=== PATIENT | female | born 1940 | race Caucasian/White ===

== ENCOUNTER 2020-07-22 10:56 | Outpatient (REF) | payer MEDICARE, OTHER, SELFPAY ==
--- NOTE | 2020-07-22 | XR_ITS ---
EXAMINATION: XR SHOULDER, RIGHT CLINICAL INFORMATION: Right shoulder pain COMPARISON: Radiographs right shoulder 12/09/2019 TECHNIQUE: The right shoulder is imaged in 4 views. FINDINGS: There is calcific tendinosis involving the mid to distal superior rotator cuff in region of supraspinatus. There may also be mineralization in the teres minor. There is no fracture or dislocation or destructive process. Degenerative changes are again noted involving the acromioclavicular joint. There is some spurring at the superior glenoid as well as the superior lateral acromium. The acromioclavicular alignment is normal. IMPRESSION: 1. Calcific tendinosis rotator cuff. 2. Degenerative changes acromioclavicular joint.
== END 2020-07-22 10:57 | disposition home or self-care (01) ==
LOC: HO.XRAY 10:56
PROVIDERS: PCP Internal Medicine; Visit Provider Emergency Medicine
DX: M25.511 Pain in right shoulder (principal)
CPT/HCPCS: 73030

== ENCOUNTER → 2020-07-28 13:19 | Outpatient (BNVA) | payer MEDICARE, OTHER, SELFPAY | PROVIDERS: PCP Internal Medicine; Referring Provider Internal Medicine; Visit Provider Orthopaedic Surgery | DX: M75.101 Unspecified rotator cuff tear or rupture of right shoulder, not specified as traumatic (principal); M12.811 Other specific arthropathies, not elsewhere classified, right shoulder | CPT/HCPCS: 20610; 99214; J1040 ==

== ENCOUNTER 2020-08-27 12:06 | Outpatient (REF) | payer MEDICARE, OTHER, SELFPAY ==
--- NOTE | 2020-08-27 12:10 | XR_ITS ---
EXAMINATION: XR HIP, RIGHT CLINICAL INFORMATION: Right hip pain. COMPARISON: Left hip radiographs dated 12/25/2018. TECHNIQUE: Two views of the right hip. FINDINGS: Minimal right hip degenerative joint changes are seen. There is no acute fracture or dislocation. The right hemipelvis is intact. XR/XR hip RT min 2V IMPRESSION: Minimal right hip degenerative joint changes. No acute abnormality. These findings are less pronounced compared to the left hip.
== END 2020-08-27 12:07 | disposition home or self-care (01) ==
LOC: HO.XRAY 12:06
PROVIDERS: Visit Provider Internal Medicine
DX: M25.551 Pain in right hip (principal)
CPT/HCPCS: 73502

== ENCOUNTER 2021-03-25 08:51 | Outpatient (REF) | payer MEDICARE, MEDICAID, SELFPAY ==
[2021-03-25 11:09] LABS: B Type Natriuretic Peptide 23 pg/mL (<100)
== END 2021-03-25 08:52 | disposition home or self-care (01) ==
LOC: HO.LAB 08:51
PROVIDERS: PCP Internal Medicine; Referring Provider Internal Medicine; Visit Provider Internal Medicine Cardiovascular Disease
DX: R06.01 Orthopnea (principal); I42.9 Cardiomyopathy, unspecified; R06.02 Shortness of breath; I10 Essential (primary) hypertension; G47.33 Obstructive sleep apnea (adult) (pediatric); Z79.899 Other long term (current) drug therapy; Z87.891 Personal history of nicotine dependence
CPT/HCPCS: 36415; 83880; 93005; 99212

== ENCOUNTER 2021-04-01 11:00 | Outpatient (REF) | payer MEDICARE, MEDICAID, SELFPAY ==
[2021-04-01 12:20] LABS: Hematocrit 39.6 % (37-47); Hemoglobin 12.7 g/dl (12.0-16.0); Mean Corpuscular HGB Conc 32.1 g/dl (31.0-35.0); Mean Corpuscular Hemoglobin 28.7 pg (27.0-33.0); Mean Corpuscular Volume 89.4 fL (80-98); Mean Platelet Volume 9.8 fL (9.4-12.3); Platelet Count 357 X10*3/uL (160-400); Red Blood Count 4.43 X10*6/uL (4.20-5.50); Red Cell Distribution Width 14.1 % (11.0-16.0); White Blood Count 7.1 X10*3/uL (4.8-10.8)
[2021-04-01 12:46] LABS: Alanine Aminotransferase 17 U/L (0-31); Alkaline Phosphatase 94 U/L (39-117); Anion Gap 12 (12-20); Aspartate Amino Transferase 18 U/L (5-31); Bilirubin Total 0.5 mg/dL (0.0-1.0); Blood Urea Nitrogen 22 mg/dL (9-16); Carbon Dioxide 27 mmol/L (22-29); Chloride 106 mmol/L (96-108); Cholesterol 137 mg/dL; Estimated Glomerular Filt Rate > 60; Glucose Random 133 mg/dL (60-115); HDL Cholesterol 50 mg/dL; LDL Cholesterol Calculated 58 mg/dl; Potassium 4.2 mmol/L (3.3-5.1); Sodium 141 mmol/L (135-145); Total Protein 6.8 g/dL (6.5-8.0); Triglycerides 148 mg/dL
[2021-04-01 13:08] LABS: Thyroid Stimulating Hormone 0.78 uIU/mL (0.32-4.0)
[2021-04-01 15:02] LABS: Microalbum/Creatinine Ratio Ur 10.6 ug/mg cr
== END 2021-04-01 11:01 | disposition home or self-care (01) ==
LOC: HO.LAB 11:00
PROVIDERS: PCP Internal Medicine; Visit Provider Internal Medicine
DX: E11.9 Type 2 diabetes mellitus without complications (principal); I10 Essential (primary) hypertension
CPT/HCPCS: 36415; 80053; 80061; 82043; 84443; 85027

== ENCOUNTER → 2021-04-14 13:56 | Outpatient (REF) | payer MEDICARE, MEDICAID, SELFPAY ==
--- NOTE | 2021-04-14 13:59 | CA_ITS ---
Transthoracic Echocardiogram Patient (Last, First, Middle): Charleen Urena, Gender: Female Date of : 1940 Age: 81 Procedure Date: 04/14/2021 Procedure Type: Transthoracic Echocardiogram Location: OP Height: 152.4 cm Weight: 78.02 kg BSA: 1.75 m2 Heart Rate: bpm BP: 136 / 60 mmHg Shift Foreman: Referring MD: Junaid Hitchcock MD Symptoms: I42.9 - Cardiomyopathy, unspecified Study Quality: Good ECG Rhythm: Sinus Conclusions: - The left ventricular systolic function is normal. The visually estimated ejection fraction is between 60-65%. - There is mild calcification of the aortic valve. - There is mild mitral annular calcification. - Interatrial septum not well visualized. Possibly aneurysmal in some views. - May consider bubble study if clinically indicated. Findings Left Ventricle Normal left ventricular cavity size. There is normal left ventricular wall thickness. The left ventricular systolic function is normal. The visually estimated ejection fraction is between 60-65%. There is no evidence of regional wall motion abnormalities. E/E prime ratio is between 8 and 15 consistent with indeterminate filling pressures. Evidence suggests grade I (mild) diastolic dysfunction. Right Ventricle Normal right ventricular cavity size and systolic function. Atria Both atria are normal in size. Interatrial septum not well visualized. Possibly aneurysmal in some views. Aortic Valve There is a normal trileaflet aortic valve. There is mild calcification of the aortic valve. There is no aortic valve stenosis. There is no aortic valve regurgitation. Mitral Valve The mitral valve appears normal. There is mild mitral annular calcification. There is trace mitral valve regurgitation. There is no mitral valve stenosis. Pulmonic Valve The pulmonic valve was not well visualized. Tricuspid Valve Normal tricuspid valve structure. There is trace tricuspid valve regurgitation. The pulmonary artery systolic pressure is normal. Great Vessels The aortic annulus, sinuses of valsalva, asc aorta, and aortic arch are normal in size. Venous The inferior vena cava is normal in size and collapses greater than 50% with inspiration. Pericardium/Pleural There is no evidence of pericardial effusion. Prior Study Comparison No significant change compared to prior study dated: 05/18/2018. Measurements 2D Linear Measurements RVIDd: 3.44 RVIDd Index: 1.97 IVSd: 1.01 0.6-0.9/0.6-1.0 cm LVIDd: 4.86 3.9-5.3/4.2-5.9 cm LVIDd Index: 2.78 2.4-3.2/2.2-3.1 cm/m2 LVIDs: 3.41 2.0-3.6 cm LVPWd: 1.13 0.7-1.1 cm Ao Root: 3.00 2.1-3.5 cm LV Mass: 237.34 67-162/88-224 g LV Mass Index: 135.62 43-95/49-115 g/m2 LVOT Diam: 2.00 3.0+(-)1.3 cm 2D Systolic Function EF 4C: 53.40 >55% EF 2C: 63.40 >55% Mitral Valve MV Pk E: 0.69 MV PK A: 0.83 MV Decel Time: 281.00 E/A: 0.80 E'Lateral: 6.09 E'Medial: 4.24 E/E' Med: 16.30 E/E' Lat: 11.30 MR Alias Cj: 0.40 MR RAD: 0.40 Aortic Valve AoV Pk Cj: 1.49 AoV Mn Cj: 1.01 AoV VTI: 0.33 AoV Pk Grad: 9.00 Aov Mn Grad: 5.00 JOELLEN Cont.VTI: 2.04 LVOT LVOT Pk Cj: 1.01 LVOT Mn Cj: 0.64 LVOT VTI: 0.22 LVOT Pk Grad: 4.00 LVOT Mn Grad: 2.00 LVOT Diam: 2.00 LVOT Area: 3.14 Diastolic Function MV Pk E: 0.69 MV Pk A: 0.83 E/A: 0.80 E'Medial: 4.24 E/E' Med: 16.30 E' Laterial: 6.09 E/E' Lat: 11.30 Tricuspid Valve TR Pk Cj: 2.17 TR Pk Grad: 19.00 RA Press: 3.00 RVSP: 22.00 Great Vessels Aorta Ao Root-2D: 3.00 2.0-3.7 cm Ao Asc: 2.60 2.1-3.4 cm Ao Arch: 2.30 Updated in Other Vendor System with Status of Final Amol Causey MD electronically signed on 04/15/2021 12:38:07 PM with status of Final
== END ==
LOC: HO.CARD 13:56
PROVIDERS: PCP Internal Medicine; Visit Provider Internal Medicine Cardiovascular Disease
DX: I42.9 Cardiomyopathy, unspecified (principal); R06.01 Orthopnea
CPT/HCPCS: 93306

== ENCOUNTER → 2021-06-28 09:22 | Outpatient (BNVA) | payer MEDICARE, MEDICAID, SELFPAY | PROVIDERS: PCP Internal Medicine; Referring Provider Internal Medicine; Visit Provider Psychiatry & Neurology Neurology | DX: G47.33 Obstructive sleep apnea (adult) (pediatric) (principal); G47.10 Hypersomnia, unspecified; R06.83 Snoring | CPT/HCPCS: 99202 ==

== ENCOUNTER 2021-07-21 11:58 | Outpatient (REF) | payer MEDICARE, MEDICAID, SELFPAY ==
--- NOTE | ~2021-07-21 | XR_ITS ---
EXAMINATION: XR CHEST CLINICAL INFORMATION: COPD with acute exacerbation. COMPARISON: 12/05/2013 TECHNIQUE: 2 views of the chest were obtained. FINDINGS: Again seen are scarring/bullous changes in both upper lobes, right greater than left. Findings are similar when compared to the 12/05/2013 study. Increased opacity at the left lung base with obscuration of the left hemidiaphragm, probably secondary to atelectasis and appears unchanged when compared to 2013. XR/XR chest 2V IMPRESSION: No acute intrathoracic disease.
== END 2021-07-21 11:59 | disposition home or self-care (01) ==
LOC: HO.XRAY 11:58
PROVIDERS: PCP Internal Medicine; Visit Provider Internal Medicine
DX: J44.1 Chronic obstructive pulmonary disease with (acute) exacerbation (principal)
CPT/HCPCS: 71046

== ENCOUNTER 2021-07-23 09:43 | Emergency (ER) | payer MEDICARE, MEDICAID, SELFPAY ==
--- NOTE | ~2021-07-23 | XR_ITS ---
EXAMINATION: XR CHEST CLINICAL INFORMATION: Wheezing. COMPARISON: Chest radiograph done on 07/21/2021. TECHNIQUE: 2 views of the chest were obtained. FINDINGS: Stable pleural-based linear opacities noted at right mid lung field laterally, likely represent nonspecific pleural thickening. Pleural parenchymal airspace disease at both lung apices appear unchanged. Mild blunting of the left lateral CP angle is noted, most consistent with trace effusion or thickening or combination thereof. The remainder of the lung vieira bilaterally clear. The cardiomediastinal silhouette is within normal limit. Overall, no significant change. XR/XR chest 2V IMPRESSION: No radiographic evidence of acute cardiopulmonary disease, essentially remains stable since 07/21/2021.
[2021-07-23 10:13] VITALS: BP 128/61; PULSE 88; RESP 18; TEMP 36.4; O2SAT 93; BMI 30.2
[2021-07-23] MEDS: Albuterol Sulfate (0.083%) 2.5 MG/3 ML VIAL.NEB 5 MG INHALE ×2 (10:59→13:17)
[2021-07-23] MEDS: Albuterol/Iprat 2.5/0.5MG 3 ML AMPUL.NEB INHALE ×2 (10:59→13:17)
[2021-07-23 11:01] LABS: MANUAL DIFF FLAG NO
--- NOTE | 2021-07-23 11:03 | ED_ITS ---
HPI - Asthma General Chief Complaint: Asthma Stated Complaint: ASTHMA Time Seen by Provider: 07/23/21 09:50 Source: patient Mode of arrival: ambulatory History of Present Illness HPI Narrative: 81-year-old female with a past medical history of asthma, cardiac catheterization, HTN, presenting to the ED complaining of asthma exacerbation with persistent cough, SOB/wheezing x1 week. Admits was seen by PCP and in our ED last week, treated with albuterol pump and p.o. prednisone without relief. States recently traveled to [place] and got sick there, then tested negative for COVID-19 on 07/14. Denies fever, chills, LE edema, calf pain, chest pain, sick contacts MD complaint: asthma attack , shortness of breath and wheezing Related Data Home Medications Medication Instructions Recorded Confirmed amlodipine 5 mg tablet 5 mg PO DAILY 07/28/20 03/25/21 atorvastatin 20 mg tablet 20 mg PO DAILY 07/28/20 03/25/21 naproxen 500 mg tablet,delayed 500 mg PO BID 07/28/20 03/25/21 release (EC-Naproxen) vitamin E (dl, acetate) PO 07/28/20 03/25/21 fluticasone fur. 100 mcg-umeclid 1 ea INHALATION DAILY 03/25/21 03/25/21 62.5 mcg-vilant 25 mcg inhalat.powder Previous Rx's Medication Instructions Recorded furosemide 20 mg tablet 20 mg PO DAILY #30 tab 03/25/21 albuterol sulfate 2.5 mg/0.5 mL 5 mg INHALATION Q4H PRN #30 ea 07/23/21 solution for nebulization albuterol sulfate 90 mcg/actuation 2 puff INHALATION Q4-6H PRN #6.7 g 07/23/21 aerosol inhaler benzonatate 100 mg capsule 100 mg PO TID PRN #14 cap 07/23/21 (Tessalon Perles) fluticasone propionate 50 2 spray INTRANASAL DAILY #16 g 07/23/21 mcg/actuation nasal spray,suspension (Flonase Allergy Relief) prednisone 20 mg tablet 40 mg PO DAILY 5 Days #10 tab 07/23/21 Allergies Allergy/AdvReac Type Severity Reaction Status Date / Time Penicillins [PENICILLINS] Allergy Mild RASH Verified 07/23/21 10:16 Sulfa (Sulfonamide Allergy Mild RASH Verified 07/23/21 10:16 Antibiotics) [SULFA(SULFONAMIDE ANTIBIOTICS)] latex Allergy rash Verified 07/23/21 10:16 Review of Systems Review of Systems: Constitutional: No Fever, No Chills, No Fatigue, No Malaise ENT/Mouth: No Ear Pain, No Nasal Congestion, No sore throat, No Rhinorrhea Eyes: No Eye Pain, No Swelling, No Redness, No Discharge Cardiovascular: No Chest Pain, + SOB, No Dyspnea on Exertion, No Orthopnea, No Edema, No Palpitations Respiratory: + Cough, No Sputum, +Wheezing, No Smoke Exposure, + Dyspnea Gastrointestinal: No Nausea, No Vomiting, No Diarrhea, No Constipation, No Abdominal pain Genitourinary: No Dysuria, No Flank Pain Musculoskeletal: No joint pain, No Myalgias, No Joint Swelling Skin: No Skin Lesions, No rash Neuro: No Weakness, No Numbness, No Dizziness, No Headache Yes all other systems are reviewed and are negative [facility] Past Medical History Medical History Asthma Hypertension Other specific arthropathies, not elsewhere classified, right shoulder Unspecified rotator cuff tear or rupture of right shoulder, not specified as traumatic 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 Father No problems noted. Social History Social History Alcohol intake: never Patient Tobacco Use Status: Former Tobacco user Quit Date: Years Smoked: 20+ Advance Directives: No Advance Directives Information Provided: Yes Current occupational status: retired Current occupation: Right Handed Physical Exam Vital Signs: Vital Signs: Last Vital Signs Temp 97.6 F 07/23/21 10:13 Pulse 79 07/23/21 13:17 Resp 18 07/23/21 12:03 BP 128/61 07/23/21 10:13 Pulse Ox 93 07/23/21 10:13 Body Mass Index 30.2 Const: General: cooperative, healthy appearing and no acute distress Orientation/consciousness: patient oriented x3 Limitations: no limitations HENMT: Head: Yes normal to inspection Ears: hearing grossly normal bilaterally General nose exam: Normal external nose present Face and sinus: Yes normal facial exam Eyes: General: appearance normal, both eyes and all related structures EOM: EOMs intact bilaterally Neck: Neck: Yes normal visual inspection and Yes no meningeal signs Resp: Effort & Inspection: normal respiratory effort Auscultation: rhonchi lower bilaterally and wheezes expiratory wheezes Cardio: Rate: regular rate Heart sounds: S1 normal heart sound present and S2 normal heart sound present GI: Inspection: Yes normal to inspection Skin: Rashes: no rashes Wounds: no wounds Neuro: General: patient oriented x3 and no meningeal signs Gait exam (Neuro): Normal gait present Extrem: General: Yes normal to inspection, Yes no pedal edema and Yes no calf tenderness Course Course Course Narrative: XR chest 2V IMPRESSION: No radiographic evidence of acute cardiopulmonary disease, essentially remains stable since 07/21/2021. 1200--No leukocytosis. Labs otherwise unremarkable. COVID-19 negative -1443--On re-evaluation after 2nd DuoNeb patient reports symptomatic improvement, sating 96% on RA. Improved breath sounds/air movement, slight residual right basilar end-expiratory wheeze. Offered an additional neb treatment in the ED however patient would like to go home at this time. Discussed with patient nebulized treatments at home, prednisone, and she is to follow up with PCP on Sunday. Discussed strict return precautions including continued or worsening of symptoms, CP, etc to return to the ED immediately. Patient verbalized understanding would like to be discharged home at this time MDM - Asthma MDM Narrative Medical decision making narrative: 81-year-old female with a past medical hi story of asthma, cardiac catheterization, HTN, presenting to the ED complaining of asthma exacerbation with persistent cough, SOB/wheezing x1 week. On exam VSS, satting 93% on RA, in no respiratory distress, rhonchorous/expiratory wheeze noted on exam, no LE edema/calf tenderness. Concern for asthma exacerbation/viral syndrome/COVID-19. Rule out pneumonia. Lower concern for PE/ACS. Unable to see prior ED visit if patient was evaluated in emergency department/PCPs office. Plan: Labs, CXR, COVID-19 testing, albuterol/DuoNeb, Solu-Medrol, magnesium, re-evaluate, anticipated DC home Medical Records Attestation: I reviewed the patient's medical records. Lab Data Attestation: I reviewed the patient's lab results. Result diagrams: 07/23/21 10:53 07/23/21 10:53 Labs: Lab Results 07/23/21 07/23/21 07/23/21 Range/Units 10:53 10:53 10:54 WBC 9.8 (4.8-10.8) X10*3/uL RBC 4.23 (4.20-5.50) X10*6/uL Hgb 12.4 (12.0-16.0) g/dl Hct 37.0 (37-47) % MCV 87.5 (80-98) fL MCH 29.3 (27.0-33.0) pg MCHC 33.5 (31.0-35.0) g/dl RDW 14.4 (11.0-16.0) % Plt Count 298 (160-400) X10*3/uL MPV 9.7 (9.4-12.3) fL Immature Gran % (Auto) 0.6 H (0.0-0.4) % Neut % (Auto) 78.3 H (45-73) % Lymph % (Auto) 13.9 L (20-40) % [place] % (Auto) 5.8 (2-11) % Eos % (Auto) 1.3 (0-4) % Baso % (Auto) 0.1 (0-2) % Lymph # (Auto) 1.4 (1.2-4.9) X10*3/uL [place] # (Auto) 0.6 (0.1-1.2) X10*3/uL Eos # (Auto) 0.1 (0.0-0.4) X10*3/uL Baso # (Auto) 0.0 (0.0-0.2) X10*3/uL Abs Immat Gran (auto) 0.06 H (0.00-0.03) X10*3/uL Absolute Neuts (auto) 7.7 (2.0-8.3) X10*3/uL Absolute Nucleated RBC 0.000 (0.0-0.012) X10*3/uL Nucleated RBC % (auto) 0.0 (0.0-0.2) /100WBC Sodium 142 (135-145) mmol/L Potassium 3.8 (3.3-5.1) mmol/L Chloride 107 (96-108) mmol/L Carbon Dioxide 27 (22-29) mmol/L Anion Gap 12 (12-20) BUN 16 (9-16) mg/dL Creatinine 0.83 (0.5-1.4) mg/dL Estim Creat Clear Calc 49.2 Estimated GFR > 60 Random Glucose 183 H (60-115) mg/dL Calcium 8.8 (8.4-10.2) mg/dL COVID-19 ([place]) Negative (Negative) COVID-19 Clin Com See Note Discharge Plan Discharge Clinical Impression: Asthma with acute exacerbation Qualifiers: Asthma severity: unspecified severity Asthma persistence: unspecified Qualified Code(s): J45.901 - Unspecified asthma with (acute) exacerbation Patient Disposition: Home, Self-Care Instructions: Asthma (ED) Additional Instructions: Your chest x-ray is unremarkable Your blood work was reassuring It is important for you to use your asthma medications consistently at home. Use her nebulizer machine Prednisone as a steroid, take as prescribed In addition take Tessalon Perles for cough In Flonase is a nasal decongestion Please follow-up with her doctor on Sunday If her symptoms persist or worsen, constant worsening shortness breath, cough, or develop chest pain please return to the ED Prescriptions: New albuterol sulfate 90 mcg/actuation HFA aerosol inhaler 2 puff inhalation Q4-6H PRN (Reason: shortness of breath or wheezing) Qty: 6.7 RF: 0 albuterol sulfate 2.5 mg/0.5 mL solution for nebulization 5 mg inhalation Q4H PRN (Reason: shortness of breath or wheezing) Qty: 30 RF: 0 prednisone 20 mg tablet 40 mg PO DAILY 5 Days Qty: 10 RF: 0 benzonatate [Tessalon Perles] 100 mg capsule 100 mg PO TID PRN (Reason: cough) Qty: 14 RF: 0 fluticasone propionate [Flonase Allergy Relief] 50 mcg/actuation spray,suspens ion 2 spray intranasal DAILY Qty: 16 RF: 0 No Action furosemide 20 mg tablet 20 mg PO DAILY Qty: 30 RF: 3 naproxen [EC-Naproxen] 500 mg tablet,delayed release (DR/EC) 500 mg PO BID RF: 0 amlodipine 5 mg tablet 5 mg PO DAILY RF: 0 atorvastatin 20 mg tablet 20 mg PO DAILY RF: 0 vitamin E (dl, acetate) PO RF: 0 Trelegy Ellipta 100-62.5-25 mcg blister with device 1 ea inhalation DAILY RF: 0 Referrals: Thaddeus Salazar MD [Primary Care Provider] - 2 days
[2021-07-23 11:04] VITALS: PULSE 67; O2SAT 98
[2021-07-23 11:04] LABS: Basophils Percent Auto 0.1 % (0-2); Eosinophils Absolute Auto 0.1 X10*3/uL (0.0-0.4); Eosinophils Percent Auto 1.3 % (0-4); Hemoglobin 12.4 g/dl (12.0-16.0); Imm Gran Abs Auto 0.06 X10*3/uL (0.00-0.03); Imm Gran Pct Auto 0.6 % (0.0-0.4); Lymphocytes Absolute Auto 1.4 X10*3/uL (1.2-4.9); Lymphocytes Percent Auto 13.9 % (20-40); Mean Corpuscular HGB Conc 33.5 g/dl (31.0-35.0); Mean Corpuscular Hemoglobin 29.3 pg (27.0-33.0); Mean Corpuscular Volume 87.5 fL (80-98); Mean Platelet Volume 9.7 fL (9.4-12.3); Monocytes Absolute Auto 0.6 X10*3/uL (0.1-1.2); Monocytes Percent Auto 5.8 % (2-11); Neutrophils Absolute Auto 7.7 X10*3/uL (2.0-8.3); Neutrophils Percent Auto 78.3 % (45-73); Platelet Count 298 X10*3/uL (160-400); Red Blood Count 4.23 X10*6/uL (4.20-5.50); Red Cell Distribution Width 14.4 % (11.0-16.0); White Blood Count 9.8 X10*3/uL (4.8-10.8)
[2021-07-23] MEDS: methylPREDNISolone Sod Succ 125 MG/2 ML VIAL IVPUSH (11:10)
[2021-07-23] MEDS: Magnesium Sulfate/H2O 2 GM/50 ML PIGGYBACK IV (11:11)
[2021-07-23 11:17] LABS: COVID-19 Test Negative (Negative); IDNOW Serial# 9DD0AD1C
[2021-07-23 11:18] LABS: Anion Gap 12 (12-20); Blood Urea Nitrogen 16 mg/dL (9-16); Calcium 8.8 mg/dL (8.4-10.2); Carbon Dioxide 27 mmol/L (22-29); Chloride 107 mmol/L (96-108); Creatinine Clr Calc Pharmacy 49.2; Estimated Glomerular Filt Rate > 60; Glucose Random 183 mg/dL (60-115); Potassium 3.8 mmol/L (3.3-5.1); Sodium 142 mmol/L (135-145)
[2021-07-23 12:03] VITALS: PULSE 72; RESP 18
--- NOTE | 2021-07-23 12:47 | PC.NURSE ---
PT C/O FEELING NAUSEAS.
[2021-07-23] MEDS: ondansetron HCL 4 MG/2 ML VIAL IVPUSH (12:55)
[2021-07-23 13:17] VITALS: PULSE 79; O2SAT 94
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
== END 2021-07-23 15:05 | disposition home or self-care (01) ==
PROVIDERS: Physician Assistant; Emergency Provider Emergency Medicine; PCP Internal Medicine
DX: J45.901 Unspecified asthma with (acute) exacerbation (principal); I10 Essential (primary) hypertension; Z20.822 Contact with and (suspected) exposure to COVID-19
CPT/HCPCS: 36415; 71046; 80048; 85025; 87635; 94640; 94644; 96365; 96366; 96375; 99284; 99285; J2405; J2930; J3475

== ENCOUNTER → 2021-08-04 12:51 | Outpatient (BNVA) | payer MEDICARE, MEDICAID, SELFPAY | PROVIDERS: PCP Internal Medicine; Referring Provider Internal Medicine; Visit Provider Internal Medicine Cardiovascular Disease | DX: I10 Essential (primary) hypertension (principal) | CPT/HCPCS: 99212 ==

== ENCOUNTER → 2021-08-23 10:36 | Outpatient (BNVA) | payer MEDICARE, MEDICAID, SELFPAY | PROVIDERS: PCP Internal Medicine; Referring Provider Internal Medicine; Visit Provider Psychiatry & Neurology Neurology ==

== ENCOUNTER → 2021-11-08 15:02 | Outpatient (BNVA) | payer MEDICARE, MEDICAID, SELFPAY | PROVIDERS: PCP Internal Medicine; Referring Provider Internal Medicine; Visit Provider Nurse Practitioner Family | DX: Z13.89 Encounter for screening for other disorder (principal) ==

== ENCOUNTER → 2022-03-08 13:10 | Outpatient (BNVA) | payer MEDICARE, MEDICAID, SELFPAY | PROVIDERS: PCP Internal Medicine; Referring Provider Internal Medicine; Visit Provider Internal Medicine Cardiovascular Disease | DX: I10 Essential (primary) hypertension (principal); Z79.899 Other long term (current) drug therapy | CPT/HCPCS: 93005; 99212 ==

== ENCOUNTER → 2022-04-07 12:56 | Outpatient (REF) | payer MEDICARE, OTHER, SELFPAY ==
--- NOTE | 2022-04-07 13:00 | CA_ITS ---
Transthoracic Echocardiogram Patient (Last, First, Middle): Charleen Urena, Gender: Female Date of : 1940 Age: 82 Procedure Date: 04/07/2022 Procedure Type: Transthoracic Echocardiogram Location: OP Height: 152.4 cm Weight: 72.58 kg BSA: 1.70 m2 Heart Rate: bpm BP: 124 / 60 mmHg Wet End Helper: Referring MD: Junaid Hitchcock MD Symptoms: R60.0 LOCALIZE EDEMA Study Quality: Fair ECG Rhythm: Sinus Conclusions: - The left ventricular systolic function is normal. The calculated ejection fraction is 59% by biplane method. - There is mild mitral annular calcification. - No obvious valvular pathology seen on this study. Findings Left Ventricle Normal left ventricular cavity size. There is mildly increased left ventricular wall thickness. The left ventricular systolic function is normal. The calculated ejection fraction is 59% by biplane method. There is no evidence of regional wall motion abnormalities. E/E prime ratio is >15, consistent with elevated filling pressures. Evidence suggests grade I (mild) diastolic dysfunction. Right Ventricle Normal right ventricular cavity size and systolic function. Atria Both atria are normal in size. Aortic Valve There is a normal trileaflet aortic valve. There is no aortic valve stenosis. There is no aortic valve regurgitation. Mitral Valve There is mild mitral annular calcification. There is trace mitral valve regurgitation. There is no mitral valve stenosis. Pulmonic Valve The pulmonic valve is likely normal. Tricuspid Valve There is trace tricuspid valve regurgitation. The pulmonary artery systolic pressure is normal. Great Vessels The asc aorta is normal in size. Venous The inferior vena cava is normal in size and collapses greater than 50% with inspiration. Pericardium/Pleural There is no evidence of pericardial effusion. Prior Study Comparison No significant change compared to prior study dated: 04/14/2021. Recommendations, Care & Conclusions No obvious valvular pathology seen on this study. Measurements 2D Linear Measurements IVSd: 1.25 0.6-0.9/0.6-1.0 cm LVIDd: 4.44 3.9-5.3/4.2-5.9 cm LVIDd Index: 2.61 2.4-3.2/2.2-3.1 cm/m2 LVIDs: 2.80 2.0-3.6 cm LVPWd: 1.27 0.7-1.1 cm Ao Root: 3.00 2.1-3.5 cm LA Diam: 4.00 2.7-3.8/3.0-4.0 cm LAIDs Index: 2.35 1.5-2.3 cm/m2 LV Mass: 259.61 67-162/88-224 g LV Mass Index: 152.71 43-95/49-115 g/m2 LVOT Diam: 2.00 3.0+(-)1.3 cm 2D Systolic Function EF 4C: 60.70 >55% EF 2C: 59.10 >55% EF BiP: 59.30 >55% Mitral Valve MV Pk E: 0.64 MV PK A: 0.89 MV Decel Time: 199.00 E/A: 0.70 E'Lateral: 4.35 E'Medial: 3.70 E/E' Med: 17.40 E/E' Lat: 14.80 PHT: 58.00 MVA PHT: 3.79 Decel [place]: 3.23 Aortic Valve AoV Pk Cj: 1.72 AoV Mn Cj: 1.15 AoV VTI: 0.40 AoV Pk Grad: 12.00 Aov Mn Grad: 6.00 JOELLEN Cont.VTI: 1.95 LVOT LVOT Pk Cj: 1.07 LVOT Mn Cj: 0.64 LVOT VTI: 0.25 LVOT Pk Grad: 5.00 LVOT Mn Grad: 2.00 LVOT Diam: 2.00 LVOT Area: 3.14 Diastolic Function MV Pk E: 0.64 MV Pk A: 0.89 E/A: 0.70 E'Medial: 3.70 E/E' Med: 17.40 E' Laterial: 4.35 E/E' Lat: 14.80 Right Ventricle TAPSE (mm): 23.00 Tricuspid Valve TR Pk Cj: 2.22 TR Pk Grad: 20.00 RA Press: 3.00 RVSP: 23.00 Great Vessels Aorta Ao Root-2D: 3.00 2.0-3.7 cm Ao Asc: 2.80 2.1-3.4 cm Pulmonary Valve PV Pk Cj: 1.03 Peak PV Grad: 4.00 Updated in Other Vendor System with Status of Final Amol Causey MD electronically signed on 04/08/2022 2:19:33 PM with status of Final
== END ==
LOC: HO.CARD 12:56
PROVIDERS: Visit Provider Internal Medicine Cardiovascular Disease
DX: R60.0 Localized edema (principal)
CPT/HCPCS: 93306

== ENCOUNTER 2022-04-20 09:27 | Outpatient (REF) | payer MEDICARE, MEDICAID, SELFPAY ==
[2022-04-20 09:50] LABS: MANUAL DIFF FLAG NO
[2022-04-20 10:29] LABS: Basophils Percent Auto 0.5 % (0-2); Eosinophils Absolute Auto 0.1 X10*3/uL (0.0-0.4); Eosinophils Percent Auto 1.9 % (0-4); Hematocrit 40.2 % (37.0-47.0); Imm Gran Abs Auto 0.04 X10*3/uL (0.00-0.03); Imm Gran Pct Auto 0.5 % (0.0-0.4); Lymphocytes Absolute Auto 2.1 X10*3/uL (1.2-4.9); Lymphocytes Percent Auto 27.4 % (20-40); Mean Corpuscular HGB Conc 32.3 g/dl (31.0-35.0); Mean Corpuscular Hemoglobin 29.5 pg (27.0-33.0); Mean Corpuscular Volume 91.4 fL (80.0-98.0); Mean Platelet Volume 9.2 fL (9.4-12.3); Monocytes Absolute Auto 0.6 X10*3/uL (0.1-1.2); Monocytes Percent Auto 8.4 % (2-11); Neutrophils Absolute Auto 4.6 x10*3/uL (2.0-8.3); Neutrophils Percent Auto 61.3 % (45-73); Platelet Count 307 X10*3/uL (160-400); Red Cell Distribution Width 13.2 % (11.0-16.0); White Blood Count 7.5 X10*3/uL (4.8-10.8)
[2022-04-20 10:54] LABS: Anion Gap 11 (12-20); Blood Urea Nitrogen 26 mg/dL (9-16); Calcium 8.8 mg/dL (8.4-10.2); Carbon Dioxide 29 mmol/L (22-29); Chloride 105 mmol/L (96-108); Estimated Glomerular Filt Rate > 60; Glucose Random 123 mg/dL (60-115); Potassium 4.1 mmol/L (3.3-5.1); Sodium 141 mmol/L (135-145)
== END 2022-04-20 09:28 | disposition home or self-care (01) ==
LOC: HO.LAB 09:27
PROVIDERS: Absent Provider Internal Medicine; PCP Internal Medicine; Visit Provider Family Medicine
DX: I10 Essential (primary) hypertension (principal)
CPT/HCPCS: 36415; 80048; 85025

== ENCOUNTER 2022-06-24 15:52 | Emergency (ER) | payer MEDICARE, OTHER, SELFPAY ==
--- NOTE | ~2022-06-24 | XR_ITS ---
EXAMINATION: XR KNEE, RIGHT CLINICAL INFORMATION: Pain. COMPARISON: Radiograph of the right knee dated from 08/13/2017. TECHNIQUE: Four views of the right knee. FINDINGS: Total right knee arthroplasty. No evidence of hardware failure or periprosthetic fracture. Decreased bone mineralization. Small joint effusion. Nonspecific soft tissue swelling, more noticeable along the anterior compartment. XR/XR knee RT 4V IMPRESSION: Total right knee arthroplasty. No evidence of hardware failure. No acute fractures. Small joint effusion. Nonspecific soft tissue swelling.
--- NOTE | ~2022-06-24 | CT_ITS ---
EXAMINATION: CT HEAD WITHOUT CONTRAST CLINICAL INFORMATION: Trauma. COMPARISON: CT head dated from 04/26/2020. TECHNIQUE: Contiguous axial imaging was performed from the skull base to vertex without intravenous administration of contrast. This CT examination was performed using dose optimization techniques as appropriate, variously including the following: *Automated exposure control *Adjustment of mA and/or kV according to patient size (this includes techniques or standardized protocols for targeted exams where dose is matched to indication/reason for exam; i.e. extremities or head) *Use of iterative reconstruction technique DLP: 631 mGy-cm FINDINGS: Examination is limited due to motion. A high attenuating lesion along the right interhemispheric falx measuring 1.6 x 1.1 x 1.8 cm (4:54) is not significantly changed when compared to 04/26/2020, this lesion appears to be extra-axial and likely represents a meningioma. There is no evidence of acute intracranial hemorrhage or edematous territorial infarction. Scattered hypoattenuation in the periventricular and deep white matter are consistent with moderate microangiopathy. Grewal-white matter differentiation is preserved. Proportional prominence of the ventricles and sulcal spaces. No evidence for obstructive hydrocephalus. No abnormal mass effect or midline shift. No extra-axial fluid collections. No acute soft tissue or osseous abnormalities. Mucosal retention cyst in the right maxillary sinus. Mild mucosal thickening of the ethmoid air cells. The mastoids and middle ear cavities are clear. CT/CT head/brain wo IV con IMPRESSION: Evaluation is limited due to motion, however accounting for this limitation, no definite acute intracranial hemorrhage or edematous territorial infarct are noted. If clinically deemed appropriate, consider repeat examination to decrease motion and ensure the absence of subtle abnormalities. The majority of the motion is centered in the upper supratentorial brain. A high attenuating up to 1.8 cm right interhemispheric falx lesion is not significantly changed since 2019 and likely represents a meningioma.
--- NOTE | ~2022-06-24 | XR_ITS ---
EXAMINATION: XR SHOULDER, LEFT CLINICAL INFORMATION: Status post fall. COMPARISON: No similar priors. TECHNIQUE: Three views of the left shoulder. FINDINGS: No acute fracture or malalignment. There is decreased bone mineralization with moderate degenerative osteoarthritis of the glenohumeral and acromioclavicular joints. There is nonspecific diffuse heterogeneity of the bone marrow. There is mild calcific tendinosis of the rotator cuff. Nonspecific airspace opacities in the retrocardiac region/left lower lobe. Atherosclerotic disease of the thoracic aorta. XR/XR shoulder LT min 2V IMPRESSION: 1. No acute fracture or subluxation. 2. 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 3. Nonspecific heterogeneity of the bone marrow. 4. Airspace opacities in the left lower lobe. Recommend correlation with a chest radiograph.
--- NOTE | ~2022-06-24 | CT_ITS ---
EXAMINATION: CT CERVICAL SPINE AND CT CHEST WITHOUT CONTRAST. CLINICAL INFORMATION: Fall, head and neck, chest and left shoulder injury. Pain. COMPARISON: None TECHNIQUE: 3 mm thin axial and reformatted 2 mm thin sagittal coronal images of cervical spine were obtained. Subsequently axial 5 mm thin and reformatted 3 mm thin sagittal and coronal images of chest were obtained. DLP 409 FINDINGS: CERVICAL SPINE: On sagittal reconstructed images there is maintained cervical lordosis. The vertebral heights and alignment is normal. There is loss of C5-C6, C6-C7 and C7-T1 disc heights with ventral and posterior spondylosis. The craniovertebral junction and the C1-C2 alignment is normal. There is bilateral C3-C4, C4-C5 facet joint arthropathy and hypertrophy. Mild narrowing of right C3-C4, C5-C6 and C6-C7 neural foramina from uncovertebral hypertrophic changes are noted. No visible acute fracture, dislocation or subluxation seen. The prevertebral and the paravertebral soft tissues are normal. There is bilateral apical posterior pleural thickening. CHEST: The lungs are well-expanded with diffuse thickening of left major fissure. There is reticular interstitial prominence posterior segment right upper lobe superior segment right lower lobe and minimal in both lung bases. No consolidation, contusion or pleural effusion seen. The thyroid lobes are symmetrical and slightly enlarged for patient's age.. The central trachea and bronchi are widely patent. Heart size and the great vessels are normal caliber. There is trace coronary artery calcifications present. No pericardial effusion seen. Cardiomediastinal lymph nodes or hematoma. There is no pleural effusion or thickening. The axilla and chest wall is unremarkable. Imaging through the upper abdomen reveals punctate gas the left hepatic lobe. Otherwise visualized liver, spleen, pancreas and bilateral adrenal glands unremarkable. The gallbladder has been surgically removed. There is a simple cyst upper pole right kidney. 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 No aggressive lytic or sclerotic process seen. CT/CT cervical spine wo IV con IMPRESSION: Degenerative changes cervical spine. No visible acute fracture, dislocation or subluxation seen. Chronic subpleural parenchymal changes. No acute consolidation or contusion. No abnormal mediastinal hematoma or mass. Prominent thyroid lobes for patient's age. Cholecystectomy. Likely postsurgical gas in the left hepatic lobe. Correlate with clinical history. Simple cyst upper pole left kidney
[2022-06-24 16:11] VITALS: BP 143/63; BP 154/72; PULSE 74; PULSE 80; RESP 18; TEMP 36.6; O2SAT 95; O2SAT 97; BMI 32.5
[2022-06-24] MEDS: Acetaminophen 325 MG TABLET 975 MG PO (16:47)
[2022-06-24] MEDS: Cyclobenzaprine HCl 10 MG TABLET PO (16:47)
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
--- NOTE | 2022-06-24 17:44 | ED_ITS ---
HPI - Fall General Chief Complaint: Fall Stated Complaint: fall Time Seen by Provider: 06/24/22 16:32 Source: patient and family (Daughter at bedside) Mode of arrival: ambulatory Limitations: no limitations History of Present Illness HPI Narrative: 82-year-old female with a past medical history of asthma, hypertension, rotator cuff tear/rupture of the right shoulder and varicose veins presenting to the ED with her daughter at bedside with complaints of mechanical fall that occurred prior to arrival. She reports that she was in her house and her left something on the floor and she did not see it she tripped over what was on the floor into a drawer that was open from the dresser. She reports she landed into the door injuring her anterior chest wall and left shoulder along with her right knee. She denies head injury loss of consciousness or prolonged down time. She denies any symptoms prior to the fall. She reports only anterior chest wall pain, left shoulder pain and right knee pain after the fall. She denies being on any blood thinners. She denies any other symptoms complaints or concerns or injuries at this time. MD complaint: fall Onset (ago): hour(s) (Prior to arrival) Fall from: standing Fall witnessed: yes, by family () Place fall occurred: home Loss of consciousness: none Prolonged down time: no Symptoms prior to fall: none Context: tripped/slipped Location of injury: chest Location of injury - extremities: left: shoulder Severity: moderate Quality: aching, spasming and throbbing Related Data Home Medications Medication Instructions Recorded Confirmed amlodipine 5 mg tablet 5 mg PO DAILY 07/28/20 03/08/22 atorvastatin 20 mg tablet 20 mg PO DAILY 07/28/20 03/08/22 vitamin E (dl, acetate) PO 07/28/20 03/08/22 fluticasone fur. 100 mcg-umeclid 1 ea inhalation DAILY 03/25/21 03/08/22 62.5 mcg-vilant 25 mcg inhalat.powder Previous Rx's Medication Instructions Recorded furosemide 20 mg tablet 20 mg PO DAILY #30 tabs 03/25/21 albuterol sulfate 2.5 mg/0.5 mL 5 mg inhalation Q4H PRN shortness 07/23/21 solution for nebulization of breath or wheezing #30 ea albuterol sulfate 90 mcg/actuation 2 puff inhalation Q4-6H PRN 07/23/21 aerosol inhaler shortness of breath or wheezing #6.7 grams benzonatate 100 mg capsule 100 mg PO TID PRN cough #14 caps 07/23/21 (Nery Lim) fluticasone propionate 50 2 spray intranasal DAILY #16 grams 07/23/21 mcg/actuation nasal spray,suspension (Flonase Allergy Relief) acetaminophen 300 mg-codeine 30 mg 1 tab PO Q8H PRN pain #14 tabs 06/24/22 tablet cyclobenzaprine 10 mg tablet 10 mg PO Q8H PRN Muscle spasm #14 06/24/22 tabs Allergies Allergy/AdvReac Type Severity Reaction Status Date / Time Penicillins [PENICILLINS] Allergy Mild RASH Verified 03/08/22 13:22 Sulfa (Sulfonamide Allergy Mild RASH Verified 03/08/22 13:22 Antibiotics) [SULFA(SULFONAMIDE ANTIBIOTICS)] latex Allergy rash Verified 03/08/22 13:22 Review of Systems Review of Systems: Constitutional : No Weight loss, No Fever, No Chills, No Night Sweats, No Fatigue, No Malaise ENT/Mouth : No Hearing loss, No Ear Pain, No Nasal Congestion, No Sinus Pain, No Hoarseness, No sore throat, No Rhinorrhea, No Swallowing Difficulty Eyes: No Eye Pain, No Swelling, No Redness, No Foreign Body, No Discharge, No Vision Changes Cardiovascular : No Chest Pain, No SOB, No Dyspnea on Exertion, No Orthopnea, No Edema, No Palpitations Respiratory : No Cough, No Sputum, No Wheezing, No Smoke Exposure, No Dyspnea Gastrointestinal : No Nausea, No Vomiting, No Diarrhea, No Constipation, No abdominal Pain, No Hematochezia, No Melena Genitourinary : no irregular bleeding, No Dysuria, No Urinary Frequency, No Hematuria, No Urinary Incontinence, No Urgency, No Flank Pain, No Urinary Flow Changes, No Hesitancy Musculoskeletal : + anterior chest wall/rib cage pain, + left shoulder pain, + right knee pain, No Myalgias, No Joint Swelling Skin : No Skin Lesions, No rash Neuro : No Weakness, No Numbness, No Paresthesias, No Loss of Consciousness, No Dizziness, No Headache Psych : No Anxiety/Panic, No Depression, No SI/HI/AH/VH, No Social Issues, Heme/Lymph: No Bruising, No Bleeding,No Lymphadenopathy Endocrine : No Polyuria, No Polydipsia, No Temperature Intolerance Yes all other systems are reviewed and are negative [facility] Past Medical History Attestation statement: The following information was validated with the patient. Source: old records reviewed and nursing notes reviewed Medical History Asthma Hypertension Other specific arthropathies, not elsewhere classified, right shoulder Unspecified rotator cuff tear or rupture of right shoulder, not specified as traumatic 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 Father No problems noted. Brother Esophageal cancer Social History Social History Alcohol intake: never Patient Tobacco Use Status: Former Tobacco user Quit Date: Years Smoked: 20+ Advance Directives: Yes Advance Directives Information Provided: No Advance Directives on File: No Current occupational status: retired Current occupation: Right Handed Physical Exam Vital Signs: Vital Signs: Last Vital Signs Temp 97.9 F 06/24/22 16:11 Pulse 74 06/24/22 16:11 Resp 18 06/24/22 16:11 BP 143/63 H 06/24/22 16:11 Pulse Ox 97 06/24/22 16:11 O2 Del Method 06/24/22 16:11 BMI result Body Mass Index 32.5 vital signs have been reviewed as normal and appeared to be correct. Blood pressure 143/63. Heart rate normal. Respiration rate normal. Temperature normal. Oxygen saturation normal. Appearance: Alert. Oriented X3. No acute distress. Head: Normal external exam. Normocephalic. Atraumatic. No Hill signs noted. No raccoon eyes noted Eyes: PERRLA. EOMI. Conjunctiva and sclera normal. Eyelids normal. ENT: EAC normal. TM's Normal. No septal hematoma noted. No hemotympanum noted. Pharynx normal. Uvula midline. Moist mucous membranes. No lesions/ulcerations or masses noted on the tongue. Normal voice. No trismus noted. No drooling noted. No muffled voice noted. Neck: Normal inspection. Neck supple. FROM. No adenopathy. Thyroid Normal. No tracheal deviation noted. No crepitus is noted. No meningeal signs. No neck mass noted. No signs of trauma noted. CVS: Normal heart rate and rhythm. Heart sound normal. Pulses normal throughout. No murmurs/rales/gallops. Respiratory: No respiratory distress. Painless inspiration. Breath sounds normal. No wheezes/rales/rhonchi noted. Chest with tenderness palpation to the anterior chest wall diffusely. Not consistent with flail chest. No crepitus is noted. No accessory muscle usage noted or decreased air movement noted. No signs of trauma. Abdomen: Soft and nontender. Nondistended. No guarding. No rigidity. Bowel sounds normal in all 4 quadrants. No distention noted. No organomegaly noted. No visible injury noted. No rebound tenderness. Negative Rovsing sign. Negative obturator's sign. Negative psoas sign. Negative Lovell sign. Back: No CVA tenderness. Full range of motion noted. Nontender. No signs of trauma. Patient neuro intact bilaterally and distally on all 4 extremities. Patient's reflexes intact bilaterally and distally on all 4 extremities. No rashes/lesion/induration/fluctuance or signs of infection noted. Skin: Skin warm and dry. Normal skin color. Normal skin turgor. No ra shes/lesions/lacerations noted. Extremities: Patient mild tenderness palpation to the left AC joint with limited range of motion due to pain although no obvious ligamentous or tendon injury noted. She has full range of motion of the left elbow/hand and wrist joint no obvious deformities or ligamentous injury or signs of trauma or pain. Patient mild tenderness palpation to the right knee joint at the patellar aspect/medial aspect although no joint effusion or obvious ligamentous or tendon injury or signs of trauma. Otherwise all other extremities exhibit normal range of motion nontender. No lower extremity edema. No calf tenderness is noted. Neuro: Oriented X 3. No motor deficit. No sensory deficit. Reflexes normal. Normal steady gait. No focal neuro deficits noted. CN's II-XII intact bilaterally? Vascular: + radial pulses/+ 2 distal pedal pulses/+2 dorsalis pedis b/l. Normal cap refill. No cyanosis noted to upper extremity nails and lower extremity toes nails. Course Course Course Narrative: 16:35pm - 82-year-old female c PMHx of asthma, HTN, rotator cuff tear/rupture of the right shoulder and varicose veins presenting to the ED with her daughter at bedside with complaints of mechanical fall that occurred prior to arrival. She reports that she was in her house and her left something on the floor and she did not see it she tripped over what was on the floor into a drawer that was open from the dresser. She reports she landed into the door injuring her anterior chest wall and left shoulder along with her right knee. She denies head injury loss of consciousness or prolonged down time. She denies any symptoms prior to the fall. She reports only anterior chest wall pain, left shoulder pain and right knee pain after the fall. She denies being on any blood thinners. She denies any other symptoms complaints or concerns or injuries at this time. Plan: Will obtain CT scan of brain/cervical spine/chest/x-ray of the left shoulder and x-ray of the right knee and re-evaluate. Reevaluation(s) Reevaluation #1: - labs returned and BUN 26 which is similar compared to prior. Random glucose 179. Otherwise all other labs are within normal limits. Patient negative for COVID - right knee x-ray and left shoulder x-ray revealed chronic changes no acute processes noted. - CT scan of brain revealed chronic meningioma otherwise no other acute processes. Patient reports she already is aware about the meningioma - cervical spine CT negative for any acute processes. - CT scan of chest negative for any acute processes. - will DC home with symptomatic treatment instructions return if any new or worsening symptoms follow up with primary care provider. Patient understands ag shabbir with this plan. Family at bedside. Time: 19:03 [facility] - Fall Medical Records Attestation: I reviewed the patient's medical records. Lab Data Attestation: I reviewed the patient's lab results. Result diagrams: 06/24/22 18:05 06/24/22 18:05 Labs: Lab Results 06/24/22 06/24/22 06/24/22 Range/Units 18:05 18:05 18:05 WBC 10.4 (4.8-10.8) X10*3/uL RBC 4.58 (4.20-5.50) X10*6/uL Hgb 13.2 (12.0-16.0) g/dl Hct 40.6 (37.0-47.0) % MCV 88.6 (80.0-98.0) fL MCH 28.8 (27.0-33.0) pg MCHC 32.5 (31.0-35.0) g/dl RDW 13.9 (11.0-16.0) % Plt Count 318 (160-400) X10*3/uL MPV 9.2 L (9.4-12.3) fL Immature Gran % (Auto) 0.7 H (0.0-0.4) % Neut % (Auto) 75.0 H (45-73) % Lymph % (Auto) 14.7 L (20-40) % Independence % (Auto) 7.1 (2-11) % Eos % (Auto) 1.9 (0-4) % Baso % (Auto) 0.6 (0-2) % Lymph # (Auto) 1.5 (1.2-4.9) X10*3/uL Independence # (Auto) 0.7 (0.1-1.2) X10*3/uL Eos # (Auto) 0.2 (0.0-0.4) X10*3/uL Baso # (Auto) 0.1 (0.0-0.2) X10*3/uL Abs Immat Gran (auto) 0.07 H (0.00-0.03) X10*3/uL Absolute Neuts (auto) 7.8 (2.0-8.3) x10*3/uL Absolute Nucleated RBC 0.000 (0.0-0.012) X10*3/uL Nucleated RBC % (auto) 0.0 (0.0-0.2) /100WBC PT 10.6 (10.0-13.1) SEC INR 0.9 (0.9-1.1) APTT 26.8 (26.0-36.4) SEC Sodium 141 (135-145) mmol/L Potassium 4.0 (3.3-5.1) mmol/L Chloride 103 (96-108) mmol/L Carbon Dioxide 27 (22-29) mmol/L Anion Gap 15 (12-20) BUN 26 H (9-16) mg/dL Creatinine 0.79 (0.5-1.4) mg/dL Estim Creat Clear Calc 52.8 Estimated GFR > 60 Random Glucose 179 H (60-115) mg/dL Calcium 9.4 D (8.4-10.2) mg/dL Magnesium 2.1 (1.6-2.6) mg/dL Total Bilirubin 0.3 (0.0-1.0) mg/dL AST 23 (5-31) U/L ALT 18 (0-31) U/L Alkaline Phosphatase 82 (39-117) U/L Total Creatine Kinase 86 (26-140) U/L Total Protein 6.9 (6.5-8.0) g/dL Albumin 4.0 (3.5-5.0) g/dL COVID-19 ([place]) (Negative) COVID-19 Clin Com 06/24/22 Range/Units 18:05 WBC (4.8-10.8) X10*3/uL RBC (4.20-5.50) X10*6/uL Hgb (12.0-16.0) g/dl Hct (37.0-47.0) % MCV (80.0-98.0) fL MCH (27.0-33.0) pg MCHC (31.0-35.0) g/dl RDW (11.0-16.0) % Plt Count (160-400) X10*3/uL MPV (9.4-12.3) fL Immature Gran % (Auto) (0.0-0.4) % Neut % (Auto) (45-73) % Lymph % (Auto) (20-40) % Independence % (Auto) (2-11) % Eos % (Auto) (0-4) % Baso % (Auto) (0-2) % Lymph # (Auto) (1.2-4.9) X10*3/uL Independence # (Auto) (0.1-1.2) X10*3/uL Eos # (Auto) (0.0-0.4) X10*3/uL Baso # (Auto) (0.0-0.2) X10*3/uL Abs Immat Gran (auto) (0.00-0.03) X10*3/uL Absolute Neuts (auto) (2.0-8.3) x10*3/uL Absolute Nucleated RBC (0.0-0.012) X10*3/uL Nucleated RBC % (auto) (0.0-0.2) /100WBC PT (10.0-13.1) SEC INR (0.9-1.1) APTT (26.0-36.4) SEC Sodium (135-145) mmol/L Potassium (3.3-5.1) mmol/L Chloride (96-108) mmol/L Carbon Dioxide (22-29) mmol/L Anion Gap (12-20) BUN (9-16) mg/dL Creatinine (0.5-1.4) mg/dL Estim Creat Clear Calc Estimated GFR Random Glucose (60-115) mg/dL Calcium (8.4-10.2) mg/dL Magnesium (1.6-2.6) mg/dL Total Bilirubin (0.0-1.0) mg/dL AST (5-31) U/L ALT (0-31) U/L Alkaline Phosphatase (39-117) U/L Total Creatine Kinase (26-140) U/L Total Protein (6.5-8.0) g/dL Albumin (3.5-5.0) g/dL COVID-19 ([place]) Negative (Negative) COVID-19 Clin Com See Note Imaging Data CT scan of brain/cervical spine/chest without contrast: Attestation: I personally reviewed and interpreted this imaging study as follows: Radiologist's impression: FINDINGS: CERVICAL SPINE: On sagittal reconstructed images there is maintained cervical lordosis. The vertebral heights and alignment is normal. There is loss of C5-C6, C6-C7 and C7-T1 disc heights with ventral and posterior spondylosis. The craniovertebral junction and the C1-C2 alignment is normal. There is bilateral C3-C4, C4-C5 facet joint arthropathy and hypertrophy. Mild narrowing of right C3-C4, C5-C6 and C6-C7 neural foramina from uncovertebral hypertrophic changes are noted. No visible acute fracture, dislocation or subluxation seen. The prevertebral and the paravertebral soft tissues are normal. There is bilateral apical posterior pleural thickening. CHEST: The lungs are well-expanded with diffuse thickening of left major fissure. There is reticular interstitial prominence posterior segment right upper lobe superior segment right lower lobe and minimal in both lung bases. No consolidation, contusion or pleural effusion seen. The thyroid lobes are symmetrical and slightly enlarged for patient's age.. The central trachea and bronchi are widely patent. Heart size and the great vessels are normal caliber. There is trace coronary artery calcifications present. No pericardial effusion seen. Cardiomediastinal lymph nodes or hematoma. There is no pleural effusion or thickening. The axilla and chest wall is unremarkable. Imaging through the upper abdomen reveals punctate gas the left hepatic lobe. Otherwise visualized liver, spleen, pancreas and bilateral adrenal glands unremarkable. The gallbladder has been surgically removed. There is a simple cyst upper pole right kidney. 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 No aggressive lytic or sclerotic process seen. CT/CT chest wo IV con IMPRESSION: Degenerative changes cervical spine. No visible acute fracture, dislocation or subluxation seen. ? Chronic subpleural parenchymal changes. No acute consolidation or contusion. No abnormal mediastinal hematoma or mass. ? Prominent thyroid lobes for patient's age. ? Cholecystectomy. Likely postsurgical gas in the left hepatic lobe. Correlate with clinical history. Simple cyst upper pole left kidney FINDINGS: Examination is limited due to motion. A high attenuating lesion along the right interhemispheric falx measuring 1.6 x 1.1 x 1.8 cm (4:54) is not significantly changed when compared to 04/26/2020, this lesion appears to be extra-axial and likely represents a meningioma. There is no evidence of acute intracranial hemorrhage or edematous territorial infarction. Scattered hypoattenuation in the periventricular and deep white matter are consistent with moderate microangiopathy. Grewal-white matter differentiation is preserved. Proportional prominence of the ventricles and sulcal spaces. No evidence for obstructive hydrocephalus. No abnormal mass effect or midline shift. No extra-axial fluid collections. No acute soft tissue or osseous abnormalities. Mucosal retention cyst in the right maxillary sinus. Mild mucosal thickening of the ethmoid air cells. The mastoids and middle ear cavities are clear. ? CT/CT head/brain wo IV con IMPRESSION: Evaluation is limited due to motion, however accounting for this limitation, no definite acute intracranial hemorrhage or edematous territorial infarct are noted. If clinically deemed appropriate, consider repeat examination to decrease motion and ensure the absence of subtle abnormalities. The majority of the motion is centered in the upper supratentorial brain. ? A high attenuating up to 1.8 cm right interhemispheric falx lesion is not significantly changed since 2019 and likely represents a meningioma. Left shoulder and right knee x-ray: Attestation: I personally reviewed and interpreted this imaging study as follows: Radiologist's impression: FINDINGS: No acute fracture or malalignment. There is decreased bone mineralization with moderate degenerative osteoarthritis of the glenohumeral and acromioclavicular joints. There is nonspecific diffuse heterogeneity of the bone marrow. There is mild calcific tendinosis of the rotator cuff. Nonspecific airspace opacities in the retrocardiac region/left lower lobe. Atherosclerotic disease of the thoracic aorta.? XR/XR shoulder LT min 2V IMPRESSION: 1.? No acute fracture or subluxation. 2.? 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 3.? Nonspecific heterogeneity of the bone marrow. 4.? Airspace opacities in the left lower lobe. Recommend correlation with a chest radiograph. Discharge Plan Discharge Clinical Impression: Fall, Chest wall muscle strain, Left shoulder strain, Right knee sprain, Meningioma Patient Disposition: Home, Self-Care Instructions: Muscle Strain (ED), Meningioma (ED) Prescriptions: New cyclobenzaprine 10 mg tablet 10 mg PO Q8H PRN (Reason: Muscle spasm) Qty: 14 0RF acetaminophen-codeine 300-30 mg tablet 1 tab PO Q8H PRN (Reason: pain) Qty: 14 0RF No Action furosemide 20 mg tablet 20 mg PO DAILY Qty: 30 3RF albuterol sulfate 90 mcg/actuation HFA aerosol inhaler 2 puff inhalation Q4-6H PRN (Reason: shortness of breath or wheezing) Qty: 6.7 0RF albuterol sulfate 2.5 mg/0.5 mL solution for nebulization 5 mg inhalation Q4H PRN (Reason: shortness of breath or wheezing) Qty: 30 0RF benzonatate [Tessalon Perles] 100 mg capsule 100 mg PO TID PRN (Reason: cough) Qty: 14 0RF fluticasone propionate [Flonase Allergy Relief] 50 mcg/actuation spray,suspension 2 spray intranasal DAILY Qty: 16 0RF Rx Instructions: administer into each nostril amlodipine 5 mg tablet 5 mg PO DAILY atorvastatin 20 mg tablet 20 mg PO DAILY vitamin E (dl, acetate) PO Trelegy Ellipta 100-62.5-25 mcg blister with device 1 ea inhalation DAILY Referrals: Thaddeus Salazar MD [Primary Care Provider] - 2 days Print Language: Indonesian
--- NOTE | 2022-06-24 18:00 | ECG_ITS ---
Test Reason : FALL Blood Pressure : / mmHG Vent. Rate : 075 BPM Atrial Rate : 075 BPM P-R Int : 192 ms QRS Dur : 092 ms QT Int : 366 ms P-R-T Axes : 060 -42 016 degrees QTc Int : 408 ms Normal sinus rhythm Left axis deviation Moderate voltage criteria for LVH, may be normal variant ( R in aVL , [place] product ) Nonspecific T wave abnormality Abnormal ECG When compared with ECG of 25-OCT-2017 02:27, Nonspecific T wave abnormality now evident in Anterolateral leads Referred By: Ivana Duncan Electronically Signed By:MARIE ACNTU
[2022-06-24 18:11] LABS: MANUAL DIFF FLAG NO
[2022-06-24 18:14] LABS: Basophils Absolute Auto 0.1 X10*3/uL (0.0-0.2); Basophils Percent Auto 0.6 % (0-2); Eosinophils Absolute Auto 0.2 X10*3/uL (0.0-0.4); Eosinophils Percent Auto 1.9 % (0-4); Hematocrit 40.6 % (37.0-47.0); Hemoglobin 13.2 g/dl (12.0-16.0); Imm Gran Abs Auto 0.07 X10*3/uL (0.00-0.03); Imm Gran Pct Auto 0.7 % (0.0-0.4); Lymphocytes Absolute Auto 1.5 X10*3/uL (1.2-4.9); Lymphocytes Percent Auto 14.7 % (20-40); Mean Corpuscular HGB Conc 32.5 g/dl (31.0-35.0); Mean Corpuscular Hemoglobin 28.8 pg (27.0-33.0); Mean Corpuscular Volume 88.6 fL (80.0-98.0); Mean Platelet Volume 9.2 fL (9.4-12.3); Monocytes Absolute Auto 0.7 X10*3/uL (0.1-1.2); Monocytes Percent Auto 7.1 % (2-11); Neutrophils Absolute Auto 7.8 x10*3/uL (2.0-8.3); Platelet Count 318 X10*3/uL (160-400); Red Blood Count 4.58 X10*6/uL (4.20-5.50); Red Cell Distribution Width 13.9 % (11.0-16.0); White Blood Count 10.4 X10*3/uL (4.8-10.8)
--- NOTE | 2022-06-24 18:15 | PC.NURSE ---
New orders for labs and Iv placed in right AC . family at bed side . patient aware of plan of care .
[2022-06-24 18:20] LABS: INTERNATIONAL NORM RATIO 0.9 (0.9-1.1); Prothrombin Time 10.6 SEC (10.0-13.1)
[2022-06-24 18:23] LABS: Partial Thromboplastin Time 26.8 SEC (26.0-36.4)
[2022-06-24 18:33] LABS: COVID-19 Test Negative (Negative); IDNOW Serial# 08D9AD1C
[2022-06-24 18:35] LABS: Alanine Aminotransferase 18 U/L (0-31); Alkaline Phosphatase 82 U/L (39-117); Anion Gap 15 (12-20); Aspartate Amino Transferase 23 U/L (5-31); Bilirubin Total 0.3 mg/dL (0.0-1.0); Blood Urea Nitrogen 26 mg/dL (9-16); Calcium 9.4 mg/dL (8.4-10.2); Carbon Dioxide 27 mmol/L (22-29); Chloride 103 mmol/L (96-108); Creatinine Clr Calc Pharmacy 52.8; Estimated Glomerular Filt Rate > 60; Glucose Random 179 mg/dL (60-115); Magnesium 2.1 mg/dL (1.6-2.6); Sodium 141 mmol/L (135-145); Total Protein 6.9 g/dL (6.5-8.0)
== END 2022-06-24 19:15 | disposition home or self-care (01) ==
PROVIDERS: Physician Assistant Medical; Emergency Provider Emergency Medicine Emergency Medical Services; PCP Internal Medicine
DX: S83.91XA Sprain of unspecified site of right knee, initial encounter (principal); S29.011A Strain of muscle and tendon of front wall of thorax, initial encounter; S46.912A Strain of unspecified muscle, fascia and tendon at shoulder and upper arm level, left arm, initial encounter; W01.0XXA Fall on same level from slipping, tripping and stumbling without subsequent striking against object, initial encounter; D32.9 Benign neoplasm of meninges, unspecified; I10 Essential (primary) hypertension; Z87.891 Personal history of nicotine dependence; Y93.89 Activity, other specified; Y92.032 Bedroom in apartment as the place of occurrence of the external cause; Y99.9 Unspecified external cause status; Z20.822 Contact with and (suspected) exposure to COVID-19
CPT/HCPCS: 36415; 70450; 71250; 72125; 73030; 73564; 80053; 82550; 83735; 85025; 85610; 85730; 87635; 93005; 99284

== ENCOUNTER → 2022-09-14 13:06 | Outpatient (BNVA) | payer MEDICARE, OTHER, SELFPAY | PROVIDERS: PCP Internal Medicine; Referring Provider Internal Medicine; Visit Provider Internal Medicine Cardiovascular Disease | DX: I10 Essential (primary) hypertension (principal); Z78.9 Other specified health status | CPT/HCPCS: 99212 ==

== ENCOUNTER → 2023-01-18 13:31 | Outpatient (BNVA) | payer MEDICARE, SELFPAY | PROVIDERS: PCP Internal Medicine; Referring Provider Internal Medicine; Visit Provider Nurse Practitioner Family | DX: I10 Essential (primary) hypertension (principal); E78.5 Hyperlipidemia, unspecified; Z98.890 Other specified postprocedural states | CPT/HCPCS: 99212 ==

== ENCOUNTER 2023-01-22 08:50 | Outpatient (REF) | payer MEDICARE, SELFPAY ==
[2023-01-22 09:47] LABS: Alanine Aminotransferase 21 U/L (0-31); Alkaline Phosphatase 71 U/L (39-117); Anion Gap 12 (12-20); Aspartate Amino Transferase 12 U/L (5-31); Bilirubin Total 0.7 mg/dL (0.0-1.0); Blood Urea Nitrogen 30 mg/dL (9-16); Calcium 9.4 mg/dL (8.4-10.2); Carbon Dioxide 28 mmol/L (22-29); Chloride 105 mmol/L (96-108); Cholesterol 254 mg/dL; Estimated Glomerular Filt Rate > 60; Glucose Random 149 mg/dL (60-115); HDL Cholesterol 63 mg/dL; LDL Cholesterol Calculated 161 mg/dl; Potassium 4.6 mmol/L (3.3-5.1); Sodium 140 mmol/L (135-145); Total Protein 6.8 g/dL (6.5-8.0); Triglycerides 151 mg/dL
== END 2023-01-22 08:51 | disposition home or self-care (01) ==
LOC: HO.LAB 08:50
PROVIDERS: PCP Internal Medicine; Visit Provider Nurse Practitioner Family
DX: E78.5 Hyperlipidemia, unspecified (principal); I10 Essential (primary) hypertension
CPT/HCPCS: 36415; 80053; 80061

== ENCOUNTER 2023-06-16 13:50 | Emergency (ER) | payer MEDICARE, MEDICAID, SELFPAY ==
--- NOTE | 2023-06-16 | ECG_ITS ---
Test Reason : WEAKNESS/FALL Blood Pressure : / mmHG Vent. Rate : 076 BPM Atrial Rate : 076 BPM P-R Int : 172 ms QRS Dur : 088 ms QT Int : 372 ms P-R-T Axes : 066 -44 014 degrees QTc Int : 418 ms Normal sinus rhythm Left axis deviation Moderate voltage criteria for LVH, may be normal variant ( R in aVL , Lorenzo product ) Abnormal ECG When compared with ECG of 24-JUN-2022 18:22, Nonspecific T wave abnormality no longer evident in Lateral leads Referred By: Generic ED Physician Electronically Signed By:MARIE CANTU
--- NOTE | ~2023-06-16 | XR_ITS ---
EXAMINATION: XR LUMBOSACRAL SPINE CLINICAL INFORMATION: Lower back pain status-post fall. COMPARISON: None TECHNIQUE: AP and lateral views of the lumbar spine and lateral view of the lumbosacral junction. FINDINGS: There is bony demineralization. Vertebral body heights are normal. At L1-L2, there is vacuum disc phenomenon and a 3 mm retrolisthesis. At L2-L3, there is a 2 mm retrolisthesis. At L3-L4, there is mild to moderate posterior disc space narrowing. The remaining disc spaces are relatively well-maintained. No acute fracture or spondylolisthesis is seen. There is multi-level lumbar spondylosis. There is facet arthropathy at L5-S1. Aortic atherosclerotic calcifications are seen. There are right upper quadrant surgical clips. There is degenerative change of the left hip. XR/XR lumbar spine 2-3V IMPRESSION: There is multi-level lumbar degenerative disc disease, spondylosis and facet arthropathy. Degenerative disc disease is most pronounced at L1-L2 through L3-L4, where it is mild to moderate. EXAMINATION: XR SACRUM AND COCCYX CLINICAL INFORMATION: Back pain status-post fall. COMPARISON: None available. TECHNIQUE: 3 frontal and lateral views of the sacrum and coccyx were obtained. FINDINGS: There are no fractures. No bone, joint or soft tissue abnormality is demonstrated. The sacroiliac joints and pubic symphysis are well-maintained. IMPRESSION: Unremarkable examination.
--- NOTE | ~2023-06-16 | XR_ITS ---
EXAMINATION: XR LUMBOSACRAL SPINE CLINICAL INFORMATION: Lower back pain status-post fall. COMPARISON: None TECHNIQUE: AP and lateral views of the lumbar spine and lateral view of the lumbosacral junction. FINDINGS: There is bony demineralization. Vertebral body heights are normal. At L1-L2, there is vacuum disc phenomenon and a 3 mm retrolisthesis. At L2-L3, there is a 2 mm retrolisthesis. At L3-L4, there is mild to moderate posterior disc space narrowing. The remaining disc spaces are relatively well-maintained. No acute fracture or spondylolisthesis is seen. There is multi-level lumbar spondylosis. There is facet arthropathy at L5-S1. Aortic atherosclerotic calcifications are seen. There are right upper quadrant surgical clips. There is degenerative change of the left hip. XR/XR sacrum coccyx min 2V IMPRESSION: There is multi-level lumbar degenerative disc disease, spondylosis and facet arthropathy. Degenerative disc disease is most pronounced at L1-L2 through L3-L4, where it is mild to moderate. EXAMINATION: XR SACRUM AND COCCYX CLINICAL INFORMATION: Back pain status-post fall. COMPARISON: None available. TECHNIQUE: 3 frontal and lateral views of the sacrum and coccyx were obtained. FINDINGS: There are no fractures. No bone, joint or soft tissue abnormality is demonstrated. The sacroiliac joints and pubic symphysis are well-maintained. IMPRESSION: Unremarkable examination.
--- NOTE | ~2023-06-16 | CT_ITS ---
Examination: CT brain and CT cervical spine without contrast. CLINICAL INDICATION: Fall with neck pain and head injury. COMPARISON: CT brain 04/26/2020. Technique 5 mm thin axial and reformatted 2 mm thin sagittal coronal images of brain were obtained. Subsequently axial 3 mm thin and reformatted 2 mm thin sagittal and coronal images of cervical spine were obtained. DLP 920. This CT examination was performed using dose optimization technique as appropriate, variously including the following: Automated exposure control Adjustment of MA and/or KV according to patient size(this includes techniques or standardized protocols for targeted exams where dose is matched to indication/reason for exam; extremities or head. Use of iterative reconstruction techniques. FINDINGS: BRAIN: There is right frontal parafalcine extra-axial lesion measuring 1.9 x 1.2 cm partially calcified suggestive of meningioma. By my measurements it is stable. No other extra-axial, extra-axial bleed, masses or midline shift. There is no acute infarction evolution. The lateral ventricles are symmetrical in size and configuration without enlargement. The modi to white matter difference is maintained normal. Bone windows reveal no calvarial abnormality. There is no scalp soft tissue abnormality. Bilateral paranasal sinuses and mastoid air cells are well-aerated. There is a small mucosal polyp or retention cyst right maxillary sinus. CERVICAL SPINE: On sagittal reconstructed images is maintained cervical lordosis grade 1 anterolisthesis C4 over C5 is noted. There is loss of C5-C6, C6-C7 and C7-T1 disc heights. The craniovertebral junction and the C1-C2 alignment is normal. No visible acute fracture, dislocation or subluxation seen. There is moderate left C2-C3, right C3-C4, bilateral C4-C5 and C5-C6 facet joint arthropathy and hypertrophy. No visible acute fracture, dislocation or subluxation seen. No aggressive lytic or sclerotic process seen. Visualized bilateral TM joints are symmetrical., Maxilla partially visualized mandible, maxilla and laryngeal cartilages are normal. The airways widely patent mild scarring is seen in both lung apices with bilateral apical pleural thickening. The thyroid lobes are symmetrical and normal. CT/CT cervical spine wo IV con IMPRESSION: No change in right frontal parasagittal calcified meningioma. No acute intracranial bleed or infarct seen. Mild degenerative disc changes C5-C6, C6-C7 and C7-T1 disc levels with ventral and posterior spondylosis. There is no underlying acute fracture or dislocation seen..
[2023-06-16 13:56] VITALS: BP 140/70; BP 142/62; PULSE 60; PULSE 77; RESP 15; TEMP 36.6; O2SAT 97; O2SAT 98; BMI 32.7
--- NOTE | 2023-06-16 14:05 | PC.NURSE ---
pt was walking out of the grocery store when she felt her knees get weak, she states she had a knee replacement a while ago but her knees have been feeling weak since then. She fell on her butt and then backwards and hit her head. Reports 10/10 head pain that is also present in her lower back. Denies N/V, dizziness, double vision or other symptoms. Pt is alert and oriented x4, remembers while event
--- NOTE | 2023-06-16 15:05 | ED.FALL ---
HPI - Fall General Chief Complaint: Fall Stated Complaint: fall from standing,per ems Time Seen by Provider: 06/16/23 14:15 Source: patient, family (Spouse) and EMS Mode of arrival: EMS Limitations: no limitations History of Present Illness HPI Narrative: 83-year-old female came in by ambulance for evaluation of mechanical fall and head injury. Patient was shopping and walking toward her car when her left knee gave out made her fall backward hitting her head and the lower back, no LOC, complains of headache and neck pain, no weakness, no numbness, no abdominal pain, no urinary incontinence, no lower extremities pain, no pelvic or hips pain. Related Data Home Medications Medication Instructions Recorded Confirmed amlodipine 5 mg tablet 5 mg PO DAILY 07/28/20 01/18/23 vitamin E (dl, acetate) PO 07/28/20 01/18/23 fluticasone fur. 100 mcg-umeclid 1 ea inhalation DAILY 03/25/21 01/18/23 62.5 mcg-vilant 25 mcg inhalat.powder Previous Rx's Medication Instructions Recorded albuterol sulfate 2.5 mg/0.5 mL 5 mg inhalation Q4H PRN shortness 07/23/21 solution for nebulization of breath or wheezing #30 ea albuterol sulfate 90 mcg/actuation 2 puff inhalation Q4-6H PRN 07/23/21 aerosol inhaler shortness of breath or wheezing #6.7 grams benzonatate 100 mg capsule 100 mg PO TID PRN cough #14 caps 07/23/21 (Nery Lim) fluticasone propionate 50 2 spray intranasal DAILY #16 grams 07/23/21 mcg/actuation nasal spray,suspension (Flonase Allergy Relief) acetaminophen 300 mg-codeine 30 mg 1 tab PO Q8H PRN pain #14 tabs 06/24/22 tablet cyclobenzaprine 10 mg tablet 10 mg PO Q8H PRN Muscle spasm #14 06/24/22 tabs ezetimibe 10 mg tablet 10 mg PO DAILY #90 tabs 05/03/23 oxycodone 5 mg tablet 5 mg PO BID PRN pain #10 tabs 06/16/23 Allergies Allergy/AdvReac Type Severity Reaction Status Date / Time Penicillins [PENICILLINS] Allergy Mild RASH Verified 09/14/22 13:13 Sulfa (Sulfonamide Allergy Mild RASH Verified 09/14/22 13:13 Antibiotics) [SULFA(SULFONAMIDE ANTIBIOTICS)] latex Allergy rash Verified 09/14/22 13:13 Review of Systems Review of Systems: All other systems are reviewed and are negative Constitutional: Reports as per HPI and Reports no additional constitutional complaints Eyes: Reports as per HPI and Reports no additional eye complaints Reports system reviewed and no additional complaints, except as documented Cardiovascular: Reports as per HPI and Reports no additional cardiovascular complaints Respiratory: Reports as per HPI and Reports no additional respiratory complaints Gastrointestinal: Reports as per HPI and Reports no additional gastrointestinal complaints Genitourinary: Reports no additional female genitourinary complaints Musculoskeletal: Reports no additional musculoskeletal complaints Skin/Breast: Reports system reviewed and no additional complaints, except as docu Psychiatric: Reports no additional psychiatric complaints Endocrine: Reports no additional endocrine complaints Hematologic/Lymphatic: Reports no additional hematologic/lymphatic complaints Allergic/Immunologic: Reports no additional allergic/immunologic complaints Reports system reviewed and no additional complaints, except as documented and Reports Abnormal speech present [facility] Past Medical History Medical History Varicose veins of unspecified lower extremity with inflammation Other specific arthropathies, not elsewhere classified, right shoulder Unspecified rotator cuff tear or rupture of right shoulder, not specified as traumatic Hypertension Asthma Surgical History History of cardiac catheterization Family History Family History Mother No problems noted. Father No problems noted. Brother Esophageal cancer Social History Social History Alcohol intake: never Patient Tobacco Use Status: Former Tobacco user Quit Date: 1980s Years Smoked: 20+ Smoked in Last 30 Days: No Use of substances other than those prescribed or required for medical reasons: No Advance Directives: No Current occupational status: retired Current occupation: Right Handed Physical Exam Vital Signs: Vital Signs: Last Vital Signs Temp 97.8 F 06/16/23 13:56 Pulse 77 06/16/23 13:56 Resp 15 06/16/23 13:56 BP 142/62 H 06/16/23 13:56 Pulse Ox 97 06/16/23 13:56 O2 Del Method Room Air 06/16/23 13:56 BMI result Body Mass Index 32.7 Vital signs have been reviewed and appear to be correct. Blood pressure elevated. Heart rate normal. Respiratory rate normal. Temperature normal. Oxygen saturation normal. Appearance: Alert. Oriented X3. No acute distress. Head: Normal external exam. Normocephalic. Mild occipital tenderness.. No Hill signs noted. No raccoon eyes noted Eyes: PERRLA. EOMI. Conjunctiva and sclera normal. Eyelids normal. ENT: TM's Normal. Pharynx normal. Uvula midline. Moist mucous membranes. No trismus noted. No drooling noted. No muffled voice noted. Neck: Normal inspection. Neck supple. FROM. No adenopathy. Thyroid Normal. No meningeal signs. No neck mass noted. CVS: Normal heart rate and rhythm. Heart sound normal. No murmurs noted. Pulses normal throughout. Respiratory: No respiratory distress. Painless inspiration. Breath sounds normal. No wheezes/rales/rhonchi noted. Chest nontender. No accessory muscle usage noted or decreased air movement noted. Abdomen: Soft and nontender. Bowel sounds normal in all 4 quadrants. No distention noted. No organomegaly noted. No visible injury noted. Back: Lower back tenderness, no step-off, no deformity. Skin: Skin warm and dry. Normal skin color. Normal skin turgor. No rashes/lesions/lacerations noted. Extremities: No lower extremity edema. Extremities exhibit normal range of motion. Extremities nontender. Neuro: Oriented X 3. Cranial nerve exam: II-XII are grossly intact No motor deficit. No sensory deficit. Reflexes normal. Course Course Course Narrative: S/p a mechanical fall with head and C-spine injury, unremarkable radiographic head and C-spine CT for acute injuries. Lumbar x-ray is unremarkable. Will discharge the patient on pain medication as needed. Medications Administered Discontinued Medications Generic Name Dose Route Start Last Admin Trade Name Freq PRN Reason Stop Dose Admin Oxycodone HCl 5 mg 06/16/23 14:35 06/16/23 15:06 Oxycodone Hcl Immed Release 5 Mg Tablet PO 06/16/23 14:36 5 mg ONCE ONE Administration Medical Decision Making Differential Diagnosis Differential Diagnoses: The differential diagnosis associated with the presentation includes (Intracranial bleed, cervical spine injury, neurological deficit, lower back fracture, lower back contusion.) Admission/Observation Consideration of admission/observation: Escalation of care including admission/observation considered Independent Interpretation I performed an independent interpretation of an: Plain X-Ray (Lumbar spine/sacrum x-ray: Unremarkable exam with no acute finding.) and CT Scan (Head/C-spine:IMPRESSION: No change in right frontal parasagittal calcified meningioma. No acute intracranial bleed or infarct seen. Mild degenerative disc changes C5-C6, C6-C7 and C7-T1 disc levels with ventral and posterior spondylosis. There is no underlying acute fracture or dislocation seen..) Radiology Impression Discussion of test interpretation with radiology: I have reviewed the radiologist's reading. Discharge Plan Discharge Clinical Impression: Closed head injury, Contusion of lower back Patient Disposition: Home, Self-Care Instructions: Contusion in Adults (ED) Prescriptions: New oxycodone 5 mg tablet 5 mg PO BID PRN (Reason: pain) Qty: 10 0RF Rx Instructions: Partial Fill upon patient request. No Action ezetimibe 10 mg tablet 10 mg PO DAILY Qty: 90 3RF albuterol sulfate 90 mcg/actuation HFA aerosol inhaler 2 puff inhalation Q4-6H PRN (Reason: shortness of breath or wheezing) Qty: 6.7 0RF albuterol sulfate 2.5 mg/0.5 mL solution for nebulization 5 mg inhalation Q4H PRN (Reason: shortness of breath or wheezing) Qty: 30 0RF benzonatate [Tessalon Perles] 100 mg capsule 100 mg PO TID PRN (Reason: cough) Qty: 14 0RF fluticasone propionate [Flonase Allergy Relief] 50 mcg/actuation spray,suspension 2 spray intranasal DAILY Qty: 16 0RF Rx Instructions: administer into each nostril cyclobenzaprine 10 mg tablet 10 mg PO Q8H PRN (Reason: Muscle spasm) Qty: 14 0RF acetaminophen-codeine 300-30 mg tablet 1 tab PO Q8H PRN (Reason: pain) Qty: 14 0RF amlodipine 5 mg tablet 5 mg PO DAILY vitamin E (dl, acetate) PO Trelegy Ellipta 100-62.5-25 mcg blister with device 1 ea inhalation DAILY Referrals: Thaddeus Salazar MD [Primary Care Provider] -
[2023-06-16] MEDS: oxyCODONE HCl Immed Release 5 MG TABLET PO (15:06)
== END 2023-06-16 17:05 | disposition home or self-care (01) ==
PROVIDERS: Emergency Provider Emergency Medicine; PCP Internal Medicine
DX: S09.90XA Unspecified injury of head, initial encounter (principal); S30.0XXA Contusion of lower back and pelvis, initial encounter; W18.39XA Other fall on same level, initial encounter; I10 Essential (primary) hypertension; E78.5 Hyperlipidemia, unspecified; Y93.89 Activity, other specified; Y92.512 Supermarket, store or market as the place of occurrence of the external cause; Y99.9 Unspecified external cause status; Z79.899 Other long term (current) drug therapy
CPT/HCPCS: 70450; 72100; 72125; 72220; 93005; 99284; 99285

== ENCOUNTER 2023-07-17 08:04 | Outpatient (AMB) | payer MEDICARE, SELFPAY ==
--- NOTE | 2023-07-17 08:07 | MHC.OFFWIV ---
Intake Vital Signs 07/17/23 08:14 Height 5 ft 1 in Weight 173 lb BMI 32.7 BP 130/68 Blood Pressure Location Lt brachial Position Sitting Pulse 77 Pulse Source Pulse Oximeter Temp 98.0 F Temp Source Temporal Artery Scan Pulse Oximetry (%) 97 Intake Visit Reasons: [employer] Allergies/?Sinus Intake Note: pt is here for c/o allergies and sinus issues for 2 weeks Patient Tobacco Use Status: Former Tobacco user Quit Date: 1980s Allergies Penicillins [PENICILLINS] Allergy (Mild, Verified 07/17/23 08:30) RASH Sulfa (Sulfonamide Antibiotics) [SULFA(SULFONAMIDE ANTIBIOTICS)] Allergy (Mild, Verified 07/17/23 08:30) RASH latex Allergy (Verified 07/17/23 08:30) rash Medication List - Last Reconciled 07/17/23 by Juan Manuel Tiwari MD acetaminophen-codeine 300-30 mg 1 tab PO Q8H PRN albuterol sulfate 90 mcg/actuation 2 puffs inhalation Q4-6H PRN albuterol sulfate 5 mg inhalation Q4H PRN amlodipine 5 mg PO DAILY benzonatate (Tessalon Perles) 100 mg PO TID PRN cyclobenzaprine 10 mg PO Q8H PRN ezetimibe 10 mg PO DAILY fluticasone propionate 50 mcg/actuation (Flonase Allergy Relief) 2 sprays intranasal DAILY [id number] 100-62.5-25 mcg 1 ea inhalation DAILY lancets (OneTouch Delica Plus Lancet) As directed trazodone 50 mg PO BEDTIME vitamin E (dl, acetate) PO HPI [employer] Allergies/?Sinus HPI Details Patient presents for a sick visit. Reporting symptoms of sinus congestion, sore throat and difficulty swallowing. Low-grade fever. No family member is sick. No recent travel. Patient reports symptoms of malaise and fatigue. [facility] Medical History Varicose veins of unspecified lower extremity with inflammation Other specific arthropathies, not elsewhere classified, right shoulder Unspecified rotator cuff tear or rupture of right shoulder, not specified as traumatic Hypertension Asthma Surgical History History of cardiac catheterization Family History Mother No problems noted. Father No problems noted. Brother Esophageal cancer Social History Alcohol intake: never Patient Tobacco Use Status: Former Tobacco user Quit Date: Years Smoked: 20+ Current occupational status: retired Current occupation: Right Handed Physical Exam Vital Signs: Last Vital Signs Temp 98.0 F 07/17/23 08:14 Pulse 77 07/17/23 08:14 BP 130/68 07/17/23 08:14 Pulse Ox 97 07/17/23 08:14 BMI result Body Mass Index 32.7 Const General: cooperative and healthy appearing Nutritional Appearance: well nourished Orientation/consciousness: patient oriented x3 Limitations: no limitations HEENT Head: Yes normal to inspection Eyes General: appearance normal, both eyes and all related structures Neck Neck: Yes normal visual inspection Chest Chest palpation & inspection: normal palpation of entire chest wall Resp Effort & Inspection: normal respiratory effort Neuro General: patient oriented x3 Assessment & Plan Assessment & Plan (1) Upper respiratory tract infection: Code(s): J06.9 - Acute upper respiratory infection, unspecified Plan: Antibiotics ordered. Increase fluid intake. Tylenol for aches and pains. If symptoms worsen, follow-up here for a recheck. Coding Level of Care Code Est Pt Level 3 (62848) Diagnoses Upper respiratory tract infection J06.9
[2023-07-17 08:14] VITALS: BP 130/68; PULSE 77; TEMP 36.7; O2SAT 97; BMI 32.7
== END 2023-07-17 09:10 | disposition home or self-care (01) ==
PROVIDERS: PCP Internal Medicine; Visit Provider Internal Medicine
DX: J06.9 Acute upper respiratory infection, unspecified (principal)
CPT/HCPCS: 99213

== ENCOUNTER 2023-07-23 13:52 | Outpatient (AMB) | payer MEDICARE, SELFPAY ==
[2023-07-23 13:55] VITALS: BP 144/70; PULSE 80; BMI 31.2
--- NOTE | 2023-07-23 13:55 | A.OFFVIS_ITS ---
Intake Vital Signs 07/23/23 13:55 Height 5 ft 1 in Weight 165 lb 5.547 oz BMI 31.2 BP 144/70 H Blood Pressure Location Lt brachial Position Sitting Pulse 80 Intake Visit Reasons: 6 mth f/up per dc Intake Note: 6 month follow-up per Smiley c/o extra beats sometimes Deployment Technician Required: No Manager Lighting: Manager Lighting Present Accompanied by: Spouse Allergies Penicillins [PENICILLINS] Allergy (Mild, Verified 07/17/23 08:30) RASH Sulfa (Sulfonamide Antibiotics) [SULFA(SULFONAMIDE ANTIBIOTICS)] Allergy (Mild, Verified 07/17/23 08:30) RASH latex Allergy (Verified 07/17/23 08:30) rash Medication List - Last Reconciled 07/23/23 by Junaid Hitchcock MD albuterol sulfate 90 mcg/actuation 2 puffs inhalation Q4-6H PRN albuterol sulfate 5 mg inhalation Q4H PRN amlodipine 5 mg PO DAILY ezetimibe 10 mg PO DAILY fluticasone propionate 50 mcg/actuation (Flonase Allergy Relief) 2 sprays intranasal DAILY dvtlodaazkl-oioqwsnpu-evridxsg 100-62.5-25 mcg 1 ea inhalation DAILY lancets (OneTouch Delica Plus Lancet) As directed trazodone 50 mg PO BEDTIME vitamin E (dl, acetate) PO HPI HPI Comments History of Present Illness Details 83-year-old female here for follow-up. Blood pressure control is good. She has no chest pain or shortness of breath. 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 She also is getting a lot of muscle aches in both arms and legs which were quite symmetric. She said she stopped taking atorvastatin and this improved the symptoms. She has not started taking atorvastatin since then and is asking to go forward. She is denying any shortness of breath or chest pain. Her blood pressure control is good currently. 07/23/23: She returns for follow-up. Alicia palacios is taking her medications regularly. She is complaining of palpitations and shortness of breath. She has orthopnea and PND. Also has been experiencing palpitations once to twice a week. 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 Father No problems noted. Brother Esophageal cancer Social History Alcohol intake: never Patient Tobacco Use Status: Former Tobacco user Quit Date: Years Smoked: 20+ Current occupational status: retired Current occupation: Right Handed Review of Systems Const Denies chills, Denies fatigue, Denies fever(s), Denies frequent falls, Denies weakness, Denies weight gain and Denies weight loss ENT Denies dizziness Card Denies chest pain, Denies leg edema, Denies lightheadedness, Denies palpitations, Denies dyspnea, Denies dyspnea on exertion, Denies orthopnea and Denies other (loss of consciousness) Resp Denies cough, Denies dyspnea and Denies dyspnea on exertion GI Denies hematochezia and Denies change in stool character Musc Denies abnormal gait, Denies muscle weakness, Denies numbness, Denies radiating pain into limb and Denies tingling Neuro Denies abnormal gait, Denies dizziness, Denies frequent falls, Denies numbness, Denies tingling and Denies weakness Endo Denies fatigue and Denies palpitations Physical Exam Vital Signs: Last Vital Signs Pulse 80 07/23/23 13:55 BP 144/70 H 07/23/23 13:55 BMI result Body Mass Index 31.2 GENERAL APPEARANCE: in no acute distress, pleasant. NECK: no carotid bruit, no jugular venous distention. SKIN: no suspicious lesions, warm and dry. HEART: no murmurs, regular rate and rhythm. LUNGS: clear to auscultation bilaterally. ABDOMEN: soft, nontender. EXTREMITIES: no edema. PERIPHERAL PULSES: equal. NEUROLOGIC: No gross deficits, AAO X 3 Assessment & Plan Assessment & Plan (1) Palpitations: Code(s): R00.2 - Palpitations (2) CHF (congestive heart failure): Code(s): I50.9 - Heart failure, unspecified Plan 83-year-old female who is here for follow-up. She has been complaining of palpitations. We will do a 14 day Holter monitor to rule out any AFib/atrial flutter. Clinically volume overloaded. She is allergic to sulfa and cannot take Lasix. We will add ethacrynic acid 25 mg daily. She is also complaining of significant symptoms of allergy including rhinorrhea and Sneezing. I am adding montelukast at nighttime. Thank you for allowing me to participate in the care of your patient. Please feel free to contact me if you have any questions. Orders: Orders ECG 14 day holter monitor Today R00.2 - Palpitations Medications: New ethacrynic acid 25 mg PO DAILY 30 tabs 3RF R00.2 - Palpitations montelukast 10 mg PO BEDTIME 30 tabs 4RF R00.2 - Palpitations Coding Level of Care Code Est Pt Level 4 (73284) Diagnoses Palpitations R00.2 CHF (congestive heart failure) I50.9
== END 2023-07-23 14:35 | disposition home or self-care (01) ==
PROVIDERS: PCP Internal Medicine; Visit Provider Internal Medicine Cardiovascular Disease
DX: R00.2 Palpitations (principal); I50.9 Heart failure, unspecified
CPT/HCPCS: 99214

== ENCOUNTER → 2023-07-23 13:52 | Outpatient (BNVA) | payer MEDICARE, SELFPAY | PROVIDERS: PCP Internal Medicine; Visit Provider Internal Medicine Cardiovascular Disease | DX: R00.2 Palpitations (principal); I50.9 Heart failure, unspecified | CPT/HCPCS: 99212 ==

== ENCOUNTER → 2023-08-07 09:27 | Outpatient (REF) | payer MEDICARE, MEDICAID, SELFPAY ==
--- NOTE | 2023-08-07 09:30 | HM_ITS ---
Conclusion: 1. Patient was monitored for total period of 14 days 2. Baseline was normal sinus rhythm with average heart of 79 beats per minute 3. No significant pauses noted 4. Very rare ectopy noted 5. No patient reported events MTDD
== END ==
LOC: HO.CARD 09:27
PROVIDERS: PCP Internal Medicine; Visit Provider Internal Medicine Cardiovascular Disease
DX: R00.2 Palpitations (principal)
CPT/HCPCS: 93246

== ENCOUNTER → 2023-08-07 09:30 | Outpatient (BNV) | payer MEDICARE, SELFPAY | PROVIDERS: PCP Internal Medicine; Visit Provider Internal Medicine Cardiovascular Disease | DX: R00.2 Palpitations (principal) | CPT/HCPCS: 93248 ==

== ENCOUNTER 2023-09-07 13:39 | Outpatient (AMB) | payer MEDICARE, MEDICAID, SELFPAY ==
[2023-09-07 13:41] VITALS: BP 130/64; PULSE 74; BMI 30.9
--- NOTE | 2023-09-07 13:41 | A.OFFVIS_ITS ---
Intake Vital Signs 09/07/23 13:41 Height 5 ft 1 in Weight 163 lb 9.328 oz BMI 30.9 BP 130/64 Blood Pressure Location Rt brachial Position Sitting Pulse 74 Pulse Source Pulse Oximeter Intake Visit Reasons: 1 mth f/up Day Treatment Clinician/Art Therapist Required: No Allergies ethacrynic acid Allergy (Mild, Verified 09/07/23 14:07) Hives montelukast Allergy (Mild, Verified 09/07/23 14:07) Hives Penicillins [PENICILLINS] Allergy (Mild, Verified 09/07/23 13:44) RASH Sulfa (Sulfonamide Antibiotics) [SULFA(SULFONAMIDE ANTIBIOTICS)] Allergy (Mild, Verified 09/07/23 13:44) RASH latex Allergy (Verified 09/07/23 13:44) rash Medication List - Last Reconciled 09/07/23 by TRINA RileyC albuterol sulfate 90 mcg/actuation 2 puffs inhalation Q4-6H PRN albuterol sulfate 5 mg inhalation Q4H PRN amlodipine 5 mg PO DAILY ezetimibe 10 mg PO DAILY fluticasone propionate 50 mcg/actuation (Flonase Allergy Relief) 2 sprays intranasal DAILY lrugfgrkvwp-pdfjkyrck-kobfzrkg 100-62.5-25 mcg 1 ea inhalation DAILY lancets (OneTouch Delica Plus Lancet) As directed trazodone 50 mg PO BEDTIME vitamin E (dl, acetate) PO HPI 1 mth f/up HPI Details Charleen is an 83-year-old female with past medical history of hypertension, mild obesity, asthma who reported heart palpitations on last visit and Holter monitor was ordered. She had signs of fluid overload last visit in at the chronic acid was ordered. She was reported to have sulfa allergy and cannot take Lasix. She also had allergy type symptoms and montelukast was ordered. Today she states that she tried each of the medications and they both gave her hives. She is no longer taking either of them. She reports that she has been feeling generally well. She has mild shortness of breath with exertion. She denies concerning orthopnea, or edema. Her prior heart palpitations have settled down. No chest discomfort at rest with activity. No presyncope, syncope, falls. She ambulates with a walker. Her is present. 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 Father No problems noted. Brother Esophageal cancer Social History Alcohol intake: never Patient Tobacco Use Status: Former Tobacco user Quit Date: Years Smoked: 20+ Current occupational status: retired Current occupation: Right Handed Review of Systems Const All systems reviewed & are unremarkable except as noted in HPI and below ENT Denies dizziness Card Denies chest pain, Denies chest pain at rest, Denies chest pain with activity, Denies rapid heart rate, Denies pedal edema, Denies edema, Denies leg edema, Denies lightheadedness, Denies palpitations, Reports dyspnea, Denies dyspnea on exertion and Denies orthopnea Resp Denies cough, Reports dyspnea and Denies dyspnea on exertion GI Denies hematochezia and Denies change in stool character Musc Denies abnormal gait, Denies limited range of motion, Denies muscle cramps, Denies muscle weakness, Denies numbness, Denies radiating pain into limb, Denies stiffness and Denies tingling Neuro Denies abnormal gait, Denies dizziness, Denies numbness and Denies tingling Endo Denies palpitations Physical Exam Vital Signs: Last Vital Signs Pulse 74 09/07/23 13:41 BP 130/64 09/07/23 13:41 BMI result Body Mass Index 30.9 Const General: cooperative, healthy appearing, comfortable and no acute distress Orientation/consciousness: patient oriented x3 Neck Neck: Yes normal visual inspection Resp Effort & Inspection: normal respiratory effort Auscultation: clear to auscultation bilaterally, no crackles, no rales, no rhonchi and no wheezes Cardio Jugular venous distension: no JVD Rate: regular rate Rhythm: regular rhythm Heart sounds: S1 normal heart sound present, S2 normal heart sound present, no murmurs and no rubs Neuro General: patient oriented x3 Extrem General: Yes normal to inspection and No no pedal edema Psych Appearance: grossly normal Mental Status: mental status grossly normal Speech and movement: Normal speech and movement present Assessment & Plan Assessment & Plan (1) CHF (congestive heart failure): Code(s): I50.9 - Heart failure, unspecified Qualifiers: Heart failure type: other Qualified Code(s): I50.9 - Heart failure, unspecified Plan: On last visit she had evidence of fluid overload. She has sulfa allergy and is unable to take Lasix. She was started on ethacrynic acid 25 mg daily. She tells me she took 3 doses and developed hives. She has since stopped that medication. Today she reports no significant issues with shortness of breath or edema. She does have asthma which contributes to some shortness of breath. She has no swelling on examination. Last echocardiogram 04/07/2022 showed EF 59%, mild mitral annular calcification. No need for repeat echo at this time. She does not appear fluid overloaded today. She will remain off ethacrynic acid. Signs and symptoms of heart failure reviewed. Instructed to call this office if any concerning symptoms. ED care if ever needed. Cardiology follow-up in 1 year, sooner if needed (2) Hypertension: Code(s): I10 - Essential (primary) hypertension Plan: Well controlled at present time. She reports being sensitive to medications. She is currently tolerating amlodipine at 5 mg daily. No med change made. Reviewed low-salt diet, weight loss. (3) Palpitations: Code(s): R00.2 - Palpitations Plan: Report of heart palpitations on last visit. A Holter monitor was done 08/07/2023 for 14 days showing sinus rhythm with average heart rate 79, no pauses, rare ectopy. Today she states her palpitations have lessened and currently causing no concern. Medications: Discontinued ethacrynic acid Discontinued Reason: Patient no longer taking 25 mg PO DAILY 30 tabs 3RF R00.2 - Palpitations Patient Instructions: Time spent with chart review, documentation, interview, assessment Coding Level of Care Code Est Pt Level 3 (80320) Diagnoses Other congestive heart failure I50.9 Heart failure type: other Hypertension I10 Palpitations R00.2 Time Spent (min) 24
== END 2023-09-07 14:10 | disposition home or self-care (01) ==
PROVIDERS: PCP Internal Medicine; Visit Provider Nurse Practitioner Family
DX: I50.9 Heart failure, unspecified (principal); I10 Essential (primary) hypertension; R00.2 Palpitations
CPT/HCPCS: 99213

== ENCOUNTER → 2023-09-07 13:39 | Outpatient (BNVA) | payer MEDICARE, SELFPAY | PROVIDERS: PCP Internal Medicine; Visit Provider Nurse Practitioner Family | DX: I11.0 Hypertensive heart disease with heart failure (principal); I50.9 Heart failure, unspecified; R00.2 Palpitations | CPT/HCPCS: 99212 ==

== ENCOUNTER 2023-09-11 09:45 | Outpatient (REF) | payer MEDICARE, MEDICAID, SELFPAY ==
--- NOTE | ~2023-09-11 | MR_ITS ---
EXAMINATION: MR BRAIN WITHOUT AND WITH CONTRAST CLINICAL INFORMATION: History meningioma. Worsening daily headaches for one month. COMPARISON: Head CT dated 06/24/[address] from 06/08/2023. TECHNIQUE: Multiplanar, multisequence imaging of the brain was performed before and after the intravenous administration of 8 mL of Gadavist. Slightly limited examination with patient motion artifacts. FINDINGS: When accounting for differences in imaging modalities, the right parafalcine homogeneously enhancing meningioma with internal calcification remains relatively stable compared to the prior CT study, measuring 1.9 x 1.1 x 1.8 cm in size. No adjacent parenchymal edema is identified. There is a very mild degree of adjacent dural enhancement along the cerebral falx. No diffusion abnormalities are identified to suggest an acute infarct. The ventricles are normal in size. No significant mass effect or midline shift is seen. Mild chronic white matter microangiopathic changes noted. No extra-axial fluid collections are seen. The brainstem and cerebellum are normal. On postcontrast imaging, there is no abnormal parenchymal enhancement. The craniovertebral junction, marrow signal, and remaining midline structures are normal. The major intracranial flow voids at the level of the [place] are preserved. The dural venous sinus flow voids are maintained. There is a small 1.4 cm proteinaceous retention cyst along the floor of the right maxillary sinus. The mastoid air cells and remaining paranasal sinuses are well aerated. MR/MR head/brain wo/w con IMPRESSION: Limited study with motion artifacts. No acute intracranial process. Mild chronic white matter microangiopathy. 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
[2023-09-11] MEDS: gadobutroL 10 ML VIAL IVPUSH (10:55)
== END 2023-09-11 09:46 | disposition home or self-care (01) ==
LOC: HO.MRI 09:45
PROVIDERS: PCP Internal Medicine; Visit Provider Family Medicine
DX: R51.9 Headache, unspecified (principal); G89.29 Other chronic pain
CPT/HCPCS: 70553; A9585

== ENCOUNTER 2023-09-26 10:50 | Emergency (ER) | payer MEDICARE, MEDICAID, SELFPAY ==
--- NOTE | ~2023-09-26 | CT_ITS ---
CT HEAD WITHOUT IV CONTRAST CT CERVICAL SPINE WITHOUT IV CONTRAST INDICATION: Headache. Head injury. COMPARISON: Head and cervical spine CT 06/16/2023. Brain MRI 09/11/2023. TECHNIQUE: Multidetector CT acquisitions of the head and cervical spine were obtained without IV contrast. Multiplanar reformats were acquired and utilized for image interpretation. This CT examination was performed using dose optimization techniques as appropriate, variously including the following: *Automated exposure control *Adjustment of mA and/or kV according to patient size (this includes techniques or standardized protocols for targeted exams where dose is matched to indication/reason for exam; i.e. extremities or head) *Use of iterative reconstruction technique FINDINGS: HEAD: There is a stable partially calcified 1.9 cm anterior right parafalcine meningioma. No adjacent parenchymal edema. There is no intracranial hemorrhage, hydrocephalus, extra-axial surface collection, midline shift, or other herniation pattern. Grewal to white matter differentiation is diffusely maintained without evidence of an evolved acute territorial infarct. The basilar cisterns are preserved. No significant soft tissue abnormality. No acute osseous abnormality. Retention cyst within the inferior right maxillary sinus. CERVICAL SPINE: There are no acute fractures and there are no acute subluxations within the cervical spine. Advanced cervical spondylosis. No prevertebral soft tissue swelling. Craniocervical junction is intact. No significant soft tissue abnormality within the neck. The visualized lung apices are clear. CT/CT head/brain wo IV con IMPRESSION: - No acute intracranial abnormality. There is a stable partially calcified 1.9 cm anterior right parafalcine meningioma. No adjacent parenchymal edema. - No acute osseous abnormality within the cervical spine. Advanced cervical spondylosis.
--- NOTE | ~2023-09-26 | CT_ITS ---
CT HEAD WITHOUT IV CONTRAST CT CERVICAL SPINE WITHOUT IV CONTRAST INDICATION: Headache. Head injury. COMPARISON: Head and cervical spine CT 06/16/2023. Brain MRI 09/11/2023. TECHNIQUE: Multidetector CT acquisitions of the head and cervical spine were obtained without IV contrast. Multiplanar reformats were acquired and utilized for image interpretation. This CT examination was performed using dose optimization techniques as appropriate, variously including the following: *Automated exposure control *Adjustment of mA and/or kV according to patient size (this includes techniques or standardized protocols for targeted exams where dose is matched to indication/reason for exam; i.e. extremities or head) *Use of iterative reconstruction technique FINDINGS: HEAD: There is a stable partially calcified 1.9 cm anterior right parafalcine meningioma. No adjacent parenchymal edema. There is no intracranial hemorrhage, hydrocephalus, extra-axial surface collection, midline shift, or other herniation pattern. Grewal to white matter differentiation is diffusely maintained without evidence of an evolved acute territorial infarct. The basilar cisterns are preserved. No significant soft tissue abnormality. No acute osseous abnormality. Retention cyst within the inferior right maxillary sinus. CERVICAL SPINE: There are no acute fractures and there are no acute subluxations within the cervical spine. Advanced cervical spondylosis. No prevertebral soft tissue swelling. Craniocervical junction is intact. No significant soft tissue abnormality within the neck. The visualized lung apices are clear. CT/CT cervical spine wo IV con IMPRESSION: - No acute intracranial abnormality. There is a stable partially calcified 1.9 cm anterior right parafalcine meningioma. No adjacent parenchymal edema. - No acute osseous abnormality within the cervical spine. Advanced cervical spondylosis.
[2023-09-26 11:31] VITALS: BP 145/70; PULSE 74; RESP 16; TEMP 36.9; O2SAT 95; BMI 30.8
--- NOTE | 2023-09-26 11:37 | ED_ITS ---
HPI - General Adult General Chief complaint: Head Injury Stated complaint: Nausea Dizziness Time Seen by Provider: 09/26/23 13:01 Source: patient and family (patient's ) Mode of arrival: ambulatory Limitations: no limitations History of Present Illness HPI narrative: Patient is an 83 year old assigned female at with a history of HTN and meningemoa presenting to the emergency department today with a headache. Patient states that yesterday she hit her head on a car trunk and is having a headache. Patient denies any loss of consciousness, dizziness, lightheadedness, abdominal pain, vomiting, fever, chills, blurry vision, double vision, loss of vision, chest pain, difficulty breathing, shortness of breath, back pain, night sweats, pain with urination, increased urinary frequency, increased urinary urgency, blood in her urine or stool, syncope or a near syncopal episode, bowel incontinence, bladder incontinence, bowel retention, bladder retention, or any other complaints at this time. Onset (ago): day(s) (1) Radiation: non-radiation Severity: mild Severity scale (1-10): 3 Quality: dull Pain Consistency: constant Relieving factors: none Exacerbating factors: none Associated symptoms: nausea/vomiting Treatments prior to arrival: none Related Data Home Medications Medication Instructions Recorded Confirmed amlodipine 5 mg tablet 5 mg PO DAILY 07/28/20 09/07/23 vitamin E (dl, acetate) PO 07/28/20 09/07/23 fluticasone fur. 100 mcg-umeclid 1 ea inhalation DAILY 03/25/21 09/07/23 62.5 mcg-vilant 25 mcg inhalat.powder lancets 30 gauge (OneFabiouch Dellidia #100 ea 07/17/23 09/07/23 Plus Lancet) trazodone 50 mg tablet 50 mg PO BEDTIME 07/17/23 09/07/23 Previous Rx's Medication Instructions Recorded albuterol sulfate 2.5 mg/0.5 mL 5 mg inhalation Q4H PRN shortness 07/23/21 solution for nebulization of breath or wheezing #30 ea albuterol sulfate 90 mcg/actuation 2 puff inhalation Q4-6H PRN 07/23/21 aerosol inhaler shortness of breath or wheezing #6.7 grams fluticasone propionate 50 2 spray intranasal DAILY #16 grams 10/16/21 mcg/actuation nasal spray,suspension (Flonase Allergy Relief) ezetimibe 10 mg tablet 10 mg PO DAILY #90 tabs 05/03/23 ondansetron 4 mg disintegrating 4 mg PO Q8H 3 days #9 tabs 09/26/23 tablet Allergies Allergy/AdvReac Type Severity Reaction Status Date / Time ethacrynic acid Allergy Mild Hives Verified 09/07/23 14:07 montelukast Allergy Mild Hives Verified 09/07/23 14:07 Penicillins [PENICILLINS] Allergy Mild RASH Verified 09/07/23 13:44 Sulfa (Sulfonamide Allergy Mild RASH Verified 09/07/23 13:44 Antibiotics) [SULFA(SULFONAMIDE ANTIBIOTICS)] latex Allergy rash Verified 09/07/23 13:44 Review of Systems Constitutional: Constitutional: Reports no additional constitutional complaints, Denies chills, Denies fever(s), Reports headache(s) and Denies night sweats Eyes: Eyes: Reports no additional eye complaints, Denies blurry vision, Denies change in vision, Denies diplopia, Denies eye discharge, Denies loss of vision and Denies eye pain ENT: Denies dizziness and Reports headache(s) Cardiovascular: Cardiovascular: Reports no additional cardiovascular complaints, Denies chest pain, Denies lightheadedness, Denies Loss of Consciousness and Denies dyspnea Respiratory: Respiratory: Reports no additional respiratory complaints and Denies dyspnea Gastrointestinal: Gastrointestinal: Reports no additional gastrointestinal complaints, Denies abdominal pain, Denies melena, Denies hematochezia, Denies change in bowel habits, Denies change in stool character and Reports nausea Genitourinary: Genitourinary: Denies hematuria, Denies urinary frequency, Denies dysuria, Denies urinary incontinence, Denies urinary hesitancy and Denies urinary urgency Musculoskeletal: Musculoskeletal: Reports no additional musculoskeletal complaints, Denies numbness and Denies tingling Neurologic: Denies dizziness, Reports headache(s), Denies loss of vision, Denies numbness and Denies tingling Psychiatric: Psychiatric: Reports no additional psychiatric complaints Endocrine: Endocrine: Reports no additional endocrine complaints Hematologic/Lymphatic: Hematologic/Lymphatic: Reports no additional hematologic/lymphatic complaints Allergic/Immunologic: Allergic/Immunologic: Reports no additional allergic/immunologic complaints PMFSH Past Medical History Attestation statement: The following information was validated with the patient. (all information validated with the patient's ) Source: old records reviewed, obtained from family (patient's provided additional history and confirmed the history provided by the patient.) and nursing notes reviewed Medical History Varicose veins of unspecified lower extremity with inflammation Other specific arthropathies, not elsewhere classified, right shoulder Unspecified rotator cuff tear or rupture of right shoulder, not specified as traumatic Hypertension Asthma Surgical History History of cardiac catheterization Family History Family History Mother No problems noted. Father No problems noted. Brother Esophageal cancer Social History Social History Alcohol intake: never Patient Tobacco Use Status: Former Tobacco user Quit Date: Years Smoked: 20+ Advance Directives: No Advance Directives Information Provided: No Current occupational status: retired Current occupation: Right Handed Physical Exam ED Vital Signs: Vital Signs - 24 hr 09/26/23 11:31 Temperature 98.5 F Pulse Rate 74 Respiratory Rate 16 Blood Pressure 145/70 H Pulse Oximetry 95 Oxygen Delivery Method Room Air BMI result Body Mass Index 30.8 Const General: cooperative, no acute distress, alert and awake Nutritional Appearance: well nourished Orientation/consciousness: patient oriented x3 Limitations: no limitations HENMT Head: Yes normal to inspection and Yes atraumatic Ears: hearing grossly normal bilaterally and external ears normal General nose exam: Normal external nose present, no nasal discharge noted and no epistaxis Face and sinus: Yes normal facial exam, No abrasion and No laceration Mouth: Normal oral and palatal mucosa present, no drooling and no muffled voice Eyes General: appearance normal, both eyes and all related structures Periorbital: periorbital findings normal Eyelids: Yes eyelids normal Conjunctivae: conjunctivae normal Pupils: Equal, round and reactive pupils present EOM: EOMs intact bilaterally Neck Neck: Yes normal visual inspection, Yes full ROM and Yes no lymphadenopathy Chest Chest palpation & inspection: normal inspection of the chest Resp Effort & Inspection: normal respiratory effort and able to speak in complete sentences GI Inspection: Yes normal to inspection Neuro General: patient oriented x3 and moves all extremities Cranial nerves: Yes Equal, round and reactive pupils present Cognition (Neuro): normal cognition Motor exam (neuro): 5/5 motor strength present throughout Sensory Exam: Normal double simultaneous stimulation for sensation Coordination: [id number] test normal Extrem General: Yes normal to inspection, Yes full ROM and Yes capillary refill normal Psych Appearance: grossly normal Mental Status: mental status grossly normal Affect: normal affect Attitude: cooperative Thought process: Normal thought process present Thought content: Normal thought content present Insight: Good insight present (Psych) Course Course Course Narrative: RME: 83 yold female presents to the ED for headache and posterior neck pain after hitting head on trunk of car read hard while removing groceries. pain since incident which occurred yesteday. positive for posteerior neck pain and occipital scalp tenderness. head CT and cervical CT scan ordered Medications Administered Discontinued Medications Generic Name Dose Route Start Last Admin Trade Name Freq PRN Reason Stop Dose Admin Acetaminophen 650 mg 09/26/23 14:26 09/26/23 14:32 Acetaminophen 325 Mg Tablet PO 09/26/23 14:27 650 mg ONCE ONE Administration Ondansetron HCl 4 mg 09/26/23 14:26 09/26/23 14:31 Ondansetron Odt 4 Mg Tab.Rapdis TRANSLINGU 09/26/23 14:27 4 mg ONCE ONE Administration Medical Decision Making Medical Decision Making [facility] Narrative: Patient is an 83 year old assigned female at with a history of HTN and meningemoa presenting to the emergency department today with a headache and nausea after a head strike. Patient's physical exam was unremarkable. Patient's CT head and c-spine showed no acute process. I explained my physical exam findings as well as all test results to the patient and the patient's . I answered all questions asked by the patient and the patient's . I stressed the importance of the patient taking her medication as prescribed. I stressed the importance of the patient following up with her primary care provider. I stressed the importance of the patient returning to the emergency department immediately if her symptoms were to worsen or if she were to develop any dizziness, shortness of breath, difficulty breathing, chest pain, blurry vision, loss of vision, nausea, vomiting, abdominal pain, fever, chills, back pain, or any other complaints. Patient and the patient's verbalized agreement and understanding with this treatment plan and discharge. Differential Diagnosis Differential Diagnoses: The differential diagnosis associated with the presentation includes Headache Concussion Head injury Admission/Observation Consideration of admission/observation: Escalation of care including admission/observation considered Patient would have been admitted to the hospital had her work up had any findings where hospital admission was appropriate and her clinical presentation warranted hospital admission. Independent Interpretation I performed an independent interpretation of an: CT Scan Interpretation: My interpretation is in agreement with the radiologist's impression of these imaging studies. CT HEAD WITHOUT IV CONTRAST CT CERVICAL SPINE WITHOUT IV CONTRAST INDICATION: Headache. Head injury. COMPARISON: Head and cervical spine CT 06/16/2023. Brain MRI 09/11/2023. TECHNIQUE: Multidetector CT acquisitions of the head and cervical spine were obtained without IV contrast. Multiplanar reformats were acquired and utilized for image interpretation. This CT examination was performed using dose optimization techniques as appropriate, variously including the following: *Automated exposure control *Adjustment of mA and/or kV according to patient size (this includes techniques or standardized protocols for targeted exams where dose is matched to indication/reason for exam; i.e. extremities or head) *Use of iterative reconstruction technique FINDINGS: HEAD: There is a stable partially calcified 1.9 cm anterior right parafalcine meningioma. No adjacent parenchymal edema. There is no intracranial hemorrhage, hydrocephalus, extra-axial surface collection, midline shift, or other herniation pattern. Grewal to white matter differentiation is diffusely maintained without evidence of an evolved acute territorial infarct. The basilar cisterns are preserved. No significant soft tissue abnormality. No acute osseous abnormality. Retention cyst within the inferior right maxillary sinus. CERVICAL SPINE: There are no acute fractures and there are no acute subluxations within the cervical spine. Advanced cervical spondylosis. No prevertebral soft tissue swelling. Craniocervical junction is intact. No significant soft tissue abnormality within the neck. The visualized lung apices are clear. CT/CT head/brain wo IV con IMPRESSION: - No acute intracranial abnormality. There is a stable partially calcified 1.9 cm anterior right parafalcine meningioma. No adjacent parenchymal edema. - No acute osseous abnormality within the cervical spine. Advanced cervical spondylosis. Dictated By: Vasile Calvillo MD Signed By: Electronically signed by Vasile Calvillo MD 09/26/23 1580 Radiology Impression Discussion of test interpretation with radiology: I have reviewed the radiologist's reading. Independent Historian Clinical information obtained from an independent historian. History obtained from or confirmed by: Spouse (patient's provided additional history and confirmed the history provided by the patient.) Discharge Plan Discharge Clinical Impression: Concussion Patient Disposition: Home, Self-Care Instructions: Concussion (ED) Additional Instructions: Follow up with your primary care provider. Return to the emergency department immediately if your symptoms worsen or if you develop any dizziness, shortness of breath, difficulty breathing, chest pain, blurry vision, loss of vision, nausea, vomiting, abdominal pain, fever, chills, back pain, or any other complaints. Maryuri un seguimiento con antonio proveedor de atenci?n primaria. Regrese al departamento de emergencias inmediatamente si jackelyn s?ntomas empeoran o si presenta mareos, dificultad para respirar, dificultad para respirar, dolor en el pecho, visi?n borrosa, p?rdida de la visi?n, n?useas, v?mitos, dolor abdominal, fiebre, escalofr?os, dolor de espalda o cualquier otras quejas. Prescriptions: New ondansetron 4 mg tablet,disintegrating 4 mg PO Q8H 3 Days Qty: 9 0RF No Action ezetimibe 10 mg tablet 10 mg PO DAILY Qty: 90 3RF albuterol sulfate 90 mcg/actuation HFA aerosol inhaler 2 puff inhalation Q4-6H PRN (Reason: shortness of breath or wheezing) Qty: 6.7 0RF albuterol sulfate 2.5 mg/0.5 mL solution for nebulization 5 mg inhalation Q4H PRN (Reason: shortness of breath or wheezing) Qty: 30 0RF fluticasone propionate [Flonase Allergy Relief] 50 mcg/actuation spray,suspension 2 spray intranasal DAILY Qty: 16 0RF Rx Instructions: administer into each nostril trazodone 50 mg tablet 50 mg PO BEDTIME (DME) lancets [OneTouch Delica Plus Lancet] 30 gauge misc See Rx Instructions .ROUTE .MEDSUPPLY Qty: 100 Rx Instructions: As directed amlodipine 5 mg tablet 5 mg PO DAILY vitamin E (dl, acetate) PO Trelegy Ellipta 100-62.5-25 mcg blister with device 1 ea inhalation DAILY Referrals: Thaddeus Salazar MD [Primary Care Provider] - Interventions: ED Discharge Assessment Last Done: 09/26/23 14:42 Discharge Date/Time: 09/26/23 14:42 Print Language: Lithuanian
[2023-09-26] MEDS: Ondansetron ODT 4 MG TAB.RAPDIS TRANSLINGU (14:31)
[2023-09-26] MEDS: Acetaminophen 325 MG TABLET 650 MG PO (14:32)
== END 2023-09-26 14:42 | disposition home or self-care (01) ==
PROVIDERS: Emergency Provider Emergency Medicine Emergency Medical Services; PCP Internal Medicine
DX: S06.0X0A Concussion without loss of consciousness, initial encounter (principal); R11.2 Nausea with vomiting, unspecified; R42 Dizziness and giddiness; Y29.XXXA Contact with blunt object, undetermined intent, initial encounter; Y93.9 Activity, unspecified; Y92.9 Unspecified place or not applicable; Y99.9 Unspecified external cause status
CPT/HCPCS: 70450; 72125; 99283; 99284

== ENCOUNTER 2023-10-11 14:54 | Outpatient (AMB) | payer MEDICARE, MEDICAID, SELFPAY ==
[2023-10-11 15:03] VITALS: PULSE 80; O2SAT 95; BMI 30.8
--- NOTE | 2023-10-11 15:03 | MHC.OFFVIS ---
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 The patient is an 83 year woman with a lifelong history of asthma. Apparently she has been very symptomatic for about 15 years and then she was evaluated by Pulmonary and her medications were adjusted. She has done a lot better. Back in 2021 the patient did have worsening shortness of breath and did come into the ER. At that point she did have a CT scan of the chest that we personally reviewed. The patient did have some evidence of tree in budding primarily the right lung suggesting bronchiolitis likely from a viral syndrome at that time. In addition to that she has some sub pleural reticulation suggesting of some scarring. The patient has not had any further imaging after that. She has been on the Trelegy inhaler and this has been very affecting beneficial. She does not barely have to use her rescue inhaler at all. She has not required any prednisone or any hospitalizations. Recently she was with her who was going to an appointment and she was closely in the trunk of her car and she banged the top of the head. She ended up going to the ER because she felt weak and nauseous. There she did have a CT scan of the brain. It was noted that she did have a calcified meningioma. This meningioma has been documented before and has not appear to have changed. She needs to follow closely with her primary care or neurologist for this condition. She continues to feel nauseous. She is also feeling dizzy. In the office we did orthostatic vital signs and there were stable. She is going to monitor closely her symptoms and if they get worse or no better she will call her primary care or go seek medical advice. At least from a pulmonary standpoint the patient is stable. Will have her undergo pulmonary function studies prior to her next visit in the springtime. [facility] Medical History (Updated 10/11/23 @ 21:50 by Hans Fontenot MD) Asthma Varicose veins of unspecified lower extremity with inflammation Other specific arthropathies, not elsewhere classified, right shoulder Unspecified rotator cuff tear or rupture of right shoulder, not specified as traumatic Hypertension Surgical History History of cardiac catheterization Family History Mother No problems noted. Father No problems noted. Brother Esophageal cancer Social History Alcohol intake: never Patient Tobacco Use Status: Former Tobacco user Quit Date: Years Smoked: 20+ Current occupational status: retired Current occupation: Right Handed Review of Systems Const Reports daytime sleepiness, Reports fatigue, Reports headache(s) and Reports weakness Eyes Denies diplopia ENT Reports dizziness and Reports headache(s) Card Denies chest pain and Denies dyspnea Resp Denies chest congestion, Reports cough, Denies dyspnea and Denies wheezing GI Reports nausea Musc Reports no additional complaints Skin/Breast Denies rash Neuro Reports dizziness, Reports headache(s) and Reports weakness Endo Reports fatigue Jenaro/Lymph Denies easy bleeding Aller/Immun Denies wheezing Physical Exam Vital Signs: Last Vital Signs Pulse 80 10/11/23 15:03 Pulse Ox 95 10/11/23 15:03 Oxygen Delivery Method Room Air 10/11/23 15:03 BMI result Body Mass Index 30.8 Const General: comfortable and no acute distress HEENT Head: Yes normocephalic Neck Neck: Yes supple Chest Chest palpation & inspection: normal inspection of the chest Resp Effort & Inspection: normal respiratory effort Auscultation: no wheezes and diminished lung sounds Cardio Heart sounds: S1 normal heart sound present and S2 normal heart sound present GI Palpation (GI): Soft to palpation Skin General skin exam: no rashes or lesions noted Extrem General: Yes no clubbing, cyanosis or edema Assessment & Plan Assessment & Plan (1) Asthma: Code(s): J45.909 - Unspecified asthma, uncomplicated Qualifiers: Asthma severity: moderate Asthma persistence: persistent Asthma complication type: uncomplicated Qualified Code(s): J45.40 - Moderate persistent asthma, uncomplicated (2) CHF (congestive heart failure): Code(s): I50.9 - Heart failure, unspecified Qualifiers: Heart failure type: other Qualified Code(s): I50.9 - Heart failure, unspecified (3) EVELYN (obstructive sleep apnea): Code(s): G47.33 - Obstructive sleep apnea (adult) (pediatric) Plan continue Trelegy JESUS as needed diuresis as tolerated PFTs consider sleep study F/U 3 months Orders: Orders PFT pulmonary function test 3 Months J45.40 - Moderate persistent asthma, uncomplicated Coding Level of Care Code New Pt Level 4 (50863) Diagnoses Moderate persistent asthma without complication J45.40 Asthma severity: moderate Asthma persistence: persistent Asthma complication type: uncomplicated Other congestive heart failure I50.9 Heart failure type: other EVELYN (obstructive sleep apnea) G47.33 Time Spent (min) 35
== END 2023-10-11 15:43 | disposition home or self-care (01) ==
PROVIDERS: PCP Internal Medicine; Referring Provider Internal Medicine; Visit Provider Hospitalist
DX: J45.40 Moderate persistent asthma, uncomplicated (principal); I50.9 Heart failure, unspecified; G47.33 Obstructive sleep apnea (adult) (pediatric)
CPT/HCPCS: 99204

== ENCOUNTER → 2023-10-11 14:54 | Outpatient (BNVA) | payer MEDICARE, MEDICAID, SELFPAY | PROVIDERS: PCP Internal Medicine; Referring Provider Internal Medicine; Visit Provider Hospitalist | DX: J45.40 Moderate persistent asthma, uncomplicated (principal); I50.9 Heart failure, unspecified; G47.33 Obstructive sleep apnea (adult) (pediatric) | CPT/HCPCS: 99202 ==

== ENCOUNTER 2023-12-13 13:38 | Outpatient (REF) | payer OTHER, SELFPAY ==
--- NOTE | ~2023-12-13 | XR_ITS ---
EXAMINATION: XR HIP, RIGHT CLINICAL INFORMATION: Right hip pain. COMPARISON: Right hip images of 08/27/2020. Left hip images of 12/25/2018. Lumbar spine radiographs of 06/16/2023. TECHNIQUE: 2 views of the right hip. FINDINGS: The bones are diffusely demineralized. Degenerative changes in the right sacroiliac joint and on very limited images of the lower lumbar spine. Moderate degenerative changes in the right hip with axial joint space loss. XR/XR hip RT min 2V IMPRESSION: 1. Moderate degenerative changes in the right hip. 2. Moderate degenerative changes in the right sacroiliac joint. 3. Additional imaging with MRI could be considered for further evaluation if there is clinical concern for fracture or other underlying pathology.
== END 2023-12-13 13:39 | disposition home or self-care (01) ==
LOC: HO.XRAY 13:38
PROVIDERS: PCP Internal Medicine; Visit Provider Internal Medicine
DX: M25.551 Pain in right hip (principal)
CPT/HCPCS: 73502

== ENCOUNTER 2024-01-28 12:16 | Outpatient (REF) | payer OTHER, SELFPAY ==
--- NOTE | ~2024-01-28 | XR_ITS ---
EXAMINATION: XR HAND, RIGHT CLINICAL INFORMATION: Right hand pain, constant over the last 2 months, patient states pain in right hand, pain all over. COMPARISON: None available. TECHNIQUE: PA, lateral, and oblique views of the right hand. FINDINGS: Bones are diffusely demineralized. Moderate degenerative changes in the first carpometacarpal joint with joint space narrowing and hypertrophic change. Advanced degenerative changes are most with hypertrophic change and joint space are most severe in the first metacarpophalangeal and IP joints as well as in scattered IP and particularly in the DIP joints. Mild degenerative changes in the second through fifth metacarpophalangeal joints. XR/XR hand RT min 3V IMPRESSION: 1. Advanced degenerative changes in the right hand. 2. No displaced fracture. Recommend follow-up imaging in 10-14 days if fracture is suspected.
== END 2024-01-28 12:17 | disposition home or self-care (01) ==
LOC: HO.XRAY 12:16
PROVIDERS: PCP Internal Medicine; Visit Provider Internal Medicine
DX: M79.641 Pain in right hand (principal)
CPT/HCPCS: 73130

== ENCOUNTER 2024-03-04 13:51 | Outpatient (REF) | payer OTHER, MEDICAID, SELFPAY ==
[2024-03-04 14:47] LABS: MANUAL DIFF FLAG NO
[2024-03-04 15:19] LABS: Basophils Absolute Auto 0.1 X10*3/uL (0.0-0.2); Basophils Percent Auto 0.8 % (0-2); Eosinophils Absolute Auto 0.2 X10*3/uL (0.0-0.4); Eosinophils Percent Auto 1.6 % (0-4); Hemoglobin 13.9 g/dl (12.0-16.0); Imm Gran Abs Auto 0.03 X10*3/uL (0.00-0.03); Imm Gran Pct Auto 0.3 % (0.0-0.4); Lymphocytes Absolute Auto 1.6 X10*3/uL (1.2-4.9); Lymphocytes Percent Auto 17.1 % (20-40); Mean Corpuscular HGB Conc 33.1 g/dl (31.0-35.0); Mean Corpuscular Volume 87.5 fL (80.0-98.0); Mean Platelet Volume 9.4 fL (9.4-12.3); Monocytes Absolute Auto 0.7 X10*3/uL (0.1-1.2); Neutrophils Absolute Auto 6.7 x10*3/uL (2.0-8.3); Neutrophils Percent Auto 72.2 % (45-73); Platelet Count 347 X10*3/uL (160-400); Red Cell Distribution Width 14.2 % (11.0-16.0); White Blood Count 9.3 X10*3/uL (4.8-10.8)
[2024-03-04 16:00] LABS: Erythrocyte Sedimentation Rate 23 MM/HR (0-20)
[2024-03-06 03:24] LABS: Class Alternaria alternata 0; Class Aspergillus fumigatus 1; Class Bermuda Grass 0; Class Birch 0/1; Class Cat Dander 0; Class Cladosporium herbarum 0; Class Cockroach 0; Class Common Ragweed 0; Class Cottonwood 0; Class Derm. pterony 2; Class Dermatophagoides farinae 2; Class Dog Dander 0/1; Class Elm 0; Class Maple Box Elder 0; Class Mountain Cedar 0; Class Mouse Urine Protein 0; Class Mugwort 0; Class Oak 0; Class Penicillium crysogenum 0/1; Class Rough Pigweed 0; Class Sheep Sorrel 0; Class Sycamore 0; Class Timothy Grass 0; Class Walnut Tree 0; Class White Ash 0; Class White Mulberry 0; D001 IgE D pteronyssinus 1.08 kU/L; D002 - IgE D farinae 1.46 kU/L; E001 - IgE Cat Dander <0.10 kU/L; E005 - IgE Dog Dander 0.17 kU/L; E072-IgE Mouse Urine <0.10 kU/L; G002 IgE Bermuda Grass <0.10 kU/L; G006 - IgE Timothy Grass <0.10 kU/L; I006-IgE Cockroach, German <0.10 kU/L; Immunoglobulin E 135 kU/L (<OR=114); M002 - IgE Cladosporium herbar <0.10 kU/L; M003 - IgE Aspergillus fumigat 0.44 kU/L; M006 - IgE Alternaria alternat <0.10 kU/L; T001 IgE Maple/Box Elder <0.10 kU/L; T003 IgE Common Silver Birch 0.12 kU/L; T006 - IgE Cedar, Mountain <0.10 kU/L; T007 - IgE Oak, White <0.10 kU/L; T008 IgE Elm, American <0.10 kU/L; T010 - IgE Walnut <0.10 kU/L; T011 - IgE Maple Leaf Sycamore <0.10 kU/L; T014 - IgE Cottonwood <0.10 kU/L; T015 - IgE Ash, White <0.10 kU/L; T070 - IgE White Mulberry <0.10 kU/L; W001 - IgE Ragweed, Short <0.10 kU/L; W006 - IgE Mugwort <0.10 kU/L; W014 IgE Pigweed, Common <0.10 kU/L; W018 IgE Sheep Sorrel <0.10 kU/L
== END 2024-03-04 13:52 | disposition home or self-care (01) ==
LOC: HO.LAB 13:51
PROVIDERS: PCP Internal Medicine; Visit Provider Hospitalist
DX: R91.1 Solitary pulmonary nodule (principal); J45.40 Moderate persistent asthma, uncomplicated; I50.9 Heart failure, unspecified; G47.33 Obstructive sleep apnea (adult) (pediatric); R21 Rash and other nonspecific skin eruption; T78.40XA Allergy, unspecified, initial encounter
CPT/HCPCS: 36415; 82785; 85025; 85652; 86003; 99212

== ENCOUNTER 2024-03-04 13:51 | Outpatient (AMB) | payer MEDICARE, MEDICAID, SELFPAY ==
[2024-03-04 14:01] VITALS: PULSE 80; O2SAT 96; BMI 28.9
--- NOTE | 2024-03-04 14:01 | A.OFFVIS_ITS ---
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 Apparently she has been very symptomatic for about 15 years and then she was evaluated by Pulmonary and her medications were adjusted. She has done a lot better. Back in 2021 the patient did have worsening shortness of breath and did come into the ER. At that point she did have a CT scan of the chest that we personally reviewed. The patient did have some evidence of tree in budding primarily the right lung suggesting bronchiolitis likely from a viral syndrome at that time. In addition to that she has some sub pleural reticulation suggesting of some scarring. The patient has not had any further imaging after that. She has been on the Trelegy inhaler and this has been very affecting beneficial. She does not barely have to use her rescue inhaler at all. She has not required any prednisone or any hospitalizations. Recently she was with her who was going to an appointment and she was closely in the trunk of her car and she banged the top of the head. She ended up going to the ER because she felt weak and nauseous. There she did have a CT scan of the brain. It was noted that she did have a calcified meningioma. This meningioma has been documented before and has not appear to have changed. She needs to follow closely with her primary care or neurologist for this condition. She continues to feel nauseous. She is also feeling dizzy. In the office we did orthostatic vital signs and there were stable. She is going to monitor closely her symptoms and if they get worse or no better she will call her primary care or go seek medical advice. At least from a pulmonary standpoint the patient is stable. Will have her undergo pulmonary function studies prior to her next visit in the springtime. 03/04/2024 the patient is here for a pulmonary follow-up visit. Overall the patient has been doing okay. She has been anxious and gets therefore 's health. She is lost weight. The patient continues use Trelegy with good effect. She still uses her rescue inhaler and sometimes a nebulizer at nighttime because she gets wheezing. She does take Zyrtec. She can not ernesto ate Singulair. The patient is also having issues with a rash at nighttime. She feels his allergies or bites she is having at nighttime that affect her sleep. Will go ahead and order allergy testing. In the meantime she continues uses Zyrtec. We did review her last CT scan of the chest that she had back in 2021 demonstrating some parenchymal lung disease but minimal. Will go ahead and have her repeat a chest x-ray as well. The patient will follow-up in 6 months or sooner if she develops any worsening issues. 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 Father No problems noted. Brother Esophageal cancer Social History Alcohol intake: never Patient Tobacco Use Status: Former Tobacco user Quit Date: Years Smoked: 20+ Current occupational status: retired Current occupation: Right Handed Review of Systems Const Reports daytime sleepiness, Reports fatigue, Reports headache(s), Reports weakness and Reports weight loss Eyes Denies diplopia ENT Reports dizziness and Reports headache(s) Card Denies chest pain and Reports dyspnea on exertion Resp Denies chest congestion, Reports cough, Reports dyspnea on exertion and Denies wheezing GI Reports nausea Musc Reports no additional complaints Skin/Breast Denies rash Neuro Reports dizziness, Reports headache(s) and Reports weakness Endo Reports fatigue Jenaro/Lymph Denies easy bleeding Aller/Immun Denies wheezing Physical Exam Vital Signs: Last Vital Signs Pulse 80 03/04/24 14:01 Pulse Ox 96 03/04/24 14:01 Oxygen Delivery Method Room Air 03/04/24 14:01 BMI result Body Mass Index 28.9 Const General: comfortable and no acute distress HEENT Head: Yes normocephalic Neck Neck: Yes supple Chest Chest palpation & inspection: normal inspection of the chest Resp Effort & Inspection: normal respiratory effort Auscultation: no wheezes and diminished lung sounds Cardio Heart sounds: S1 normal heart sound present and S2 normal heart sound present GI Palpation (GI): Soft to palpation Skin General skin exam: no rashes or lesions noted Extrem General: Yes no clubbing, cyanosis or edema Assessment & Plan Assessment & Plan (1) Asthma: Code(s): J45.909 - Unspecified asthma, uncomplicated Category: Medical Qualifiers: Asthma complication type: uncomplicated Asthma persistence: persistent Asthma severity: moderate Qualified Code(s): J45.40 - Moderate persistent asthma, uncomplicated (2) CHF (congestive heart failure): Code(s): I50.9 - Heart failure, unspecified Category: Medical Qualifiers: Heart failure type: other Qualified Code(s): I50.9 - Heart failure, unspecified (3) EVELYN (obstructive sleep apnea): Code(s): G47.33 - Obstructive sleep apnea (adult) (pediatric) Category: Medical (4) Rash: Code(s): R21 - Rash and other nonspecific skin eruption Category: Medical (5) Allergies: Code(s): T78.40XA - Allergy, unspecified, initial encounter Category: Medical Qualifiers: Encounter type: initial encounter Qualified Code(s): T78.40XA - Allergy, unspecified, initial encounter Plan continue Trelegy JESUS as needed diuresis as tolerated CXR bloodwork/ allergy testing consider sleep study F/U 6 months Orders: Orders XR chest 2V Today J45.40 - Moderate persistent asthma, uncomplicated Immunoglobulin E Today R21 - Rash and other nonspecific skin eruption, T78.40XA - Allergy, unspecified, initial encounter Complete Blood Count Auto Diff Today R21 - Rash and other nonspecific skin eruption, T78.40XA - Allergy, unspecified, initial encounter Resp Allergy Profile Region I Today R21 - Rash and other nonspecific skin eruption, R91.1 - Solitary pulmonary nodule, T78.40XA - Allergy, unspecified, initial encounter Erythrocyte Sedimentation Rate Today R21 - Rash and other nonspecific skin eruption, T78.40XA - Allergy, unspecified, initial encounter Medications: New pramoxine-calamine 1-8 % (Calamine Medicated) 1 appl topical TID PRN 177 mL 3RF itching 30 days Coding Level of Care Code Est Pt Level 4 (45020) Diagnoses Moderate persistent asthma without complication J45.40 Asthma complication type: uncomplicated Asthma persistence: persistent Asthma severity: moderate Other congestive heart failure I50.9 Heart failure type: other EVELYN (obstructive sleep apnea) G47.33 Rash R21 Allergy, initial encounter T78.40XA Encounter type: initial encounter Time Spent (min) 17
== END 2024-03-04 14:28 | disposition home or self-care (01) ==
PROVIDERS: PCP Internal Medicine; Visit Provider Hospitalist
DX: J45.40 Moderate persistent asthma, uncomplicated (principal); I50.9 Heart failure, unspecified; G47.33 Obstructive sleep apnea (adult) (pediatric); R21 Rash and other nonspecific skin eruption; T78.40XA Allergy, unspecified, initial encounter
CPT/HCPCS: 99214

== ENCOUNTER 2024-03-06 10:35 | Outpatient (AMB) | payer OTHER, SELFPAY ==
[2024-03-06 10:47] VITALS: BMI 28.9
--- NOTE | 2024-03-06 10:47 | MHC.OFFVIS ---
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 Patient reports ongoing pain since October. She states that she has seen her PCP for the pain but the medication didn't give her relief. Patient expresses that she is having pain in the volar aspect of the wrist and it moves up to the palm of her hand. 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 Allergies ethacrynic acid Allergy (Mild, Verified 03/06/24 10:50) Hives montelukast Allergy (Mild, Verified 03/06/24 10:50) Hives Penicillins [PENICILLINS] Allergy (Mild, Verified 03/06/24 10:50) RASH Sulfa (Sulfonamide Antibiotics) [SULFA(SULFONAMIDE ANTIBIOTICS)] Allergy (Mild, Verified 03/06/24 10:50) RASH latex Allergy (Verified 03/06/24 10:50) rash Medication List - Last Reconciled 03/06/24 by Sara Bass MD albuterol sulfate 90 mcg/actuation 2 puffs inhalation Q4-6H PRN albuterol sulfate 5 mg inhalation Q4H PRN amlodipine 5 mg PO DAILY ezetimibe 10 mg PO DAILY fluticasone propionate 50 mcg/actuation (Flonase Allergy Relief) 2 sprays intranasal DAILY [id number]-[id number] 100-62.5-25 mcg 1 ea inhalation DAILY lancets (OneTouch Delica Plus Lancet) As directed ondansetron 4 mg PO Q8H 3 days pramoxine-calamine 1-8 % (Calamine Medicated) 1 appl topical TID PRN 30 days trazodone 50 mg PO BEDTIME vitamin E (dl, acetate) PO HPI Comments Details: Here with daughter. Bothering her since October. Pain on wrist, palmar, to fingers. She actually denies numbness but says it itches sometimes. Anytime she uses her night. Worst at night. Drops things. Wears a wrist brace. 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 Father No problems noted. Brother Esophageal cancer Social History Alcohol intake: never Patient Tobacco Use Status: Former Tobacco user Years Smoked: 20+ Current occupational status: retired Current occupation: Right Handed Review of Systems Const All systems reviewed & are unremarkable except as noted in HPI and below Physical Exam Vital Signs: BMI result Body Mass Index 28.9 Constitutional: Patient appears to be in no acute distress, well nourished and well developed. MSK: Inspection reveals appropriate head and neck positioning. Bony enlargement noted on IP joints, bilateral. Ulnar deviation of fingers noted on left hand. No joint effusion noted. No intrinsic hand weakness noted. No atrophy noted. Josiane test negative. Carpal compression test positive right. Tinel sign negative on elbow. Right middle digit triggering. Palpable nodule. Strength is 5/5 in all muscle groups tested. No increased tone noted. Neurological: Neurologic examination of the upper and lower extremities was nonfocal with intact sensation, muscle stretch reflexes and without focal motor deficits . Coleman?s negative bilaterally. Babinski was down going bilaterally. Clonus was negative. Gait is non-antalgic without loss of balance. Results Reviewed Results Reviewed: I independently reviewed the results of the following: X-ray shows arthritis in IP joints. Ordering Physician: Thaddeus Salazar MD Date of Service: 01/28/24 Procedure(s): XR hand RT min 3V Accession Number(s): [id number] cc: Thaddeus Salazar MD~ EXAMINATION: XR HAND, RIGHT CLINICAL INFORMATION: Right hand pain, constant over the last 2 months, patient states pain in right hand, pain all over. COMPARISON: None available. TECHNIQUE: PA, lateral, and oblique views of the right hand. FINDINGS: Bones are diffusely demineralized. Moderate degenerative changes in the first carpometacarpal joint with joint space narrowing and hypertrophic change. Advanced degenerative changes are most with hypertrophic change and joint space are most severe in the first metacarpophalangeal and IP joints as well as in scattered IP and particularly in the DIP joints. Mild degenerative changes in the second through fifth metacarpophalangeal joints. XR/XR hand RT min 3V IMPRESSION: 1. Advanced degenerative changes in the right hand. 2. No displaced fracture. Recommend follow-up imaging in 10-14 days if fracture is suspected. I reviewed records from the following: PCP Assessment & Plan Assessment & Plan (1) Degenerative joint disease of hand: Code(s): M19.049 - Primary osteoarthritis, unspecified hand Category: Medical (2) Trigger finger, right middle finger: Code(s): M65.331 - Trigger finger, right middle finger Category: Medical (3) Carpal tunnel syndrome on both sides: Code(s): G56.03 - Carpal tunnel syndrome, bilateral upper limbs Category: Medical Plan Osteoarthritis, bilateral hands. Trigger finger right middle digit. Will put on a finger splint. Possible carpal tunnel, right worse than left. We will schedule for EMG. Continue to wear wrist splints at night. Briefly discuss possible surgery for carpal tunnel. Patient inclined to get injection rather than surgery. Await EMG. Assessment and plan discussed with patient, and patient was agreeable. All questions were answered thoroughly. Sara Bass MD, TAIWO Board Certified, [place] [employer] and Rehabilitation (ABPMR) Board Certified, [place] [employer] Electrodiagnostic Medicine (ABEM) Orders: Orders NE electromyogram (EMG) Today G56.03 - Carpal tunnel syndrome, bilateral upper limbs, M19.049 - Primary osteoarthritis, unspecified hand, M65.331 - Trigger finger, right middle finger NE nerve conduction velocity Today G56.03 - Carpal tunnel syndrome, bilateral upper limbs, M19.049 - Primary osteoarthritis, unspecified hand, M65.331 - Trigger finger, right middle finger Coding Level of Care Code New Pt Level 4 (97292) Diagnoses Degenerative joint disease of hand M19.049 Trigger finger, right middle finger M65.331 Carpal tunnel syndrome on both sides G56.03
== END 2024-03-06 11:17 | disposition home or self-care (01) ==
PROVIDERS: PCP Internal Medicine; Visit Provider Physical Medicine & Rehabilitation
DX: M19.041 Primary osteoarthritis, right hand (principal); M65.331 Trigger finger, right middle finger; G56.03 Carpal tunnel syndrome, bilateral upper limbs
CPT/HCPCS: 99204

== ENCOUNTER → 2024-03-06 10:35 | Outpatient (BNVA) | payer OTHER, SELFPAY | PROVIDERS: PCP Internal Medicine; Visit Provider Physical Medicine & Rehabilitation | DX: M19.041 Primary osteoarthritis, right hand (principal); M65.331 Trigger finger, right middle finger; G56.03 Carpal tunnel syndrome, bilateral upper limbs | CPT/HCPCS: 99202 ==

== ENCOUNTER 2024-03-13 14:06 | Outpatient (REF) | payer OTHER, SELFPAY ==
[2024-03-13 17:26] LABS: MANUAL DIFF FLAG NO
[2024-03-13 17:36] LABS: Basophils Absolute Auto 0.1 X10*3/uL (0.0-0.2); Basophils Percent Auto 0.6 % (0-2); Eosinophils Absolute Auto 0.2 X10*3/uL (0.0-0.4); Eosinophils Percent Auto 1.3 % (0-4); Hematocrit 37.7 % (37.0-47.0); Hemoglobin 12.4 g/dl (12.0-16.0); Imm Gran Abs Auto 0.06 X10*3/uL (0.00-0.03); Imm Gran Pct Auto 0.5 % (0.0-0.4); Lymphocytes Absolute Auto 1.8 X10*3/uL (1.2-4.9); Lymphocytes Percent Auto 14.9 % (20-40); Mean Corpuscular HGB Conc 32.9 g/dl (31.0-35.0); Mean Corpuscular Volume 88.3 fL (80.0-98.0); Mean Platelet Volume 9.4 fL (9.4-12.3); Monocytes Absolute Auto 0.8 X10*3/uL (0.1-1.2); Monocytes Percent Auto 6.6 % (2-11); Neutrophils Absolute Auto 9.2 x10*3/uL (2.0-8.3); Neutrophils Percent Auto 76.1 % (45-73); Platelet Count 377 X10*3/uL (160-400); Red Blood Count 4.27 X10*6/uL (4.20-5.50); Red Cell Distribution Width 13.9 % (11.0-16.0); White Blood Count 12.1 X10*3/uL (4.8-10.8)
[2024-03-13 17:48] LABS: Rheumatoid Factor < 13.0 IU/mL (<15.0)
[2024-03-13 17:49] LABS: Appearance Urine Clear; Color Urine Dark Yellow; Glucose Urine UA Negative (Negative); Leukocyte Esterase Urine Trace (Negative); Nitrite Urine Negative (Negative); PH 5.5 (5.0-9.0); Specific Gravity - Urine 1.025 (1.005-1.025); UMIC TRIGGER UACC YES; Urine Blood Negative (Negative); Urine Ketones Trace mg/dL (Negative); Urine Protein Trace mg/dL (Neg-Trace)
[2024-03-13 17:55] LABS: Bacteria Urine None Seen (None Seen); RBC Urine 0-2 /HPF (0-2); WBC Urine 0-5 /HPF (0-5)
[2024-03-13 18:01] LABS: Alanine Aminotransferase 9 U/L (0-31); Albumin Level 3.9 g/dL (3.5-5.0); Alkaline Phosphatase 81 U/L (39-117); Anion Gap 14 (12-20); Aspartate Amino Transferase 11 U/L (5-31); Bilirubin Direct 0.1 mg/dL (0.0-0.5); Bilirubin Total 0.3 mg/dL (0.0-1.0); Blood Urea Nitrogen 20 mg/dL (9-16); C Reactive Protein 8.04 mg/dL (< or = 0.50); Calcium 9.2 mg/dL (8.4-10.2); Carbon Dioxide 27 mmol/L (22-29); Chloride 105 mmol/L (96-108); Estimated Glomerular Filt Rate > 60; Glucose Random 111 mg/dL (60-115); Potassium 3.6 mmol/L (3.3-5.1); Sodium 142 mmol/L (135-145); Total Protein 7.5 g/dL (6.5-8.0)
[2024-03-13 18:15] LABS: Ferritin 75 ng/mL (10-250)
[2024-03-14 07:23] LABS: Monotest Negative (Negative)
[2024-03-14 22:37] LABS: EBV-VCA IgM Ab <36.00 U/mL
[2024-03-17 16:08] LABS: HIV RNA PCR Qn Copies Not Detected Copies/mL; HIV RNA PCR Qn Log Copies Not Detected Log cps/mL
[2024-03-21 13:38] LABS: DNAds, Crithidia Antibody Negative (Negative)
== END 2024-03-13 14:07 | disposition home or self-care (01) ==
LOC: HO.CHCLDS 14:06
PROVIDERS: Visit Provider Internal Medicine
DX: R61 Generalized hyperhidrosis (principal)
CPT/HCPCS: 36415; 80053; 81001; 82248; 82728; 85025; 86140; 86255; 86308; 86431; 86664; 86665; 87536; 87900

== ENCOUNTER 2024-03-20 12:55 | Outpatient (REF) | payer OTHER, SELFPAY ==
--- NOTE | 2024-03-20 12:58 | EMG_ITS ---
Chief complaint: Right wrist pain. X-rays showed advanced DJD. Ganglion cyst on right radial wrist. Thinning of right APB. Denies numbness in fingers. Reason for referral: Evaluate for Carpal Tunnel Syndrome Procedure done: Bilateral upper extremities NCS/EMG Precautions and/or limitations: None The limb temperature was monitored continuously and remained between 32-36 degrees C during the performance of the NCS. Ulnar motor NCS was performed with moderate elbow flexion between 70-90 degrees, with across-elbow distance of 10 cm. Nerve Conduction Studies Anti Sensory Summary Table ?Stim Site NR Onset (ms) Norm Onset (ms) Peak (ms) Norm Peak (ms) O-P Amp (?V) Norm O-P Amp Site1 Site2 Delta-0 (ms) Dist (cm) Cj (m/s) Norm Cj (m/s) Left Median Anti Sensory (2nd Digit) Wrist ? 2.7 3.4 <3.6 14.1 >10 Wrist 2nd Digit 2.7 14.0 52 Right Median Anti Sensory (2nd Digit) Wrist ? 2.5 3.2 <3.6 15.5 >10 Wrist 2nd Digit 2.5 14.0 56 Left Ulnar Anti Sensory (5th Digit) Wrist ? 2.0 3.2 <3.7 19.2 >15.0 Wrist 5th Digit 2.0 14.0 70 Right Ulnar Anti Sensory (5th Digit) Wrist ? 1.3 3.1 <3.7 18.2 >15.0 Wrist 5th Digit 1.3 14.0 108 Motor Summary Table ?Stim Site NR Onset (ms) Norm Onset (ms) O-P Amp (mV) Norm O-P Amp iAmp (mV) Amp (1st) (%) Site1 Site2 Delta-0 (ms) Dist (cm) Cj (m/s) Norm Cj (m/s) Left Median Motor (Abd Poll Brev) Wrist ? 3.8 <3.9 7.1 >4.5 8.7 100.0 Elbow Wrist 3.2 19.0 59 >45 Elbow ? 7.0 7.2 8.8 101.4 Right Median Motor (Abd Poll Brev) Wrist ? 3.3 <3.9 7.9 >4.5 9.6 100.0 Elbow Wrist 3.9 18.0 46 >45 Elbow ? 7.2 7.9 9.5 100.0 Left Ulnar Motor (Abd Dig Minimi) Wrist ? 2.9 <3.0 4.1 >5 4.9 100.0 B Elbow Wrist 2.6 19.0 73 >45 B Elbow ? 5.5 4.2 5.1 102.4 A Elbow B Elbow 2.1 10.0 48 >45 A Elbow ? 7.6 4.2 5.1 102.4 Right Ulnar Motor (Abd Dig Minimi) Wrist ? 2.8 <3.0 6.0 >5 6.7 100.0 B Elbow Wrist 3.0 19.0 63 >45 B Elbow ? 5.8 5.1 5.9 85.0 A Elbow B Elbow 1.4 10.0 71 >45 A Elbow ? 7.2 4.6 5.4 76.7 Comparison Summary Table ?Stim Site NR Peak (ms) Norm Peak (ms) P-T Amp (?V) Site1 Site2 Delta-P (ms) Norm Delta (ms) Right Median/Radial Dig I Comparison (Digit 1 - 10cm) Median ? 2.7 <2.9 33.1 Median Radial 0.0 Radial ? 2.7 <2.8 7.5 EMG ?Side Muscle Nerve Root Ins Act Fibs Psw Amp Dur Poly Recrt Int Pat Comment Right 1stDorInt Ulnar C8-T1 Nml Nml Nml Nml Nml 0 Nml Complete Right FlexCarRad Median C6-7 Nml Nml Nml Nml Nml 0 Nml Complete Right Biceps Musculocut C5-6 Nml Nml Nml Nml Nml 0 Nml Complete Right Triceps Radial C6-7-8 Nml Nml Nml Nml Nml 0 Nml Complete Right Deltoid Axillary C5-6 Nml Nml Nml Nml Nml 0 Nml Complete Left 1stDorInt Ulnar C8-T1 Nml Nml Nml Nml Nml 0 Nml Complete Left FlexCarRad Median C6-7 Nml Nml Nml Nml Nml 0 Nml Complete Left Biceps Musculocut C5-6 Nml Nml Nml Nml Nml 0 Nml Complete Left Triceps Radial C6-7-8 Nml Nml Nml Nml Nml 0 Nml Complete Left Deltoid Axillary C5-6 Nml Nml Nml Nml Nml 0 Nml Complete FINDINGS: Left ulnar motor nerve showed normal distal latency, small amplitude and normal conduction velocity. All other nerves tested were within normal. Concentric needle EMG was performed in selected muscles of the bilateral upper extremities. Study did not reveal signs of electric abnormalities as shown in the table above. IMPRESSION: 1. There is no electrodiagnostic evidence for median neuropathy, brachial plexopathy, or cervical radiculopathy. 2. 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 Ulnar sensory nerve within normal. Patient denies symptoms. CLINICAL COMMENT: Thought she would have Carpal Tunnel Syndrome with wrist pain and flattened APB muscle. But NCS does not show signs of Carpal Tunnel Syndrome or median neuropathy. She denies symptoms of ulnar neuropathy despite findings on left ulnar motor. Recommended to see Dr. Troncoso for consideration of aspiration/excision of ganglion cyst. Thank you for your kind referral. Sara Bass MD, TAIWO Board Certified, [place] Board [employer] Physical Medicine and Rehabilitation (ABPMR) Board Certified, [place] Board [employer] Electrodiagnostic Medicine (ABEM) CODIN 40374 x 2 MTDD
== END 2024-03-20 12:56 | disposition home or self-care (01) ==
LOC: HO.NEURO 12:55
PROVIDERS: PCP Internal Medicine; Visit Provider Physical Medicine & Rehabilitation
DX: G56.03 Carpal tunnel syndrome, bilateral upper limbs (principal); M65.331 Trigger finger, right middle finger
CPT/HCPCS: 95886; 95911

== ENCOUNTER → 2024-03-20 12:58 | Outpatient (BNV) | payer OTHER, SELFPAY | PROVIDERS: PCP Internal Medicine; Visit Provider Physical Medicine & Rehabilitation | DX: M25.531 Pain in right wrist (principal); R20.2 Paresthesia of skin | CPT/HCPCS: 95886; 95911 ==

== ENCOUNTER 2024-04-22 10:18 | Outpatient (AMB) | payer OTHER, SELFPAY ==
--- NOTE | 2024-04-22 10:26 | A.OFFVIS_ITS ---
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 Ahuja for right wrist, ganglion cyst. Per Dr. Ahuja-NCS done already, no carpal tunnel syndrome. Patient states pain in her hand that she describes as a burning sensation. States lump has been present for about 7 months and is located at the volar aspect of wrist. Denies numbness or tingling. 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 She was seen by Dr. Ahuja who referred her to our office. She reports she has a lump at the volar aspect of her wrist for 7 months as well as pain and burning sensation. She also experiences difficulty cutting her hair and holding and gripping items. She denies any locking or catching. She works on exercises at home. 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 Father No problems noted. Brother Esophageal cancer Social History Alcohol intake: never Patient Tobacco Use Status: Former Tobacco user Years Smoked: 20+ Current occupational status: retired Current occupation: Right Handed Review of Systems Const All systems reviewed & are unremarkable except as noted in HPI and below Physical Exam Const General: cooperative, healthy appearing, comfortable, no acute distress, well developed and alert Orientation/consciousness: patient oriented x3 HEENT Head: Yes normal to inspection, Yes normocephalic and Yes atraumatic Eyes General: appearance normal, both eyes and all related structures Resp Effort & Inspection: normal respiratory effort and able to speak in complete sentences Cardio Rate: regular rate Peripheral pulses: Peripheral pulses 2+ throughout GI Palpation (GI): Soft to palpation Skin Lesions: no lesions Rashes: no rashes Neuro General: patient oriented x3 Extrem Other: Right wrist: Skin intact. There is a marble sized mass along the volar aspect of the wrist in line with the base of the thumb along the radial aspect of the wrist. The mass is firm and mobile. No tenderness to palpation. NVI. Results Reviewed Results Reviewed: IMPRESSION: 1. There is no electrodiagnostic evidence for median neuropathy, brachial plexopathy, or cervical radiculopathy. 2. 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 Ulnar sensory nerve within normal. Patient denies symptoms. Assessment & Plan Assessment & Plan (1) Ganglion cyst: Code(s): M67.40 - Ganglion, unspecified site Category: Medical (2) Degenerative joint disease of hand: Code(s): M19.049 - Primary osteoarthritis, unspecified hand Category: Medical Plan We will hold off on MRI of her right wrist at this time as she is not feeling any discomfort from the cyst. I also recommended physical therapy for her hand but she states she does therapy on her own therefore she will continue with her exercises. If symptoms persist or worsen, patient will contact the office, otherwise follow-up as needed. Patient Instructions: Scribed for Chris Ureña PA-C, by Eduar Portillo biomedical photographer, on 04/22/2024 at 10:00 AM EST.? I, Chris Ureña PA-C, have personally reviewed and agree with the information entered by the scribe. Coding Level of Care Code Est Pt Level 3 (75669) Diagnoses Ganglion cyst M67.40 Degenerative joint disease of hand M19.049
== END 2024-04-22 11:21 | disposition home or self-care (01) ==
PROVIDERS: PCP Internal Medicine; Visit Provider Physician Assistant
DX: M67.431 Ganglion, right wrist (principal); M19.041 Primary osteoarthritis, right hand
CPT/HCPCS: 99213

== ENCOUNTER → 2024-04-22 10:18 | Outpatient (BNVA) | payer OTHER, SELFPAY | PROVIDERS: PCP Internal Medicine; Visit Provider Orthopaedic Surgery | DX: M67.40 Ganglion, unspecified site (principal); M19.049 Primary osteoarthritis, unspecified hand | CPT/HCPCS: 99212 ==

== ENCOUNTER 2024-08-20 03:18 | Emergency (ER) | payer OTHER, SELFPAY ==
[2024-08-20] VITALS (7 sets, daily range): BP systolic 122–164; BP diastolic 60–72; PULSE 73–77; RESP 18–20; TEMP 36.4–36.8; O2SAT 93–99; BMI 26.4
--- NOTE | ~2024-08-20 | XR_ITS ---
EXAMINATION: XR CHEST CLINICAL INFORMATION: Dyspnea COMPARISON: CT chest 06/24/2022. Chest radiograph 07/23/2021 TECHNIQUE: Frontal view of the chest was obtained. FINDINGS: The cardiac silhouette is normal in size. Dense aortic calcific atherosclerotic plaques noted. Mild blunting of the left costophrenic sulcus similar findings present 07/23/2021 and therefore suspicious for mild pleural thickening. No pneumothoraces. Chronic appearing biapical pleural parenchymal scarring of the lungs. No focal pulmonary consolidation identified. XR/XR chest 1V IMPRESSION: No acute cardiopulmonary abnormalities. Electronically signed by: Artie Hannah MD 08/20/2024 04:44 AM [facility]
[2024-08-20 04:01] LABS: Basophils Percent Auto 0.1 % (0-2); Hematocrit 37.5 % (37.0-47.0); Hemoglobin 12.6 g/dl (12.0-16.0); Imm Gran Abs Auto 0.11 X10*3/uL (0.00-0.03); Imm Gran Pct Auto 0.9 % (0.0-0.4); Lymphocytes Absolute Auto 1.1 X10*3/uL (1.2-4.9); Lymphocytes Percent Auto 8.5 % (20-40); MANUAL DIFF FLAG NO; Mean Corpuscular HGB Conc 33.6 g/dl (31.0-35.0); Mean Corpuscular Hemoglobin 28.4 pg (27.0-33.0); Mean Corpuscular Volume 84.7 fL (80.0-98.0); Mean Platelet Volume 9.2 fL (9.4-12.3); Monocytes Absolute Auto 0.6 X10*3/uL (0.1-1.2); Neutrophils Absolute Auto 10.9 x10*3/uL (2.0-8.3); Neutrophils Percent Auto 85.5 % (45-73); Platelet Count 243 X10*3/uL (160-400); Red Blood Count 4.43 X10*6/uL (4.20-5.50); Red Cell Distribution Width 14.6 % (11.0-16.0); White Blood Count 12.8 X10*3/uL (4.8-10.8)
[2024-08-20 04:22] LABS: Alanine Aminotransferase 42 U/L (0-31); Albumin Level 3.8 g/dL (3.5-5.0); Alkaline Phosphatase 69 U/L (39-117); Anion Gap 16 (12-20); Aspartate Amino Transferase 25 U/L (5-31); Bilirubin Total 0.3 mg/dL (0.0-1.0); Blood Urea Nitrogen 26 mg/dL (9-16); Calcium 9.1 mg/dL (8.4-10.2); Carbon Dioxide 21 mmol/L (22-29); Chloride 105 mmol/L (96-108); Estimated Glomerular Filt Rate > 60; Glucose Random 178 mg/dL (60-115); Potassium 3.7 mmol/L (3.3-5.1); Sodium 138 mmol/L (135-145); Total Protein 7.2 g/dL (6.5-8.0)
[2024-08-20 04:37] LABS: Influenza A PCR NEGATIVE (Negative); Influenza B PCR NEGATIVE (Negative); Resp Syncy Virus RNA Qual PCR NEGATIVE (Negative); SARS COV2 PCR INHOUSE NEGATIVE (Negative)
--- NOTE | 2024-08-20 06:46 | ED.GENADULT ---
HPI - General Adult General Chief complaint: Upper Respiratory Symptoms Stated complaint: SOB Time Seen by Provider: 08/20/24 06:42 Source: patient and EMS Mode of arrival: EMS Limitations: no limitations History of Present Illness ED Provider: Court Carbajal PA-C HPI narrative: Patient is an 84 year old assigned female at with a history of EVELYN, HTN, CHF, and asthma presenting to the emergency department today with continued upper respiratory infection. Patient states that she has been on an antibiotic for an upper respiratory infection but she is unsure which antibiotic or which doctor prescribed it. Patient states that she is feeling short of breath and felt like oxygen was helping. Patient denies any dizziness, lightheadedness, abdominal pain, nausea, vomiting, fever, chills, blurry vision, double vision, loss of vision, chest pain, back pain, night sweats, pain with urination, increased urinary frequency, increased urinary urgency, blood in her urine or stool, syncope or a near syncopal episode, recent trauma or falls, bowel incontinence, bladder incontinence, or any other complaints at this time. Onset (ago): day(s) (5) Relieving factors: none Exacerbating factors: none Associated symptoms: cough Treatments prior to arrival: other (an antibiotic but unsure which) Related Data Home Medications ?Medication ?Instructions ?Recorded ?Confirmed amlodipine 5 mg tablet 5 mg PO DAILY 07/28/20 03/06/24 vitamin E (dl, acetate) PO 07/28/20 03/06/24 lancets 30 gauge (OneTouch Delica #100 ea 07/17/23 03/06/24 Plus Lancet) trazodone 50 mg tablet 50 mg PO BEDTIME 07/17/23 03/06/24 Previous Rx's ?Medication ?Instructions ?Recorded albuterol sulfate 2.5 mg/0.5 mL 5 mg inhalation Q4H PRN shortness 07/23/21 solution for nebulization of breath or wheezing #30 ea albuterol sulfate 90 mcg/actuation 2 puff inhalation Q4-6H PRN 07/23/21 aerosol inhaler shortness of breath or wheezing #6.7 grams fluticasone propionate 50 2 spray intranasal DAILY #16 grams 07/23/21 mcg/actuation nasal spray,suspension (Flonase Allergy Relief) ondansetron 4 mg disintegrating 4 mg PO Q8H 3 days #9 tabs 09/26/23 tablet pramoxine-calamine 1 %-8 % lotion 1 appl topical TID PRN itching 30 03/04/24 (Calamine Medicated) days #177 mL ezetimibe 10 mg tablet 10 mg PO DAILY #90 tabs 04/18/24 fluticasone fur. 100 mcg-umeclid 1 ea inhalation DAILY 90 days #3 ea 07/24/24 62.5 mcg-vilant 25 mcg inhalat.powder azithromycin 250 mg tablet See Rx Instructions PO .COMPLEX #6 08/20/24 tabs prednisone 20 mg tablet 20 mg PO DAILY 7 days #7 tabs 08/20/24 Allergies Allergy/AdvReac Type Severity Reaction Status Date / Time ethacrynic acid Allergy Mild Hives Verified 08/20/24 03:26 montelukast Allergy Mild Hives Verified 08/20/24 03:26 Penicillins [PENICILLINS] Allergy Mild RASH Verified 08/20/24 03:26 Sulfa (Sulfonamide Allergy Mild RASH Verified 08/20/24 03:26 Antibiotics) [SULFA(SULFONAMIDE ANTIBIOTICS)] latex Allergy rash Verified 08/20/24 03:26 Review of Systems Constitutional: Constitutional: Reports no additional constitutional complaints, Reports body ache(s), Denies chills, Denies fever(s) and Denies night sweats Eyes: Eyes: Reports no additional eye complaints, Denies blurry vision, Denies change in vision, Denies diplopia, Denies eye discharge, Denies loss of vision and Denies eye pain ENT: Denies dizziness Cardiovascular: Cardiovascular: Reports no additional cardiovascular complaints, Denies chest pain, Denies lightheadedness, Denies Loss of Consciousness and Reports dyspnea Respiratory: Respiratory: Reports no additional respiratory complaints, Reports cough and Reports dyspnea Gastrointestinal: Gastrointestinal: Reports no additional gastrointestinal complaints, Denies abdominal pain, Denies melena, Denies hematochezia, Denies change in bowel habits and Denies change in stool character Genitourinary: Genitourinary: Denies hematuria, Denies urinary frequency, Denies dysuria, Denies urinary incontinence, Denies urinary hesitancy and Denies urinary urgency Musculoskeletal: Musculoskeletal: Reports no additional musculoskeletal complaints, Denies numbness and Denies tingling Neurologic: Denies dizziness, Denies loss of vision, Denies numbness and Denies tingling Psychiatric: Psychiatric: Reports no additional psychiatric complaints Endocrine: Endocrine: Reports no additional endocrine complaints Hematologic/Lymphatic: Hematologic/Lymphatic: Reports no additional hematologic/lymphatic complaints Allergic/Immunologic: Allergic/Immunologic: Reports no additional allergic/immunologic complaints PMFSH Past Medical History Attestation statement: The following information was validated with the patient. 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 Father No problems noted. Brother Esophageal cancer Social History Social History Alcohol intake: never Patient Tobacco Use Status: Former Tobacco user Years Smoked: 20+ Advance Directives: No Advance Directives Information Provided: Yes Current occupational status: retired Current occupation: Right Handed Physical Exam ED Vital Signs: Vital Signs - 24 hr 08/20/24 03:27 08/20/24 06:43 08/20/24 08:00 Temperature 97.7 F 97.5 F Pulse Rate 77 73 Respiratory Rate 20 18 Blood Pressure 164/72 H 140/65 H Pulse Oximetry 97 95 93 Oxygen Delivery Method Nasal Cannula Nasal Cannula Room Air Oxygen Flow Rate 2 2 08/20/24 08:49 08/20/24 09:08 08/20/24 10:02 Temperature 98.2 F Pulse Rate 76 76 74 Respiratory Rate 18 18 Blood Pressure 145/62 H Pulse Oximetry 94 94 Oxygen Delivery Method Room Air Oxygen Flow Rate BMI result Body Mass Index 26.4 Const General: cooperative, no acute distress, alert and awake Nutritional Appearance: well nourished Orientation/consciousness: patient oriented x3 Limitations: no limitations HENMT Head: Yes normal to inspection and Yes atraumatic Ears: hearing grossly normal bilaterally and external ears normal General nose exam: Normal external nose present, no nasal discharge noted and no epistaxis Face and sinus: Yes normal facial exam, No abrasion and No laceration Mouth: Normal oral and palatal mucosa present, no drooling and no muffled voice Eyes General: appearance normal, both eyes and all related structures Periorbital: periorbital findings normal Eyelids: Yes eyelids normal Conjunctivae: conjunctivae normal Pupils: Equal, round and reactive pupils present EOM: EOMs intact bilaterally Neck Neck: Yes normal visual inspection, Yes full ROM and Yes no lymphadenopathy Chest Chest palpation & inspection: normal inspection of the chest Resp Effort & Inspection: normal respiratory effort, able to speak in complete sentences and Actively coughing Quality: wet Auscultation: wheezes expiratory wheezes GI Inspection: Yes normal to inspection Neuro General: patient oriented x3 and moves all extremities Cranial nerves: Yes Equal, round and reactive pupils present Cognition (Neuro): normal cognition Extrem General: Yes normal to inspection, Yes full ROM and Yes capillary refill normal Psych Appearance: grossly normal Mental Status: mental status grossly normal Affect: normal affect Attitude: cooperative Thought process: Normal thought process present Thought content: Normal thought content present Insight: Good insight present (Psych) Medications Administered Discontinued Medications Generic Name Dose Route Start Last Admin Trade Name Freq PRN Reason Stop Dose Admin Azithromycin 500 mg 08/20/24 08:01 08/20/24 08:34 Azithromycin 500 Mg Tablet PO 08/20/24 08:02 500 mg ONCE ONE Administration Albuterol Sulfate 2.5 mg/ 0 mg 08/20/24 08:48 08/20/24 08:49 Albuterol/Ipratropium 3 ml INHALE 08/20/24 08:49 1 dose ONCE ONE Administration Prednisone 60 mg 08/20/24 08:01 08/20/24 08:34 Prednisone 20 Mg Tablet PO 08/20/24 08:02 60 mg ONCE ONE Administration Medical Decision Making Medical Decision Making [facility] Narrative: Patient is an 84 year old assigned female at with a history of EVELYN, HTN, CHF, and asthma presenting to the emergency department today with continued upper respiratory infection. Patient's physical exam was as noted in the physical exam portion of this note. Patient's blood work showed a mild elevation in her white blood cell count of 12.8 but were otherwise unremarkable. Patient's chest x-ray showed no acute process. Patient was not on oxygen while in the department and was at 93-95%. Patient ambulated without oxygenation and remained at 93-95%. I explained my physical exam findings as well as all test results to the patient. I answered all questions asked by the patient. Patient stated that she has a sick at home and she is not sure she is strong enough to go home. Patient was evaluated by physical therapy who stated she was safe to ambulate at home. Case management met with the patient and together, they determined going home was the best course of action for the patient. Patient was given PO Azithromycin and Prednisone. I stressed the importance of the patient taking her medication as directed (either prescribed or as the over the counter packaging recommends). I stressed the importance of the patient following up with her primary care provider. I stressed the importance of the patient returning to the emergency department immediately if her symptoms were to worsen or if she were to develop any dizziness, shortness of breath, difficulty breathing, chest pain, blurry vision, loss of vision, nausea, vomiting, abdominal pain, fever, chills, back pain, or any other complaints. Patient verbalized agreement and understanding with this treatment plan and discharge. Differential Diagnosis Differential Diagnoses: The differential diagnosis associated with the presentation includes Cough URI Bronchitis PNA Admission/Observation Consideration of admission/observation: Escalation of care including admission/observation considered Patient would have been admitted to the hospital had her work up had any findings where hospital admission was appropriate and her clinical presentation warranted hospital admission. Lab Data [facility] Lab Attestation statement: I reviewed the patient's lab results. My interpretation of these results are in the [facility] Rationale portion of this note. 08/20/24 03:56 08/20/24 03:56 Labs: Lab Results 08/20/24 08/20/24 Range/Units 03:52 03:56 WBC 12.8 H (4.8-10.8) X10*3/uL RBC 4.43 (4.20-5.50) X10*6/uL Hgb 12.6 (12.0-16.0) g/dl Hct 37.5 (37.0-47.0) % MCV 84.7 (80.0-98.0) fL MCH 28.4 (27.0-33.0) pg MCHC 33.6 (31.0-35.0) g/dl RDW 14.6 (11.0-16.0) % Plt Count 243 D (160-400) X10*3/uL MPV 9.2 L (9.4-12.3) fL Immature Gran % (Auto) 0.9 H (0.0-0.4) % Neut % (Auto) 85.5 H (45-73) % Lymph % (Auto) 8.5 L (20-40) % Hardy % (Auto) 5.0 (2-11) % Eos % (Auto) 0.0 (0-4) % Baso % (Auto) 0.1 (0-2) % Lymph # (Auto) 1.1 L (1.2-4.9) X10*3/uL Hardy # (Auto) 0.6 (0.1-1.2) X10*3/uL Eos # (Auto) 0.0 (0.0-0.4) X10*3/uL Baso # (Auto) 0.0 (0.0-0.2) X10*3/uL Abs Immat Gran (auto) 0.11 H (0.00-0.03) X10*3/uL Absolute Neuts (auto) 10.9 H (2.0-8.3) x10*3/uL Absolute Nucleated RBC 0.000 (0.0-0.012) X10*3/uL Nucleated RBC % (auto) 0.0 (0.0-0.2) /100WBC Sodium 138 (135-145) mmol/L Potassium 3.7 (3.3-5.1) mmol/L Chloride 105 (96-108) mmol/L Carbon Dioxide 21 L (22-29) mmol/L Anion Gap 16 (12-20) BUN 26 H (9-16) mg/dL Creatinine 0.77 (0.5-1.4) mg/dL Estim Creat Clear Calc 51.0 Estimated GFR > 60 Random Glucose 178 H (60-115) mg/dL Calcium 9.1 (8.4-10.2) mg/dL Total Bilirubin 0.3 (0.0-1.0) mg/dL AST 25 (5-31) U/L ALT 42 H (0-31) U/L Alkaline Phosphatase 69 (39-117) U/L Total Protein 7.2 (6.5-8.0) g/dL Albumin 3.8 (3.5-5.0) g/dL Influenza Type A (PCR) NEGATIVE (Negative) Influenza Type B (PCR) NEGATIVE (Negative) RSV RNA Qual (PCR) NEGATIVE (Negative) SARS-CoV-2 RNA (RT-PCR) NEGATIVE (Negative) Independent Interpretation I performed an independent interpretation of an: Plain X-Ray Interpretation: My interpretation is in agreement with the radiologist's impression of this imaging study. EXAMINATION: XR CHEST CLINICAL INFORMATION: Dyspnea COMPARISON: CT chest 06/24/2022. Chest radiograph 07/23/2021 TECHNIQUE: Frontal view of the chest was obtained. FINDINGS: The cardiac silhouette is normal in size. Dense aortic calcific atherosclerotic plaques noted. Mild blunting of the left costophrenic sulcus similar findings present 07/23/2021 and therefore suspicious for mild pleural thickening. No pneumothoraces. Chronic appearing biapical pleural parenchymal scarring of the lungs. No focal pulmonary consolidation identified. XR/XR chest 1V IMPRESSION: No acute cardiopulmonary abnormalities. Electronically signed by: Artie Hannah MD 08/20/2024 04:44 AM EST Dictated By: Artie Hannah MD Signed By: Electronically signed by Artie Hannah MD 08/20/24 0444 Radiology Impression Discussion of test interpretation with radiology: I have reviewed the radiologist's reading. Independent Historian Clinical information obtained from an independent historian. History obtained from or confirmed by: EMS (EMS provided additional history and confirmed the history provided by the patient.) Discharge Plan Discharge Clinical Impression: Upper respiratory tract infection Patient Disposition: Home, Self-Care Instructions: Upper Respiratory Infection (DC) Additional Instructions: Take your medication as prescribed. Follow up with your primary care provider. Return to the emergency department immediately if your symptoms worsen or if you develop any dizziness, shortness of breath, difficulty breathing, chest pain, blurry vision, loss of vision, nausea, vomiting, abdominal pain, fever, chills, back pain, or any other complaints. Prescriptions: New azithromycin 250 mg tablet See Rx Instructions .ROUTE .COMPLEX Qty: 6 0RF Rx Instructions: For 250 mg dose pack: take 500 mg today (day 1), then 250 mg for 4 days (days 2-5) prednisone 20 mg tablet 20 mg PO DAILY 7 Days Qty: 7 0RF No Action ezetimibe 10 mg tablet 10 mg PO DAILY Qty: 90 3RF rwbddsgtsnt-dqinjoowl-xgnkoocc 100-62.5-25 mcg blister with device 1 ea inhalation DAILY 90 Days Qty: 3 3RF albuterol sulfate 90 mcg/actuation HFA aerosol inhaler 2 puff inhalation Q4-6H PRN (Reason: shortness of breath or wheezing) Qty: 6.7 0RF albuterol sulfate 2.5 mg/0.5 mL solution for nebulization 5 mg inhalation Q4H PRN (Reason: shortness of breath or wheezing) Qty: 30 0RF fluticasone propionate [Flonase Allergy Relief] 50 mcg/actuation spray,suspension 2 spray intranasal DAILY Qty: 16 0RF Rx Instructions: administer into each nostril ondansetron 4 mg tablet,disintegrating 4 mg PO Q8H 3 Days Qty: 9 0RF trazodone 50 mg tablet 50 mg PO BEDTIME (DME) lancets [OneTouch Delica Plus Lancet] 30 gauge misc See Rx Instructions .ROUTE .MEDSUPPLY Qty: 100 Rx Instructions: As directed amlodipine 5 mg tablet 5 mg PO DAILY vitamin E (dl, acetate) PO Calamine Medicated 1-8 % lotion 1 appl topical TID PRN (Reason: itching) 30 Days Qty: 177 3RF Referrals: Brent MORIN [Outside] Thaddeus Salazar MD [Primary Care Provider] - Interventions: ED Discharge Assessment Last Done: 08/20/24 10:02 Discharge Date/Time: 08/20/24 11:02 Print Language: Chinese
[2024-08-20] MEDS: Azithromycin 500 MG TABLET PO (08:34)
[2024-08-20] MEDS: predniSONE 20 MG TABLET 60 MG PO (08:34)
[2024-08-20] MEDS: Albuterol Sulfate 2.5 MG, Albuterol/Iprat 2.5/0.5MG 3 ML 3 ML INHALE (08:49)
--- NOTE | 2024-08-20 10:10 | MHC.CM.ED ---
Received case management consult from Court VARGAS. Patient came to ER due to shortness of breath. Found to have upper resp infection. Physical therapy eval completed. Home services are recommended. Met with patient in regards to discharge planning. Patient is Portuguese speaking but is able to speak and understand Korean. 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 Patient lives with her , uses a rollator for mobility outside of the home and had no services prior to coming to the hospital PCP verified. Patient agreeable to [facility] referral for halfway and physical therapy. Patient's daughter will transport her home. Patient, Aaliyah THAKKAR and Court VARGAS aware of d/c plan. Continue to monitor for d/c needs.
== END 2024-08-20 11:02 | disposition home or self-care (01) ==
PROVIDERS: Emergency Provider Student in an Organized Health Care Education/Training Program; PCP Internal Medicine
DX: J06.9 Acute upper respiratory infection, unspecified (principal); R06.02 Shortness of breath; R05.9 Cough, unspecified; I10 Essential (primary) hypertension; R26.2 Difficulty in walking, not elsewhere classified; Z03.818 Encounter for observation for suspected exposure to other biological agents ruled out; Z79.899 Other long term (current) drug therapy
CPT/HCPCS: 0241U; 71045; 80053; 85025; 94640; 97162; 99284

== ENCOUNTER 2024-08-22 08:46 | Outpatient (AMB) | payer OTHER, SELFPAY ==
[2024-08-22 08:55] VITALS: BP 144/78; PULSE 80; O2SAT 96; BMI 29.2
--- NOTE | 2024-08-22 08:55 | MHC.OFFVIS ---
Vital Signs 08/22/24 08:55 Height 5 ft 1 in Weight 154 lb 5.177 oz BMI 29.2 BP 144/78 H Blood Pressure Location Rt brachial Position Sitting Pulse 80 Pulse Source Pulse Oximeter Pulse Oximetry (%) 96 Oxygen Delivery Method Room Air Intake Visit Reasons: Emphysema Blindstitch Machine Operator Required: No Blocker And Cutter Contact Lens: Blocker And Cutter Contact Lens offered & declined Accompanied by: Self / Same As Patient Allergies ethacrynic acid Allergy (Mild, Verified 08/22/24 09:00) Hives montelukast Allergy (Mild, Verified 08/22/24 09:00) Hives Penicillins [PENICILLINS] Allergy (Mild, Verified 08/22/24 09:00) RASH Sulfa (Sulfonamide Antibiotics) [SULFA(SULFONAMIDE ANTIBIOTICS)] Allergy (Mild, Verified 08/22/24 09:00) RASH latex Allergy (Verified 08/22/24 09:00) rash Medication List - Last Reconciled 08/22/24 by Mireya Puckett LPN albuterol sulfate 90 mcg/actuation 2 puffs inhalation Q4-6H PRN albuterol sulfate 5 mg inhalation Q4H PRN amlodipine 5 mg PO DAILY azithromycin For 250 mg dose pack: take 500 mg today (day 1), then 250 mg for 4 days (days 2-5) ezetimibe 10 mg PO DAILY fluticasone propionate 50 mcg/actuation (Flonase Allergy Relief) 2 sprays intranasal DAILY zrmosdnbree-xynbzouhe-kvqlyjph 100-62.5-25 mcg 1 ea inhalation DAILY 90 days lancets (OneTouch Delica Plus Lancet) As directed ondansetron 4 mg PO Q8H 3 days pramoxine-calamine 1-8 % (Calamine Medicated) 1 appl topical TID PRN 30 days prednisone 20 mg PO DAILY 7 days trazodone 50 mg PO BEDTIME vitamin E (dl, acetate) PO HPI Comments Details: The patient is an 84 year woman with a lifelong history of asthma. Apparently she has been very symptomatic for about 15 years and then she was evaluated by Pulmonary and her medications were adjusted. She has done a lot better. Back in 2021 the patient did have worsening shortness of breath and did come into the ER. At that point she did have a CT scan of the chest that we personally reviewed. The patient did have some evidence of tree in budding primarily the right lung suggesting bronchiolitis likely from a viral syndrome at that time. In addition to that she has some sub pleural reticulation suggesting of some scarring. The patient has not had any further imaging after that. She has been on the Trelegy inhaler and this has been very affecting beneficial. She does not barely have to use her rescue inhaler at all. She has not required any prednisone or any hospitalizations. Recently she was with her who was going to an appointment and she was closely in the trunk of her car and she banged the top of the head. She ended up going to the ER because she felt weak and nauseous. There she did have a CT scan of the brain. It was noted that she did have a calcified meningioma. This meningioma has been documented before and has not appear to have changed. She needs to follow closely with her primary care or neurologist for this condition. She continues to feel nauseous. She is also feeling dizzy. In the office we did orthostatic vital signs and there were stable. She is going to monitor closely her symptoms and if they get worse or no better she will call her primary care or go seek medical advice. At least from a pulmonary standpoint the patient is stable. Will have her undergo pulmonary function studies prior to her next visit in the springtime. 03/04/2024 the patient is here for a pulmonary follow-up visit. Overall the patient has been doing okay. She has been anxious and gets therefore 's health. She is lost weight. The patient continues use Trelegy with good effect. She still uses her rescue inhaler and sometimes a nebulizer at nighttime because she gets wheezing. She does take Zyrtec. She can not tolerate Singulair. The patient is also having issues with a rash at nighttime. She feels his allergies or bites she is having at nighttime that affect her sleep. Will go ahead and order allergy testing. In the meantime she continues uses Zyrtec. We did review her last CT scan of the chest that she had back in 2021 demonstrating some parenchymal lung disease but minimal. Will go ahead and have her repeat a chest x-ray as well. The patient will follow-up in 6 months or sooner if she develops any worsening issues. 08/22/2024 the patient is here for a pulmonary sick visit. She has been sick now for about a week. Her her also had been sick. She started developing worsening cough chest congestion. She went to the ED. There she had an x-ray. There was an haziness over the left base suggesting potential bronchopneumonia. She does have a productive cough still. She was given a course of azithromycin and low-dose course of prednisone. Although the patient is only partially better. Will give her an extension to the prednisone in addition to that will give another course of azithromycin. She had issues with multiple other antibiotics. Therefore, since this azithromycin seems to be working just continue on with the regimen for little bit longer. The patient also will continue to use the Robitussin DM for her cough medication. She has been using a Trelegy inhaler. I did recommend she can use her nebulizer once or twice a day to help her with her chest tightness and also chest congestion for mucus clearance. The patient will follow-up in September if she is still feeling sickly otherwise she can call and change her appointment to a later date. [facility] Medical History Trigger finger, right middle finger Degenerative joint disease of hand Allergies Rash Asthma Varicose veins of unspecified lower extremity with inflammation Other specific arthropathies, not elsewhere classified, right shoulder Unspecified rotator cuff tear or rupture of right shoulder, not specified as traumatic Hypertension Surgical History History of cardiac catheterization Family History Mother No problems noted. Father No problems noted. Brother Esophageal cancer Social History (Updated 08/22/24 @ 09:01 by Mireya Puckett LPN) Alcohol intake: never Patient Tobacco Use Status: Former Tobacco user Years Smoked: 20+ Current occupational status: retired Current occupation: Right Handed Review of Systems Const Reports daytime sleepiness, Reports fatigue, Reports headache(s), Reports weakness and Reports weight loss Eyes Denies diplopia ENT Reports dizziness and Reports headache(s) Card Denies chest pain and Reports dyspnea on exertion Resp Reports chest congestion, Reports cough, Reports dyspnea on exertion and Reports wheezing GI Reports nausea Musc Reports no additional complaints Skin/Breast Denies rash Neuro Reports dizziness, Reports headache(s) and Reports weakness Endo Reports fatigue Jenaro/Lymph Denies easy bleeding Aller/Immun Reports wheezing Physical Exam Vital Signs: Last Vital Signs Pulse 80 08/22/24 08:55 BP 144/78 H 08/22/24 08:55 Pulse Ox 96 08/22/24 08:55 Oxygen Delivery Method Room Air 08/22/24 08:55 BMI result Body Mass Index 29.2 Const General: comfortable and no acute distress HEENT Head: Yes normocephalic Neck Neck: Yes supple Chest Chest palpation & inspection: normal inspection of the chest Resp Effort & Inspection: normal respiratory effort Auscultation: rhonchi, wheezes and diminished lung sounds Cardio Heart sounds: S1 normal heart sound present and S2 normal heart sound present GI Palpation (GI): Soft to palpation Skin General skin exam: no rashes or lesions noted Extrem General: Yes no clubbing, cyanosis or edema Assessment & Plan Assessment & Plan (1) Asthma: Code(s): J45.909 - Unspecified asthma, uncomplicated Category: Medical Qualifiers: Asthma severity: moderate Asthma persistence: persistent Asthma complication type: with acute exacerbation Qualified Code(s): J45.41 - Moderate persistent asthma with (acute) exacerbation (2) CHF (congestive heart failure): Code(s): I50.9 - Heart failure, unspecified Category: Medical Qualifiers: Heart failure type: other Qualified Code(s): I50.9 - Heart failure, unspecified (3) EVELYN (obstructive sleep apnea): Code(s): G47.33 - Obstructive sleep apnea (adult) (pediatric) Category: Medical (4) Rash: Code(s): R21 - Rash and other nonspecific skin eruption Category: Medical (5) Allergies: Code(s): T78.40XA - Allergy, unspecified, initial encounter Category: Medical Qualifiers: Encounter type: initial encounter Qualified Code(s): T78.40XA - Allergy, unspecified, initial encounter (6) Bronchopneumonia: Code(s): J18.0 - Bronchopneumonia, unspecified organism Category: Medical Plan Prednisone taper additional azithromycin, clinically improving. Otherwise consider cephalosporins if not better cough medicine, OTC continue Trelegy JESUS as needed diuresis as tolerated F/U 6 months Medications: New prednisone 10 mg PO DAILY 7 tabs 0RF 7 days azithromycin 500 mg PO DAILY 5 tabs 0RF 5 days Coding Level of Care Code Est Pt Level 4 (82640) Diagnoses Moderate persistent asthma with acute exacerbation J45.41 Asthma severity: moderate Asthma persistence: persistent Asthma complication type: with acute exacerbation Other congestive heart failure I50.9 Heart failure type: other EVELYN (obstructive sleep apnea) G47.33 Rash R21 Allergy, initial encounter T78.40XA Encounter type: initial encounter Bronchopneumonia J18.0 Time Spent (min) 17
== END 2024-08-22 09:29 | disposition home or self-care (01) ==
PROVIDERS: PCP Internal Medicine; Visit Provider Hospitalist
DX: J45.41 Moderate persistent asthma with (acute) exacerbation (principal); I50.9 Heart failure, unspecified; G47.33 Obstructive sleep apnea (adult) (pediatric); R21 Rash and other nonspecific skin eruption; T78.40XA Allergy, unspecified, initial encounter; J18.0 Bronchopneumonia, unspecified organism
CPT/HCPCS: 99214

== ENCOUNTER → 2024-08-22 08:46 | Outpatient (BNVA) | payer OTHER, SELFPAY | PROVIDERS: PCP Internal Medicine; Visit Provider Hospitalist | DX: J45.41 Moderate persistent asthma with (acute) exacerbation (principal); J18.0 Bronchopneumonia, unspecified organism; I50.9 Heart failure, unspecified; G47.33 Obstructive sleep apnea (adult) (pediatric); R21 Rash and other nonspecific skin eruption; T78.40XA Allergy, unspecified, initial encounter | CPT/HCPCS: 99212 ==

== ENCOUNTER 2024-09-09 14:29 | Outpatient (REF) | payer OTHER, SELFPAY ==
--- NOTE | ~2024-09-09 | XR_ITS ---
EXAMINATION: XR CHEST CLINICAL INFORMATION: J45.40 - Moderate persistent asthma, uncomplicated. COMPARISON: 08/20/2024. TECHNIQUE: 2 views of the chest were obtained. FINDINGS: Degenerative changes in the thoracic spine. Heart size within normal limits. Atherosclerotic aortic calcifications. Persistent mild costophrenic angle blunting, possibly pleural thickening versus pleural effusion. Redemonstration of prominent bilateral interstitial markings suggestive of a chronic process. Increased bibasilar patchy opacities, left greater than right. XR/XR chest 2V IMPRESSION: 1. Increased bibasilar patchy opacities, left greater than right. 2. Persistent mild costophrenic angle blunting, possibly pleural thickening versus pleural effusion. 3. Redemonstration of prominent bilateral interstitial markings suggestive of a chronic process. This study was presented today September 10, 2024 for interpretation. Stat results provided at this time as requested by referring provider. Electronically signed by: Belia Hidalgo MD 09/10/2024 08:59 AM EST
--- OUTSIDE RECORDS SUMMARY | 2024-09-16 14:58 | XMS_ITS ---
Author Organization [facility] Address [address] [place] [address] Care Team Providers Care Mechanical Product Engineer Name Role Phone Mary Morris Unavailable [phone] Encounters Encounter Location Date Provider Diagnosis [facility] [address] [place] [address] 06/03/2024 Mary Morris Plan Of Treatment Next Appt Details Provider Name:Paul Carrero 12/04/2024 02:00:00 PM, [address], [place], [address], Progress Notes * ROSEMARY ARTISDOB:1940 (84 yo F)Acc No.[id number]:06/03/2024 Patient:?ROSEMARY ARTIS Provider:?Mary Morris MD :1940???Age:84 Y???Sex:Female D ate:06/03/2024 Address:[address] [place], [place] [id number] Subjective: * Chief Complaints: * ??? * Medical History:? Objective: * Vitals:? Assessment: Plan: * Treatment: * * Electronic signature of Mary Morris MD on 09/16/2024 at 02:57 PM EST Sign off status: Pending * Provider:?Mray Morris MD Date:?2023 Generated for Vic guardado/Daria/eTransmitting on:?09/16/2024 02:57 PM EST
--- OUTSIDE RECORDS SUMMARY | 2024-09-16 14:58 | XMS_ITS | Patient Health Record ---
Author Organization [facility] Address [address] [facility] [facility] [address] [place] [address] Care Team Providers Care Buffer Copper Name Role Phone Arturo Kelleyamador Unavailable [phone] Reason For Referral No Information Encounters Encounter Location Date Provider Diagnosis [facility] [address] [facility] [address] [place] [address] 06/03/2024 Mary Morris Plan Of Treatment Next Appt Details Provider Name:Mary Morris, Paul 12/04/2024 02:00:00 PM, [address] [facility], [place], [address],
--- OUTSIDE RECORDS SUMMARY | 2024-09-16 14:58 | XMS_ITS ---
Author Organization [facility] Address [address] [place] [address] Care Team Providers Care Vocal Teacher Name Role Phone Mary Morris Unavailable [phone] Encounters Encounter Location Date Provider Diagnosis [facility] [address] [facility] [address] [place] [address] 11/14/2023 Mary Morris Plan Of Treatment Next Appt Details Provider Name:Paul Carrero 12/04/2024 02:00:00 PM, [address] [facility], [place], [address], Progress Notes * ROSEMARY ARTISDOB:1940 (84 yo F)Acc No.[id number]:11/14/2023 Patient:?ROSEMARY ARTIS Provider:?Mary Morris MD :1940???Age:83 Y???Sex:Female D ate:11/14/2023 Address:[address] [place], [place] [id number] Subjective: * Chief Complaints: * ??? * Medical History:? Objective: * Vitals:? Assessment: Plan: * Treatment: * * Electronic signature of Mary Morris MD on 09/16/2024 at 02:57 PM EST Sign off status: Pending * Provider:?Mary Morris MD Date:?2023 Generated for Vic guardado/Daria/eTransmitting on:?09/16/2024 02:57 PM EST
== END 2024-09-09 14:30 | disposition home or self-care (01) ==
LOC: HO.XRAY 14:29
PROVIDERS: PCP Internal Medicine; Visit Provider Hospitalist
DX: J45.40 Moderate persistent asthma, uncomplicated (principal)
CPT/HCPCS: 71046

== ENCOUNTER 2024-09-11 14:25 | Outpatient (AMB) | payer MEDICARE, MEDICAID, SELFPAY ==
[2024-09-11 14:31] VITALS: BP 120/62; PULSE 73; O2SAT 94; BMI 29.8
--- NOTE | 2024-09-11 14:31 | MHC.OFFVIS ---
Vital Signs 09/11/24 14:31 Height 5 ft 1 in Weight 157 lb 10.088 oz BMI 29.8 BP 120/62 Blood Pressure Location Lt brachial Position Sitting Pulse 73 Pulse Source Pulse Oximeter Pulse Oximetry (%) 94 Oxygen Delivery Method Room Air Intake Visit Reasons: Emphysema Allergies ethacrynic acid Allergy (Mild, Verified 09/11/24 14:34) Hives montelukast Allergy (Mild, Verified 09/11/24 14:34) Hives Penicillins [PENICILLINS] Allergy (Mild, Verified 09/11/24 14:34) RASH Sulfa (Sulfonamide Antibiotics) [SULFA(SULFONAMIDE ANTIBIOTICS)] Allergy (Mild, Verified 09/11/24 14:34) RASH latex Allergy (Verified 09/11/24 14:34) rash HPI Comments Details: The patient is an 84 year woman with a lifelong history of asthma. Apparently she has been very symptomatic for about 15 years and then she was evaluated by Pulmonary and her medications were adjusted. She has done a lot better. Back in 2021 the patient did have worsening shortness of breath and did come into the ER. At that point she did have a CT scan of the chest that we personally reviewed. The patient did have some evidence of tree in budding primarily the right lung suggesting bronchiolitis likely from a viral syndrome at that time. In addition to that she has some sub pleural reticulation suggesting of some scarring. The patient has not had any further imaging after that. She has been on the Trelegy inhaler and this has been very affecting beneficial. She does not barely have to use her rescue inhaler at all. She has not required any prednisone or any hospitalizations. Recently she was with her who was going to an appointment and she was closely in the trunk of her car and she banged the top of the head. She ended up going to the ER because she felt weak and nauseous. There she did have a CT scan of the brain. It was noted that she did have a calcified meningioma. This meningioma has been documented before and has not appear to have changed. She needs to follow closely with her primary care or neurologist for this condition. She continues to feel nauseous. She is also feeling dizzy. In the office we did orthostatic vital signs and there were stable. She is going to monitor closely her symptoms and if they get worse or no better she will call her primary care or go seek medical advice. At least from a pulmonary standpoint the patient is stable. Will have her undergo pulmonary function studies prior to her next visit in the springtime. 03/04/2024 the patient is here for a pulmonary follow-up visit. Overall the patient has been doing okay. She has been anxious and gets therefore 's health. She is lost weight. The patient continues use Trelegy with good effect. She still uses her rescue inhaler and sometimes a nebulizer at nighttime because she gets wheezing. She does take Zyrtec. She can not tolerate Singulair. The patient is also having issues with a rash at nighttime. She feels his allergies or bites she is having at nighttime that affect her sleep. Will go ahead and order allergy testing. In the meantime she continues uses Zyrtec. We did review her last CT scan of the chest that she had back in 2021 demonstrating some parenchymal lung disease but minimal. Will go ahead and have her repeat a chest x-ray as well. The patient will follow-up in 6 months or sooner if she develops any worsening issues. 08/22/2024 the patient is here for a pulmonary sick visit. She has been sick now for about a week. Her her also had been sick. She started developing worsening cough chest congestion. She went to the ED. There she had an x-ray. There was an haziness over the left base suggesting potential bronchopneumonia. She does have a productive cough still. She was given a course of azithromycin and low-dose course of prednisone. Although the patient is only partially better. Will give her an extension to the prednisone in addition to that will give another course of azithromycin. She had issues with multiple other antibiotics. Therefore, since this azithromycin seems to be working just continue on with the regimen for little bit longer. The patient also will continue to use the Robitussin DM for her cough medication. She has been using a Trelegy inhaler. I did recommend she can use her nebulizer once or twice a day to help her with her chest tightness and also chest congestion for mucus clearance. The patient will follow-up in September if she is still feeling sickly otherwise she can call and change her appointment to a later date. 09/11/2024 the patient is here for a pulmonary follow-up visit. Overall she is doing better. She completed antibiotics for pneumonia. She also had cough medication. She is back to using her respiratory inhalers with good effect. She is back to her baseline not having any significant complaints at this time. She did have a repeat chest x-ray which I personally reviewed. Looks about the same she does have some chronic changes. The x-rays is a little limited because once AP and once a PA and therefore resulting in a slight difference in presentation. But I do not see any significant findings. The actual final read mentioned that there were some increased markings. Therefore I will have her come back in 3 months and will do a repeat chest x-ray done to make sure that nothing involving. Otherwise patient is without any other complaints. 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 Father No problems noted. Brother Esophageal cancer Social History Alcohol intake: never Patient Tobacco Use Status: Former Tobacco user Years Smoked: 20+ Current occupational status: retired Current occupation: Right Handed Review of Systems Const Reports daytime sleepiness, Reports fatigue, Reports headache(s), Reports weakness and Reports weight loss Eyes Denies diplopia ENT Reports dizziness and Reports headache(s) Card Denies chest pain and Reports dyspnea on exertion Resp Denies chest congestion, Reports cough, Reports dyspnea on exertion and Denies wheezing GI Reports nausea Musc Reports no additional complaints Skin/Breast Denies rash Neuro Reports dizziness, Reports headache(s) and Reports weakness Endo Reports fatigue Jenaro/Lymph Denies easy bleeding Aller/Immun Denies wheezing Physical Exam Vital Signs: Last Vital Signs Pulse 73 09/11/24 14:31 BP 120/62 09/11/24 14:31 Pulse Ox 94 09/11/24 14:31 Oxygen Delivery Method Room Air 09/11/24 14:31 BMI result Body Mass Index 29.8 Const General: comfortable and no acute distress HEENT Head: Yes normocephalic Neck Neck: Yes supple Chest Chest palpation & inspection: normal inspection of the chest Resp Effort & Inspection: normal respiratory effort Auscultation: no rhonchi, no wheezes and diminished lung sounds Cardio Heart sounds: S1 normal heart sound present and S2 normal heart sound present GI Palpation (GI): Soft to palpation Skin General skin exam: no rashes or lesions noted Extrem General: Yes no clubbing, cyanosis or edema Assessment & Plan Assessment & Plan (1) Asthma: Code(s): J45.909 - Unspecified asthma, uncomplicated Category: Medical Qualifiers: Asthma complication type: with acute exacerbation Asthma persistence: persistent Asthma severity: moderate Qualified Code(s): J45.41 - Moderate persistent asthma with (acute) exacerbation (2) CHF (congestive heart failure): Code(s): I50.9 - Heart failure, unspecified Category: Medical Qualifiers: Heart failure type: other Qualified Code(s): I50.9 - Heart failure, unspecified (3) EVELYN (obstructive sleep apnea): Code(s): G47.33 - Obstructive sleep apnea (adult) (pediatric) Category: Medical (4) Rash: Code(s): R21 - Rash and other nonspecific skin eruption Category: Medical (5) Allergies: Code(s): T78.40XA - Allergy, unspecified, initial encounter Category: Medical Qualifiers: Encounter type: initial encounter Qualified Code(s): T78.40XA - Allergy, unspecified, initial encounter (6) Bronchopneumonia: Code(s): J18.0 - Bronchopneumonia, unspecified organism Category: Medical Plan cough medicine, OTC continue Trelegy JESUS as needed CXR in 3 month F/U 3-4 months Orders: Orders XR chest 2V Today J18.0 - Bronchopneumonia, unspecified organism Coding Level of Care Code Est Pt Level 4 (38994) Diagnoses Moderate persistent asthma with acute exacerbation J45.41 Asthma complication type: with acute exacerbation Asthma persistence: persistent Asthma severity: moderate Other congestive heart failure I50.9 Heart failure type: other EVELYN (obstructive sleep apnea) G47.33 Rash R21 Allergy, initial encounter T78.40XA Encounter type: initial encounter Bronchopneumonia J18.0 Time Spent (min) 16
--- OUTSIDE RECORDS SUMMARY | 2024-09-17 04:03 | XMS_ITS ---
Author Organization Unknown ALLERGIES AND ADVERSE REACTIONS No information ASSESSMENT No information CHIEF COMPLAINT No information MEDICATIONS No information OBJECTIVE DATA No information PHYSICAL EXAMINATION No information TREATMENT PLAN Planned Care Start Date Provider Encounter for Check-up [id number] PROBLEMS No information RESULTS No information REVIEW OF SYSTEMS No information SUBJECTIVE DATA No information VITAL SIGNS No information
== END 2024-09-11 14:51 | disposition home or self-care (01) ==
PROVIDERS: PCP Internal Medicine; Visit Provider Hospitalist
DX: J45.41 Moderate persistent asthma with (acute) exacerbation (principal); I50.9 Heart failure, unspecified; G47.33 Obstructive sleep apnea (adult) (pediatric); R21 Rash and other nonspecific skin eruption; T78.40XA Allergy, unspecified, initial encounter; J18.0 Bronchopneumonia, unspecified organism
CPT/HCPCS: 99214

== ENCOUNTER → 2024-09-11 14:25 | Outpatient (BNVA) | payer MEDICARE, MEDICAID, SELFPAY | PROVIDERS: PCP Internal Medicine; Visit Provider Hospitalist | DX: J45.41 Moderate persistent asthma with (acute) exacerbation (principal); J18.0 Bronchopneumonia, unspecified organism; I50.9 Heart failure, unspecified; G47.33 Obstructive sleep apnea (adult) (pediatric); R21 Rash and other nonspecific skin eruption; T78.40XA Allergy, unspecified, initial encounter | CPT/HCPCS: 99212 ==

== ENCOUNTER 2024-12-01 09:29 | Outpatient (REF) | payer OTHER, SELFPAY ==
--- NOTE | ~2024-12-01 | XR_ITS ---
EXAMINATION: XR CHEST 2 VIEWS HISTORY: J18.0 - Bronchopneumonia, unspecified organism COMPARISON: Comparison is made with prior examinations dated 09/09/2024 and 07/23/2021. FINDINGS: PA and lateral views of the chest are submitted. Again seen is scarring in the right upper lung zone and at the left lung base. No new focal airspace opacity is seen. There is no pleural effusion, pneumothorax, or pulmonary vascular congestion. The heart is normal in size. The aorta is calcified. There is degenerative disc disease of the spine. XR/XR chest 2V IMPRESSION: No acute cardiopulmonary abnormality. Electronically signed by: Sigifredo Escobedo MD 12/02/2024 11:00 AM LAM
--- OUTSIDE RECORDS SUMMARY | 2024-12-01 10:18 | XMS_ITS | Encounter Summary ---
Author Organization [employer] Address [address] [place] [address] 7 [place] [address] Care Team Providers Care Real Estate Office Supervisor Name Role Phone Thaddeus Salazar MD Primary Care Provider [phone] Encounter Details Date Type Department Care Team (Latest Contact Info) Description 08/05/2019 Abstract [facility] CONVERSIONS Dental, Provider, DDS Social History Tobacco Use Types Packs/Day Years Used Date Smoking Tobacco: Never Assessed Comments Unknown Sex and Gender Information Value Date Recorded Sex Assigned at Female 08/07/2022 10:20 AM EDT Legal Sex Female 10:20 AM EDT Gender Identity Female 08/07/2022 10:20 AM EDT Sexual Orientation Straight 08/07/2022 10 :20 AM EDT documented as of this encounter Plan of Treatment Upcoming Encounters Date Type Department Care Team (Late st Contact Info) Description 12/05/2024 1:00 PM EST Office Visit [facility] ADULT DENTAL [address] [place] [address] Mario Malhotra 505 [place] [address] 12/09/2024 1:00 PM EST Office Visit [facility] MED & PEDS [address] [place] [address] Thaddeus Salazar MD 505 [place] [address] 05/18/2025 11:00 AM EDT Office Visit [facility] ADULT DENTAL [address] [place] [address] Cindy Garcia documented as of this encounter Visit Diagnoses Not on filedocumented in this encounter Care Teams Real Estate Office Supervisor Relationship Specialty Start Date End Date Thaddeus Salazar MD [address] [place] [address] PCP - General Internal Medicine 08/21/13 Brent MORIN 08/21/24 09/17/24 [employer] 08/27/24 documented as of this encounter
--- OUTSIDE RECORDS SUMMARY | 2024-12-01 10:18 | XMS_ITS | Encounter Summary ---
Author Organization [employer] Address [address] [place] [address] 7t [place] [address] Care Team Providers Care Car Repossessor Name Role Phone Thaddeus Salazar MD Primary Care Provider [phone] Encounter Details Date Type Department Care Team (Late Contact Info) Description 07/03/2023 Orders Only [facility] MED & PEDS [address] [place], [place] [phone] Thaddeus Salazar MD [address] [place], [place] [phone] Screening for colon cancer Social History Tobacco Use Types Packs/Day Years Used Date Smoking Tobacco: Never Smokeless Tobacco: Never Alcohol Use Standard Drinks/Week Comments Never 0 (1 standard drink = 0.6 oz pur e alcohol) Depression Answer Date Recorded Patient Health Questionnaire-9 Score 0 01/30/2023 Depression Answer Date Recorded Patient Health Questionnaire-2 Score 0 01/30/2023 Comments Unknown Sex and Gender Information Value Date Recorded Sex Assigned at Female 08/07/2022 10:20 AM EDT Legal Sex Female 10:20 AM EDT Gender Identity Female 08/07/2022 10:20 AM EDT Sexual Orientation Straight 08/07/2022 10 :20 AM EDT documented as of this encounter Plan of Treatment Upcoming Encounters Date Type Department Care Team (Late Contact Info) Description 12/05/2024 1:00 PM EST Office Visit [facility] ADULT DENTAL [address] [place], [place] [phone] Mario Malhotra 505 [place], [place] [phone] 12/09/2024 1:00 PM EST Office Visit [facility] PED[facility] [address] [place] [address] Thaddeus Salazar MD [address] [place] [address] 05/18/2025 11:00 AM EDT Office Visit [facility] ADULT DENTAL [address] [place] [address] Cindy Garcia documented as of this encounter Visit Diagnoses Diagnosis Screening for colon cancer Special screening for malignant neoplasms, colon documented in this encounter Additional Health Concerns Assessment Noted Time PHQ-9 Depression Total Score: 0 01/31/20 23 2:06 PM EDT documented as of this encounter Care Teams Car Repossessor Relationship Specialty Start Date End Date Thaddeus Salazar MD [address] [place] [address] PCP - General Internal Medicine 08/21/13 Brent MORIN 08/21/24 09/17/24 [employer] 08/27/24 documented as of this encounter
--- OUTSIDE RECORDS SUMMARY | 2024-12-01 10:18 | XMS_ITS | Encounter Summary ---
Author Organization [employer] Address [address] [place] [address] [facility] [place] [address] Care Team Providers Care Hoop Driving Machine Operator Helper Name Role Phone Thaddeus Salazar MD Primary Care Provider [phone] Encounter Details Date Type Department Care Team (Latest Contact Info) Description 06/14/2021 Abstract [facility] CONVERSIONS Dental, Provider, DDS Social History [...] Description 12/05/2024 1:00 PM EST Office Visit [facility] ADULT DENTAL [address] [place] [address] Mario Malhotra 505 [place] [address] 12/09/2024 1:00 PM EST Office Visit [facility] MED [facility] PEDS [address] [place] [address] Thaddeus Salazar MD [address] [place] [address] 05/18/2025 11:00 AM EDT Office Visit [facility] ADULT DENTAL [address] [place] [address] Cindy Garcia documented as of this encounter Visit Diagnoses Not on filedocumented in this encounter Care Teams Hoop Driving Machine Operator Helper Relationship Specialty Start Date End Date Thaddeus Salazar MD [address] [place] [address] PCP - General Internal Medicine 08/21/13 Brent MORIN 08/21/24 09/17/24 [employer] 08/27/24 documented as of this encounter
--- OUTSIDE RECORDS SUMMARY | 2024-12-01 10:18 | XMS_ITS | Encounter Summary ---
Author Organization [employer] Address [address] [facility] 7t [place] [address] Care Team Providers Care Armored Vehicle Officer Name Role Phone Thaddeus Salazar MD Primary Care Provider [phone] Reason for Visit * Reason Comments Med Refill Encounter Details Date Type Department Care Team ([facility] st Contact Info) Description 11/08/2024 Refill [facility] MED & PEDS [address] [place], [place] [phone] Thaddeus Salazar MD [address] [place] [address] Other insomnia Social History Tobacco Use Types Packs/Day Years Used Date Smoking Tobacco: Never Smokeless Tobacco: Never Alcohol Use Standard Drinks/Week Comments Never 0 (1 standard drink = 0.6 oz pur e alcohol) Depression Answer Date Recorded Patient Health Questionnaire-9 Score 0 01/30/2023 Housing Stability Answer Date Recorded What is your housing situation today? Not on araceli e 07/23/[address] you li ve. Do you have problems with any of the following? None of the above 07/23/2023 Food Insecurity Answer Date Recorded Within the past 12 months, y ou worried that your food would run out before you got money to buy more: Never True 07/23/2023 Within the past 12 months,th e food you bought just didn't last and you didn't have enough money to get more: Never True Transportation Answer Date Recorded In the past 12 months, has l ack of transportation kept you from medical appts, meetings, work or from getting things needed for daily living? No 07/23/2023 Utilities Answer Date Recorded In the past 12 months, has t he electric, gas, oil or water company threatened to shut off services in your home? No 07/23/2023 Depression Answer Date Recorded Patient Health Questionnaire-2 Score 0 01/30/2023 Comments Unknown Sex and Gender Information Value Date Recorded Sex Assigned at Female 08/07/2022 10:20 AM EDT Legal Sex Female 10:20 AM EDT Gender Identity Female 08/07/2022 10:20 AM EDT Sexual Orientation Straight 08/07/2022 10 :20 AM EDT documented as of this encounter Miscellaneous Notes * Telephone Encounter - Marilu Duran LPN - 11/10/2024 12:00 PM EST Last seen 03/13/24. documented in this encounter Plan of Treatment Upcoming Encounters Date Type Department Care Team (Late st Contact Info) Description 12/05/2024 1:00 PM EST Office Visit [facility] ADULT DENTAL [address] [place] [address] Uzair Malhotraelvia [address] [place] [address] 12/09/2024 1:00 PM EST Office Visit [facility] MED [facility] PED[facility] [address] [place] [address] Thaddeus Salazar MD 505 [place] [address] 05/18/2025 11:00 AM EDT Office Visit [facility] ADULT DENTAL [address] [place] [address] Cindy Garcia documented as of this encounter Visit Diagnoses Diagnosis Other insomnia documented in this encounter Additional Health Concerns Assessment Noted Time PHQ-9 Depression Total Score: 0 01/31/20 23 2:06 PM EDT documented as of this encounter Care Teams Armored Vehicle Officer Relationship Specialty Start Date End Date Thaddeus Salazar MD [address] [place] [address] PCP - General Internal Medicine 08/21/13 [employer] 08/27/24 documented as of this encounter
--- OUTSIDE RECORDS SUMMARY | 2024-12-01 10:18 | XMS_ITS | Encounter Summary ---
Author Organization [employer] Address [address] [facility] 7t [place] [address] Care Team Providers Care Supervisor Wood Crew Name Role Phone Thaddeus Salazar MD Primary Care Provider [phone] Encounter Details Date Type Department Care Team ([facility] st Contact Info) Description 07/31/2023 Telephone [facility] MED[facility]INE [address] [place] [address] Thaddeus Salazar MD [address] [place], [place] [phone] Social History Tobacco Use Types Packs/Day Years [...] Description 12/05/2024 1:00 PM EST Office Visit [facility] ADULT DENTAL [address] [place] [address] Mario Malhotra 505 [place] [address] 12/09/2024 1:00 PM EST Office Visit [facility] [address] [place] [address] Thaddeus Salazar MD [address] [place] [address] 05/18/2025 11:00 AM EDT Office Visit [facility] ADULT DENT[facility] [address] [place] [address] Cindy Garcia documented as of this encounter Visit Diagnoses Not on filedocumented in this encounter Additional Health Concerns Assessment Noted Time PHQ-9 Depression Total Score: 0 01/31/20 23 2:06 PM EDT documented as of this encounter Care Teams Supervisor Wood Crew Relationship Specialty Start Date End Date Thaddeus Salazar MD [address] [place] [address] PCP - General Internal Medicine 08/21/13 Brent MORIN 08/21/24 09/17/24 [employer] 08/27/24 documented as of this encounter
--- OUTSIDE RECORDS SUMMARY | 2024-12-01 10:18 | XMS_ITS | Encounter Summary ---
Author Organization [employer] Address [address] 7[address] [place] [address] Care Team Providers Care Hr Advisor Name Role Phone Thaddeus Salazar MD Primary Care Provider [phone] Reason for Visit * Reason Comments Routine Cleaning Dental Exam Encounter Details Date Type Department Care Team (Late st Contact Info) Description 11/17/2024 1:00 PM EST Office Visit [facility] ADULT DENTAL [address] [place], [place] [phone] Cindy Garcia Social History Tobacco Use Types Packs/Day Years Used Date Smoking Tobacco: Never Passive Smoke Exposure: Never Smokeless Tobacco: Never Tobacco Cessation:Counseling Given: Not Answered Alcohol Use Standard Drinks/Week Comments Never 0 [...] AM EDT documented as of this encounter Last Filed Vital Signs Vital Sign Reading Time Taken Comments Blood Pressure 126/82 11/17/2024 1:02 PM EST Pulse - - Temperature - - Respiratory Rate - - Oxygen Saturation - - Inhaled Oxygen Concentration - - Weight - - Height - - Body Mass Index - - documented in this encounter Progress Notes * Cindy Garcia - 11/17/2024 1:00 PM EST Patient ID: Charleen Urena is a 84 y.o. female. Time Out: Timeout Date: 11/17/24, Timeout Time: 1305 Location: [facility] Tooth: Maxilla and Mandible Procedure: Exam, X-rays, and Prophylaxis Verified the above with patient, assistant service manager, and provider. Confirmed via patient's chart, intraorally and by radiographs. Wharf Tally Clerk: not applicable Medical Hx: Vitals: Blood pressure 126/82. Medications, Med Hx reviewed with patient and updated in chart. Treatment Provided Dental procedures in this visit D1110 - PROPHYLAXIS - ADULT (Completed) Service provider: Cindy King provider: Mario Malhotra [id number] - ADJUNCTIVE GENERAL SERVICES - PROFESSIONAL VISITS - CASE PRESENTATION, SUBSEQUENT TO DETAILED AND EXTENSIVE TREATMENT PLANNING (Completed) Service provider: Cindy King provider: Mario Malhotra D1330 - ORAL HYGIENE INSTRUCTIONS (Completed) Service provider: Cindy King provider: aMrio Malhotra D0210 - DIAGNOSTIC - DIAGNOSTIC IMAGING - INTRAORAL - COMPREHENSIVE SERIES OF RADIOGRAPHIC IMAGES (Completed) Service provider: Cindy King provider: Mario Malhotra Instruments Used: Ultrasonic Scalers and Prophy angle Fluoride: N/A Oral Cancer Screening: No lesions Head/Neck Exam: No Lesions Calculus: Light and Localized Plaque: Light and Generalized Stain: Light and Localized Bleeding: None Gingiva: Healthy, Perio Charting Completed, and Recession- localized OH: Good Perio Chart: Completed Dental exam done by Dr. Malhotra. Oral hygiene instructions provided to patient including brushing technique and flossing. Recommendations: [place] two times daily, modified araujo technique, Floss daily, Electric toothbrush, Soft bristle toothbrush, [place] Tongue, Anti-sensitivity toothpaste Recall Frequency: 6 mo NV: Restorations Hygienist: Cindy Garcia RDH * Mario Malhotra - 11/17/2024 1:00 PM EST Images from the original note were not included. Dental procedures in this visit D1110 - PROPHYLAXIS - ADULT (Completed) Service provider: Cindy King provider: Mario Malhotra D9450 - ADJUNCTIVE GENERAL SERVICES - PROFESSIONAL VISITS - CASE PRESENTATION, SUBSEQUENT TO DETAILED AND EXTENSIVE TREATMENT PLANNING (Completed) Service provider: Cindy Garcia [place] provider: Mario Malhotra D1330 - ORAL HYGIENE INSTRUCTIONS (Completed) Service provider: Cindy Garcia [place] provider: Mario Malhotra D0210 - DIAGNOSTIC - DIAGNOSTIC IMAGING - INTRAORAL - COMPREHENSIVE SERIES OF RADIOGRAPHIC IMAGES (Completed) Service provider: Cindy Garcia [place] provider: Mario Malhotra D0120 - PERIODIC ORAL EVALUATION - ESTABLISHED PATIENT (Completed) Service provider: Mario Malhotra Billing provider: Mario Malhotra D0180 - COMPREHENSIVE PERIODONTAL EVALUATION - NEW OR ESTABLISHED PATIENT (Completed) Service provider: Mario Malhotra [place] provider: Mario Malhotra Patient ID: Charleen Urena is a 84 y.o. female. Time Out: Timeout Date: 11/17/24, Timeout Time: 1305 Location: [facility] Tooth: Maxilla and Mandible Procedure: Exam Verified the above with patient, assistant service manager, and provider. Confirmed via patient's chart, intraorally and by radiographs. Wharf Tally Clerk: not applicable Chief Complaint Patient presents with Routine Cleaning Dental Exam Medical Hx: Vitals: Blood pressure 126/82. Past Medical History: Diagnosis Date Arthritis Asthma High cholesterol History of joint replacement Hypertension Medications: Outpatient Encounter Medications as of 11/17/2024 Medication Sig Dispense Refill albuterol (ProAir HFA) 108 (90 Base) MCG/ACT inhaler ProAir HFA 90 mcg/actuation aerosol inhaler INHALE TWO PUFFS EVERY 4 TO 6 HOURS NEEDED alpha tocopherol (Vitamin E) 400 units capsule amLODIPine (Norvasc) 5 MG tablet TAKE 1 TABLET BY MOUTH EVERY DAY 90 tablet 3 amoxicillin (Amoxil) 500 MG tablet 4 tabs 1 hour prior to dental procedures. 20 tablet 0 ascorbic acid (Vitamin C) 1000 MG tablet atorvastatin (Lipitor) 20 MG tablet Take 1 tablet (20 mg) by mouth in the morning. 90 tablet 1 Blood Glucose Monitoring Suppl (ONE TOUCH ULTRA 2) w/Device kit To check the FS 2 times a day 1 kit0 cholecalciferol (Vitamin D-3) 25 MCG (1000 UT) capsule Diclofenac Sodium 1 % gel To apply to the affected area 4 times a day 100 g 0 ezetimibe (Zetia) 10 MG tablet Take 1 tablet by mouth Once per day. fluticasone (Flonase) 50 MCG/ACT nasal spray fluticasone propionate 50 mcg/actuation nasal spray,suspension INHALE 1 OR 2 SPRAYS INTO EACH NOSTRIL DAILY NEEDED glucose blood (OneTouch Verio) test strip To use daily 2 times a day 100 each 11 glucose blood test strip FreeStyle Lite Strips TEST BLOOD SUGAR EVERY DAY 100 each 11 ibuprofen 800 MG tablet TAKE 1 TABLET(800 MG) BY MOUTH THREE TIMES DAILY 90 tablet 3 Lancets (OneTouch Delica Plus [id number]) misc USE ONCE DAILY 100 each 11 lidocaine (Xylocaine) 5 % ointment Apply topically if needed for mild pain. 50 g 1 scopolamine (Transderm-Scop) 1 MG/3DAYS patch 72 hour APPLY 1 PATCH TOPICALLY TO HAIRLESS AREA BEHIND EAR AT LEAST 4 HOURS BEFORE EFFECT IS NEEDED. REPEAT EVERY 3 DAYS NEEDED Strength: 1 MG/3DAYS 10 patch 3 traZODone (Desyrel) 50 MG tablet TAKE 1 TABLET BY MOUTH EVERY DAY AT BEDTIME 30 tablet 2 Trelegy Ellipta 100-62.5-25 MCG/ACT aerosol powder INHALE 1 PUFF(100 MG) PUFF INTO THE LUNGS EVERY MORNING AND 1 PUFF EVERY NIGHT AT BEDTIME 60 each 5 No facility-administered encounter medications on file as of 11/17/2024. 84 y/o female presents for an exam seen by Dr. Mario Malhotra, NICK. Chief Complaint: I came for cleaning Medical History: Patient does not report any changes in health issues that could alter the Treatment Plan. Medical consult / medical clearance needed: None Allergies: Reviewed in EHR Medications: Reviewed in EHR Radiographs X-rays taken today: FMX taken today Discussion: -Pt stated that pt has no pain but sensitivity to cold food and beverages. -Reviewed previous radiographs with pt. -Generalized cervical abrasion evident - due to aggressive and horizontal brushing. -#27 fractured mesio-incisal. Zoroastrianism planned but pt was informed that if POI not followed hoahaoism can fracture and pt might need crown possibly in future. Pt understood and agreed. -Restorations planned as charted. -Reviewed perio diagnosis, restorative treatment plan, dental charting, occlusion and oral cancer screening. -Patient is aware that periodontal disease is a progressive non-curable disease. -All treatment efforts are designed to preserve the dentition as long as possible. -OHI reviewed. Emphasis was laid on maintaining good oral hygiene regimen at home along with regular visits to dentist. -Pt understood, was satisfied with our conversation and agreed with tx plan; dismissed in good condition. -All questions answered. Soft tissue exam: WNL ; OCS- negative Head and neck exam: Lymph Nodes, Lips, Palate, Buccal Mucosa, Floor of Mouth, Tongue, Tonsils, Alveolar Ridges, Oropharynx, Salivary Ducts, Vestibules - no abnormal findings. TMJ/Occlusal - TMJ is within normal limits. Oral Cancer Risk - low Perio risk - moderate Oral Hygiene Instruction Provided - Yes Oral Hygiene Instructions: [place] two times daily, modified araujo technique, Floss daily, Electric toothbrush, Soft bristle toothbrush, [place] Tongue. Referrals - None Treatment plan: -restorative -6 month recall All questions answered and expressed understanding. Dismissed in good condition. NV: restorative Hygienist: Cindy Garcia RDH Dentist: Dr. Mario Malhotra, DMD documented in this encounter Plan of Treatment Upcoming Encounters Date Type Department Care Team (Late st Contact Info) Description 12/05/2024 1:00 PM EST Office Visit [facility] ADULT DENTAL [address] [place], [place] [phone] Mario Malhotra 505 [place], [place] [phone] 12/09/2024 1:00 PM EST Office Visit [facility] MED & PEDS [address] [place], [place] [phone] Thaddeus Salazar MD [address] [place], [place] [phone] 05/18/2025 11:00 AM EDT Office Visit [facility] ADULT DENTAL [address] [place], [place] [phone] Cindy Garcia Scheduled Orders Name Type Priority Associated Diagnoses Orde r Schedule 30 B(V) 30 B(V) RESTORATIVE - RESIN-BASED COMPOSITE RESTORATIONS - DIRECT - RESIN-BASED COMPOSITE - ONE SURFACE, POSTERIOR Dental Routine [address] arting 11/17/2024 27 IL 27 IL RESTORATIVE - RESIN-BASED COMPOSITE RESTORATIONS - DIRECT - RESIN-BASED COMPOSITE - TWO SURFACES, ANTERIOR Dental Routine 1 Occurr ences starting 11/17/2024 documented as of this encounter Procedures Procedure Name Priority Date/Time Associated Diagnosis Comments PROPHYLAXIS - ADULT Routine 11/17/2024 1 :00 PM EST PERIODIC ORAL EVALUATION - ESTABLISHED PATIENT Routine 11/17/2024 1:00 PM EST ORAL HYGIENE INSTRUCTIONS Routine 2024 1:00 PM EST INTRAORAL - COMPLETE SERIES OF RADIOGRAPHIC IMAGES Routine 11/17/2024 1:00 PM EST COMPREHENSIVE PERIODONTAL EVALUATION - NEW OR ESTABLISHED PATIENT Routine 11/17/2024 1:00 PM EST CASE PRESENTATION, DETAILED AND EXTENSIVE TREATMENT PLANNING Routine 11/17/2024 1:00 PM EST documented in this encounter Visit Diagnoses Not on filedocumented in this encounter Additional Health Concerns Assessment Noted Time PHQ-9 Depression Total Score: 0 01/31/20 23 2:06 PM EDT documented as of this encounter Care Teams Hr Advisor Relationship Specialty Start Date End Date Thaddeus Salazar MD [address] [place], [place] [phone] PCP - General Internal Medicine 08/21/13 [facility] 08/27/24 documented as of this encounter
--- OUTSIDE RECORDS SUMMARY | 2024-12-01 10:18 | XMS_ITS | Encounter Summary ---
Author Organization [employer] Address [address] [place] [address] Care Team Providers Care Networking Engineer Name Role Phone Thaddeus Salazar MD Primary Care Provider [phone] Reason for Visit * Reason Onset Date Comments rs pre med needed 10/30/2024 Encounter Details Date Type Department Care Team ([facility] Contact Info) Description 10/30/2024 Telephone [facility] ADULT DENTAL [address] [place], [place] [phone] Cindy Garcia rs pre med needed Social History Tobacco Use Types Packs/Day Years [...] encounter Miscellaneous Notes * Telephone Encounter - Sussy Jurado - 10/30/2024 9:21 AM EST Patient called in to reschedule her appt due to not having pre med antibiotics for dental treatment. She has not had them scripted in our office for some time Her PCP is currently the provider a scripting them for her. She has been transferred to the medical line for assistance in having antibioticscripted. documented in this encounter Plan of Treatment Upcoming Encounters Date Type Department Care Team (Late st Contact Info) Description 12/05/2024 1:00 PM EST Office Visit [facility] ADULT DENTAL [address] [place] [address] Uzair Malhotratorrieet [address] [place] [address] 12/09/2024 1:00 PM EST Office Visit [facility] MED [facility] PEDS [address] [place] [address] Thaddeus Salazar MD [address] [place] [address] 05/18/2025 11:00 AM EDT Office Visit [facility] ADULT DENTAL [address] [place] [address] Cindy Garcia documented as of this encounter Visit Diagnoses Not on filedocumented in this encounter Additional Health Concerns Assessment Noted Time PHQ-9 Depression Total Score: 0 01/31/20 2:06 PM EDT documented as of this encounter Care Teams Networking Engineer Relationship Specialty Start Date End Date Thaddeus Salazar MD [address] [place] [address] PCP - General Internal Medicine 08/21/13 mobile [employer] 08/27/24 documented as of this encounter
--- OUTSIDE RECORDS SUMMARY | 2024-12-01 10:18 | XMS_ITS | Encounter Summary ---
Author Organization [employer] Address [address] [facility] 7t [place] [address] Care Team Providers Care Round Corner Cutter Operator Name Role Phone Thaddeus Salazar MD Primary Care Provider [phone] Reason for Visit * Reason Onset Date Comments Triage 11/16/2022 Encounter Details Date Type Department Care Team ([facility] st Contact Info) Description 11/16/2022 Telephone [facility] MED & PEDS [address] [place], [place] [phone] Thaddeus Salazar MD [address] [place] [address] Triage Social History Tobacco Use Types Packs/Day Years Used Date Smoking Tobacco: Never Smokeless Tobacco: Never Comments Unknown Sex and Gender Information Value Date Recorded Sex Assigned at Female 08/07/2022 10:20 AM EDT Legal Sex Female 10:20 AM EDT Gender Identity Female 08/07/2022 10:20 AM EDT Sexual Orientation Straight 08/07/2022 10 :20 AM EDT COVID-19 Exposure Response Date Recorded In the last 10 days, have yo u been in contact with someone who was confirmed or suspected to have Coronavirus/COVID-19? No / Unsure 11/17/2022 10:57 AM EST documented as of this encounter Miscellaneous Notes * Telephone Encounter - Maria Eugenia Willams RN - 11/16/2022 4:05 PM EST called pt to triage, spoke to pt. pt states several months duration of left shoulder pain getting worse. pt states difficulty with ROM and daily activities. given appt tomorrow with [facility] at 11:00 for exam. advised home care: rest, ice, heat, OTC pain reliever as needed, and call back if worsening or new concerns. pt understands and agrees with plan. insurance verified. Protocol Used: Shoulder Pain (Adult) Protocol-Based Disposition: See in Office or Video Visit within 2 Weeks Video visit offer not recorded Positive Triage Question: * Shoulder pain is a chronic symptom (recurrent or ongoing AND present > 4 weeks) * All higher-acuity triage questions were negative Care Advice Discussed: * Reassurance and Education - Shoulder Pain * Pain Medicines * Reasons To Call Back - You become worse * Reassurance and Education - Muscle Strain * Reassurance and Education - Overuse * Use a Cold Pack for Pain * Use Heat on Area After 48 Hours * Telephone Encounter - Deana Matson - 11/16/2022 2:59 PM EST Symptom: Shoulder Pain - Not From Injury Outcome: Schedule an appointment to be seen within 24 hours Reason: No high acuity concerns reported by caller The caller accepted this outcome documented in this encounter Plan of Treatment Upcoming Encounters Date Type Department Care Team (Late st Contact Info) Description 12/05/2024 1:00 PM EST Office Visit [facility] ADULT DENTAL [address] [place] [address] Uzair Malhotratorriedmitri [address] [place] [address] 12/09/2024 1:00 PM EST Office Visit [facility] MED & PEDS [address] [place] [address] Thaddeus Salazar MD [address] [place] [address] 05/18/2025 11:00 AM EDT Office Visit [facility] ADULT DENTAL [address] [place] [address] Cindy Garcia documented as of this encounter Visit Diagnoses Not on filedocumented in this encounter Care Teams Round Corner Cutter Operator Relationship Specialty Start Date End Date Thaddeus Salazar MD [address] [place] [address] PCP - General Internal Medicine 08/21/13 Brent MORIN 08/21/24 09/17/24 [employer] 08/27/24 documented as of this encounter"
--- OUTSIDE RECORDS SUMMARY | 2024-12-01 10:18 | XMS_ITS | Encounter Summary ---
Author Organization [employer] Address [address] [facility] 7t [place] [address] Care Team Providers Care Ecg Technician Name Role Phone Thaddeus Salazar MD Primary Care Provider [phone] Reason for Visit * Reason Onset Date Comments medication request 10/30/2024 Encounter Details Date Type Department Care Team ([facility] Contact Info) Description 10/30/2024 Telephone [facility] MEDICINE [address] [place] [address] Thaddeus Salazar MD [address] [place] [address] medication request Social History Tobacco Use Types Packs/Day Years [...] t he electric, gas, oil or water [employer] threatened to shut off services in your [...] encounter Miscellaneous Notes * Telephone Encounter - Deepa Sarah RN - 11/03/2024 10:13 AM EST Telephone call returned to patient in regards to below message. Patient stating she use to get it from dental and the started to get it from PCP ho then told her he would no longer prescribe it and would need to get it from dental. Patient stating she wants her appointment canceled as she will not do any dental procedure without the antibiotics. Patient verbalized understanding and denied having any further questions or concerns at this time. Patient to follow up as needed. * Telephone Encounter - Lianet Billings RN - 10/30/2024 10:46 AM EST Tc to pt in regards to messaged below. Pt states that her surgeon informed her that since knee surgery she needs to be pretreated for dental procedures to prevent bacterial infection. Advised pt to contact dental to see if this required and they would be the one to prescribe medication. Pt agrees to plan. * Telephone Encounter - Dru Palmer - 10/30/2024 9:49 AM EST Tc from pt requesting medication AMOXICILLIN as needed for dental pre-treatment pt states is used to treat bacterial infection. documented in this encounter Plan of Treatment Upcoming Encounters Date Type Department Care Team (Late st Contact Info) Description 12/05/2024 1:00 PM EST Office Visit [facility] ADULT DENTAL [address] [place] [address] Mario Malhotra [address] [place] [address] 12/09/2024 1:00 PM EST Office Visit [facility] MED & PEDS [address] [place] [address] Thaddeus Salazar MD [address] [place] [address] 05/18/2025 11:00 AM EDT Office Visit [facility] ADULT DENTAL [address] [place] [address] Cindy Garcia documented as of this encounter Visit Diagnoses Not on filedocumented in this encounter Additional Health Concerns Assessment Noted Time PHQ-9 Depression Total Score: 0 01/31/20 23 2:06 PM EDT documented as of this encounter Care Teams Ecg Technician Relationship Specialty Start Date End Date Thaddeus Salazar MD [address] [place] [address] PCP - General Internal Medicine 08/21/13 [employer] 08/27/24 documented as of this encounter
--- OUTSIDE RECORDS SUMMARY | 2024-12-01 10:18 | XMS_ITS | Encounter Summary ---
Author Organization [employer] Address [address] [facility] 7t [place] [address] Care Team Providers Care Fabrication Welder Name Role Phone Thaddeus Salazar MD Primary Care Provider [phone] Encounter Details Date Type Department Care Team ([facility] Contact Info) Description 11/04/2024 Orders Only [facility] MED & PEDS [address] [place], [place] [phone] Thaddeus Salazar MD [address] [place] [address] Need for antibiotic prophylaxis for dental procedure (Primary Dx) Social History Tobacco Use Types Packs/Day Years [...] Description 12/05/2024 1:00 PM EST Office Visit [facility] ADULT DENTAL [address] [place] [address] Mario Malhotra [address] [place] [address] 12/09/2024 1:00 PM EST Office Visit [facility] MED & PEDS [address] [place] [address] Thaddeus Salazar MD [address] [place] [address] 05/18/2025 11:00 AM EDT Office Visit [facility] ADULT DENTAL [address] [place] [address] Cindy Garcia documented as of this encounter Visit Diagnoses Diagnosis Need for antibiotic prophylaxis for dental procedure- Primary documented in this encounter Additional Health Concerns Assessment Noted Time PHQ-9 Depression Total Score: 0 01/31/20 23 2:06 PM EDT documented as of this encounter Care Teams Fabrication Welder Relationship Specialty Start Date End Date Thaddeus Salazar MD [address] [place] [address] PCP - General Internal Medicine 08/21/13 [employer] 08/27/24 documented as of this encounter
--- OUTSIDE RECORDS SUMMARY | 2024-12-01 10:18 | XMS_ITS | Encounter Summary ---
Author Organization [employer] Address [address] [facility] 7t [place] [address] Care Team Providers Care General Foreman Name Role Phone Thaddeus Salazra MD Primary Care Provider [phone] Reason for Visit * Reason Onset Date Comments FYI 09/01/2024 Encounter Details Date Type Department Care Team ([facility] Contact Info) Description 09/01/2024 Telephone [facility] MEDICINE [address] [place] [address] Thaddeus Salazar MD [address] [place] [address] FY Social History Tobacco Use Types Packs/Day Years [...] encounter Miscellaneous Notes * Telephone Encounter - Raimundo Souza - 09/01/2024 2:54 PM EST Tc from [facility] with [employer] stating that pt does not need Physical Therapy anymore due to pt being at their Baseline. Contact pt at [phone] documented in this encounter Plan of Treatment Upcoming Encounters Date Type Department Care Team (Late st Contact Info) Description 12/05/2024 1:00 PM EST Office Visit [facility] ADULT DENTAL [address] [place] [address] Uzair Malhotraelvia [address] [place] [address] 12/09/2024 1:00 PM EST Office Visit [facility] MED & PEDS [address] [place] [address] Thaddeus Salazar MD [address] [place] [address] 05/18/2025 11:00 AM EDT Office Visit [facility] ADULT DENTAL [address] [place] [address] Cindy Garcia documented as of this encounter Visit Diagnoses Not on filedocumented in this encounter Additional Health Concerns Assessment Noted Time PHQ-9 Depression Total Score: 0 01/31/20 23 2:06 PM EDT documented as of this encounter Care Teams General Foreman Relationship Specialty Start Date End Date Thaddeus Salazar MD [address] [place] [address] PCP - General Internal Medicine 08/21/13 Brent MORIN 08/21/24 09/17/24 [employer] 08/27/24 documented as of this encounter
--- OUTSIDE RECORDS SUMMARY | 2024-12-01 10:18 | XMS_ITS | Encounter Summary ---
Author Organization [employer] Address [address] [place] [address] [address] [address] Care Team Providers Care Data Processing Clerk Name Role Phone Thaddeus Salazar MD Primary Care Provider [phone] Reason for Visit * Reason Onset Date Comments Med Refill 11/03/2022 Encounter Details Date Type Department Care Team (Late Contact Info) Description 11/03/2022 Telephone [facility] MED & PEDS [address] [place], [place] [phone] Thaddeus Salazar MD [address] [place] [address] Med Refill Social History Tobacco Use Types Packs/Day Years [...] suspected to have Coronavirus/COVID-19? No / Unsure 10/25/2022 1:00 PM EST documented as of this encounter Plan of Treatment Upcoming Encounters Date Type Department Care Team (Late Contact Info) Description 12/05/2024 1:00 PM EST Office Visit [facility] ADULT DENTAL [address] [place], [place] [phone] Mario Malhotra [address] [place], [place] [phone] 12/09/2024 1:00 PM EST Office Visit [facility] MED & PEDS [address] [place] [address] Thaddeus Salazar MD [address] [place] [address] 05/18/2025 11:00 AM EDT Office Visit [facility] ADULT DENTAL [address] [place] [address] Cindy Garcia documented as of this encounter Visit Diagnoses Not on filedocumented in this encounter Care Teams Data Processing Clerk Relationship Specialty Start Date End Date Thaddeus Salazar MD [address] [place] [address] PCP - General Internal Medicine 08/21/13 Brent MORIN 08/21/24 09/17/24 [employer] 08/27/24 documented as of this encounter
--- OUTSIDE RECORDS SUMMARY | 2024-12-01 10:18 | XMS_ITS | Encounter Summary ---
Author Organization [employer] Address [address] [facility] 7t [place] [address] Care Team Providers Care Test Inspection Engineer Name Role Phone Thaddeus Salazar MD Primary Care Provider [phone] Reason for Visit * Reason Onset Date Comments Pre-op Visit 11/10/2024 Encounter Details Date Type Department Care Team ([facility] st Contact Info) Description 11/10/2024 Telephone [facility] MEDICINE [address] [place] [address] Thaddeus Salazar MD [address] [place] [address] Pre-op Visit Social History Tobacco Use Types Packs/Day Years [...] encounter Miscellaneous Notes * Telephone Encounter - Marino Farrell - 11/12/2024 10:39 AM EST Pt agreed to 12/09/[address] Salazar . Facility notified via * Telephone Encounter - Marino Farrell - 11/10/2024 10:52 AM EST Date of Surgery: 12/18/24 Surgical procedure being done: upper eye lid surgery and upper muscle surhery Type of anesthesia: MAC Lab needed: Yes EKG: Yes Surgeon's name: Dr Bo Facility name: [facility] Surgeon's office number: [phone] ext [phone] Surgeon's office fax number: [phone] Contact name (person you spoke with): Candelaria Last office note from surgeon requested: Yes Send Message to Lia Wiley and Marino Farrell documented in this encounter Plan of Treatment Upcoming Encounters Date Type Department Care Team (Late st Contact Info) Description 12/05/2024 1:00 PM EST Office Visit [facility] ADULT DENTAL [address] [place] [address] Malhotra Pandatony [address] [place] [address] 12/09/2024 1:00 PM EST Office Visit [facility] MED & PEDS [address] [place] [address] Thaddeus Salazar MD [address] [place] [address] 05/18/2025 11:00 AM EDT Office Visit [facility] ADULT DENTAL [address] [place] [address] Cindy Garcia documented as of this encounter Visit Diagnoses Not on filedocumented in this encounter Additional Health Concerns Assessment Noted Time PHQ-9 Depression Total Score: 0 01/31/20 23 2:06 PM EDT documented as of this encounter Care Teams Test Inspection Engineer Relationship Specialty Start Date End Date Thaddeus Salazar MD [address] [place] [address] PCP - General Internal Medicine 08/21/13 [employer] 08/27/24 documented as of this encounter
--- OUTSIDE RECORDS SUMMARY | 2024-12-01 10:19 | XMS_ITS ---
Author Name Camila VALDERRAMAAshleigh Address [address] [place] [address] Phone [phone] [facility] Care Team Providers Care Public Address System Operator Name Role Phone Ashleigh Jensen Unavailable [phone] Unavailable Unavailable Unavailable Reason for Referral Not Available Allergies, adverse reactions, alerts Allergen Type Reaction Severity Status Onset Date Penicillin Allergy to substance (disorder) Rash Mild Active N/A Sulfa Antibiotics Allergy to substance (disorder) Unknown Active N/A Latex Allergy to substance (disorder) Unknown Active N/A History of medication use Medication Class Instructions Start Date End Date Fluticasone Propionate 50 MCG/ACT Suspension Nasal SHAKE LIQUID AND USE 1 SPRAY IN EACH NOSTRIL DAILY EVERY 12 HOURS 2024-08-16 No Data Available Doxycycline Hyclate 100 mg Cap Take 1 tab PO q12h x 7 days 2024-08-16 No Data Avai lable predniSONE 20 mg Tab Take 1 tablet twice daily for 5 days. 2024-08-16 No Data Available Mucinex 600 mg Tab ER 12hr 1 tablets ora lly every 12 hours as needed 2024-08-16 No Data Available traZODone 50 mg Tab TAKE 1 TABLET BY ISABELA TH EVERY DAY AT BEDTIME 2024-02-29 No Data Available OneTouch Delica Plus [id number] Miscellaneous USE DIRECTED EVERY DAY 2023-08-21 No Data Av ailable Calamine 8-8 % Lotion 1 APPLICATION TOPI RJ TO THE AFFECTED AREA THREE TIMES DAILY NEEDED FOR ITCHING FOR UP TO 30 DAYS 2024-03-04 No Data Available amLODIPine Besylate 5 mg Tab take 1 tabl et orally once daily 2023-10-10 No Data Available Ezetimibe 10 mg Tab TAKE 1 TABLET BY ISABELA TH DAILY 2024-04-18 No Data Available Trelegy Ellipta 100-62.5-25 MCG/ACT Aerosol Powder Breath Activated INHALE 1 PUFF INTO THE LUNGS DAILY EVERY MORNING AND AT BEDTIME 2023-05-04 No Data Available Ibuprofen 800 mg Tab No Data Available 2024-05-12 No Data Available Albuterol Sulfate HFA 108 (9 0 Base) MCG/ACT Aerosol Solution Inhalation 2 puffs Q 4-6H PRN cough, wheezing, SOB 2024-08-20 No Data Available Problem List Problem Status Onset Date Resolved Date Type 2 diabetes mellitus wit hout complication, unspecified whether correction insulin use Active 2024-08-19 N/A COPD (chronic obstructive pulmonary disease) Active 2024-08-19 N/A Other problems related to [facility] facilities and other health care Active 2024-08-20 N/A Asthma Active 2024-08-16 N/A Hypertensive heart disease with heart failure Active 2024-08-19 N/A Encounters Encounters Type Facility Date of Service Diagnosis/Co mplaint No Data Available [facility] [place] Unspecified asthma, uncompli cated No Data Available [facility] [place] No Data Available [facility] [place] No Data Available [facility] [place] Unspecified asthma, uncompli cated No Data Available [facility] [place] No Data Available [facility] [place] No Data Available [facility] [place] New patient,40-59min; chronic exacerbation, 2 stable chronic or 1 acute illness add add modifier 95 for video (do not use for phone, instead use [id number]) [facility] [place] Unspecified asthma, uncomplicatedType 2 diabetes mellitus without complicationsHypertensive heart disease with heart failureHeart failure, unspecifiedChronic obstructive pulmonary disease, unspecifiedOther problems related to medical facilities and other health care New patient,40-59min; chronic exacerbation, 2 stable chronic or 1 acute illness add add modifier 95 for video (do not use for phone, instead use [id number]) [facility] [place] New patient,40-59min; chronic exacerbation, 2 stable chronic or 1 acute illness add add modifier 95 for video (do not use for phone, instead use [id number]) [facility] [place] New patient,40-59min; chronic exacerbation, 2 stable chronic or 1 acute illness add add modifier 95 for video (do not use for phone, instead use 36041-87) [facility] ([place] 08[place]/20[place] New patient,40-59min; chronic exacerbation, 2 stable chronic or 1 acute illness add add modifier 95 for video (do not use for phone, instead use 93632-91) [facility] [place] New patient,40-59min; chronic exacerbation, 2 stable chronic or 1 acute illness add add modifier 95 for video (do not use for phone, instead use 78061-28) [facility] [place] New patient,40-59min; chronic exacerbation, 2 stable chronic or 1 acute illness add add modifier 95 for video (do not use for phone, instead use 74323-90) [facility] [place] New patient,40-59min; chronic exacerbation, 2 stable chronic or 1 acute illness add add modifier 95 for video (do not use for phone, instead use 68395-74) [facility] [place] New patient,40-59min; chronic exacerbation, 2 stable chronic or 1 acute illness add add modifier 95 for video (do not use for phone, instead use [id number]) [facility] [place] Vital Signs Date of Collection Vitals 2024-08-16 07:25:17 BP Diastolic - 74.0 mm[Hg]BP Systolic - 137.0 mm[Hg]Heart Rate - 90.0 /minBody Temperature - 37.22 Aleta 2024-08-19 23:22:37 BP Diastolic - 60.0 mm[Hg]BP Systolic - 122.0 mm[Hg]Heart Rate - 77.0 /minO2 % BldC Oximetry - 92.0 % 2024-08-20 08:10:42 Height - 154.94 cmWe ight - 69.4 kgBody Mass Index (BMI) - 28.91 kg/m2BP Diastolic - 67.0 mm[Hg]BP Systolic - 137.0 mm[Hg]Pain Scale - 6.0 {score} Social History Social History Social History Observation Description Effec tive Time Current Smoking Status Never smoker 2024-11-09 4 Sex Female History of Procedures Procedures Service Procedure code Service date Servicing provider Phone# No Data Available [id number] 2024-08-16 No Data Available No Data Available SBP 130-139 (3075F) 3075F 2024-08-16 No Data Availabl e No Data Available DBP <80 (3078F) 3078F 2024-08-16 No Data Available No Data Available No Data Available [id number] 2024-08-20 No Data Available No Data Available Medication List Documented (1159F) 1159F 2024-08-20 No Data Available No Data Asmita ilable SBP < 130 (3074F) 3074F 2024-08-20 No Data Available No Data Available DBP <80 (3078F) 3078F 2024-08-20 No Data Available No Data Available New patient,40-59min; chronic exacerbation, 2 stable chronic or 1 acute illness add add modifier 95 for video (do not use for phone, instead use [id number]) 01632 2024-08-20 No Data Available No Data Availa ble Pain Assessment - Pain Documented on a Pain Scale (1125F) 1125F 2024-08-20 No Data Available No Data Asmita ilable Medication List Documented (1159F) 1159F 2024-08-20 No Data Available No Data Asmita ilable Medication Review by prescribing provider or pharmacist documented (1160F) 1160F 2024-08-20 No Data Available No Data Asmita ilable Functional Status Assessed (1170F) 1170F 2024-08-20 No Data Available No Data Avail able Advance care planning discussed and documented ? advance care plan or surrogate decision-maker was documented in the medical record. (1123F) 1123F 2024-08-20 No Data Available No Data Availa ble BMI obtained (3008F) 3008F 2024-08-20 No Data Availab le No Data Available SBP 130-139 (3075F) 3075F 2024-08-20 No Data Availabl e No Data Available DBP 80-89 (3079F) 3079F 2024-08-20 No Data Available No Data Available Functional Status Functional Category Effective Dates Cognition Status: Oriented to Person, Pl chago and Time 2024-08-20 ADL: Bathing Needs Assistanc e , Dressing Needs Assistance , Eating Independent , Ambulation Independent , Transferring Independent , Toileting Needs Assistance 2024-08-20 IADL: 2024-08-20 How many falls within the last 6 months? None 2024-08-20 Near falls within the last 6 months? Non e 2024-08-20 Do you feel unsteady on your feet? Yes 2 Do you worry about falling? No 2024-08-08 3 DME used with ambulation: [employer] r 2024-08-20 Social Supports - # of Inter actions with Friends/Family in a typical week: 2024-08-20 Mental Status Status Date AAOX3 2024-08-20 Assessments Date of Service Assessments 2024-08-16 07:25:17 AsthmaOn trelergy el lipta. On albuterol nebulizer treatment Q 4 hours as needed. Under the care of flight communications specialist.- Flonase 50 mg BID prescribed due to nasal congestion -Mucinex 600 mg BID x 7 days due to chest congestion and cough - Prednose and doxycycline prescribed due to exacerbation. - Patient will continue to follow up with flight communications specialist- Patient will contact [facility] if exacerbation gets worse-Appointment scheduled with SAMIRA on 08/20 for IV/CCM 2024-08-19 23:22:37 AsthmaFollow up plan for acute symptoms: Has CCA scheduled for 08/20/24 2024-08-20 08:10:42 Hypertension, unspec ified typeOn amlodipine. In the ER, her BP was 137/67 as per patient. To manage hypertension, adopt a heart-healthy diet, exercise regularly, maintain a healthy weight, limit alcohol, quit smoking, and manage stress. Take your prescribed medications as directed, monitor your blood pressure at home, and follow up with your healthcare provider regularly to ensure effective managementAsthmaThe patient called the acute line after hours, and had wheezing, URI symptoms. She reports she went to the ER overnight and was just sent home at 10am. She reports in the ER, they did xray, blood work, and neb treatment. And she was prescribed azithromycin and another prednisone for 7 more days. She reports the xray found she has pneumonia On trelergy ellipta. On albuterol nebulizer treatment Q 4 hours as needed. Under the care of flight communications specialist.- Flonase 50 mg BID prescribed due to nasal congestion -Mucinex 600 mg BID x 7 days due to chest congestion and cough - Prednose and doxycycline prescribed due to exacerbation. - Patient will continue to follow up with flight communications specialist- [facility] gets worse-Appointment scheduled with SAMIRA on 08/20 for IV/CCM08/20/24: Member called acute line on 08/16/2024 with cough, wheezing, URI symptoms. Does not smoke. History of asthma, on Trelegy, Albuterol MDI and nebs. Was prescribed 5d course of prednisone and doxycycline (day 5) which she had started taking as prescribed on 08/16/24. She feels slightly improved. She has been taking Trelegy inhaler and Albuterol nebs q4h. Calls acute line as she is unable to sleep, frequent coughing, feeling like she cannot catch her breath after coughing fit. Does not have pulse oximeter so unable to check oxygen level. Last neb ~5 hours ago at 9pm. Member is doing a neb, Will call EMS for in person exam and vital signs. 92% on RA, expiratory wheezes s/p neb. Member is not comfortable staying at home, would prefer for ER transfer for monitoring.Type 2 diabetes mellitus without complication, unspecified whether correction insulin useLast A1C was in the 6 range or 5 range, as per patient from March 2024. Last diabetic eye exam was in June 2024. She states she has droppy eyelids bilaterally due to age, and was told she will need some surgery. 1. F/U with ophthalmology & podiatry at least annually for prevention measure. 2.Follow a diabetic diet consists of carbs from fruits, veg, whole grain, low fat milk. Lean meats and avoid high fat high salt content foods. Avoid drinks with added sugar. Encourage the low concentrate sweets diet. 3. Check blood sugars as instructed and if you are consistently running BS > than 200 call for an f/u appointment. 4. Needs at minimum annual A1c testing. Consider additional prevention measure is ASA 81 mg daily & Statin therapy per the guidelines.5. Follow up with PCP, endocrinology and CB as instructed and scheduled guidelines.Heart failure, unspecified HF chronicity, unspecified heart failure typeShe is unsure if she has HF. She reports she does follow up with the laborer cutting tool, and last saw him in March 2024. She is also not on any medication. Denies swelling in the legs or chest painCOPD (chronic obstructive pulmonary disease)The patient called the acute line after hours, and had wheezing, URI symptoms. She reports she went to the ER overnight and was just sent home at 10am. She reports in the ER, they did xray, blood work, and neb treatment. And she was prescribed azithromycin and another prednisone for 7 more days. She reports the xray found she has pneumonia On trelergy ellipta. On albuterol nebulizer treatment Q 4 hours as needed. Under the care of flight communications specialist.- Flonase 50 mg BID prescribed due to nasal congestion -Mucinex 600 mg BID x 7 days due to chest congestion and cough - Prednose and doxycycline prescribed due to exacerbation. - Patient will continue to follow up with flight communications specialist- Patient will contact [facility] if exacerbation gets worse-Appointment scheduled with SAMIRA on 08/20 for IV/CCM08/20/24: Member called acute line on 08/16/2024 with cough, wheezing, URI symptoms. Does not smoke. History of asthma, on Trelegy, Albuterol MDI and nebs. Was prescribed 5d course of prednisone and doxycycline (day 5) which she had started taking as prescribed on 08/16/24. She feels slightly improved. She has been taking Trelegy inhaler and Albuterol nebs q4h. Calls acute line as she is unable to sleep, frequent coughing, feeling like she cannot catch her breath after coughing fit. Does not have pulse oximeter so unable to check oxygen level. Last neb ~5 hours ago at 9pm. Member is doing a neb, Will call EMS for in person exam and vital signs. 92% on RA, expiratory wheezes s/p neb. Member is not comfortable staying at home, would prefer for ER transfer for monitoring.Other problems related to medical facilities and other health careASTHMA CONTINGENCY PLANLast updated: 08/20/2024Member to call for the following symptoms: Albuterol not working/ Breathing loudly??/ WheezingPlanned intervention: Increase use of albuterol inhaler to q2h PRN cough, breathlessness Plan of Care Date of Service Plans 2024-08-16 07:25:17 Follow up plan for a cute symptoms:Phone (patient, parent, or guardian); 5-10 minutes of medical discussion (no modifier 95)Continue to see PCP. Follow-up with [facility] as needed for any acute or disease education needs that may arise 30/04. 2024-08-19 23:22:37 Phone (patient, pare nt, or guardian); 21-30 minutes of medical discussion (no modifier 95)Continue to see PCP. [facility] any [facility] or disease education needs that may arise 30/04.On trelergy ellipta. On albuterol nebulizer treatment Q 4 hours as needed. Under the care of flight communications specialist.- Flonase 50 mg BID prescribed due to nasal congestion -Mucinex 600 mg BID x 7 days due to chest congestion and cough - Prednose and doxycycline prescribed due to exacerbation. - Patient will continue to follow up with flight communications specialist- Patient will contact [facility] if exacerbation gets worse-Appointment scheduled with SAMIRA on 08/20 for IV/CCM08/20/24: Member called acute line on 08/16/2024 with cough, wheezing, URI symptoms. Does not smoke. History of asthma, on Trelegy, Albuterol MDI and nebs. Was prescribed 5d course of prednisone and doxycycline (day 5) which she had started taking as prescribed on 08/16/24. She feels slightly improved. She has been taking Trelegy inhaler and Albuterol nebs q4h. Calls acute line as she is unable to sleep, frequent coughing, feeling like she cannot catch her breath after coughing fit. Does not have pulse oximeter so unable to check oxygen level. Last neb ~5 hours ago at 9pm. Member is doing a neb, Will call EMS for in person exam and vital signs. 92% on RA, expiratory wheezes s/p neb. Member is not comfortable staying at home, would prefer for ER transfer for monitoring. 2024-08-20 08:10:42 Medication Review by prescribing provider or pharmacist documented (1160F)Medication List Documented (1159F)Functional Status Assessed (1170F)Advance Care Directive Advance care planning discussion documented in the medical record (1158F)BMI obtained (3008F)Televideo new patient,40-59min; chronic exacerbation, 2 stable chronic or 1 acute illness add modifier 95Pain Assessment - Pain Documented (1125F)SBP 130-139 (3075F)DBP 80-89 (3079F)Continue to see PCP. Follow-up with [facility] as needed for any acute or disease education needs that may arise.ED return precautions discussed. The patient was advised to give us a call for any concerns.At least 50% of time spent counseling patient, discussing diagnosis, treatment plan, complicance, and coordinating follow up care. Goals Date Goal 2024-08-20 Continue taking medi cations as directed and keep all follow up appointments with established PCP and Specialist. Health Concerns Date Concern 2024-08-20 Informed verbal cons ent was obtained from this patient to communicate and provide care using virtual and other telecommunications tools. This patient has been explained the risks, if any, related to the encounter. I explained that care provided through video or audio communication cannot replace the need for physical examination or an in-person visit for some disorders or urgent problems. Visit completed by audio and video. Patient/Guardian agreed to visit via telehealth. Introductory visit with [facility] to establish care. Today, patient has chief complaint of: establishing care.Reviewed Allergies, Medications, Active Medical conditions, past medical/surgical history, Social history. 2024-08-20 Most recent hospital stay(s) or ER visit(s) and precipitating factors: The patient called the acute line after hours, and had wheezing, URI symptoms. She reports she went to the ER overnight and was just sent home at 10am. She reports in the ER, they did xray, blood work, and neb treatment. And she was prescribed azithromycin and another prednisone for 7 more days. She reports the xray found she has pneumonia 2024-08-20 Open HEDIS Measure yakelin trinidad: reviewed
--- OUTSIDE RECORDS SUMMARY | 2024-12-01 10:19 | XMS_ITS | Clinical Summary ---
Author Organization [employer] Address [address] [place] [address] 7[address] [place] [address] Care Team Providers Care Reflexologist Name Role Phone Thaddeus Salazar MD Primary Care Provider [phone] Allergies Active Allergy Reactions Criticality Noted Date Comments Latex Rash Low 08/05/2019 Niacin Anaphylaxis High 09/29/2010 Penicillin G Hives 10/25/2022 Penicillins Unknown 09/28/2023 Sulfa Antibiotics Hives,Unknown 10/25/2022 Other reaction(s): Allergy to sulfa drugs Medications * This document contains information received from the source organization and may not represent a complete record from that organization. atorvastatin (Lipitor) 20 MG tabletIndicatio ns:Hypercholest erolemia Take 1 tablet (20 mg) by mouth in the morning. 90 tablet 1 10/17/19 23 Active fluticasone (Flonase) 50 MCG/ACT nasal spray fluticasone propionate 50 mcg/actuation nasal spray,suspensi on INHALE 1 OR 2 SPRAYS INTO EACH NOSTRIL DAILY NEEDED 11/03/19 20 Active cholecalciferol (Vitamin D-3) 25 MCG (1000 UT) capsule Active ascorbic acid (Vitamin C) 1000 MG tablet Activ e albuterol (ProAir HFA) 108 (90 Base) MCG/ACT inhaler ProAir HFA 90 mcg/actuation aerosol inhaler INHALE TWO PUFFS EVERY 4 TO 6 HOURS NEEDED Active alpha tocopherol (Vitamin E) 400 units capsule Active scopolamine (Transderm-Scop ) 1 MG/3DAYS patch 72 hourIndications :Nausea APPLY 1 PATCH TOPICALLY TO HAIRLESS AREA BEHIND EAR AT LEAST 4 HOURS BEFORE EFFECT IS NEEDED. REPEAT EVERY 3 DAYS NEEDED Strength: 1 MG/3DAYS 10 patch 3 11/16/19 23 Active glucose blood (OneTouch Verio) test stripIndication s:Type 2 diabetes mellitus without complication, without long-term current use of insulin ([facility]) To use daily 2 times a day 100 each 11 08/21/20 23 Active Blood Glucose Monitoring Suppl (ONE TOUCH ULTRA 2) w/Device kitIndications: Type 2 diabetes mellitus without complication, without long-term current use of insulin ([facility]) To check the FS 2 times a day 1 kit 08/21/20 23 Active lidocaine (Xylocaine) 5 % ointmentIndicat ions:Right hip pain Apply topically if needed for mild pain. 50 g 1 12/18/19 24 025 Active Lancets (FarmeronTouch Delica Plus [id number]) miscIndications :Type 2 diabetes mellitus without complication, without long-term current use of insulin ([facility]) USE ONCE DAILY 100 each 11 12/26/19 24 Active glucose blood test strip FreeStyle Lite Strips TEST BLOOD SUGAR EVERY DAY 100 each 12/26/19 24 Active Diclofenac Sodium 1 % gelIndications: Right hand pain To apply to the affected area 4 times a day 100 g 01/23/20 24 Active ibuprofen 800 MG tabletIndicatio ns:Generalized pain TAKE 1 TABLET(800 MG) BY MOUTH THREE TIMES DAILY 90 tablet 3 05/12/20 24 Active Trelegy Ellipta 100-62.5-25 MCG/ACT aerosol powder INHALE 1 PUFF(100 MG) PUFF INTO THE LUNGS EVERY MORNING AND 1 PUFF EVERY NIGHT AT BEDTIME 60 each 5 07/15/20 24 Active amLODIPine (Norvasc) 5 MG tablet TAKE 1 TABLET BY MOUTH EVERY DAY 90 tablet 3 09/10/20 24 Active amoxicillin (Amoxil) 500 MG tabletIndicatio ns:Need for antibiotic prophylaxis for dental procedure 4 tabs 1 hour prior to dental procedures. 20 tablet 11/04/19 25 Active traZODone (Desyrel) 50 MG tabletIndicatio ns:Other insomnia TAKE 1 TABLET BY MOUTH EVERY DAY AT BEDTIME 30 tablet 2 11/10/19 25 Active ezetimibe (Zetia) 10 MG tablet Take 1 tablet by mouth Once per day. 10/18/19 25 Active traZODone (Desyrel) 50 MG tabletIndicatio ns:Other insomnia TAKE 1 TABLET(50 MG) BY MOUTH AT BEDTIME 30 tablet 2 08/15/20 24 025 Discontinued Active Problems Problem Noted Date Diagnosed Date Right hip pain 12/13/2023 Assessment & Plan (12/13/2023 9:42 AM EST): Denied recent trauma, no swelling, will order a xray of rigth hip, most likely OA, will prescribe prednisone x5days, continue resting joint, apply ice/heat, tylenol/ibuprofen as needed Meningioma 07/31/2023 Assessment & Plan (07/31/2023 3:24 PM EDT): Will be send for CT for further evaluation. Chronic nonintractable headache 07/31/2023 Assessment & Plan (07/31/2023 3:24 PM EDT): Patient with concerns of headaches will be send for CT. -Labs: Met. Panel Will be prescribing Excedrin Migraine. Follow up with PCP. 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 Assessed symptoms, risks, and social supports with direct questions. Discussed current symptoms intensity and frequency. Emotions were normalized and validated. She identified playing games, listen to music as coping mechanisms and prayer as protective factors. Provided psychoeducation around self- care, and coping mechanism to manage depression. She reported that she started doing walks and going to the park for self-care. Referral submitted for OP services ( Ind. Therapy) through [facility]. Provided education around integrated medicine and the options of follow up BE's as needed. Provided contact information should questions or concerns arise. Patient with insomnia, unable to do things as she is sued to due ot chronic pain and other health issues, irritability, over eating, sadness, crying spells, She denies SI, HI, reported Hx of self-farm when she was 13 y/o due to her been a sick kid and father unable to provide medication due to poverty, in the context of been the main caregiver for her and having no informal support. Patient will benefit from Individual therapy. At this time Charleen Urena meets criteria for Visit Diagnoses: Problem List Items Addressed This Visit Other Mild episode of recurrent major depressive disorder (CMS/HCC) Patient ready to address current needs Yes Strengths include Charleen is willing to engage in services. PLAN: 1. Follow up with [facility]: Not recommended for follow-up 2. Patient goal is She wants to be mentally stable to be able to care of her ill 3. Behavioral Recommendations a. Individual Therapy b. Charleen was encouraged to reach this hand sign writer for support as needed. Generalized pain 11/28/2022 Hyperlipidemia 01/07/2013 Hypertension 01/07/2013 Pruritus 01/07/2013 Chronic obstructive lung disease 04/01/2012 Diabetes mellitus type 2, uncomplicated 04/01/20 12 Encounters Date Type Department Care Team Description 11/17/2024 1:00 PM EST Office Visit [facility] [address] [place] [address] Cindy Garcia 11/10/2024 Telephone [facility] [address] [place] [address] Thaddeus Salazar MD Pre-op Visit 11/08/2024 Refill [facility] [address] [place] [address] Thaddeus Salazar MD Other insomnia 11/04/2024 Orders Only [facility] [address] [place] [address] Thaddeus Salazar MD Need for antibiotic prophylaxis for dental procedure (Primary Dx) 10/30/2024 Telephone [facility] [address] [place] [phone] Thaddeus Salazar MD medication request 10/30/2024 Telephone [facility] [address] [place] [address] Cindy Garcia rs pre med needed 10/13/2024 Telephone [facility] [address] [place] [address] Thaddeus Salazar MD FYI 09/09/2024 Refill [facility] [address] [place] [address] Thaddeus Salazar MD 09/08/2024 Telephone [facility] [address] [place], [place] [phone] Thaddeus Salazar MD Care Coordination ([facility] Agency) 09/01/2024 Telephone [facility] [address] [place], [place] [phone] Thaddeus Salazar MD FYI from Last 3 Months Immunizations Name Administration Dates Next Due Influenza High-dose Quadriva lent Preservative Free 05/15/2023,06/14/2022,05/26/2021 Influenza injectable quadriv alent IIV4 with preservative 09/06/2017,06/29/2016,07/08/2015 Influenza, IIV3, injectable 06/24/2014, 5 Influenza, Split (incl. porsche fied surface antigen) 07/02/2012 Influenza, seasonal, injecta ble, preservative free 06/02/2020 Influenza, trivalent, adjuvanted 07/05/2018 Pneumococcal Conjugate PCV 13 04/17/2017 Pneumococcal Polysaccharide PPSV23 06/28/2009,,10/08/1998 RSV Adjuvant 08/13/2023 TD (adult), 2 Lf tetanus tox oid, preservative free, adsorbed 06/18/2001 Tdap 04/17/2017 Zoster, Recombinant 05/26/2021 Zoster, live 09/09/2013 Social History Tobacco Use Types Packs/Day Years [...] Orientation Straight 08/07/2022 10 :20 AM EDT Last Filed Vital Signs Vital Sign Reading Time Taken Comments Blood Pressure 126/82 11/17/2024 1:02 PM EST Pulse 68 03/13/2024 1:46 PM EDT Temperature 36.8 ??C (98.3 ??F) 03/13/2024 1:46 PM ED T Respiratory Rate 16 03/13/2024 1:46 PM EDT Oxygen Saturation 96% 01/23/2024 2:27 PM EDT Inhaled Oxygen Concentration - - Weight 69.9 kg (154 lb) 03/13/2024 1:46 PM EDT Height 154.9 cm (5' 1 ) 03/13/2024 1:46 PM EDT Body Mass Index 29.1 03/13/2024 1:46 PM EDT Plan of Treatment Upcoming Encounters Date Type Department Care Team (Late st Contact Info) Description 12/05/2024 1:00 PM EST Office Visit [facility] [address] [place] [address] Mario Malhotra [address] [place] [address] 12/09/2024 1:00 PM EST Office Visit [facility] [address] [place] [address] Thaddeus Salazar MD [address] [place] [address] 05/18/2025 11:00 AM EDT Office Visit [facility] ADULT D[facility]AL [address] [facility] [place] [address] Cindy Garcia Health Maintenance Due Date Last Done Comments Diabetes: Foot Exam 1950 Alcohol/Substance Use Screening 1952 Zoster Vaccines (3 of 3) 07/21/2021 05/26/2021, 12/12/2012 Diabetes: Urine Protein Screening 04/01/2022 04/01/2021, 01/13/2020 Lipid Panel 01/23/2024 01/22/2023, 0602/2021, 04/01/2021 Depression Screening 01/31/2024 01/30/2023, 01/31/20 23 SDOH Screening 01/31/2024 01/30/2023 Diabetes: Hemoglobin A1C 02/06/2024 024, 09/28/2023, 06/04/2023, Additional history exists Dental Oral Exam 05/18/2025 11/17/2024, 10/25/2022 Dental Prophylaxis 05/18/2025 11/17/2024, 0 04/17/2023, 10/25/2022 Eye Exam 07/16/2025 04/30/2023 Tobacco Screening 11/17/2025 11/17/2024 Dental X-Ray: Bitewings 11/18/2025 11/17/2024, 10/25 DTaP/Tdap/Td Vaccines (2 - Td or Tdap) 04/17/2027 04/17/2017, 06/18/2001 Dental X-Ray: Full Mouth 11/18/2027 11/17/2024 RSV Patients and Patients Aged 60 years or older Completed 08/13/2023 Influenza Vaccine Completed 05/15/2024, , 06/14/2022, Additional history exists Pneumococcal Vaccine: 50+ Years Completed 05/15/2024, 04/17/2017, 06/28/2009, Additional history exists COVID-19 Vaccine Completed 06/27/2024, , 09/06/2021, Additional history exists HIB Vaccines Aged Out No longer eligi ble based on patient's age to complete this topic HPV Vaccines Aged Out No longer eligi ble based on patient's age to complete this topic Hepatitis A Vaccines Aged Out No long er eligible based on patient's age to complete this topic Hepatitis B Vaccines Aged Out No long er eligible based on patient's age to complete this topic IPV Vaccines Aged Out No longer eligi ble based on patient's age to complete this topic Meningococcal Vaccine Aged Out No leora ildefonso eligible based on patient's age to complete this topic RSV under 20 months Aged Out No longe r eligible based on patient's age to complete this topic Rotavirus Vaccines Aged Out No longer eligible based on patient's age to complete this topic Procedures Procedure Name Priority Date/Time Associated Diagnosis Comments COMPREHENSIVE PERIODONTAL EVALUATION - NEW OR ESTABLISHED PATIENT Routine 11/17/2024 1:00 PM EST PERIODIC ORAL EVALUATION - ESTABLISHED PATIENT Routine 11/17/2024 1:00 PM EST INTRAORAL - COMPLETE SERIES OF RADIOGRAPHIC IMAGES Routine 11/17/2024 1:00 PM EST ORAL HYGIENE INSTRUCTIONS Routine 11/17/2024 1:00 PM EST CASE PRESENTATION, DETAILED AND EXTENSIVE TREATMENT PLANNING Routine 11/17/2024 1:00 PM EST PROPHYLAXIS - ADULT Routine 11/17/2024 1 :00 PM EST XR CHEST 2 VIEWS Routine 09/09/2024 2:35 PM EST POCT GLYCATED HEMOGLOBIN, TOTAL Routine 11/08/2023 4:12 PM EST Type 2 diabetes mellitus without complication, without long-term current use of insulin ([facility]) HM DIABETES EYE EXAM Routine 04/30/2023 LIPID PANEL, STANDARD Routine 01/22/2023 8:59 AM EDT ZZZ HISTORICAL MICROALBUMIN, RANDOM Routine 04/01/2021 2:02 PM EDT from Last 3 Months or Most Recently Relevant to Health Maintenance Results * XR Chest 2 Views (09/09/2024 2:35 PM EST) Anatomical Region Laterality Modality Chest Radiographic Latrice ging 09/09/2024 2:35 PM EST Narrative 09/10/2024 9:01 AM EST ? [place] [facility] ?[address] ?[place] [address] ?XRay Report ? Signed ? Patient: Urena,Carey ?MR#: [id number] ? : 1940 ?Acct:[id number] ? Age/Sex: 84 / F ?ADM Date: 09/09/24 ? Loc: HO.XRAY ? Attending Dr: Hans Fontenot MD ? Ordering Physician: Hans Fontenot MD ?? Date of Service: 09/09/24 ?? Procedure(s): XR chest 2V ?? Accession Number(s): [id number] ? cc: Thaddeus Salazar MD; Hans Fontenot MD ? EXAMINATION: ?? XR CHEST ? CLINICAL INFORMATION: ?? J45.40 - Moderate persistent asthma, uncomplicated. ? COMPARISON: ?? 08/20/2024. ? TECHNIQUE: ?? 2 views of the chest were obtained. ? FINDINGS: ?? Degenerative changes in the thoracic spine. Heart size within normal ?? limits. ? Atherosclerotic aortic calcifications. ? Persistent mild costophrenic angle blunting, possibly pleural ?? thickening versus pleural effusion. ? Redemonstration of prominent bilateral interstitial markings suggestive ?? of a chronic process. ? Increased bibasilar patchy opacities, left greater than right. ? XR/XR chest 2V ?? IMPRESSION: ? 1. ??Increased bibasilar patchy opacities, left greater than right. ? 2. ??Persistent mild costophrenic angle blunting, possibly pleural ?? thickening versus pleural effusion. ? 3. ??Redemonstration of prominent bilateral interstitial markings ?? suggestive of a chronic process. ? This study was presented today September 10, 2024 for interpretation. ?? Stat results provided at this time as requested by referring provider. ? Electronically signed by: ??Belia Hidalgo MD ??09/10/2024 08:59 AM EST ?? RP ? Dictated By: ?Belia Hidalgo MD ? Signed By: ?<Electronically signed by Belia Hidalgo MD in OV> ? 09/10/24 0859 ? DD/ 1435 ? TD/TT: 09/09/24 1508 ? Quill Picking Machine Operator: ? Procedure Note Donotuseinterpreter, Image - 09/10/[address] [address] XRay Report Signed Patient: Charleen Urena MMR#: [id number] : 1Acct:[id number] Age/Sex: 84 / FADM Date: 09/09/24 Loc: HO.XRAY Attending Dr: Hans Fontenot MD Ordering Physician: Hans Fontenot MD Date of Service: 09/09/24 Procedure(s): XR chest 2V Accession Number(s): [id number] cc: Thaddeus Salazar MD; Hans Fontenot MD EXAMINATION: XR CHEST CLINICAL INFORMATION: J45.40 - Moderate persistent asthma, uncomplicated. COMPARISON: 08/20/2024. TECHNIQUE: 2 views of the chest were obtained. FINDINGS: Degenerative changes in the thoracic spine. Heart size within normal limits. Atherosclerotic aortic calcifications. Persistent mild costophrenic angle blunting, possibly pleural thickening versus pleural effusion. Redemonstration of prominent bilateral interstitial markings suggestive of a chronic process. Increased bibasilar patchy opacities, left greater than right. XR/XR chest 2V IMPRESSION: 1. Increased bibasilar patchy opacities, left greater than right. 2. Persistent mild costophrenic angle blunting, possibly pleural thickening versus pleural effusion. 3. Redemonstration of prominent bilateral interstitial markings suggestive of a chronic process. This study was presented today September 10, 2024 for interpretation. Stat results provided at this time as requested by referring provider. Electronically signed by: Belia Hidalgo MD 09/10/2024 08:59 AM EST Dictated By: Belia Hidalgo MD Signed By: <Electronically signed by Belia iHdalgo MD in OV> 09/10/24 0859 DD/ 1435 TD/TT: 09/09/24 1508 Quill Picking Machine Operator: [facility] External Provider IMG XR PROCEDURES Edited Result - Final * (ABNORMAL) POCT A1C (11/08/2023 4:12 PM EST) Hemoglobin A1C 7.3(A) 4.0 - 6.0 % Comment:controls valid QC Media Lot # Comment:[id number] Lot# Expiration Date Comment:06/25/2025 Blood 11/08/2023 4:12 PM EST us Thaddeus Salazar MD POINT OF CARE TEST ENTER/ED IT ORDERABLES Final Result * Diabetes Eye Exam (04/30/2023) Eye Exam Normal Normal Narrative Thaddeus Salazar MD - 04/30/2023 Eye exam done at [facility] by Dr Al Gregory. No diabetic retinopathy or macular edema. us Tahddeus Salazar MD HEALTH MAINTENANCE Final Re sult * Lipid Panel, Standard (01/22/2023 8:59 AM EDT) Pathologist [facility] Triglycerides 151 mg/dL [facility] Comment:Desirable Triglyceri de: less than 150 mg/dLBorderline High Triglyceride 150-199 mg/dLHigh Triglyceride: 200-499 mg/dLVery High Triglyceride: greater than or equal to 5OO mg/dL Cholesterol 254 mg/dL [facility] Comment:Desirable Cholestero l: less than 200 mg/dLBorderline High Cholesterol: 200-239 mg/dLHigh Cholesterol: greater than 239 mg/dL LDL Cholesterol Calculated 161 mg/dl [facility] Comment:Desirable LDL: less than 100 mg/dLNear Optimal/Above Optimal LDL: 110- 129 mg/dLBorderline High LDL: 130-159 mg/dLHigh LDL: 160-189 mg/dLVery High LDL: greater than or equal to 190 mg/dL HDL Cholesterol 63 mg/dL [facility] Comment:Desirable HDL: great er than 40 mg/dL Note: This HDL assay may give artificially low results in patients with liver disease. 01/22/2023 8:59 AM EDT 01/22/2023 8:59 AM EDT us [facility] External Provider LAB BLO OD ORDERABLES Final Result Performing Organization Address City/[facility]/ZIP Co de Phone Number [facility] [address] [place] [address] [phone] * MICROALBUMIN, RANDOM (04/01/2021 2:02 PM EDT) Creatinine Urine 121.90 mg/dL [facility] Microalbum/Creati nine Ratio Ur 10.6 ug/mg cr [facility] Comment: ?Albumin/Creatinine Ratio Reference Ranges: ? Normal: < 30 ug/mg creatinine ? Microalbuminuria: ??30 - 300 ug/mg creatinine Clinical Albuminuria: ??> 300 ug/mg creatinine Microalbumin Urine 13.0 mg/L [facility] 04/01/2021 2:02 PM EDT Thaddeus Salazar MD HISTORICAL/NON ORDERABLE LA BS Final Result [facility] [address] from Last 3 Months or Most Recently Relevant to Health Maintenance Insurance [facility]TE [facility] - [facility] Care Teams Reflexologist Relationship Specialty Start Date End Date Thaddeus Salazar MD [address] [place] [phone] PCP - General Internal Medicine 08/21/13 [employer] 08/27/24
--- OUTSIDE RECORDS SUMMARY | 2024-12-01 10:19 | XMS_ITS | Encounter Summary ---
Author Organization [employer] Address [address] [facility] [address] [place] [address] Care Team Providers Care Athletic Gear Custodian Name Role Phone Thaddeus Salazar MD Primary Care Provider [phone] Encounter Details Date Type Department Care Team ([facility] Contact Info) Description 02/04/2024 Orders Only [facility]S [address] [place], [place] [phone] Thaddeus Salazar MD [address] [place] [address] Social History Tobacco Use Types Packs/Day Years [...] the past 12 months, has t he VBI Vaccines, [employer], oil or water [employer] threatened to shut off services in your [...] Description 12/05/2024 1:00 PM EST Office Visit [facility] ADULT [facility] [address] [place] [address] Malhotra Pandatony [address] [place] [address] 12/09/2024 1:00 PM EST Office Visit [facility] [address] [place] [address] Thaddeus Salazar MD [address] [place] [address] 05/18/2025 11:00 AM EDT Office Visit [facility] ADULT [facility] [address] [place] [address] Cindy Garcia documented as of this encounter Visit Diagnoses Not on filedocumented in this encounter Additional Health Concerns Assessment Noted Time PHQ-9 Depression Total Score: 0 01/31/20 23 2:06 PM EDT documented as of this encounter Care Teams Athletic Gear Custodian Relationship Specialty Start Date End Date Thaddeus Salazar MD [address] [place] [address] PCP - General Internal Medicine 08/21/13 Brent MORIN 08/21/24 09/17/24 [employer] 08/27/24 documented as of this encounter
--- OUTSIDE RECORDS SUMMARY | 2024-12-01 10:19 | XMS_ITS | Encounter Summary ---
Author Organization [employer] Address [address] [facility] [address] [place] [address] Care Team Providers Care Scientist Propagator Name Role Phone Thaddeus Salazar MD Primary Care Provider [phone] Reason for Visit * Reason Onset Date Comments FYI 10/13/2024 Encounter Details Date Type Department Care Team ([facility] st Contact Info) Description 10/13/2024 Telephone [facility] MEDICINE [address] [place] [address] Thaddeus Salazar MD [address] [place] [address] FY Social History Tobacco Use Types Packs/Day [...] encounter Miscellaneous Notes * Telephone Encounter - Tanner Thomson RN - 10/13/2024 3:21 PM EST Please see FYI below. * Telephone Encounter - Sukh Light - 10/13/2024 3:17 PM EST Tc from [place] with [facility] stating that pt has reach all goals. documented in this encounter Plan of Treatment Upcoming Encounters Date Type Department Care Team (Late st Contact Info) Description 12/05/2024 1:00 PM EST Office Visit [facility] ADULT DENT[facility] [address] [place] [address] MalhotraPanda stinsontony [address] [place] [address] 12/09/2024 1:00 PM EST Office Visit [facility]ED[facility] [address] [place] [address] Thaddeus Salazar MD [address] [place] [address] 05/18/2025 11:00 AM EDT Office Visit [facility] ADULT DENT[facility] [address] [place] [address] Cindy Garcia documented as of this encounter Visit Diagnoses Not on filedocumented in this encounter Additional Health Concerns Assessment Noted Time PHQ-9 Depression Total Score: 0 01/31/20 23 2:06 PM EDT documented as of this encounter Care Teams Scientist Propagator Relationship Specialty Start Date End Date Thaddeus Salazar MD [address] [place] [phone] PCP - General Internal Medicine 08/21/13 [employer] 08/27/24 documented as of this encounter
== END 2024-12-01 09:30 | disposition home or self-care (01) ==
LOC: HO.HMGCX 09:29
PROVIDERS: PCP Internal Medicine; Visit Provider Hospitalist
DX: J18.0 Bronchopneumonia, unspecified organism (principal)
CPT/HCPCS: 71046

== ENCOUNTER → 2024-12-01 09:33 | Outpatient (BNV) | payer OTHER, SELFPAY | PROVIDERS: PCP Internal Medicine; Visit Provider Radiology Diagnostic Radiology | DX: J18.0 Bronchopneumonia, unspecified organism (principal) | CPT/HCPCS: 71046 ==

== ENCOUNTER 2024-12-09 14:04 | Outpatient (REF) | payer OTHER, SELFPAY ==
--- OUTSIDE RECORDS SUMMARY | 2024-12-09 17:50 | XMS_ITS | Encounter Summary ---
Author Organization [employer] Address [address] [facility] 7t [place] [address] Care Team Providers Care Billposter Name Role Phone Thaddeus Salazar MD Primary Care Provider [phone] Encounter Details Date Type Department Care Team ([facility] Contact Info) Description 11/04/2024 Orders Only [facility] MED & PEDS [address] [place], [place] [phone] Thaddeus Salazar MD 505 [place] [address] Need for antibiotic prophylaxis for dental procedure [...] t he electric, gas, oil or water [employer] threatened to shut off services in your [...] Care Team (Late st Contact Info) Description 05/18/2025 11:00 AM EDT Office Visit [facility] ADULT DENTAL [address] [place] [address] Cindy Garcia documented as of this encounter Procedures Procedure Name Priority Date/Time Associated Diagnosis Comments XR CHEST 2 VIEWS Routine 12/01/2024 9:33 AM EST documented in this encounter Results * XR Chest 2 Views (12/01/2024 9:33 AM EST) Anatomical Region Laterality Modality Chest Radiographic Latrice ging 12/01/2024 9:33 AM EST Narrative 12/02/2024 11:03 AM EST ? [facility] ?[address] ? [place] [address] ?XRay Report ? Signed ? Patient: Charleen Urena ?MR#: [id number] ? : 1940 ?Acct:[id number] ? Age/Sex: 84 / F ?ADM Date: 12/01/24 ? Loc: HO.HMGCX ? Attending Dr: Hans Fontenot MD ? Ordering Physician: Hans Fontenot MD ?? Date of Service: 12/01/24 ?? Procedure(s): XR chest 2V ?? Accession Number(s): [id number] ? cc: Thaddeus Salazar MD; Hans Fontenot MD ? EXAMINATION: ??XR CHEST 2 VIEWS ? HISTORY: J18.0 - Bronchopneumonia, unspecified organism ? COMPARISON: Comparison is made with prior examinations dated 09/09/2024 ?? and 07/23/2021. ? FINDINGS: ??PA and lateral views of the chest are submitted. Again seen ?? is scarring in the right upper lung zone and at the left lung base. No ?? new focal airspace opacity is seen. ??There is no pleural effusion, ?? pneumothorax, or pulmonary vascular congestion. ??The heart is normal in ?? size. The aorta is calcified. 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 ? XR/XR chest 2V ?? IMPRESSION: ?? No acute cardiopulmonary abnormality. ? Electronically signed by: ??Sigifredo Escobedo MD ??12/02/2024 11:00 AM EST ? Dictated By: ?Sigifredo Escobedo MD ? Signed By: ?<Electronically signed by Sigifredo Escobedo MD in OV> ?12/02/24 1100 ? DD/ 0933 ? TD/TT: 12/01/24 0936 ? Job Boss: ? Procedure Note Donlolismauriceinterpreter, Image - 12/02/2024 [facility] [address] [place] [address] [place] [address] XRay Report Signed Patient: Charleen Urena MMR#: [id number] : 1940cct:[id number] Age/Sex: 84 / FADM Date: 12/01/24 Loc: .HMGCX Attending Dr: Hans Fontenot MD Ordering Physician: Hans Fontenot MD Date of Service: 12/01/24 Procedure(s): XR chest 2V Accession Number(s): [id number] cc: Thaddeus Salazar MD; Hans Fontenot MD EXAMINATION: XR CHEST 2 VIEWS HISTORY: J18.0 - Bronchopneumonia, unspecified organism COMPARISON: Comparison is made with prior examinations dated 09/09/2024 and 07/23/2021. FINDINGS: PA and lateral views of the chest are submitted. Again seen is scarring in the right upper lung zone and at the left lung base. No new focal airspace opacity is seen. There is no pleural effusion, pneumothorax, or pulmonary vascular congestion. The heart is normal in size. The aorta is calcified. There is degenerative disc disease of the spine. XR/XR chest 2V IMPRESSION: No acute cardiopulmonary abnormality. Electronically signed by: Sigifredo Escobedo MD 12/02/2024 11:00 AM EST RP Dictated By: Sigifredo Escobedo MD Signed By: <Electronically signed by Sigifredo Escobedo MD in OV> 12/02/24 1100 DD/ 0933 TD/TT: 12/01/24 0936 Job Boss: [facility] External Provider IMG XR PROCEDURES Final Result documented in this encounter Visit Diagnoses Diagnosis Need for antibiotic prophylaxis for dental procedure- Primary documented in this encounter Additional Health Concerns Assessment Noted Time PHQ-9 Depression Total Score: 0 01/31/20 23 2:06 PM EDT documented as of this encounter Care Teams Billposter Relationship Specialty Start Date End Date Thaddeus Salazar MD [address] [place] [address] PCP - General Internal Medicine 08/21/13 [employer] 08/27/24 documented as of this encounter
--- OUTSIDE RECORDS SUMMARY | 2024-12-09 17:50 | XMS_ITS | Encounter Summary ---
Author Organization [employer] Address 75 [facility] 7t [place] [address] Care Team Providers Care Land Survey Technician Name Role Phone Thaddeus Salazar MD Primary Care Provider [phone] Encounter Details Date Type Department Care Team ([facility] st Contact Info) Description 02/04/2024 Orders Only [facility] CHC MED & PEDS [address] [place], [place] [phone] Thaddeus Salazar MD [address] [place] [address] Social History Tobacco Use Types Packs/Day Years [...] the past 12 months, has t he [employer], oil or water company threatened to shut [...] Description 05/18/2025 11:00 AM EDT Office Visit [facility] ADULT DENTAL [address] [place] [address] Cindy Garcia documented as of this encounter Visit Diagnoses Not on filedocumented in this encounter Additional Health Concerns Assessment Noted Time PHQ-9 Depression Total Score: 0 01/31/20 23 2:06 PM EDT documented as of this encounter Care Teams Land Survey Technician Relationship Specialty Start Date End Date Thaddeus Salazar MD [address] [place] [address] PCP - General Internal Medicine 08/21/13 Brent MORIN 08/21/24 09/17/24 [employer] 08/27/24 documented as of this encounter
--- OUTSIDE RECORDS SUMMARY | 2024-12-09 17:50 | XMS_ITS | Encounter Summary ---
Author Organization [employer] Address [address] [place] [address] 7 [place] [address] Care Team Providers Care Bushing And Broach Operator Name Role Phone Thaddeus Saalzar MD Primary Care Provider [phone] Encounter Details Date Type Department Care Team (Latest Contact Info) Description 08/05/2019 Abstract [facility] CONVERSIONS Dental, Provider, DDS Social History [...] Visit [facility] ADULT DENTAL [address] [place] [address] Cindy Garcia documented as of this encounter Visit Diagnoses Not on filedocumented in this encounter Care Teams Bushing And Broach Operator Relationship Specialty Start Date End Date Thaddeus Salazar MD 505 [place] [address] PCP - General Internal Medicine 08/21/13 Brent MORIN 08/21/24 09/17/24 [email or web address] 08/27/24 documented as of this encounter
--- OUTSIDE RECORDS SUMMARY | 2024-12-09 17:50 | XMS_ITS ---
Author Organization [facility] Address 2 [facility] [place] [address] [place] [address] Care Team Providers Care Paid Search Marketing Strategist Name Role Phone Mary Morris Unavailable [phone] Encounters Encounter Location Date Provider Diagnosis [facility] Diabetes & Metabolism 2 [facility] [address] [address] [place] [address] 06/03/2024 Mary Morris Plan Of Treatment No Information Progress Notes * ROSEMARY ARTISDOB:1940 (84 yo F)Acc No.[id number]:06/03/2024 Patient:?ROSEMARY ARTIS Provider:?Mary Morris MD :1940???Age:84 Y???Sex:Female D ate:06/03/2024 Address:[address] [place] [address], [id number] Subjective: * Chief Complaints: * ??? * Medical History:? Objective: * Vitals:? Assessment: Plan: * Treatment: * * Electronic signature of Mary Morris MD on 12/09/2024 at 12:47 PM EST Sign off status: Pending * Provider:?Mary Morris MD Date:?2023 Generated for Vic guardado/Daria/eTransmitting on:?12/09/2024 12:47 PM EST
--- OUTSIDE RECORDS SUMMARY | 2024-12-09 17:50 | XMS_ITS | Encounter Summary ---
Author Organization [employer] Address [address] [facility] [facility] [address] 7[address] [place] [address] Care Team Providers Care Acquisitions Analyst Name Role Phone Thaddeus Salazar MD Primary Care Provider [phone] Reason for Visit * Reason Comments Routine Cleaning Dental Exam Encounter Details Date Type Department Care Team (Late st Contact Info) Description 11/17/2024 1:00 PM EST Office Visit [facility] ADULT DENTAL [address] [place], [place] [phone] Cindy Garcia Social History Tobacco Use Types [...] Timeout Date: 11/17/24, Timeout Time: 1305 Location: [facility] Tooth: Maxilla and Mandible Procedure: Exam, X-rays, and Prophylaxis Verified the above with patient, collections assistant, and provider. Confirmed via patient's chart, intraorally and by radiographs. Editor Index: not applicable Medical Hx: Vitals: Blood pressure [...] INSTRUCTIONS (Completed) Service provider: Cindy King provider: Mario Malhotra D0210 - DIAGNOSTIC - [...] patient including brushing technique and flossing. Recommendations: [place] two times daily, modified araujo technique, Floss daily, Electric toothbrush, Soft bristle toothbrush, [place] Tongue, Anti-sensitivity toothpaste Recall Frequency: 6 mo [...] Timeout Date: 11/17/24, Timeout Time: 1305 Location: [facility] Tooth: Maxilla and Mandible Procedure: Exam Verified the above with patient, collections assistant, and provider. Confirmed via patient's chart, intraorally and by radiographs. Editor Index: not applicable Chief Complaint Patient presents with [...] 90 tablet 3 Lancets (OneTouch Delica Plus Jekbtv77S) misc USE ONCE DAILY 100 each 11 [...] to aggressive and horizontal brushing. -#27 fractured disto-incisal. Jew planned but pt was informed that if POI not followed jain can fracture and pt might need crown [...] Instruction Provided - Yes Oral Hygiene Instructions: [place] two times daily, modified araujo technique, Floss daily, Electric toothbrush, Soft bristle toothbrush, [place] Tongue. Referrals - None Treatment plan: -restorative -6 month recall All questions answered and expressed understanding. Dismissed in good condition. NV: restorative Hygienist: Cindy Garcia RDH Dentist: Dr. Mario Malhotra, DMD documented in this encounter Plan of Treatment Upcoming Encounters Date Type Department Care Team (Late st Contact Info) Description 05/18/2025 11:00 AM EDT Office Visit [facility] ADULT DENTAL [address] [place] [address] Cindy Garcia Scheduled Orders Name Type Priority Associated Diagnoses Orde r Schedule 30 B(V) 30 B(V) RESIN-BASED COMPOSITE - 1 SURF, POSTERIOR Dental Routine 1 Occurrences starting 12/05/2024 documented as of this encounter Procedures Procedure [...] documented as of this encounter Care Teams Acquisitions Analyst Relationship Specialty Start Date End Date Thaddeus Salazar MD 505 [place] [address] PCP - General Internal Medicine 08/21/13 [employer] 08/27/24 documented as of this encounter
--- OUTSIDE RECORDS SUMMARY | 2024-12-09 17:50 | XMS_ITS | Encounter Summary ---
Author Organization [employer] Address 75 [facility] 7t [place] [address] Care Team Providers Care Thread Marker Name Role Phone Thaddeus Salazar MD Primary Care Provider [phone] Reason for Visit * Reason Comments Filling #27 Encounter Details Date Type Department Care Team ([facility] Contact Info) Description 12/05/2024 1:00 PM EST Office Visit [facility] ADULT DENTAL [address] [place], [place] [phone] Mario Malhotra 505 [place], [place] [phone] Social History Tobacco Use Types Packs/Day Years Used Date Smoking Tobacco: Never Passive Smoke Exposure: Never Smokeless Tobacco: Never Alcohol Use Standard [...] the past 12 months, has t he [employer], [employer], oil or water [employer] threatened to shut off services in your home? No 07/23/2023 Depression Answer Date Recorded Patient Health Questionnaire-2 Score 0 01/30/2023 Comments Unknown Sex and Gender Information Value Date Recorded Sex Assigned at Female 08/07/2022 10:20 AM EDT Legal Sex Female 10:20 AM EDT Gender Identity Female 08/07/2022 10:20 AM EDT Sexual Orientation Straight 08/07/2022 10 :20 AM EDT documented as of this encounter Progress Notes * Mario Malhotra - 12/05/2024 1:00 PM EST Patient ID: Charleen Urena is a 84 y.o. female. Time Out: Timeout Date: 12/05/24 (restorations #27), Timeout Time: 1317 Location: [facility] Tooth: #27 Procedure: Congregation Verified the above with patient, assistant property manager, and provider. Confirmed via patient's chart, intraorally and by radiographs. Speedometer Mechanic: not applicable Chief Complaint Patient presents with Filling #27 Medical Hx: Vitals: There were no vitals taken for this visit. Medications, Med Hx reviewed with patient and updated in chart. Consent Obtained: The risks, benefits, indications, potential complications, and alternatives were explained to the patient and informed consent was obtained with good understanding. Treatment Provided: Dental procedures in this visit D2331 - RESIN-BASED COMPOSITE - 2 SURF, ANTERIOR 27 DI (Completed) Service provider: Mario Malhotra Billing provider: Mario Malhotra Diagnosis: Fractured tooth #27 DI Topical: 20% Benzocaine Anesthesia: 4% Septocaine (Articaine) w/ 1:200,000 epinephrine Number of Cartridges: 1 Injection Type: Buccal infiltration and Palatal infiltration Confirmed profound anesthesia. Isolation: high speed suction and cotton rolls and bite block Prep: Preparation finalized Matrix: None Etch: 37% Phosphoric Acid Etch Desensitizer: Gluma Liner/Base: None Rahman: I-Rahman Congregation Material: Voco Grandioso Packable Shade: A3.5 Polished. Occlusion & contacts verified. Patient satisfied with comfort and esthetics. Patient tolerated procedure well. Post-operative instructions were given. Patient departed alert, oriented, and in stable condition. Note- Pt had neck concerns and was not feeling well, so only #27 DI anabaptism was done today. Advised pt to book appointment during earlier hours of the day if possible. NV: restorative Forepart Rasper: Fatemeh Spence Dentist: Dr. Mario Malhotra, DMD documented in this encounter Plan of Treatment Upcoming Encounters Date Type Department Care Team (Late st Contact Info) Description 05/18/2025 11:00 AM EDT Office Visit [facility] ADULT DENTAL [address] [place] [address] Cindy Garcia documented as of this encounter Procedures Procedure Name Priority Date/Time Associated Diagnosis Comments 27 DI RESIN-BASED COMPOSITE - 2 SURF, ANTERIOR Routine 12/05/2024 1:00 PM EST documented in this encounter Visit Diagnoses Not on filedocumented in this encounter Additional Health Concerns Assessment Noted Time PHQ-9 Depression Total Score: 0 01/31/20 23 2:06 PM EDT documented as of this encounter Care Teams Thread Marker Relationship Specialty Start Date End Date Thaddeus Salazar MD 505 [place] [address] PCP - General Internal Medicine 08/21/13 [employer] 08/27/24 documented as of this encounter
--- OUTSIDE RECORDS SUMMARY | 2024-12-09 17:50 | XMS_ITS | Encounter Summary ---
Author Organization [employer] Address [address] [facility] [address] 7t [place] [address] Care Team Providers Care Linen Worker Name Role Phone Thaddeus Salazar MD Primary Care Provider [phone] Reason for Visit * Reason Onset Date Comments rs pre med needed 10/30/2024 Encounter Details Date Type Department Care Team ([facility] st Contact Info) Description 10/30/2024 Telephone [facility] CHC ADULT DENTAL [address] [place], [place] [phone] Cindy Garcia rs pre med needed Social [...] Description 05/18/2025 11:00 AM EDT Office Visit [facility] ADULT DENTAL [address] [place] [address] Cindy Garcia documented as of this encounter Visit Diagnoses Not on filedocumented in this encounter Additional Health Concerns Assessment Noted Time PHQ-9 Depression Total Score: 0 01/31/20 2:06 PM EDT documented as of this encounter Care Teams Linen Worker Relationship Specialty Start Date End Date Thaddeus Salazar MD [address] [place] [address] PCP - General Internal Medicine 08/21/13 [employer] 08/27/24 documented as of this encounter
--- OUTSIDE RECORDS SUMMARY | 2024-12-09 17:50 | XMS_ITS | Encounter Summary ---
Author Organization [employer] Address 75 [facility] 7t [place] [address] Care Team Providers Care Painting Manager Name Role Phone Thaddeus Salazar MD Primary Care Provider [phone] Reason for Visit * Reason Onset Date Comments Chart Prep 12/08/2024 Encounter Details Date Type Department Care Team ([facility] Contact Info) Description 12/08/2024 Telephone [facility] CHC MED & PEDS [address] [place], [place] [phone] Thaddeus Salazar MD [address] [place] [address] Chart Prep Social History Tobacco Use Types Packs/Day Years Used Date Smoking Tobacco: Never Passive Smoke Exposure: Never Smokeless Tobacco: Never Alcohol Use Standard Drinks/Week Comments Never 0 (1 standard drink = 0.6 oz pur e alcohol) Depression Answer Date Recorded Patient Health Questionnaire-9 Score 0 12/09/2024 Patient Health Questionnaire-9 Score 0 12/09/2024 Last PHQ-9: Questionnaire Data Not on file 0 12/09/2024 Housing Stability Answer Date Recorded What is your housing situation today? I have karon navarro 12/09/[address] you li ve. Do you have problems with any of the following? None of the above 12/09/2024 Food Insecurity Answer Date Recorded Within the past 12 months, y ou worried that your food would run out before you got money to buy more: Never True 12/09/2024 Within the past 12 months,th e food you bought just didn't last and you didn't have enough money to get more: Never True 01/2025 Transportation Answer Date Recorded In the past 12 months, has l ack of transportation kept you from medical appts, meetings, work or from getting things needed for daily living? No 12/09/2024 Utilities Answer Date Recorded In the past 12 months, has t he electric, gas, oil or water company threatened to shut off services in your home? No 12/09/2024 Depression Answer Date Recorded Patient Health Questionnaire-2 Score 0 12/09/2024 Internet Access Answer Date Recorded Internet Access Q1 Yes 12/09/2024 Internet Access Q2 Not on file 12/09/2024 Comments Unknown Sex and Gender Information Value Date Recorded Sex Assigned at Female 08/07/2022 10:20 AM EDT Legal Sex Female 10:20 AM EDT Gender Identity Female 08/07/2022 10:20 AM EDT Sexual Orientation Straight 08/07/2022 10 :20 AM EDT documented as of this encounter Miscellaneous Notes * Telephone Encounter - Joyce Christensen MA - 12/08/2024 10:46 AM EST Chart Prep Labs: done Images: done Vaccines due: yes Referrals: complete Screenings: Foot Exam Overdue care gaps: A1C, Glucose, Sbirt, SDOH, PHQ-9 documented in this encounter Plan of Treatment Upcoming Encounters Date Type Department Care Team (Late st Contact Info) Description 05/18/2025 11:00 AM EDT Office Visit [facility] ADULT DENTAL [address] [place] [address] Cindy Garcia documented as of this encounter Visit Diagnoses Not on filedocumented in this encounter Additional Health Concerns Assessment Noted Time PHQ-9 Depression Total Score: 0 01/31/20 23 2:06 PM EDT documented as of this encounter Care Teams Painting Manager Relationship Specialty Start Date End Date Thaddeus Salazar MD [address] [place] [address] PCP - General Internal Medicine 08/21/13 [employer] 08/27/24 documented as of this encounter
--- OUTSIDE RECORDS SUMMARY | 2024-12-09 17:50 | XMS_ITS | Encounter Summary ---
Author Organization [employer] Address [address] [place] [address] [address] [address] Care Team Providers Care Oracle Identity Management Consultant Name Role Phone Thaddeus Salazar MD Primary Care Provider [phone] Reason for Visit * Reason Onset Date Comments Med Refill 11/03/2022 Encounter Details Date Type Department Care Team ([facility] Contact Info) Description 11/03/2022 Telephone [facility] MED & PEDS [address] [place], [place] [phone] Thaddeus Salazar MD [address] [place] [address] Med Refill Social History Tobacco Use Types [...] Department Care Team (Late Contact Info) Description 05/18/2025 11:00 AM EDT Office Visit [facility] ADULT DENTAL [address] [place] [address] Cindy Garcia documented as of this encounter Visit Diagnoses Not on filedocumented in this encounter Care Teams Oracle Identity Management Consultant Relationship Specialty Start Date End Date Thaddeus Salazar MD [address] [place] [address] PCP - General Internal Medicine 08/21/13 Brent MORIN 08/21/24 09/17/24 [employer] 08/27/24 documented as of this encounter
--- OUTSIDE RECORDS SUMMARY | 2024-12-09 17:50 | XMS_ITS | Encounter Summary ---
Author Organization [employer] Address 75 [facility] 7t [place] [address] Care Team Providers Care Guard Entrance Registrar Name Role Phone Thaddeus Salazar MD Primary Care Provider [phone] Reason for Visit * Reason Onset Date Comments Triage 11/16/2022 Encounter Details Date Type Department Care Team ([facility] st Contact Info) Description 11/16/2022 Telephone [facility] MED & PEDS [address] [place], [place] [phone] Thaddeus Salazar MD [address] [place] [address] Triage Social History Tobacco Use Types Packs/Day [...] and daily activities. [facility]. advised home care: [...] Description 05/18/2025 11:00 AM EDT Office Visit [facility] ADULT DENTAL [address] [place] [address] Cindy Garcia documented as of this encounter Visit Diagnoses Not on filedocumented in this encounter Care Teams Guard Entrance Registrar Relationship Specialty Start Date End Date Thaddeus Salazar MD [address] [place] [address] PCP - General Internal Medicine 08/21/13 Brent MORIN 08/21/24 09/17/24 [employer] 08/27/24 documented as of this encounter
--- OUTSIDE RECORDS SUMMARY | 2024-12-09 17:50 | XMS_ITS | Encounter Summary ---
Author Organization [employer] Address [address] [facility] [address] 7t [place] [address] Care Team Providers Care Customer Service Voice Name Role Phone Thaddeus Salazar MD Primary Care Provider [phone] Encounter Details Date Type Department Care Team ([facility] st Contact Info) Description 07/31/2023 Telephone [facility] MEDICINE [address] [place] [address] Thaddeus Salazar MD [address] [place], [place] [phone] Social History Tobacco Use Types Packs/Day Years [...] Office Visit [facility] ADULT DENTAL [address] [place] [address] Cindy Garcia documented as of this encounter Visit Diagnoses Not on filedocumented in this encounter Additional Health Concerns Assessment Noted Time PHQ-9 Depression Total Score: 0 01/31/20 23 2:06 PM EDT documented as of this encounter Care Teams Customer Service Voice Relationship Specialty Start Date End Date Thaddeus Salazar MD 505 [place] [address] PCP - General Internal Medicine 08/21/13 Brent MORIN 08/21/24 09/17/24 [employer] 08/27/24 documented as of this encounter
--- OUTSIDE RECORDS SUMMARY | 2024-12-09 17:50 | XMS_ITS | Encounter Summary ---
Author Organization [employer] Address [address] [facility] 7 [place] [address] Care Team Providers Care Solidworks Mechanical Designer Name Role Phone Thaddeus Salazar MD Primary Care Provider [phone] Reason for Visit * Reason Comments Pre op evaluation. Encounter Details Date Type Department Care Team ([facility] Contact Info) Description 12/09/2024 1:00 PM EST Office Visit [facility] MED & PEDS [address] [place], [place] [phone] Thaddeus Salazar MD [address] [place] [address] Pre-op evaluation (Primary Dx); Type 2 diabetes mellitus without complication, without long-term current use of insulin ([facility]) Social History Tobacco Use Types Packs/Day Years [...] your housing situation today? I have karon sing 12/09/[address] you li [...] Sign Reading Time Taken Comments Blood Pressure 142/73 12/09/2024 1:39 PM EST Pulse 71 12/09/2024 1:39 PM EST Temperature 36.7 ??C (98 ??F) 12/09/2024 1:39 PM EST Respiratory Rate 20 12/09/2024 1:39 PM EST Oxygen Saturation 98% 12/09/2024 1:39 PM EST Inhaled Oxygen Concentration - - Weight 72.6 kg (160 lb) 12/09/2024 1:39 PM EST Height 154.9 cm (5' 1 ) 12/09/2024 1:39 PM EST Body Mass Index 30.23 12/09/2024 1:39 PM EST documented in this encounter Plan of Treatment Upcoming Encounters Date Type Department Care Team (Late st Contact Info) Description 05/18/2025 11:00 AM EDT Office Visit [facility] ADULT DENTAL [address] [place] [address] Cindy Garcia Scheduled Orders Name Type Priority Associated Diagnoses Orde r Schedule CBC auto differential Lab Routine Pre-op evaluation Expected: 12/09/2024 (Approximate), Expires: 12/09/2025 Basic Metabolic Panel Lab Routine Pre-op evaluation Expected: 12/09/2024 (Approximate), Expires: 12/09/2025 documented as of this encounter Procedures Procedure Name Priority Date/Time Associated Diagnosis Comments POCT GLUCOSE Routine 12/09/2024 2:41 PM EST Type 2 diabetes mellitus without complication, without long-term current use of insulin ([facility]) ECG 12-LEAD Routine 12/09/2024 1:50 PM EST Pre-op evaluation documented in this encounter Results * POCT Glucose (12/09/2024 2:41 PM EST) Pathologist [facility] Glucose Blood, POC 128 60 - 200 mg/dL QC Media Lot # [id number] Lot# Expiration Date Comment:random Blood Capillary blood specimen / Unknown 12/09/2024 2:41 PM EST us Thaddeus Salazar MD POINT OF CARE TEST ENTER/ED IT ORDERABLES Final Result * ECG 12 lead (12/09/2024 1:50 PM EST) Narrative Thaddeus Salazar MD - 12/09/2024 1:50 PM EST HR 67. Lamoure: -44. Left axis deviation. NSR. No sign of LAE/CYNTHIA. No ST elevation or ST depression. us Thaddeus Salazar MD ECG ORDERABLES Final Resul t documented in this encounter Visit Diagnoses Diagnosis Pre-op evaluation- Primary Type 2 diabetes mellitus without complication, without long-term current use of insulin ([facility]) documented in this encounter Additional Health Concerns Assessment Noted Time PHQ-9 Depression Total Score: 0 12/10/19 25 1:58 PM EST documented as of this encounter Care Teams Solidworks Mechanical Designer Relationship Specialty Start Date End Date Thaddeus Salazar MD [address] [place] [id number] PCP - General Internal Medicine 08/21/13 [employer] 08/27/24 documented as of this encounter
--- OUTSIDE RECORDS SUMMARY | 2024-12-09 17:50 | XMS_ITS ---
Author Organization [facility] Address [address] [facility] [place] [address] [place] [phone] Care Team Providers Care Technical Services Specialist Name Role Phone Mary Morris Unavailable [phone] Encounters Encounter Location Date Provider Diagnosis [facility] Endocrinology Diabetes & Metabolism [address] [facility] [address] [place] [address] 11/14/2023 Mary Morris Plan Of Treatment No Information Progress Notes * ROSEMARY ARTISDOB:1940 (84 yo F)Acc No.[id number]:11/14/2023 Patient:?ROSEMARY ARTIS Provider:?Mary Morris MD :1940???Age:83 Y???Sex:Female D ate:11/14/2023 Address:[address] [place] [address], [place] [id number] Subjective: * Chief Complaints: * ??? * Medical History:? Objective: * Vitals:? Assessment: Plan: * Treatment: * * Electronic signature of Mary Morris MD on 12/09/2024 at 12:47 PM EST Sign off status: Pending * Provider:?Mary Morris MD Date:?2023 Generated for Vic guardado/Daria/eTransmitting on:?12/09/2024 12:47 PM EST
--- OUTSIDE RECORDS SUMMARY | 2024-12-09 17:50 | XMS_ITS | Encounter Summary ---
Author Organization [employer] Address [address] [facility] 7t [place] [address] Care Team Providers Care Land Surveyor Assistant Name Role Phone Thaddeus Salazar MD Primary Care Provider [phone] Reason for Visit * Reason Onset Date Comments FYI 09/01/2024 Encounter Details Date Type Department Care Team ([facility] Contact Info) Description 09/01/2024 Telephone [facility] [address] [place] [address] Thaddeus Salazar MD [address] [place] [address] FY Social History Tobacco Use Types Packs/Day [...] encounter Miscellaneous Notes * Telephone Encounter - Raimundogabrielle NunesHarley - 09/01/2024 2:54 PM EST Tc from [facility] with [employer] stating that pt does not need Physical Therapy anymore due to pt being at their Baseline. Contact pt at [phone] documented in this encounter Plan of Treatment Upcoming Encounters Date Type Department Care Team (Late st Contact Info) Description 05/18/2025 11:00 AM EDT Office Visit [facility] ADULT DENTAL [address] [place] [address] Cindy Garcia documented as of this encounter Visit Diagnoses Not on filedocumented in this encounter Additional Health Concerns Assessment Noted Time PHQ-9 Depression Total Score: 0 01/31/20 23 2:06 PM EDT documented as of this encounter Care Teams Land Surveyor Assistant Relationship Specialty Start Date End Date Thaddeus Salazar MD [address] [place] [address] PCP - General Internal Medicine 08/21/13 Brent MORIN 08/21/24 09/17/24 [employer] 08/27/24 documented as of this encounter
--- OUTSIDE RECORDS SUMMARY | 2024-12-09 17:50 | XMS_ITS | Encounter Summary ---
Author Organization [employer] Address [address] [facility] 7[address] [place] [address] Care Team Providers Care Nurse Office Name Role Phone Thaddeus Salazar MD Primary Care Provider [phone] Encounter Details Date Type Department Care Team (Late Contact Info) Description 07/03/2023 Orders Only [facility] [address] [place], [place] [phone] Thaddeus Salazar MD [address] [place], [place] [phone] Screening for colon cancer Social History Tobacco [...] Description 05/18/2025 11:00 AM EDT Office Visit [facility] ADULT [facility] [address] [place] [address] Cindy Garcia documented as of this encounter Visit Diagnoses Diagnosis Screening for colon cancer Special screening for malignant neoplasms, colon documented in this encounter Additional Health Concerns Assessment Noted Time PHQ-9 Depression Total Score: 0 01/31/20 23 2:06 PM EDT documented as of this encounter Care Teams Nurse Office Relationship Specialty Start Date End Date Thaddeus Salazar MD [address] [place] [id number] PCP - General Internal Medicine 08/21/13 Brent MORIN 08/21/24 09/17/24 [employer] 08/27/24 documented as of this encounter
--- OUTSIDE RECORDS SUMMARY | 2024-12-09 17:50 | XMS_ITS | Patient Health Record ---
Author Organization [facility] Address [address] [facility] [address] [place] [address] Care Team Providers Care Conservation Educator Name Role Phone Mary Morris Unavailable [phone] Reason For Referral No Information Encounters Encounter Location Date Provider Diagnosis [facility] Endocrinology Diabetes & Metabolism [address] [facility] [address] [place] [address] 06/03/2024 Mary Morris [facility] Endocrinology Diabetes & Metabolism [address] [place] [address] [address] [place] [address] 12/04/2024 Mary Morris Plan Of Treatment No Information
--- OUTSIDE RECORDS SUMMARY | 2024-12-09 17:50 | XMS_ITS | Data Portability ---
Author Organization [place] - [facility] Address [address] [place] [phone] Care Team Providers Care Nurse Private Duty Name Role Phone WENBETSYMAHAD Primary Care Provider Assessment Encounter Date Assessment Date Assessment LastModified by Organization Details LastModified Time 01/24/2021 01/24/2021 Overview/History : 80 y/o F with PMHx sig for asthma, DM, HLD, HTN, chronic knee pain s/p bilateral knee replacements, and anxiety, new to , who presents w/ c/o right foot pain. Patient reports right foot pain has been going on for 3 months. She reports pain improving currently. She states pain usually comes on at night after shower because of the cold water hitting it. She reports some relief from topical pain relief patches and heating pad. Has tried Motrin 800 mg without relief. She states the pain is not constant but will come and go intermittently for a few hours. Denies muscle cramping or foot coldness, numbness or tingling. Describes the pain as sharp and shock like. Denies radiation of pain. Able to ambulate without difficulty but when having an episode walking is painful. She reports her glucose have been averaging 130-140. Reports pain relief also with direct pressure onto foot and presses her left foot into her right instep. Exam: afebrile, RRR, normotensive, normal resps, O2 sat 94% on RA, non-toxic, well appearing. GENERAL: well developed, well nourished, appears stated age, sitting comfortably in no acute distress. RESP: normal I:E, breathing non-labored, no accessory muscle use, clear to auscultation bilaterally, no wheezes, rhonchi, or rales. CARDIO: RRR, normal S1, S2, no murmurs, rubs, or gallops, radial, PT/AT/DP pulses 2+ bilaterally. MUSK: RLE phalanges, forefoot, ankle, and knee with normal strength, ROM, muscle tone, no atrophy, bunion and bunionette present, no other bony deformity or step offs, no crepitus, no ecchymosis or edema, right 5th metatarsal TTP with radiation toward the instep. EXTREMITIES: warm, well perfused, no cyanosis, swelling or rashes. NEURO: awake, alert, oriented x3, no focal neuro deficits, moving all extremities spontaneously, normal gait. DDx considered, but not limited to: stinson's neuroma - possible given pain description and location bunionette - possible given exam bone spur - possible but less likely given location of pain plantar fasciitis - unlikely, plantar surface nontender avulsion fracture - less likely, denies injury gout - unlikely, no joint swelling or redness OA - possible Work up/Results: right foot XR pending. Plan/Discussion: -stinson's neuroma vs bunionette -will call with foot XR results -Recommend shoe inserts/orthotics , patient states she is going to try diabetic shoes -ok to continue with heat as needed as you report this improves the pain -ok to continue topical lidocaine patches and OTC Motrin or Tylenol PRN pain -ortho referral sent for further eval, may require advanced imaging, intra-articular injection, or surgery in conservative measures fail, patient already established at [facility]. Thank you for your visit with [facility] today. We cannot always find the exact cause of your symptoms during your initial visit. Please follow up with your primary care provider or specialist to be rechecked or seek medical attention if your symptoms do not go away or get worse. If you develop any new or worsening symptoms and need after hours care, please go to nearest ER and/or call 911. If you have additional concerns or develop a change in your condition between 8am-10pm, please call [facility] at [phone] to help navigate your care. In order to obtain further information and compare any laboratory results/values, I have accessed patient records on the [employer]. This information was pertinent in my medical decision making today. Time On Scene with Patient: 00:41:15 kieran Not available 01/24/2021 18:33:38 Plan of Treatment Reminders Order Date Submit Date Provider Last Modified By Organization Details Last Modified Time Details Appointments None recorde d. Lab None recorde d. Referral orthope dic referra l 2020 021 [facility] ([facility]), [address], [place], [address], 17:41:08 Procedures None recorde d. Surgeries None recorde d. Imaging XR, foot, 3 or more view 2020 021 [facility] ([facility]), [address] [facility], [place], [address], 07:44:33 Medication Orders None recorde d. Patient TargetsNo targets recorded. Patient Instructions Encounter Date Encounter Id Patient Instructions Last Modified By Organization Details Last Modified Time 01/24/2021 [id number] The company we have partnered with that will be completing the exam listed above is: [employer] While you wait comfortably at home, you can expect a [employer] technologist to call you 30-45 minutes prior to arrival. Should you need to make special scheduling arrangements please call the number listed above and ask to speak with a [employer] dispatcher. For your convenience, you can also request your technologist? s Estimated Time of Arrival (ETA) by calling the number listed above. Once requested, a [employer] dispatcher will call you back to let you know what time frame to expect the technologist to arrive within. Once your x-ray is completed, a radiologist will evaluate the test and interpret the results. Once the final report is received by [facility] from the reading radiologist a [facility] provider will call with the results. 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 The osseou s struct ures appear intact . Joint spaces are narrow ed. Soft tissue s are unrema rkable . CONCLU KATIE: No acute findin gs. Degene rative change s. Consid er a repeat study if sympto ms contin ue to persis t or progre ss. ELECTR ONICAL LY SIGNED BY NEEL DAVILA M.D. 021 10:52: 29 AM EDT. FOOT COMPLE TE, MIN 3V, RIGHT Result s: No acute fractu re or disloc ation. The osseou s struct ures appear intact . Joint spaces are narrow ed. Soft tissue s are unrema rkable . Conclu katie: No acute findin gs. Degene rative change s. Consid er a repeat study if sympto ms contin ue to persis t or progre ss. Electr onical ly signed by NEEL DAVILA M.D. 021 10:52: 29 AM EDT. [facility] ([facility]) [address] [place], [address], 01/25/2021 14:07:25 Result Notes None recorded. Procedures Surgical History None recorded. Imaging Results Imaging Date Name Status [facility] Details LastModified Time 01/25/2021 foot complete, min 3V completed [email or web address] [facility] [address] [place], [address], 01/25/2021 14:07:25 Procedure Notes None recorded. Medical Equipment None Reported. Allergies Allergen ID Allergen Name Allergen Category Reaction Reaction Severity Criticality Documentation Date Start Date Code Code System Note Provider Name and Address Organization Details Recorded Time [id number] Substance with sulfonami de structure and antibacte rial mechanism of action (substanc e) medicatio n Not available Not available Not available 01/24/2021 [id number] SNOMED ALICIA PHILLIPS [address] [place], [address], [place] [facility] 1 17:06:03 [id number] Product containin g penicilli n (product) medicatio n Not available Not available Not available 01/24/2021 [id number] SNALICIA SPARKS [address] [facility] [place], [address], [place] [facility] 17:06:17 Medications Name Sig Start Date Stop Date Status Note LastModified by Organization Details LastModified Time atorvastati n 20 mg tablet TAKE ONE TABLET DAILY active Not Available Not Available No t Available ibuprofen 800 mg tablet TAKE ONE TABLET BY MOUTH THREE TIMES DAILY active Not Available Not Available No t Available acetaminoph en 300 mg-codeine 30 mg tablet TAKE ONE TABLET EVERY 8 HOURS NEEDED FOR PAIN active Not Available Not Available No t Available amlodipine 5 mg tablet TAKE ONE TABLET BY MOUTH EVERY DAY active Not Available Not Available No t Available tramadol 50 mg tablet TAKE ONE TABLET AT BEDTIME 01/24 completed Not Available Not Available Not Available acetaminoph en 500 mg tablet TAKE 2 CAPLETS BY MOUTH EVERY 12 HOURS NEEDED active Not Available Not Available No t Available DOK 100 mg capsule TAKE ONE CAPSULE AT BEDTIME NEEDED FOR CONSTIPAT ION active Not Available Not Available No t Available amlodipine 10 mg tablet TAKE ONE TABLET BY MOUTH EVERY DAY active Not Available Not Available No t Available fluticasone 500 mcg-salmete rol 50 mcg/dose blistr powdr for inhalation USE ONE INHALATIO N TWICE DAILY. RINSE MOUTH AFTER USE active Not Available Not Available No t Available furosemide 20 mg tablet TAKE ONE TABLET BY MOUTH EVERY DAY active Not Available Not Available No t Available fluticasone propionate 50 mcg/actuati on nasal spray,suspe nsion INHALE 1 OR 2 SPRAYS INTO EACH NOSTRIL DAILY NEEDED active Not Available Not Available No t Available ProAir HFA 90 mcg/actuati on aerosol inhaler INHALE TWO PUFFS EVERY 4 TO 6 HOURS NEEDED active Not Available Not Available No t Available FreeStyle Lite Strips TEST BLOOD SUGAR EVERY DAY active Not Available Not Available No t Available TRUEplus Lancets 28 gauge TEST BLOOD SUGAR EVERY DAY active Not Available Not Available No t Available Incruse Ellipta 62.5 mcg/actuati on powder for inhalation INHALE ONE PUFF DAILY AT THE SAME TIME each DAY active Not Available Not Available No t Available Josefa Ellipta 100 mcg-62.5 mcg-25 mcg powder for inhalation USE ONE INHALATIO N EVERY DAY. active Not Available Not Available No t Available Vitals Date Recorded Heart rate Respiratory rate Body temperature Oxygen saturation Oxygen saturation in Arterial blood by Pulse oximetry Systolic blood pressure Diastolic blood pressure Provider Name and Address Organization Details Last Updated DateTime 77 /min 18 /min 98.2 [degF] 94 % 94 % 122 mm[Hg] 58 mm[Hg] Not Available [facility] 17:12:07 Social History Question Answer Notes LastModified by Organizat ion Details LastModified Time Tobacco Smoking Status Former Smoker ALICIA PHILLPIS [address], [place], [address], [place] [facility] 01/24/2021 17:10:11 Do You Have An Advance Directive? No [employer] Information not available 01/24/2021 What Is Your Code Status? Full Code [employer] Information not available 01/24/2021 Within The Past 12 Months, Has It Happened That The Food You Bought Just Didn't Last And You Didn't Have Money To Get More. No [employer] Information not available 01/24/2021 Within The Past 12 Months, Have You Worried That Your Food Would Run Out Before You Got Money To Buy More. No [employer] Information not available 01/24/2021 Fall Risk: Do You Feel Unsteady When Standing Or Walking? No [employer] Information not available 01/24/2021 We Know That How And When People Interact With Friends And Family Can Be Very Different From Person To Person. How Often Do You Have The Opportunity To See Or Talk To People That You Care About And Feel Close To? (Ex: Talking To Friends On The Phone Or Visiting Friends Or Family Or Going To Zoroastrianism Or Club Meetings) 5 Or More Times Per Week [employer] Information not available 01/24/2021 Excessive Alcohol Or Drug Use No [employer] Information not available 01/24/2021 We Know From Many Of Our Patients That Covering All Of Their Costs Can Be Difficult At Times. This Can Cause Stress And Impact Health. In The Past Year, Have You Been Unable To Get Any Of The Following When It Was Really Needed? No [employer] Information not available 01/24/2021 What Is Your Housing Situation Today? I Have Housing Information not available 01/24/2021 Would You Like Help Connecting To Resources? None [employer] Information not available 01/24/2021 How Much Tobacco Do You Smoke? 1 PPW Information not available 01/24/2021 How Many Years Have You Smoked Tobacco? 10 [employer] Information not available 01/24/2021 Sex: Unknown Functional Status None recorded. Mental Status None recorded. Family History Relationship Description Onset Age of this Age Resolved Age Notes LastModified by Organization Details LastModified Time Mother Diabetes mellitus kieran Not available 2020 17:12:24 Sister Diabetes mellitus kieran Not available 2020 17:12:24 Brother Diabetes mellitus kieran Not available 2020 17:12:24 Medical History Condition Response Diabetes Y Coronary Artery Disease N High Cholesterol Y Pulmonary Embolism N Cancer N Hypertension Y Stroke N Asthma Y COPD N Depression N Kidney Disease N Gynecological HistoryNo gynecological history recorded. Obstetrics History GPAL:G 0 P 0 0 0 0 Past Encounters Encounter ID Performer Location Encounter Start Date Encounter Closed Date Diagnosis/Indication Diagnosis SNOMED-CT Code Diagnosis ICD10 Code Diagnosis Note [id number] ALICIA PHILLIPS [facility] [address] [place] [address] 01/24/2021 17:04:21 01/26/2021 16:07:56 Stinson's neuroma of right foot [id number] 69220 G57.61 Pain in right foot 02824 40113 33808 M79.671 Tailor's b union of right foot [id number] 120424 M21.621 Health Concerns Section Related Observation LastModified by Organization Detai ls LastModified Time None Recorded Concern Status LastModified by Organization Details LastModified Time None Recorded Advance Directives Directive N: Payers Encounter Date Sequence Insurance Name Policy Number Policy [place] Covered Member ID [place] Member ID Guarantor Name 01/24/2021 1 [employer] - [employer] - MEDICARE SOLUTIONS - MEDICARE COMPLETE (MEDICARE REPLACEMENT HMO) [id number] Charleen Urena [id number] Charleen Urena 01/24/2021 2 [place]ICA[place]: [facility] Charleen Urena [id number] Charleen Urena Notes Date Note Type Note Provider Name and Address Organization Details Recorded Time 01/24/2021 text/html 80 y/o F with PM Hx sig for asthma, DM, HLD, HTN, chronic knee pain s/p bilateral knee replacements, and anxiety, new to , who presents w/ c/o right foot pain. Patient reports right foot pain has been going on for 3 months. She reports pain improving currently. She states pain usually comes on at night after shower because of the cold water hitting it. She reports some relief from topical pain relief patches and heating pad. Has tried Motrin 800 mg without relief. She states the pain is not constant but will come and go intermittently for a few hours. Denies muscle cramping or foot coldness, numbness or tingling. Describes the pain as sharp and shock like. Denies radiation of pain. Able to ambulate without difficulty but when having an episode walking is painful. She reports her glucose have been averaging 130-140. Reports pain relief also with direct pressure onto foot and presses her left foot into her right instep. ALICIA PHILLIPS [facility] [place], [address], [place] [facility] 01/24/2021 18:34:25 OBGyn Episode No OBEpisode recorded.
--- OUTSIDE RECORDS SUMMARY | 2024-12-09 17:50 | XMS_ITS | Encounter Summary ---
Author Organization [employer] Address [address] [facility] [address] [place] [address] Care Team Providers Care Health Informatics Specialist Name Role Phone Thaddeus Salazar MD Primary Care Provider [phone] Reason for Visit * Reason Onset Date Comments Pre-op Visit 11/10/2024 Encounter Details Date Type Department Care Team ([facility] st Contact Info) Description 11/10/2024 Telephone [facility] [address] [place] [address] Thaddeus Salazar MD [address] [place] [address] Pre-op Visit Social History Tobacco Use Types [...] Yes Surgeon's name: Dr Bo Facility name: [facility] Surgeon's office number: [phone] ext [phone] Surgeon's office fax number: [phone] Contact name (person you spoke with): Candelaria Last office note from surgeon requested: Yes Send Message to Lia Wiley and Marino Farrell documented in this encounter Plan of Treatment Upcoming Encounters Date Type Department Care Team (Late st Contact Info) Description 05/18/2025 11:00 AM EDT Office Visit [facility] [address] [place] [address] Cindy Garcia documented as of this encounter Visit Diagnoses Not on filedocumented in this encounter Additional Health Concerns Assessment Noted Time PHQ-9 Depression Total Score: 0 01/31/20 23 2:06 PM EDT documented as of this encounter Care Teams Health Informatics Specialist Relationship Specialty Start Date End Date Thaddeus Salazar MD [address] [place] [id number] PCP - General Internal Medicine 08/21/13 [employer] 08/27/24 documented as of this encounter
--- OUTSIDE RECORDS SUMMARY | 2024-12-09 17:50 | XMS_ITS | Clinical Summary ---
Author Organization [employer] Address [address] [place] [address] 7t [place] [address] Care Team Providers Care Student Success Advisor Name Role Phone Thaddeus Salazar MD Primary Care Provider [phone] Allergies Active Allergy Reactions Criticality Noted Date Comments Ethacrynic Acid Hives Low 08/20/2024 Latex Rash Low 08/05/2019 Montelukast Hives Low 08/20/2024 Niacin Anaphylaxis High 09/29/2010 Penicillin G Hives [...] without long-term current use of insulin ([facility]) To use daily 2 times a day 100 each 11 08/21/20 23 Active Blood Glucose Monitoring Suppl (ONE TOUCH ULTRA 2) w/Device kitIndications: Type 2 diabetes mellitus without complication, without long-term current use of insulin ([facility]) To check the FS 2 times a day 1 kit 08/21/20 23 Active lidocaine (Xylocaine) 5 % ointmentIndicat ions:Right hip pain Apply topically if needed for mild pain. 50 g 1 12/18/19 24 025 Active Lancets (TopFloorTouch Delica Plus [id number]) miscIndications :Type 2 diabetes mellitus without complication, without long-term current use of insulin ([facility]) USE ONCE DAILY 100 each 11 12/26/19 24 Active glucose blood test strip FreeStyle Lite Strips TEST BLOOD SUGAR EVERY DAY 100 each 11 12/26/19 24 Active Diclofenac Sodium 1 % [...] Active Problems Problem Noted Date Diagnosed Date Allergies 12/05/2024 Asthma with acute exacerbation 12/05/2024 Carpal tunnel syndrome on both sides 12/05/2024 Chest wall muscle strain 12/05/2024 CHF (congestive heart failure) 12/05/2024 Closed head injury 12/05/2024 Concussion 12/05/2024 Contusion of lower back 12/05/2024 Degenerative joint disease of hand 12/05/2024 Fall 12/05/2024 Unspecified rotator cuff tea r or rupture of right shoulder, not specified as traumatic 12/05/2024 Trigger finger, right middle finger 12/05/2024 Statin intolerance 12/05/2024 Snoring 12/05/2024 Right knee sprain 12/05/2024 Rash 12/05/2024 Palpitations 12/05/2024 Other specific arthropathies , not elsewhere classified, right shoulder 12/05/2024 EVELYN (obstructive sleep apnea) 12/05/2024 Orthopnea 12/05/2024 Left shoulder strain 12/05/2024 Hypersomnia 12/05/2024 Ganglion cyst 12/05/2024 Upper respiratory tract infection 12/05/2024 Right hip pain 12/13/2023 Assessment & Plan [...] for OP services ( Ind. Therapy) through [facility] Provided education around integrated medicine and the [...] in services. PLAN: 1. Follow up with [facility]: Not recommended for follow-up 2. Patient goal is She wants to be mentally stable to be able to care of her ill 3. Behavioral Recommendations a. Individual Therapy b. Charleen was encouraged to reach this scientific writer for support as needed. Generalized pain 11/28/2022 Hyperlipidemia 01/07/2013 Hypertension 01/07/2013 Pruritus 01/07/2013 Chronic obstructive lung disease 04/01/2012 Diabetes mellitus type 2, uncomplicated 04/01/20 12 Encounters Date Type Department Care Team Description 12/09/2024 1:00 PM EST Office Visit [facility] [address] [place] [address] Thaddeus Salazar MD Pre-op evaluation (Primary Dx); Type 2 diabetes mellitus without complication, without long-term current use of insulin ([facility]) 12/09/2024 Travel 12/08/2024 Telephone [facility] [address] [place] [address] Thaddeus Salazar MD Chart Prep 12/05/2024 1:00 PM EST Office Visit [facility] [address] [place] [address] MalhotraUzair stinsonelvia 11/17/2024 1:00 PM EST Office Visit [facility] [address] [place] [address] Cindy Garcia 11/10/[address] [address] Thaddeus Salazar MD Pre-op Visit 11/08/2024 Refill [facility] [address] [place] [address] Thaddeus Salazar MD Other insomnia 11/04/2024 Orders Only [facility] [address] [place] [address] Thaddeus Salazar MD Need for antibiotic prophylaxis for dental procedure (Primary Dx) 10/30/[address] [address] Thaddeus Salazar MD medication request 10/30/2024 Telephone [facility] [address] [place] [phone] Cindy Garcia rs pre med needed 10/13/[address] [phone] Thaddeus Salazar MD FYI from Last 3 Months Immunizations Name Administration Dates Next Due Influenza High-dose Quadriva lent Preservative Free 05/15/2023,06/14/2022,05/26/2021 Influenza injectable quadriv alent IIV4 with preservative 09/06/2017,06/29/2016,07/08/2015 Influenza, High Dose Seasona l, Preservative Free 05/15/2024 Influenza, IIV3, injectable 06/24/2014, 5 Influenza, Split (incl. porsche fied surface antigen) 07/02/2012 Influenza, seasonal, injecta ble, preservative free 06/02/2020 Influenza, trivalent, adjuvanted 07/05/2018 Pfizer Covid-19 Vaccine 12+ 06/27/2024 Pneumococcal Conjugate PCV 13 04/17/2017 Pneumococcal Conjugate PCV 20 05/15/2024 Pneumococcal Polysaccharide PPSV23 06/28/2009,,10/08/1998 RSV Adjuvant 08/13/2023 [...] Mass Index 30.23 12/09/2024 1:39 PM EST Plan of Treatment Upcoming Encounters Date Type Department Care Team (Late st Contact Info) Description 05/18/2025 11:00 AM EDT Office Visit [facility] [address] [place] [address] Cindy Garcia Health Maintenance Due Date Last Done Comments Diabetes: Foot Exam 1951 Zoster Vaccines (3 of 3) 07/21/2021 05/26/2021, 12/12/2012 Diabetes: Urine Protein Screening 04/01/2022 04/01/2021, 01/13/2020 Lipid Panel 01/23/2024 01/22/2023, 0602/2021, 04/01/2021 Diabetes: Hemoglobin A1C 02/06/2024 024, 09/28/2023, 06/04/2023, Additional history exists Dental Oral Exam 05/18/2025 11/17/2024, 10/25/2022 Dental Prophylaxis 05/18/2025 11/17/2024, 0 04/17/2023, 10/25/2022 Eye Exam 07/16/2025 04/30/2023 Dental X-Ray: Bitewings 11/18/2025 11/17/2024, 10/25 Tobacco Screening 12/05/2025 12/05/2024 Alcohol/Substance Use Screening 12/09/2025 12/09/2024 Depression Screening 12/09/2025 12/09/2024, 12/10/19 SDOH Screening 12/09/2025 12/09/2024 DTaP/Tdap/Td Vaccines (2 - Td or Tdap) [...] without long-term current use of insulin ([facility]) ECG 12-LEAD Routine 12/09/2024 1:50 PM EST Pre-op evaluation 27 DI RESIN-BASED COMPOSITE - 2 SURF, ANTERIOR Routine 12/05/2024 1:00 PM EST XR CHEST 2 VIEWS Routine 12/01/2024 9:33 AM EST COMPREHENSIVE PERIODONTAL EVALUATION - NEW OR [...] ADULT Routine 11/17/2024 1 :00 PM EST POCT GLYCATED HEMOGLOBIN, TOTAL Routine 11/08/2023 4:12 PM EST Type 2 diabetes mellitus without complication, without long-term current use of insulin ([facility]) DIABETES EYE EXAM Routine 04/30/2023 LIPID PANEL, STANDARD Routine 01/22/2023 8:59 AM EDT ZZZ HISTORICAL MICROALBUMIN, RANDOM Routine 04/01/2021 2:02 PM EDT from Last 3 Months or Most Recently Relevant to Health Maintenance Results * POCT Glucose (12/09/2024 2:41 PM EST) [facility] Glucose Blood, POC 128 60 - 200 mg/dL QC Media Lot # [id number] Lot# Expiration Date [id number] Comment:random Blood Capillary blood specimen / Unknown 12/09/2024 2:41 PM EST us Thaddeus Salazar MD POINT OF CARE TEST ENTER/ED IT ORDERABLES Final Result * ECG 12 lead (12/09/2024 1:50 PM EST) Narrative Thaddeus Salazar MD - 12/09/2024 1:50 PM EST HR 67. [place]: -44. Left axis deviation. NSR. No sign of LAE/CYNTHIA. No ST elevation or ST depression. us Thaddeus Garayauzile MD ECG ORDERABLES Final Resul t * XR Chest 2 Views (12/01/2024 9:33 AM EST) Anatomical Region Laterality Modality Chest Radiographic Latrice ging 12/01/2024 9:33 AM EST Narrative 12/02/2024 11:03 AM EST ? [facility] ?[address] [facility] . ? [place] [address] ?XRay Report ? Signed ? Patient: Charleen Urena ?MR#: [id number] ? : 1940 ?Acct:[id number] ? Age/Sex: 84 / F ?ADM Date: 12/01/24 ? Loc: HO.HMGCX ? Attending Dr: Hans Fontenot MD ? Ordering Physician: Hans Fontenot MD ?? Date of Service: 12/01/24 ?? Procedure(s): XR chest 2V ?? Accession Number(s): [id number] ? cc: Thaddeus Salazar MD; Hans Fontenot [...] ??Sigifredo Escobedo MD ??12/02/2024 11:00 AM EST ?? RP ? Dictated By: ?Sigifredo Escobedo MD ? Signed By: ?<Electronically signed by Sigifredo Escobedo MD in OV> ?12/02/24 1100 ? DD/ 0933 ? TD/TT: 12/01/24 0936 ? Medical Collections: ? Procedure Note Avtar, Image - 12/02/2024 [facility] [address] [place] [address] [place] [address] XRay Report Signed Patient: Charleen Urena MMR#: [id number] : 1Acct:[id number] Age/Sex: 84 / FADM Date: 12/01/24 Loc: HO.HMGCX Attending Dr: Hans Fontenot MD Ordering Physician: Hans Fontenot MD Date of Service: 12/01/24 Procedure(s): XR chest 2V Accession Number(s): [id number] cc: Thaddeus Salazar MD; Hans Fontenot MD [...] 12/02/24 1100 DD/ 0933 TD/TT: 12/01/24 0936 Medical Collections: [facility] External Provider IMG XR PROCEDURES Final Result * (ABNORMAL) POCT A1C (11/08/2023 4:12 PM EST) Hemoglobin A1C 7.3(A) 4.0 - 6.0 % Comment:controls valid QC Media Lot # Comment:[id number] Lot# Expiration Date Comment:06/25/2025 Blood 11/08/2023 4:12 PM EST Thaddeus Salazar MD POINT OF CARE TEST ENTER/ED IT ORDERABLES Final Result * Hm Diabetes Eye Exam (04/30/2023) Eye Exam Normal Normal Narrative Thaddeus Salazar MD - 04/30/2023 Eye exam done at [facility] by Dr Al Gregory. No diabetic retinopathy or macular edema. Thaddeus Salazar MD HEALTH MAINTENANCE Final Re sult * Lipid Panel, Standard (01/22/2023 8:59 AM EDT) [facility] Triglycerides 151 mg/dL [facility] Comment:Desirable Triglyceri de: less than 150 mg/dLBorderline High Triglyceride 150-199 mg/dLHigh Triglyceride: 200-499 mg/dLVery High Triglyceride: greater than or equal to 5OO mg/dL Cholesterol 254 mg/dL [facility] Comment:Desirable Cholestero l: less than 200 mg/dLBorderline High Cholesterol: 200-239 mg/dLHigh Cholesterol: greater than 239 mg/dL LDL Cholesterol Calculated 161 mg/dl [facility] Comment:Desirable LDL: less than 100 mg/dLNear Optimal/Above Optimal LDL: 110- 129 mg/dLBorderline High LDL: 130-159 mg/dLHigh LDL: 160-189 mg/dLVery High LDL: greater than or equal to 190 mg/dL HDL Cholesterol 63 mg/dL [facility] Comment:Desirable HDL: great er than 40 mg/dL Note: This HDL assay may give artificially low results in patients with liver disease. 01/22/2023 8:59 AM EDT 01/22/2023 8:59 AM EDT [facility] External Provider LAB BLO OD ORDERABLES Final Result [facility] [address] [place] [phone] * MICROALBUMIN, RANDOM (04/01/2021 2:02 PM EDT) Creatinine Urine 121.90 mg/dL [facility] Microalbum/Creati nine Ratio Ur 10.6 ug/mg cr [facility] Comment: ?Albumin/Creatinine Ratio Reference Ranges: ? Normal: < 30 ug/mg creatinine ? Microalbuminuria: ??30 - 300 ug/mg creatinine Clinical Albuminuria: ??> 300 ug/mg creatinine Microalbumin Urine 13.0 mg/L [facility] 04/01/2021 2:02 PM EDT us Thaddeus Salazar MD HISTORICAL/NON ORDERABLE MARBIN KAM Final Result Performing Organization Address City/State/[facility] Co de Phone Number [facility] [address] [place] [address], from Last 3 Months or Most Recently Relevant to Health Maintenance Insurance [facility] STANDARD [facility] DUAL COMPLETE D[facility]AL - [facility] Care Teams Student Success Advisor Relationship Specialty Start Date End Date Thaddeus Salazar MD [address] [place] [address] [place] [address] PCP - General Internal Medicine 08/21/13 [employer] 08/27/24
--- OUTSIDE RECORDS SUMMARY | 2024-12-09 17:50 | XMS_ITS | Encounter Summary ---
Author Organization [employer] Address [address] [place] [address] 7 [place] [address] Care Team Providers Care Blood Bank Calendar Control Clerk Name Role Phone Thaddeus Salazar MD Primary Care Provider [phone] Encounter Details Date Type Department Care Team (Latest Contact Info) Description 06/14/2021 Abstract [facility] CONVERSIONS Dental, Provider, DDS Social History Tobacco [...] [facility] [address] [place] [address] Cindy Garcia documented as of this encounter Visit Diagnoses Not on filedocumented in this encounter Care Teams Blood Bank Calendar Control Clerk Relationship Specialty Start Date End Date Thaddeus Salazar MD [address] [place] [address] PCP - General Internal Medicine 08/21/13 Brent MORIN 08/21/24 09/17/24 [employer] 08/27/24 documented as of this encounter
--- OUTSIDE RECORDS SUMMARY | 2024-12-09 17:50 | XMS_ITS | Encounter Summary ---
Author Organization [employer] Address [address] [facility] 7t [place] [address] Care Team Providers Care Supervisor [employer] Boat [employer] Name Role Phone Thaddeus Salazar MD Primary Care Provider [phone] Reason for Visit * Reason Comments Med Refill Encounter Details Date Type Department Care Team ([facility] st Contact Info) Description 11/08/2024 Refill [facility] [address] [place], [place] [phone] Thaddeus Salazar MD [address] [place] [address] Other insomnia Social History Tobacco Use Types [...] Upcoming Encounters Date Type Department Care Team ([facility] st Contact Info) Description 05/18/2025 11:00 AM EDT Office Visit [facility] [address] [place] [address] Cindy Garcia documented as of this encounter Visit Diagnoses Diagnosis Other insomnia documented in this encounter Additional Health Concerns Assessment Noted Time PHQ-9 Depression Total Score: 0 01/31/20 23 2:06 PM EDT documented as of this encounter Care Teams Supervisor [employer] Relationship Specialty Start Date End Date Thaddeus Salazar MD [address] [place] [address] PCP - General Internal Medicine 08/21/13 [employer] 08/27/24 documented as of this encounter
--- OUTSIDE RECORDS SUMMARY | 2024-12-09 17:50 | XMS_ITS | Encounter Summary ---
Author Organization [employer] Address [address] [facility] 7t [place] [address] Care Team Providers Care Shank Burnisher Name Role Phone Thaddeus Salazar MD Primary Care Provider [phone] Reason for Visit * Reason Onset Date Comments FYI 10/13/2024 Encounter Details Date Type Department Care Team ([facility] st Contact Info) Description 10/13/2024 Telephone [facility] [address] [place] [address] Thaddeus Salazar MD [address] [place] [address] FY Social History Tobacco Use Types Packs/Day [...] - 10/13/2024 3:17 PM EST Tc from [place] with [employer] stating that pt has reach all goals. documented in this encounter Plan of Treatment Upcoming Encounters Date Type Department Care Team (Late st Contact Info) Description 05/18/2025 11:00 AM EDT Office Visit [facility] [address] [place] [address] Cindy Garcia documented as of this encounter Visit Diagnoses Not on filedocumented in this encounter Additional Health Concerns Assessment Noted Time PHQ-9 Depression Total Score: 0 01/31/20 23 2:06 PM EDT documented as of this encounter Care Teams Shank Burnisher Relationship Specialty Start Date End Date Thaddeus Salazar MD [address] [place] [address] PCP - General Internal Medicine 08/21/13 [employer] 08/27/24 documented as of this encounter
--- OUTSIDE RECORDS SUMMARY | 2024-12-09 17:51 | XMS_ITS ---
Author Organization [facility] Address [address] [facility] [place] [address] [place] [phone] Care Team Providers Care Ankle Patch Molder Name Role Phone Mary Morris Unavailable [phone] Encounters Encounter Location Date Provider Diagnosis [facility] [address] [facility] [address] [address] [place] [address] 12/04/2024 Mary Morris Plan Of Treatment No Information Progress Notes * ROSEMARY ARTISDOB:1940 (84 yo F)Acc No.[id number]:12/04/2024 Patient:?ROSEMARY ARTIS Provider:?Mary Morris MD :1940???Age:84 Y???Sex:Female D ate:12/04/2024 Address:[address] [place] [address], [id number] Subjective: * Chief Complaints: * ??? * Medical History:? Objective: * Vitals:? Assessment: Plan: * Treatment: * * Electronic signature of Mary Morris MD on 12/09/2024 at 12:47 PM EST Sign off status: Pending * Provider:?Mary Morris MD Date:?2024 Generated for Vic guardado/Daria/eTransmitting on:?12/09/2024 12:47 PM EST
--- OUTSIDE RECORDS SUMMARY | 2024-12-09 17:51 | XMS_ITS | Encounter Summary ---
Author Organization [employer] Address [address] [facility] 7t [place] [address] Care Team Providers Care Vet Assistant Name Role Phone Thaddeus Salazar MD Primary Care Provider [phone] Encounter Details Date Type Department Care Team (Latest Contact Info) Description 12/09/2024 Travel Social History Tobacco Use Types Packs/Day Years [...] 11:00 AM EDT Office Visit [facility] [place] [facility] [address] [place] [address] Cindy Garcia documented as of this encounter Visit Diagnoses Not on filedocumented in this encounter Additional Health Concerns Assessment Noted Time PHQ-9 Depression Total Score: 0 12/10/19 25 1:58 PM EST documented as of this encounter Care Teams Vet Assistant Relationship Specialty Start Date End Date Thaddeus Salazar MD [address] [place] [address] PCP - General Internal Medicine 08/21/13 [employer] 08/27/24 documented as of this encounter
--- OUTSIDE RECORDS SUMMARY | 2024-12-09 17:51 | XMS_ITS ---
Author Name Camila VALDERRAMAAshleigh Address [address] [place] [address] Phone [phone] [facility] Care Team Providers Care Diet Tech Name Role Phone Ashleigh Jensen Unavailable [phone] Unavailable Unavailable Unavailable Reason for Referral Not [...] 2024-02-29 No Data Available [employer] Plus Medhae40T Miscellaneous USE DIRECTED EVERY DAY 2023-08-21 No [...] diabetes mellitus wit hout complication, unspecified whether terminal manager insulin use Active 2024-08-19 N/A COPD (chronic obstructive pulmonary disease) Active 2024-08-19 N/A Other problems related to [facility] other [facility] care Active 2024-08-20 N/A Asthma Active 2024-08-16 N/A Hypertensive heart disease with heart failure Active 2024-08-19 N/A Encounters Encounters Type Facility Date of Service Diagnosis/Co mplaint No Data Available [facility] Unspecified asthma, uncompli cated No Data Available [facility] [place]2024 No Data Available [facility] [place]2024 No Data Available [facility] [place]2024 Unspecified asthma, uncompli cated No Data Available [facility] [place]/2024 No Data Available [facility] [place] No Data Available [facility] [place] New patient,40-59min; chronic exacerbation, 2 stable chronic or 1 acute illness add add modifier 95 for video (do not use for phone, instead use 53416-75) [facility] [place]2024 Unspecified asthma, uncomplicatedType 2 diabetes mellitus without complicationsHypertensive heart disease with heart failureHeart failure, unspecifiedChronic obstructive pulmonary disease, unspecifiedOther problems related to medical facilities and other health care New patient,40-59min; chronic exacerbation, 2 stable chronic or 1 acute illness add add modifier 95 for video (do not use for phone, instead use 85230-06) [facility] [place] New patient,40-59min; chronic exacerbation, 2 stable chronic or 1 acute illness add add modifier 95 for video (do not use for phone, instead use 91849-36) [facility] [place] New patient,40-59min; chronic exacerbation, 2 stable chronic or 1 acute illness add add modifier 95 for video (do not use for phone, instead use 98171-28) [facility] [place]/20[place] New patient,40-59min; chronic exacerbation, 2 stable chronic or 1 acute illness add add modifier 95 for video (do not use for phone, instead use 34266-69) [facility] [place] New patient,40-59min; chronic exacerbation, 2 stable chronic or 1 acute illness add add modifier 95 for video (do not use for phone, instead use 24712-21) [facility] [place] New patient,40-59min; chronic exacerbation, 2 stable chronic or 1 acute illness add add modifier 95 for video (do not use for phone, instead use 92977-10) [facility] [place] New patient,40-59min; chronic exacerbation, 2 stable chronic or 1 acute illness add add modifier 95 for video (do not use for phone, instead use 20563-05) [facility] [place] New patient,40-59min; chronic exacerbation, 2 stable chronic or 1 acute illness add add modifier 95 for video (do not use for phone, instead use 26874-64) [facility] [place]/2024 Vital Signs Date of Collection Vitals [...] tive Time Current Smoking Status Never smoker 4 Sex Female History of Procedures Procedures Service Procedure code Service date Servicing provider Phone# No Data Available [id number] 2024-08-16 No Data Available No Data Available SBP 130-139 (3075F) 3075F 2024-08-16 No Data Availabl e No Data Available DBP <80 (3078F) 3078F 2024-08-16 No Data Available No Data Available No Data Available [id number] 2024-08-20 No Data Available No Data Available [...] (do not use for phone, instead use 52187-90) [id number] 2024-08-20 No Data Available No Data Availa [...] hours as needed. Under the care of retail marketing specialist.- Flonase 50 mg BID prescribed due to nasal congestion -Mucinex 600 mg BID x 7 days due to chest congestion and cough - Prednose and doxycycline prescribed due to exacerbation. - Patient will continue to follow up with retail marketing specialist- Patient will contact [facility] if exacerbation gets worse-Appointment scheduled with [...] hours as needed. Under the care of retail marketing specialist.- Flonase 50 mg BID prescribed due to nasal congestion -Mucinex 600 mg BID x 7 days due to chest congestion and cough - Prednose and doxycycline prescribed due to exacerbation. - Patient will continue to follow up with retail marketing specialist- [facility] if exacerbation gets worse-Appointment scheduled with [...] 2 diabetes mellitus without complication, unspecified whether fpc insulin useLast A1C was in the 6 [...] reports she does follow up with the rn primary care, and last saw him in March 2024. [...] hours as needed. Under the care of retail marketing specialist.- Flonase 50 mg BID prescribed due to nasal congestion -Mucinex 600 mg BID x 7 days due to chest congestion and cough - Prednose and doxycycline prescribed due to exacerbation. - Patient will continue to follow up with retail marketing specialist- Patient will contact [facility] if exacerbation gets worse-Appointment scheduled with [...] modifier 95)Continue to see PCP. Follow-up with [facility] as needed for any acute or disease education needs that may arise 30/04. 2024-08-19 23:22:37 Phone (patient, pare nt, or guardian); 21-30 minutes of medical discussion (no modifier 95)Continue to see PCP. [facility] or disease education needs that may arise 30/04.On trelergy ellipta. On albuterol nebulizer treatment Q 4 hours as needed. Under the care of retail marketing specialist.- Flonase 50 mg BID prescribed due to nasal congestion -Mucinex 600 mg BID x 7 days due to chest congestion and cough - Prednose and doxycycline prescribed due to exacerbation. - Patient will continue to follow up with retail marketing specialist- Patient will contact [facility] if exacerbation gets worse-Appointment scheduled with [...]
[2024-12-09 18:25] LABS: MANUAL DIFF FLAG NO
[2024-12-09 18:41] LABS: Anion Gap 12 (12-20); Blood Urea Nitrogen 24 mg/dL (9-16); Calcium 9.4 mg/dL (8.4-10.2); Carbon Dioxide 29 mmol/L (22-29); Chloride 104 mmol/L (96-108); Estimated Glomerular Filt Rate > 60; Glucose Random 107 mg/dL (60-115); Sodium 141 mmol/L (135-145)
[2024-12-09 18:56] LABS: Basophils Percent Auto 0.6 % (0-2); Eosinophils Absolute Auto 0.3 X10*3/uL (0.0-0.4); Eosinophils Percent Auto 5.1 % (0-4); Hematocrit 40.9 % (37.0-47.0); Hemoglobin 13.2 g/dl (12.0-16.0); Imm Gran Abs Auto 0.02 X10*3/uL (0.00-0.03); Imm Gran Pct Auto 0.3 % (0.0-0.4); Lymphocytes Absolute Auto 1.6 X10*3/uL (1.2-4.9); Lymphocytes Percent Auto 25.4 % (20-40); Mean Corpuscular HGB Conc 32.3 g/dl (31.0-35.0); Mean Corpuscular Hemoglobin 28.6 pg (27.0-33.0); Mean Corpuscular Volume 88.7 fL (80.0-98.0); Mean Platelet Volume 9.2 fL (9.4-12.3); Monocytes Absolute Auto 0.5 X10*3/uL (0.1-1.2); Monocytes Percent Auto 8.6 % (2-11); Neutrophils Absolute Auto 3.8 x10*3/uL (2.0-8.3); Platelet Count 314 X10*3/uL (160-400); Red Blood Count 4.61 X10*6/uL (4.20-5.50); White Blood Count 6.3 X10*3/uL (4.8-10.8)
== END 2024-12-09 14:05 | disposition home or self-care (01) ==
LOC: HO.CHCLDS 14:04
PROVIDERS: Visit Provider Internal Medicine
DX: Z01.818 Encounter for other preprocedural examination (principal)
CPT/HCPCS: 36415; 80048; 85025

== ENCOUNTER 2025-01-15 13:49 | Outpatient (AMB) | payer OTHER, SELFPAY ==
--- NOTE | 2025-01-15 13:55 | MHC.OFFVIS ---
Vital Signs 01/15/25 13:57 Height 5 ft 1 in Weight 164 lb 3.91 oz BMI 31.0 BP 128/60 Blood Pressure Location Rt brachial Position Sitting Pulse 72 Pulse Source Pulse Oximeter Pulse Oximetry (%) 96 Oxygen Delivery Method Room Air Intake Visit Reasons: emphysema Allergies ethacrynic acid Allergy (Mild, Verified 01/15/25 14:01) Hives montelukast Allergy (Mild, Verified 01/15/25 14:01) Hives Penicillins [PENICILLINS] Allergy (Mild, Verified 01/15/25 14:01) RASH Sulfa (Sulfonamide Antibiotics) [SULFA(SULFONAMIDE ANTIBIOTICS)] Allergy (Mild, Verified 01/15/25 14:01) RASH latex Allergy (Verified 01/15/25 14:01) rash HPI Comments Details: The patient is an 84 year woman with a lifelong history of asthma. Apparently she has been very symptomatic for about 15 years and then she was evaluated by Pulmonary and her medications were adjusted. She has done a lot better. Back in 2021 the patient did have worsening shortness of breath and did come into the ER. At that point she did have a CT scan of the chest that we personally reviewed. The patient did have some evidence of tree in budding primarily the right lung suggesting bronchiolitis likely from a viral syndrome at that time. In addition to that she has some sub pleural reticulation suggesting of some scarring. The patient has not had any further imaging after that. She has been on the Trelegy inhaler and this has been very affecting beneficial. She does not barely have to use her rescue inhaler at all. She has not required any prednisone or any hospitalizations. Recently she was with her who was going to an appointment and she was closely in the trunk of her car and she banged the top of the head. She ended up going to the ER because she felt weak and nauseous. There she did have a CT scan of the brain. It was noted that she did have a calcified meningioma. This meningioma has been documented before and has not appear to have changed. She needs to follow closely with her primary care or neurologist for this condition. She continues to feel nauseous. She is also feeling dizzy. In the office we did orthostatic vital signs and there were stable. She is going to monitor closely her symptoms and if they get worse or no better she will call her primary care or go seek medical advice. At least from a pulmonary standpoint the patient is stable. Will have her undergo pulmonary function studies prior to her next visit in the springtime. 03/04/2024 the patient is here for a pulmonary follow-up visit. Overall the patient has been doing okay. She has been anxious and gets therefore 's health. She is lost weight. The patient continues use Trelegy with good effect. She still uses her rescue inhaler and sometimes a nebulizer at nighttime because she gets wheezing. She does take Zyrtec. She can not tolerate Singulair. The patient is also having issues with a rash at nighttime. She feels his allergies or bites she is having at nighttime that affect her sleep. Will go ahead and order allergy testing. In the meantime she continues uses Zyrtec. We did review her last CT scan of the chest that she had back in 2021 demonstrating some parenchymal lung disease but minimal. Will go ahead and have her repeat a chest x-ray as well. The patient will follow-up in 6 months or sooner if she develops any worsening issues. 08/22/2024 the patient is here for a pulmonary sick visit. She has been sick now for about a week. Her her also had been sick. She started developing worsening cough chest congestion. She went to the ED. There she had an x-ray. There was an haziness over the left base suggesting potential bronchopneumonia. She does have a productive cough still. She was given a course of azithromycin and low-dose course of prednisone. Although the patient is only partially better. Will give her an extension to the prednisone in addition to that will give another course of azithromycin. She had issues with multiple other antibiotics. Therefore, since this azithromycin seems to be working just continue on with the regimen for little bit longer. The patient also will continue to use the Robitussin DM for her cough medication. She has been using a Trelegy inhaler. I did recommend she can use her nebulizer once or twice a day to help her with her chest tightness and also chest congestion for mucus clearance. The patient will follow-up in September if she is still feeling sickly otherwise she can call and change her appointment to a later date. 09/11/2024 the patient is here for a pulmonary follow-up visit. Overall she is doing better. She completed antibiotics for pneumonia. She also had cough medication. She is back to using her respiratory inhalers with good effect. She is back to her baseline not having any significant complaints at this time. She did have a repeat chest x-ray which I personally reviewed. Looks about the same she does have some chronic changes. The x-rays is a little limited because once AP and once a PA and therefore resulting in a slight difference in presentation. But I do not see any significant findings. The actual final read mentioned that there were some increased markings. Therefore I will have her come back in 3 months and will do a repeat chest x-ray done to make sure that nothing involving. Otherwise patient is without any other complaints. 01/15/2025 the patient is here for a pulmonary follow-up visit. She is feeling well. Denies any shortness of breath. Denies any worsening cough. She does have a dry cough but minimal. She is having more cough and sneezing from allergies. Patient did undergo blood work. He does have an elevated eosinophil count consistent with her allergies. Otherwise blood work is reassuring with an improvement in normalization of her wbc's. The patient also had a chest x-ray. Appears that the hazy opacity she had from the lower respiratory infection back in September have cleared. Overall she feels well she continues the current respiratory therapy. Will plan to follow-up sometime late fall. If she has not issues prior to that she will call for an earlier assessment. 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 Father No problems noted. Brother Esophageal cancer Social History Alcohol intake: never Patient Tobacco Use Status: Former Tobacco user Years Smoked: 20+ Current occupational status: retired Current occupation: Right Handed Review of Systems Const Denies chills Eyes Denies diplopia ENT Reports dizziness Card Denies chest pain Resp Denies chest congestion, Reports cough and Denies wheezing GI Reports nausea Musc Reports no additional complaints Skin/Breast Denies rash Neuro Reports dizziness Jenaro/Lymph Denies easy bleeding Aller/Immun Denies wheezing Physical Exam Vital Signs: Last Vital Signs Pulse 72 01/15/25 13:57 BP 128/60 01/15/25 13:57 Pulse Ox 96 01/15/25 13:57 Oxygen Delivery Method Room Air 01/15/25 13:57 BMI result Body Mass Index 31.0 Const General: comfortable and no acute distress HEENT Head: Yes normocephalic Neck Neck: Yes supple Chest Chest palpation & inspection: normal inspection of the chest Resp Effort & Inspection: normal respiratory effort Auscultation: no rhonchi, no wheezes and diminished lung sounds Cardio Heart sounds: S1 normal heart sound present and S2 normal heart sound present GI Palpation (GI): Soft to palpation Skin General skin exam: no rashes or lesions noted Extrem General: Yes no clubbing, cyanosis or edema Assessment & Plan Assessment & Plan (1) Asthma: Code(s): J45.909 - Unspecified asthma, uncomplicated Category: Medical Qualifiers: Asthma complication type: uncomplicated Asthma persistence: persistent Asthma severity: moderate Qualified Code(s): J45.40 - Moderate persistent asthma, uncomplicated (2) CHF (congestive heart failure): Code(s): I50.9 - Heart failure, unspecified Category: Medical Qualifiers: Heart failure type: other Qualified Code(s): I50.9 - Heart failure, unspecified (3) EVELYN (obstructive sleep apnea): Code(s): G47.33 - Obstructive sleep apnea (adult) (pediatric) Category: Medical (4) Allergies: Code(s): T78.40XA - Allergy, unspecified, initial encounter Category: Medical Qualifiers: Encounter type: initial encounter Qualified Code(s): T78.40XA - Allergy, unspecified, initial encounter Plan cough medicine, OTC continue Trelegy JESUS as needed F/U 6-8 months Coding Level of Care Code Est Pt Level 4 (59477) Complex EM visit Add On G2211 Diagnoses Moderate persistent asthma without complication J45.40 Asthma complication type: uncomplicated Asthma persistence: persistent Asthma severity: moderate Other congestive heart failure I50.9 Heart failure type: other EVELYN (obstructive sleep apnea) G47.33 Allergy, initial encounter T78.40XA Encounter type: initial encounter Time Spent (min) 17
[2025-01-15 13:57] VITALS: BP 128/60; PULSE 72; O2SAT 96; BMI 31.0
--- OUTSIDE RECORDS SUMMARY | 2025-01-15 16:42 | XMS_ITS | Encounter Summary ---
Author Organization [employer] Address [address] [place] [address] [address] [address] Care Team Providers Care Drafter Marine Name Role Phone Thaddeus Salazar MD Primary Care Provider [phone] Encounter Details Date Type Department Care Team (Latest Contact Info) Description 06/14/2021 Abstract [facility] CONVERSION[facility] Dental, Provider, DDS Social History [...] Care Team (Late st Contact Info) Description 03/16/2025 1:45 PM EDT Office Visit [facility] [address] [place] [address] Thaddeus Salazar MD [address] [place] [address] 05/18/2025 11:00 AM EDT Office Visit [facility] AD[facility] [address] [place] [address] Cindy Garcia documented as of this encounter Visit Diagnoses Not on filedocumented in this encounter Care Teams Drafter Marine Relationship Specialty Start Date End Date Thaddeus Salazar MD [address] [place] [address] PCP - General Internal Medicine 08/21/13 Brent MORIN 08/21/24 09/17/24 [facility] 08/27/24 documented as of this encounter
--- OUTSIDE RECORDS SUMMARY | 2025-01-15 16:43 | XMS_ITS | Encounter Summary ---
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 to shut [...] Description 03/16/2025 1:45 PM EDT Office Visit [facility] [address] [place] [address] Thaddeus Salazar MD [address] [place] [address] 05/18/2025 11:00 AM EDT Office Visit [facility] ADULT DENTAL [address] [place] [address] Cindy Garcia documented as of this encounter Visit Diagnoses Not on filedocumented in this encounter Additional Health Concerns Assessment Noted Time PHQ-9 Depression Total Score: 0 01/31/20 23 2:06 PM EDT documented as of this encounter Care Teams Lawn Service Manager Relationship Specialty Start Date End Date Thaddeus Salazar MD [address] [place] [address] PCP - General Internal Medicine 08/21/13 Brent MORIN 08/21/24 09/17/24 [employer] 08/27/24 documented as of this encounter
--- OUTSIDE RECORDS SUMMARY | 2025-01-15 16:43 | XMS_ITS | Clinical Summary ---
Author Organization [employer] Address [address] [place] [address] 7[address] [place] [address] Care Team Providers Care Rolled Seat Trimmer Name Role Phone Thaddeus Salazar MD Primary Care Provider [phone] Allergies Active Allergy Reactions Criticality Noted Date [...] mouth in the morning. 90 tablet 1 3 Active fluticasone (Flonase) 50 MCG/ACT nasal spray fluticasone propionate 50 mcg/actuation nasal spray,suspensio n INHALE 1 OR 2 SPRAYS INTO EACH NOSTRIL DAILY NEEDED 0 Active cholecalciferol (Vitamin D-3) 25 MCG (1000 [...] NEEDED Strength: 1 MG/3DAYS 10 patch 3 3 Active glucose blood (OneTouch Verio) test stripIndication s:Type 2 diabetes mellitus without complication, without long-term current use of insulin (CMS/[facility]) To use daily 2 times a day 100 each 11 3 Active Blood Glucose Monitoring Suppl (ONE TOUCH ULTRA 2) w/Device kitIndications: Type 2 diabetes mellitus without complication, without long-term current use of insulin (CMS/[facility]) To check the FS 2 times a day 1 kit 3 Active Lancets (Nu3Touch Delica Plus [id number]) miscIndications :Type 2 diabetes mellitus without complication, without long-term current use of insulin (CMS/[facility]) USE ONCE DAILY 100 each 11 4 Active glucose blood test strip FreeStyle Lite Strips TEST BLOOD SUGAR EVERY DAY 100 each 11 4 Active Diclofenac Sodium 1 % gelIndications: Right hand pain To apply to the affected area 4 times a day 100 g 4 Active ibuprofen 800 MG tabletIndicatio ns:Generalized pain TAKE 1 TABLET(800 MG) BY MOUTH THREE TIMES DAILY 90 tablet 3 4 Active Trelegy Ellipta 100-62.5-25 MCG/ACT aerosol powder INHALE 1 PUFF(100 MG) PUFF INTO THE LUNGS EVERY MORNING AND 1 PUFF EVERY NIGHT AT BEDTIME 60 each 5 4 Active amLODIPine (Norvasc) 5 MG tablet TAKE 1 TABLET BY MOUTH EVERY DAY 90 tablet 3 4 Active amoxicillin (Amoxil) 500 MG tabletIndicatio ns:Need for antibiotic prophylaxis for dental procedure 4 tabs 1 hour prior to dental procedures. 20 tablet 5 Active traZODone (Desyrel) 50 MG tabletIndicatio ns:Other insomnia TAKE 1 TABLET BY MOUTH EVERY DAY AT BEDTIME 30 tablet 2 5 Active ezetimibe (Zetia) 10 MG tablet Take 1 tablet by mouth Once per day. 5 Active lidocaine (Xylocaine) 5 % ointmentIndicat ions:Right hip pain Apply topically if needed for mild pain. 50 g 1 4 12/18/19 25 Active Problems Problem Noted Date Diagnosed Date [...] for OP services ( Ind. Therapy) through [facility]. Provided education around integrated medicine and the [...] in services. PLAN: 1. Follow up with [facility]: Not recommended for follow-up 2. Patient goal is She wants to be mentally stable to be able to care of her ill 3. Behavioral Recommendations a. Individual Therapy b. Charleen was encouraged to reach this administrative underwriter for support as needed. Generalized pain 11/28/2022 Hyperlipidemia 01/07/2013 Hypertension 01/07/2013 Pruritus 01/07/2013 Chronic obstructive lung disease 04/01/2012 Diabetes mellitus type 2, uncomplicated 04/01/20 12 Encounters Date Type Department Care Team Description 12/09/2024 1:00 PM EST Office Visit [facility] [address] [place] [address] Thaddeus Salazar MD Pre-op evaluation (Primary Dx); Type 2 diabetes mellitus without complication, without long-term current use of insulin (CMS/HCC) 12/09/2024 Travel 12/08/2024 Telephone [facility] [address] [place] [address] Thaddeus Salazar MD Chart Prep 12/05/2024 1:00 PM EST Office Visit [facility] [address] [place] [address] Mario Malhotra 11/17/2024 1:00 PM EST Office Visit [facility] [address] [place] [address] Cindy Garcia 11/10/2024 Telephone [facility] [address] [place] [phone] Thaddeus Salazar MD Pre-op Visit 11/08/2024 Refill [facility] [address] [place] [address] Thaddeus Salazar MD Other insomnia 11/04/2024 Orders Only [facility] [address] [place] [phone] Thaddeus Salazar MD Need for antibiotic prophylaxis for dental procedure (Primary Dx) 10/30/2024 Telephone [facility] [address] [place] [phone] Thaddeus Salazar MD medication request 10/30/2024 Telephone [facility] [address] [place] [address] Cindy Garcia rs pre med needed from Last 3 Months Immunizations Name Administration [...] Description 03/16/2025 1:45 PM EDT Office Visit [facility] [address] [place] [address] Thaddeus Salazar MD [address] [place] [address] 05/18/2025 11:00 AM EDT Office Visit [facility] [address] [place], [place] [phone] Cindy Garcia Health Maintenance Due Date Last [...] complication, without long-term current use of insulin ([facility]) BASIC METABOLIC PANEL Routine 12/09/2024 2:06 PM EST Pre-op evaluation CBC WITH AUTO DIFFERENTIAL Routine 12/09/2024 2:06 PM EST Pre-op evaluation ECG 12-LEAD Routine 12/09/2024 1:50 PM EST [...] complication, without long-term current use of insulin ([facility]) HM DIABETES EYE EXAM Routine 04/30/2023 LIPID PANEL, STANDARD Routine 01/22/2023 8:59 AM EDT Z[facility] HISTORICAL MICROALBUMIN, RANDOM Routine 04/01/2021 2:02 PM EDT from Last 3 Months or Most Recently Relevant to Health Maintenance Results * POCT Glucose (12/09/2024 2:41 PM EST) [facility] Glucose Blood, POC 128 60 - 200 mg/dL QC Media Lot # [id number] Lot# Expiration Date [id number] Comment:random Blood Capillary blood specimen / Unknown 12/09/2024 2:41 PM EST us Thaddeus Salazar MD POINT OF CARE TEST ENTER/ED IT ORDERABLES Final Result * (ABNORMAL) CBC auto differential (12/09/2024 2:06 PM EST) White Blood Count 6.3 4.8 - 10.8 X10*3/uL [facility] Red Blood Count 4.61 4.20 - 5.50 X10*6/uL [facility] Hemoglobin 13.2 12.0 - 16.0 g/dl [facility] Hematocrit 40.9 37.0 - 47.0 % [facility] Mean Corpuscular Volume 88.7 80.0 - 98.0 fL [facility] Mean Corpuscular Hemoglobin 28.6 27.0 - 33.0 pg [facility] Mean Corpuscular HGB Conc 32.3 31.0 - 35.0 g/dl [facility] Red Cell Distribution Width 14.0 11.0 - 16.0 % [facility] Platelet Count 314 160 - 400 X10*3/uL [facility] Mean Platelet Volume 9.2(L) 9.4 - 12.3 fL [facility] Neutrophils Percent Auto 60.0 45 - 73 % [facility] Imm Gran Pct Auto 0.3 0.0 - 0.4 % [facility] Lymphocytes Percent Auto 25.4 20 - 40 % [facility] Monocytes Percent Auto 8.6 2 - 11 % [facility] Eosinophils Percent Auto 5.1(H) 0 - 4 % [facility] Basophils Percent Auto 0.6 0 - 2 % [facility] NRBC Pct Auto 0.0 0.0 - 0.2 /100WBC [facility] Neutrophils Absolute Auto 3.8 2.0 - 8.3 x10*3/uL [facility] Imm Gran Abs Auto 0.02 0.00 - 0.03 X10*3/uL [facility] Lymphocytes Absolute Auto 1.6 1.2 - 4.9 X10*3/uL [facility] Monocytes Absolute Auto 0.5 0.1 - 1.2 X10*3/uL [facility] Eosinophils Absolute Auto 0.3 0.0 - 0.4 X10*3/uL [facility] Basophils Absolute Auto 0.0 0.0 - 0.2 X10*3/uL [facility] NRBC Abs Auto 0.000 0.0 - 0.012 X10*3/uL [facility] Blood Venous blood specimen / Unknown 12/09/2024 2:06 PM EST 12/09/2024 6:22 PM EST us Thaddeus Salazar MD LAB BLOOD ORDERABLES Final Result Performing Organization Address [facility] Co de Phone Number [facility] [address] [place] [phone] * (ABNORMAL) Basic Metabolic Panel (12/09/2024 2:06 PM EST) Sodium 141 135 - 145 mmol/L [facility] Potassium 4.0 3.3 - 5.1 mmol/L [facility] Chloride 104 96 - 108 mmol/L [facility] Carbon Dioxide 29 22 - 29 mmol/L [facility] Anion Gap 12 12 - 20 [facility] Urea Nitrogen (BUN) 24(H) 9 - 16 mg/dL [facility] Creatinine, Serum 0.71 0.5 - 1.4 mg/dL [facility] Estimated Glomerular Filt Rate >60 [facility] Comment:Chronic Kidney Disea se: Estimated GFR < 60 mL/min/[id number] Kidney Disease: Estimated GFR < 15 mL/min/1.73m2 Glucose 107 60 - 115 mg/dL [facility] Calcium 9.4 8.4 - 10.2 mg/dL [facility] Blood Venous blood specimen / Unknown 12/09/2024 2:06 PM EST 12/09/2024 6:22 PM EST us Thaddeus Salazar MD LAB BLOOD ORDERABLES Final Result Performing Organization Address [facility] Co de Phone Number [facility] [address] [place] [phone] * ECG 12 lead (12/09/2024 1:50 PM EST) Narrative Thaddeus Salazar MD - 12/09/2024 1:50 PM EST HR 67. [place]: -44. Left axis deviation. NSR. No sign of LAE/CYNTHIA. No ST elevation or ST depression. us Thaddeus Salazar MD ECG ORDERABLES Final Resul t * XR Chest 2 Views (12/01/2024 9:33 AM EST) Anatomical Region Laterality Modality Chest Radiographic Latrice ging 12/01/2024 9:33 AM EST Narrative 12/02/2024 11:03 AM EST ? [facility] ?[address] ? [place], [place] [address] ?XRay Report ? Signed ? Patient: Charleen Urena ?MR#: [id number] ? : 1940 ?Acct:[id number] ? Age/Sex: 84 / F ?ADM Date: 12/01/24 ? Loc: HO.HMGCX ? Attending Dr: Hans Fontenot MD ? Ordering Physician: Hans Fontenot MD ?? Date of Service: 12/01/24 ?? Procedure(s): XR chest 2V ?? Accession Number(s): [id number] ? cc: Thaddeus Salazar MD; Hans Fontenot [...] DD/ 0933 ? TD/TT: 12/01/24 0936 ? Tubular Splitting Machine Tender: ? Procedure Note Donotmauriceinterpreter, Image - 12/02/[address] [facility] [address] [place] [address] [place] [address] XRay Report Signed Patient: Charleen Urena MMR#: [id number] : 1Acct:[id number] Age/Sex: 84 / FADM Date: 12/01/24 Loc: HO.HMGCX Attending Dr: Hans Fontenot MD Ordering Physician: Hans Fontenot MD Date of Service: 12/01/24 Procedure(s): XR chest 2V Accession Number(s): [id number] cc: Thaddeus Salazar MD; Hans Fontenot MD [...] Sigifredo Escobedo MD 12/02/2024 11:00 AM EST Dictated By: Sigifredo Escobedo MD Signed By: <Electronically signed by Sigifredo Escobedo MD in OV> 12/02/24 1100 DD/ 2 TD/TT: 12/01/24 09 Tubular Splitting Machine Tender: [facility] External Provider IMG XR PROCEDURES Final Result * (ABNORMAL) POCT A1C (11/08/2023 4:12 PM EST) Hemoglobin A1C 7.3(A) 4.0 - 6.0 % Comment:controls valid QC Media Lot # Comment:[id number] Lot# Expiration Date Comment:06/25/2025 Blood 11/08/2023 4:12 PM EST Thaddeus Salazar MD POINT OF CARE TEST ENTER/ED IT ORDERABLES Final Result * Hm Diabetes Eye Exam (04/30/2023) Eye Exam Normal Normal Narrative Thaddeus Salazar MD - 04/30/2023 Eye exam done at [facility] by Dr Al Gregory. No diabetic retinopathy or macular edema. Thaddeus Salazar MD HEALTH MAINTENANCE Final Re sult * Lipid Panel, Standard (01/22/2023 8:59 AM EDT) Triglycerides 151 mg/dL [facility] Comment:Desirable Triglyceri de: less than 150 mg/dLBorderline High Triglyceride 150-199 mg/dLHigh Triglyceride: 200-499 mg/dLVery High Triglyceride: greater than or equal to 5OO mg/dL Cholesterol 254 mg/dL [facility] Comment:Desirable Cholestero l: less than 200 mg/dLBorderline High Cholesterol: 200-239 mg/dLHigh Cholesterol: greater than 239 mg/dL LDL Cholesterol Calculated 161 mg/dl [facility] Comment:Desirable LDL: less than 100 mg/dLNear Optimal/Above Optimal LDL: 110- 129 mg/dLBorderline High LDL: 130-159 mg/dLHigh LDL: 160-189 mg/dLVery High LDL: greater than or equal to 190 mg/dL HDL Cholesterol 63 mg/dL [facility] Comment:Desirable HDL: great er than 40 mg/dL Note: This HDL assay may give artificially low results in patients with liver disease. 01/22/2023 8:59 AM EDT 01/22/2023 8:59 AM EDT us [facility] External Provider LAB BLO OD ORDERABLES Final Result [facility] [address] [place] [phone] * MICROALBUMIN, RANDOM (04/01/2021 2:02 PM EDT) Creatinine Urine 121.90 mg/dL [facility] Microalbum/Creati nine Ratio Ur 10.6 ug/mg cr [facility] Comment: ?Albumin/Creatinine Ratio Reference Ranges: ? Normal: < 30 ug/mg creatinine ? Microalbuminuria: ??30 - 300 ug/mg creatinine Clinical Albuminuria: ??> 300 ug/mg creatinine Microalbumin Urine 13.0 mg/L [facility] 04/01/2021 2:02 PM EDT us Thaddeus Salazar MD HISTORICAL/NON ORDERABLE LA BS Final Result Performing Organization Address City/[facility] Co de Phone Number [facility] [address] [place] [address], from Last 3 Months or Most Recently Relevant to Health Maintenance Insurance [facility] STANDARD [facility] DUAL COMPLETE D[facility] - [facility] Care Teams Rolled Seat Trimmer Relationship Specialty Start Date End Date Thaddeus Salazar MD [address] [place] [address] PCP - General Internal Medicine 08/21/13 [employer] 08/27/24
--- OUTSIDE RECORDS SUMMARY | 2025-01-15 16:43 | XMS_ITS | Encounter Summary ---
Author Organization [employer] Address [address] [place] [address] 7 [place] [address] Care Team Providers Care Supervisor Vendor Quality Name Role Phone Thaddeus Salazar MD Primary Care Provider [phone] Encounter Details Date Type Department Care Team (Latest Contact Info) Description 08/05/2019 Abstract [facility] CONVERSIONS Dental, Provider, DDS Social History [...] Upcoming Encounters Date Type Department Care Team ( st Contact Info) Description 03/16/2025 1:45 PM EDT Office Visit [facility] [address] [place] [address] Thaddeus Salazar MD [address] [place] [address] 05/18/2025 11:00 AM EDT Office Visit [facility] [address] [place] [address] Cindy Garcia documented as of this encounter Visit Diagnoses Not on filedocumented in this encounter Care Teams Supervisor Vendor Quality Relationship Specialty Start Date End Date Thaddeus Salazra MD [address] [place] [address] PCP - General Internal Medicine 08/21/13 Brent MORIN 08/21/24 09/17/24 [employer] 08/27/24 documented as of this encounter
--- OUTSIDE RECORDS SUMMARY | 2025-01-15 16:43 | XMS_ITS | Encounter Summary ---
Author Organization [employer] Address [address] [place] [address] Care Team Providers Care Furniture Removalist'S Assistant Name Role Phone Thaddeus Salazar MD Primary Care Provider [phone] Reason for Visit * Reason Onset Date Comments Med Refill 11/03/2022 Encounter Details Date Type Department Care Team ([facility] Contact Info) Description 11/03/2022 Telephone [facility] [address] [place], [place] [phone] Thaddeus Salazar MD [address] [place] [address] Med Refill Social History Tobacco Use Types [...] Upcoming Encounters Date Type Department Care Team ([facility] Contact Info) Description 03/16/2025 1:45 PM EDT Office Visit [facility] [address] [place] [address] Thaddeus Salazar MD [address] [place], [place] [phone] 05/18/2025 11:00 AM EDT Office Visit [facility] [address] [place] [address] Cindy Garcia documented as of this encounter Visit Diagnoses Not on filedocumented in this encounter Care Teams Furniture Removalist'S Assistant Relationship Specialty Start Date End Date Thaddeus Salazar MD [address] [place] [address] PCP - General Internal Medicine 08/21/13 Brent MORIN 08/21/24 09/17/24 [employer] 08/27/24 documented as of this encounter
--- OUTSIDE RECORDS SUMMARY | 2025-01-15 16:43 | XMS_ITS | Encounter Summary ---
Author Organization [employer] Address [address] [facility] 7t [place] [address] Care Team Providers Care Pool Attendant Name Role Phone Thaddeus Salazar MD Primary Care Provider [phone] Reason for Visit * Reason Onset Date Comments FYI 10/13/2024 Encounter Details Date Type Department Care Team ([facility] st Contact Info) Description 10/13/2024 Telephone [facility] [address] [place] [address] Thaddeus Salazar MD [address] [place] [address] FY Social History Tobacco Use Types Packs/Day [...] - 10/13/2024 3:17 PM EST Tc from [place] with [employer] stating that pt has reach all goals. documented in this encounter Plan of Treatment Upcoming Encounters Date Type Department Care Team (Late st Contact Info) Description 03/16/2025 1:45 PM EDT Office Visit [facility] [address] [place] [address] Thaddeus Salazar MD [address] [place] [address] 05/18/2025 11:00 AM EDT Office Visit [facility] ADULT DENTAL [address] [place] [address] Cindy Garcia documented as of this encounter Visit Diagnoses Not on filedocumented in this encounter Additional Health Concerns Assessment Noted Time PHQ-9 Depression Total Score: 0 01/31/20 23 2:06 PM EDT documented as of this encounter Care Teams Pool Attendant Relationship Specialty Start Date End Date Thaddeus Salazar MD [address] [place] [address] PCP - General Internal Medicine 08/21/13 [employer] 08/27/24 documented as of this encounter
--- OUTSIDE RECORDS SUMMARY | 2025-01-15 16:43 | XMS_ITS | Encounter Summary ---
Author Organization [employer] Address [address] [facility] [address] [address] [place] [address] Care Team Providers Care Bilingual Spanish Inbound Sales Name Role Phone Thaddeus Salazar MD Primary Care Provider [phone] Reason for Visit * Reason Onset Date Comments rs pre med needed 10/30/2024 Encounter Details Date Type Department Care Team ([facility] Contact Info) Description 10/30/2024 Telephone [facility] [address] [place], [place] [phone] Cindy Garcia rs pre med needed Social [...] Description 03/16/2025 1:45 PM EDT Office Visit [facility] [address] [place] [address] Thaddeus Salazar MD [address] [place] [address] 05/18/2025 11:00 AM EDT Office Visit [facility] ADULT DENTAL [address] [place] [address] Cindy Garcia documented as of this encounter Visit Diagnoses Not on filedocumented in this encounter Additional Health Concerns Assessment Noted Time PHQ-9 Depression Total Score: 0 01/31/20 2:06 PM EDT documented as of this encounter Care Teams Bilingual Spanish Inbound Sales Relationship Specialty Start Date End Date Thaddeus Salazar MD [address] [place] [address] PCP - General Internal Medicine 08/21/13 [employer] 08/27/24 documented as of this encounter
--- OUTSIDE RECORDS SUMMARY | 2025-01-15 16:43 | XMS_ITS | Encounter Summary ---
Author Organization [employer] Address [address] [facility] 7t [place] [address] Care Team Providers Care Router Setter Name Role Phone Thaddeus Salazar MD Primary Care Provider [phone] Encounter Details Date Type Department Care Team ([facility] st Contact Info) Description 07/31/[address] [facility] [address] [place] [address] Thaddeus Salazar MD [address] [place], [place] [phone] Social History Tobacco Use Types Packs/Day Years [...] EDT Office Visit [facility] [address] [place] [address] Thaddeus Salazar MD [address] [place] [address] 05/18/2025 11:00 AM EDT Office Visit [facility] AD[facility] [address] [place] [address] Cindy Garcia documented as of this encounter Visit Diagnoses Not on filedocumented in this encounter Additional Health Concerns Assessment Noted Time PHQ-9 Depression Total Score: 0 01/31/20 23 2:06 PM EDT documented as of this encounter Care Teams Router Setter Relationship Specialty Start Date End Date Thaddeus Salazar MD [address] [place] [address] PCP - General Internal Medicine 08/21/13 Brent MORIN 08/21/24 09/17/24 [employer] 08/27/24 documented as of this encounter
--- OUTSIDE RECORDS SUMMARY | 2025-01-15 16:43 | XMS_ITS ---
Author Name Donteaicha LAVELLEAshleigh Address [address] [place] [address] Phone [phone] [facility] Care Team Providers Care Vaccine Customer Representative Name Role Phone Ashleigh Jensen Unavailable [phone] Unavailable Unavailable Unavailable Reason for Referral Not [...] 2024-02-29 No Data Available OneTouch Delica Plus [id number] Miscellaneous USE DIRECTED EVERY DAY 2023-08-21 No [...] diabetes mellitus wit hout complication, unspecified whether penitentiary insulin use Active 2024-08-19 N/A COPD (chronic obstructive pulmonary disease) Active 2024-08-19 N/A Other problems related to [facility] facilities and other health care Active 2024-08-20 N/A Asthma Active 2024-08-16 N/A Hypertensive heart disease with heart failure Active 2024-08-19 N/A Encounters Encounters Type Facility Date of Service Diagnosis/Co mplaint No Data Available [facility] Unspecified asthma, uncompli cated No Data Available [facility] No Data Available [facility] No Data Available [facility]2024 Unspecified asthma, uncompli cated No Data Available [facility]20[place] No Data Available [facility] No Data Available [facility] New patient,40-59min; chronic exacerbation, 2 stable chronic or 1 acute illness add add modifier 95 for video (do not use for phone, instead use 93705-28) [facility]2024 Unspecified asthma, uncomplicatedType 2 diabetes mellitus without complicationsHypertensive heart disease with heart failureHeart failure, unspecifiedChronic obstructive pulmonary disease, unspecifiedOther problems related to medical facilities and other health care New patient,40-59min; chronic exacerbation, 2 stable chronic or 1 acute illness add add modifier 95 for video (do not use for phone, instead use 11918-68) [facility] [place] New patient,40-59min; chronic exacerbation, 2 stable chronic or 1 acute illness add add modifier 95 for video (do not use for phone, instead use 04195-65) [facility] [place] New patient,40-59min; chronic exacerbation, 2 stable chronic or 1 acute illness add add modifier 95 for video (do not use for phone, instead use 55540-01) [facility] ([place]) 08/20/20[place] New patient,40-59min; chronic exacerbation, 2 stable chronic or 1 acute illness add add modifier 95 for video (do not use for phone, instead use 79128-39) [facility] New patient,40-59min; chronic exacerbation, 2 stable chronic or 1 acute illness add add modifier 95 for video (do not use for phone, instead use 81736-06) [facility] New patient,40-59min; chronic exacerbation, 2 stable chronic or 1 acute illness add add modifier 95 for video (do not use for phone, instead use 80561-17) [facility] New patient,40-59min; chronic exacerbation, 2 stable chronic or 1 acute illness add add modifier 95 for video (do not use for phone, instead use 09879-77) [facility] [place] New patient,40-59min; chronic exacerbation, 2 stable chronic or 1 acute illness add add modifier 95 for video (do not use for phone, instead use 12462-66) [facility] [place]20[place] Vital Signs Date of Collection Vitals [...] tive Time Current Smoking Status Never smoker 2025-01-06 0 Sex Female History of Procedures Procedures Service Procedure code Service date Servicing provider Phone# No Data Available 10930 2024-08-16 No Data Available No Data Available SBP 130-139 (3075F) 3075F 2024-08-16 No Data Availabl e No Data Available DBP <80 (3078F) 3078F 2024-08-16 No Data Available No Data Available No Data Available 70464 2024-08-20 No Data Available No Data Available [...] (do not use for phone, instead use 70816-19) 91290 2024-08-20 No Data Available No Data Availa [...] hours as needed. Under the care of talent specialist.- Flonase 50 mg BID prescribed due to nasal congestion -Mucinex 600 mg BID x 7 days due to chest congestion and cough - Prednose and doxycycline prescribed due to exacerbation. - Patient will continue to follow up with talent specialist- Patient will contact [facility] if exacerbation gets worse-Appointment scheduled with SAMIRA [...] hours as needed. Under the care of talent specialist.- Flonase 50 mg BID prescribed due to nasal congestion -Mucinex 600 mg BID x 7 days due to chest congestion and cough - Prednose and doxycycline prescribed due to exacerbation. - Patient will continue to follow up with talent specialist- [facility]-Appointment scheduled with SAMIRA [...] 2 diabetes mellitus without complication, unspecified whether penitentiary insulin useLast A1C was in the 6 [...] reports she does follow up with the field reviewer, and last saw him in March 2024. [...] hours as needed. Under the care of talent specialist.- Flonase 50 mg BID prescribed due to nasal congestion -Mucinex 600 mg BID x 7 days due to chest congestion and cough - Prednose and doxycycline prescribed due to exacerbation. - Patient will continue to follow up with talent specialist- Patient will contact [facility] if exacerbation gets worse-Appointment scheduled with SAMIRA [...] modifier 95)Continue to see PCP. Follow-up with [facility] as needed for any acute or disease education needs that may arise 30/04. 2024-08-19 23:22:37 Phone (patient, pare nt, or guardian); 21-30 minutes of medical discussion (no modifier 95)Continue to see PCP. [facility] any acute or disease education needs that may arise 30/04.On trelergy ellipta. On albuterol nebulizer treatment Q 4 hours as needed. Under the care of talent specialist.- Flonase 50 mg BID prescribed due to nasal congestion -Mucinex 600 mg BID x 7 days due to chest congestion and cough - Prednose and doxycycline prescribed due to exacerbation. - Patient will continue to follow up with talent specialist- Patient will contact [facility] if exacerbation gets worse-Appointment scheduled with SAMIRA [...]
--- OUTSIDE RECORDS SUMMARY | 2025-01-15 16:43 | XMS_ITS | Encounter Summary ---
Author Organization [employer] Address [address] [place] [address] [address] [address] Care Team Providers Care Multi Purpose Machine Operator Name Role Phone Thaddeus Salazar MD Primary Care Provider [phone] Encounter Details Date Type Department Care Team (Late Contact Info) Description 07/03/2023 Orders Only [facility] MED & PEDS [address] [place] [address] Thaddeus Salazar MD [address] [place], [place] [phone] Screening for colon cancer Social History Tobacco [...] Department Care Team (Late Contact Info) Description 03/16/2025 1:45 PM EDT Office Visit [facility] [address] [place] [address] Thaddeus Salazar MD [address] [place], [place] [phone] 05/18/2025 11:00 AM EDT Office Visit [facility] ADULT DENTAL [address] [place] [address] Cindy Garcia documented as of this encounter Visit Diagnoses Diagnosis Screening for colon cancer Special screening for malignant neoplasms, colon documented in this encounter Additional Health Concerns Assessment Noted Time PHQ-9 Depression Total Score: 0 01/31/20 23 2:06 PM EDT documented as of this encounter Care Teams Multi Purpose Machine Operator Relationship Specialty Start Date End Date Thaddeus Salazar MD [address] [place] [address] PCP - General Internal Medicine 08/21/13 Brent MORIN 08/21/24 09/17/24 [place] 08/27/24 documented as of this encounter
--- OUTSIDE RECORDS SUMMARY | 2025-01-15 16:43 | XMS_ITS | Encounter Summary ---
Author Organization [employer] Address [address] [facility] [address] [place] [address] Care Team Providers Care Real Estate Manager Name Role Phone Thaddeus Salazar MD Primary Care Provider [phone] Reason for Visit * Reason Onset Date Comments Triage 11/16/2022 Encounter Details Date Type Department Care Team ([facility] st Contact Info) Description 11/16/2022 Telephone [facility] MED & PEDS [address] [place], [place] [phone] Thaddeus Salazar MD [address] [place] [address] Triage Social History Tobacco Use Types Packs/Day [...] and daily activities. [facility]. advised home care: [...] 1:45 PM EDT Office Visit [facility] MED & PEDS [address] [place] [address] Thaddeus Salazar MD [address] [place] [address] 05/18/2025 11:00 AM EDT Office Visit [facility] ADULT DENTAL [address] [place] [address] Cindy Garcia documented as of this encounter Visit Diagnoses Not on filedocumented in this encounter Care Teams Real Estate Manager Relationship Specialty Start Date End Date Thaddeus Salazar MD [address] [place] [address] PCP - General Internal Medicine 08/21/13 Brent MORIN 08/21/24 09/17/24 [place] 08/27/24 documented as of this encounter
--- OUTSIDE RECORDS SUMMARY | 2025-01-15 16:43 | XMS_ITS | Encounter Summary ---
Author Organization [employer] Address [address] [facility] 7[address] [place] [address] Care Team Providers Care Manager Java Name Role Phone Thaddeus Salazar MD Primary Care Provider [phone] Reason for Visit * Reason Onset Date Comments FYI 09/01/2024 Encounter Details Date Type Department Care Team ([facility] Contact Info) Description 09/01/2024 Telephone [facility] MEDICINE [address] [place] [address] Thaddeus Salazar MD [address] [place] [address] FY Social History Tobacco Use Types Packs/Day [...] Miscellaneous Notes * Telephone Encounter - Raimundo Harley - 09/01/2024 2:54 PM EST Tc from [facility] with Room stating that pt does not need Physical Therapy anymore due to pt being at their Baseline. Contact pt at [phone] documented in this encounter Plan of Treatment Upcoming Encounters Date Type Department Care Team (Late st Contact Info) Description 03/16/2025 1:45 PM EDT Office Visit [facility] MED & PEDS [address] [place] [address] Thaddeus Salazar MD [address] [place] [address] 05/18/2025 11:00 AM EDT Office Visit [facility] ADULT DENTAL [address] [place] [address] Cindy Garcia documented as of this encounter Visit Diagnoses Not on filedocumented in this encounter Additional Health Concerns Assessment Noted Time PHQ-9 Depression Total Score: 0 01/31/20 23 2:06 PM EDT documented as of this encounter Care Teams Manager Java Relationship Specialty Start Date End Date Thaddeus Salazar MD [address] [place] [address] PCP - General Internal Medicine 08/21/13 Brent MORIN 08/21/24 09/17/24 Room 08/27/24 documented as of this encounter
--- OUTSIDE RECORDS SUMMARY | 2025-01-15 16:43 | XMS_ITS | Encounter Summary ---
Author Organization [employer] Address [address] [facility] [address] [place] [address] Care Team Providers Care Suture Gauger Name Role Phone Thaddeus Salazar MD Primary Care Provider [phone] Encounter Details Date Type Department Care Team ([facility] Contact Info) Description 11/04/2024 Orders Only [facility] MED & PEDS [address] [place], [place] [phone] Thaddeus Salazar MD [address] [place] [address] Need for antibiotic prophylaxis for dental procedure [...] t he electric, gas, oil or water Language [employer] threatened to shut off services in your [...] Upcoming Encounters Date Type Department Care Team ([facility] st Contact Info) Description 03/16/2025 1:45 PM EDT Office Visit [facility] MED & PEDS [address] [place] [address] Thaddeus Salazar MD [address] [place] [address] 05/18/2025 11:00 AM EDT Office Visit [facility] ADULT DENTAL [address] [place] [address] Cindy Garcia documented as of this encounter Procedures Procedure Name Priority Date/Time Associated Diagnosis Comments XR CHEST 2 VIEWS Routine 12/01/2024 9:33 AM EST documented in this encounter Results * XR Chest 2 Views (12/01/2024 9:33 AM EST) Anatomical Region Laterality Modality Chest Radiographic Latrice ging 12/01/2024 9:33 AM EST Narrative 12/02/2024 11:03 AM EST ? [facility] ?[address] ? [place] [address] ?XRay Report ? Signed ? Patient: Romel,Carey ?MR#: [id number] ? : 1940 ?Acct:[id number] ? Age/Sex: 84 / F ?ADM Date: 02/24/25 ? Loc: HO.HMGCX ? Attending Dr: Hans Fontenot MD ? Ordering Physician: Hans Fontenot MD ?? Date of Service: 12/01/24 ?? Procedure(s): XR chest 2V ?? Accession Number(s): [id number] ? cc: Thaddeus Salazar MD; Hans Fontenot [...] DD/ 0933 ? TD/TT: 12/01/24 0936 ? Commissary Assistant: ? Procedure Note Avtar, Image - 12/02/2024 [facility] [address] [place] [address] [place] [id number] XRay Report Signed Patient: Charleen Urena MMR#: [id number] : 1Acct:[id number] Age/Sex: 84 / FADM Date: 12/01/24 Loc: .HMGX Attending Dr: Hans Fontenot MD Ordering Physician: Hans Fontenot MD Date of Service: 12/01/24 Procedure(s): XR chest 2V Accession Number(s): [id number] cc: Thaddeus Salazar MD; Hans Fontenot MD [...] 12/02/24 1100 DD/ 0933 TD/TT: 12/01/24 0936 Commissary Assistant: [facility] External Provider IMG XR PROCEDURES Final Result documented in this encounter Visit Diagnoses Diagnosis Need for antibiotic prophylaxis for dental procedure- Primary documented in this encounter Additional Health Concerns Assessment Noted Time PHQ-9 Depression Total Score: 0 01/31/20 23 2:06 PM EDT documented as of this encounter Care Teams Suture Gauger Relationship Specialty Start Date End Date Thaddeus Salazar MD [address] [place] [address] PCP - General Internal Medicine 08/21/13 the grafter 08/27/24 documented as of this encounter
== END 2025-01-15 14:38 | disposition home or self-care (01) ==
LOC: HO.HPS 13:49
PROVIDERS: PCP Internal Medicine; Visit Provider Hospitalist
DX: J45.40 Moderate persistent asthma, uncomplicated (principal); I50.9 Heart failure, unspecified; G47.33 Obstructive sleep apnea (adult) (pediatric); T78.40XA Allergy, unspecified, initial encounter
CPT/HCPCS: 99214; G2211

== ENCOUNTER → 2025-01-15 13:49 | Outpatient (BNVA) | payer OTHER, SELFPAY | PROVIDERS: PCP Internal Medicine; Visit Provider Hospitalist | DX: J45.40 Moderate persistent asthma, uncomplicated (principal); I50.9 Heart failure, unspecified; G47.33 Obstructive sleep apnea (adult) (pediatric); T78.40XA Allergy, unspecified, initial encounter; X58.XXXA Exposure to other specified factors, initial encounter | CPT/HCPCS: 99212 ==

== ENCOUNTER 2025-02-16 08:58 | Outpatient (REF) | payer OTHER, SELFPAY ==
--- OUTSIDE RECORDS SUMMARY | 2025-02-16 09:07 | XMS_ITS ---
Author Name Ashleigh Jensen NP Address [address] [place] [address] Phone [phone] [facility] Care Team Providers Care Linen Room Worker Name Role Phone Ashleigh Jensen Unavailable [phone] Unavailable Unavailable Unavailable Reason for Referral Not [...] tablet twice daily for 5 days. 2024-08-16 2025-01-27 Mucinex 600 mg Tab ER 12hr 1 tablets ora lly every 12 hours as needed 2024-08-16 2025-01-27 traZODone 50 mg Tab TAKE 1 TABLET BY ISABELA TH EVERY DAY AT BEDTIME 2024-02-29 No Data Available OneTouch Delica Plus [id number] Miscellaneous USE DIRECTED EVERY DAY 2023-08-21 No [...] Ellipta 100-62.5-25 MCG/ACT Aerosol Powder Breath Activated Inhalation INHALE 1 PUFF INTO THE LUNGS DAILY EVERY MORNING 2023-05-04 No Data Available Ibuprofen 800 mg Tab No Data Available 2024-05-12 No Data Available Albuterol Sulfate HFA 108 (9 0 Base) MCG/ACT Aerosol Solution Inhalation 2 puffs Q 4-6H PRN cough, wheezing, SOB 2024-08-20 No Data Available Azithromycin 500 mg Tab TAKE 1 TABLET BY MOUTH FOR 5 DAYS 2024-08-20 No Data Available Amoxicillin 500 mg Tab TAKE 4 TABLETS 1 HOUR PRIOR TO DENTAL PROCEDURES 2024-11-04 No Data Available Erythromycin 5 mg/GM Oint No Data Available 2024-12-08 2025-01-27 traMADol 50 mg Tab TAKE 1 TABLET BY ISABELA TH EVERY 6 HOURS NEEDED FOR PAIN 2024-12-18 No Data Available Problem List Problem Status Onset Date Resolved Date COPD (chronic obstructive pulmonary disease) Active 2024-08-19 N/A Other problems related to [facility] facilities and other health care Active 2024-08-20 N/A Asthma Active 2024-08-16 N/A Hypertensive heart disease with heart failure Active 2024-08-19 N/A Arthritis Active 2025-01-27 N/A Meningioma Active 2025-01-27 N/A Type 2 diabetes mellitus with Hyperlipidemia Active 2024-08-19 N/A Encounters Encounters Type Facility Date of Service Diagnosis/Co mplaint No Data Available [facility]/2024 Unspecified asthma, uncompli cated No Data Available [facility] No Data Available [facility] No Data Available [facility] Unspecified asthma, uncompli cated No Data Available [facility]20[place] No Data Available [facility] No Data Available [facility] New patient,40-59min; chronic exacerbation, 2 stable chronic or 1 acute illness add add modifier 95 for video (do not use for phone, instead use [id number]) [facility] Unspecified asthma, uncomplicatedType 2 diabetes mellitus without complicationsHypertensive heart disease with heart failureHeart failure, unspecifiedChronic obstructive pulmonary disease, unspecifiedOther problems related to medical facilities and other health care New patient,40-59min; chronic exacerbation, 2 stable chronic or 1 acute illness add add modifier 95 for video (do not use for phone, instead use 26707-60) [facility] New patient,40-59min; chronic exacerbation, 2 stable chronic or 1 acute illness add add modifier 95 for video (do not use for phone, instead use 90466-35) [facility] New patient,40-59min; chronic exacerbation, 2 stable chronic or 1 acute illness add add modifier 95 for video (do not use for phone, instead use 92101-00) [facility] New patient,40-59min; chronic exacerbation, 2 stable chronic or 1 acute illness add add modifier 95 for video (do not use for phone, instead use 74247-51) [facility] New patient,40-59min; chronic exacerbation, 2 stable chronic or 1 acute illness add add modifier 95 for video (do not use for phone, instead use 31154-21) [facility] New patient,40-59min; chronic exacerbation, 2 stable chronic or 1 acute illness add add modifier 95 for video (do not use for phone, instead use 72468-36) [facility] New patient,40-59min; chronic exacerbation, 2 stable chronic or 1 acute illness add add modifier 95 for video (do not use for phone, instead use 09967-67) [facility] New patient,40-59min; chronic exacerbation, 2 stable chronic or 1 acute illness add add modifier 95 for video (do not use for phone, instead use 62191-44) [facility] Estab. patient 20-29min; 1 stable chronic or 2 minor; add add modifier 95 for video, modifier 93 for phone [facility]2025 Unspecified asthma, uncomplicatedHeart failure, unspecifiedHypertensive heart disease with heart failureChronic obstructive pulmonary disease, unspecifiedOther problems related to medical facilities and other health careUnspecified osteoarthritis, unspecified siteType 2 diabetes mellitus with other specified complicationHyperlipidemia, unspecifiedBenign neoplasm of meninges, unspecified Estab. patient 20-29min; 1 stable chronic or 2 minor; add add modifier 95 for video, modifier 93 for phone [facility] [place]20[place] Estab. patient 20-29min; 1 stable chronic or 2 minor; add add modifier 95 for video, modifier 93 for phone [facility] [place] 01/27/20[place] Estab. patient 20-29min; 1 stable chronic or 2 minor; add add modifier 95 for video, modifier 93 for phone [facility] [place] 01/27/20[place] Estab. patient 20-29min; 1 stable chronic or 2 minor; add add modifier 95 for video, modifier 93 for phone [facility] [place] 01/27/2025 Estab. patient 20-29min; 1 stable chronic or 2 minor; add add modifier 95 for video, modifier 93 for phone [facility] [place] 01/27/2025 Estab. patient 20-29min; 1 stable chronic or 2 minor; add add modifier 95 for video, modifier 93 for phone [facility] [place] 01/27/2025 Estab. patient 20-29min; 1 stable chronic or 2 minor; add add modifier 95 for video, modifier 93 for phone [facility] [place] 01/27/2025 Estab. patient 20-29min; 1 stable chronic or 2 minor; add add modifier 95 for video, modifier 93 for phone [facility] [place] 01/27/2025 Vital Signs Date of Collection Vitals 2024-08-16 07:25:17 BP Diastolic - 74.0 mm[Hg]BP Systolic - 137.0 mm[Hg]Heart Rate - 90.0 /minBody Temperature - 37.22 Aleta 2024-08-19 23:22:37 BP Diastolic - 60.0 mm[Hg]BP Systolic - 122.0 mm[Hg]Heart Rate - 77.0 /minO2 % dC Oximetry - 92.0 % 2024-08-20 08:10:42 Height - 154.94 cmWe ight - 69.4 kgBody Mass Index (BMI) - 28.91 kg/m2BP Diastolic - 67.0 mm[Hg]BP Systolic - 137.0 mm[Hg]Pain Scale - 6.0 {score} 2025-01-27 07:00:36 Height - 154.94 cmWe ight - 70.76 kgBody Mass Index (BMI) - 29.48 kg/m2BP Diastolic - 67.0 mm[Hg]BP Systolic - 127.0 mm[Hg] Social History Social History Social History Observation Description Effec tive Time Current Smoking Status Never smoker 2025-02-05 2 Sex Female History of Procedures Procedures Service Procedure code Service date Servicing provider Phone# No Data Available [id number] 2024-08-16 No Data Available No Data Available SBP 130-139 (3075F) 3075F 2024-08-16 No Data Availabl e No Data Available DBP <80 (3078F) 3078F 2024-08-16 No Data Available No Data Available No Data Available [id number] 2024-08-20 No Data Available No Data Available [...] (do not use for phone, instead use 61057-08) 38202 2024-08-20 No Data Available No Data Availa [...] 2024-08-20 No Data Available No Data Available Estab. patient 20-29min; 1 stable chronic or 2 minor; add add modifier 95 for video, modifier 93 for phone [id number] 2025-01-27 No Data Available No Data Availa ble Medication List Documented (1159F) 1159F 2025-01-27 No Data Available No Data Asmita ilable Medication Review by prescribing provider or pharmacist documented (1160F) 1160F 2025-01-27 No Data Available No Data Asmita ilable Functional Status Assessed (1170F) 1170F 2025-01-27 No Data Available No Data Avail able Advance Care Directive Advance care planning discussion documented in the medical record (1158F) 1158F 2025-01-27 No Data Available No Data Availa ble Advance care planning discussed and documented ? advance care plan or surrogate decision-maker was documented in the medical record. (1123F) 1123F 2025-01-27 No Data Available No Data Availa ble Pain Assessment - NO pain present (1126F) 1126F 2025-01-27 No Data Available No Data A vailable SBP < 130 (3074F) 3074F 2025-01-27 No Data Available No Data Available DBP <80 (3078F) 3078F 2025-01-27 No Data Available No Data Available Functional [...] you feel unsteady on your feet? Yes Do you worry about falling? No 2024-08-08 3 DME used with ambulation: [employer] 2024-08-20 Social Supports - # of Inter actions with Friends/Family in a typical week: 2024-08-20 Mental Status Status Date AAOX3 2024-08-20 Assessments Date of Service Assessments 2024-08-16 07:25:17 AsthmaOn trelergy el lipta. On albuterol nebulizer treatment Q 4 hours as needed. Under the care of lighting specialist.- Flonase 50 mg BID prescribed due to nasal congestion -Mucinex 600 mg BID x 7 days due to chest congestion and cough - Prednose and doxycycline prescribed due to exacerbation. - Patient will continue to follow up with lighting specialist- Patient will contact [facility] if exacerbation gets worse-Appointment scheduled with [...] hours as needed. Under the care of lighting specialist.- Flonase 50 mg BID prescribed due to nasal congestion -Mucinex 600 mg BID x 7 days due to chest congestion and cough - Prednose and doxycycline prescribed due to exacerbation. - Patient will continue to follow up with lighting specialist- Patient will contact [facility] if exacerbation gets worse-Appointment scheduled with [...] 2 diabetes mellitus without complication, unspecified whether usp insulin useLast A1C was in the 6 [...] reports she does follow up with the spare hand, and last saw him in March 2024. [...] hours as needed. Under the care of lighting specialist.- Flonase 50 mg BID prescribed due to nasal congestion -Mucinex 600 mg BID x 7 days due to chest congestion and cough - Prednose and doxycycline prescribed due to exacerbation. - Patient will continue to follow up with lighting specialist- Patient will contact [facility] if exacerbation gets worse-Appointment scheduled with [...] albuterol inhaler to q2h PRN cough, breathlessness 2025-01-27 07:00:36 AsthmaType 2 diabete s mellitus without complication, unspecified whether usp insulin useHypertensive heart disease with heart failureCOPD (chronic obstructive pulmonary disease)Other problems related to medical facilities and other health careArthritisMeningioma Plan of Care Date of Service Plans 2024-08-16 07:25:17 Follow up plan for a cute symptoms:Phone (patient, parent, or guardian); 5-10 minutes of medical discussion (no modifier 95)Continue to see PCP. Follow-up with [facility] as needed for any acute or disease education needs that may arise 30/04. 2024-08-19 23:22:37 Phone (patient, pare nt, or guardian); 21-30 minutes of medical discussion (no modifier 95)Continue to see PCP. Follow-up with [facility] as needed for any acute or disease education needs that may arise 30/04.On trelergy ellipta. On albuterol nebulizer treatment Q 4 hours as needed. Under the care of lighting specialist.- Flonase 50 mg BID prescribed due to nasal congestion -Mucinex 600 mg BID x 7 days due to chest congestion and cough - Prednose and doxycycline prescribed due to exacerbation. - Patient will continue to follow up with lighting specialist- Patient will contact [facility] if exacerbation gets worse-Appointment scheduled with SAMIRA [...] plan, complicance, and coordinating follow up care. 2025-01-27 07:00:36 Functional Status As sessed (1170F)Advance Care Directive Advance care planning discussion documented in the medical record (1158F)Advance care planning discussed and documented ? advance care plan or surrogate decision-maker was documented in the medical record. (1123F)Estab. patient 20-29min; 1 stable chronic or 2 minor; add add modifier 95 for video, modifier 93 for phoneMedication List Documented (1159F)Medication Review by prescribing provider or pharmacist documented (1160F)SBP < 130 (3074F)Pain Assessment - NO pain present (1126F)DBP <80 (3078F)Continue to see PCP. Follow-up with [facility] as needed for any acute or disease education needs that may arise.The patient called the acute line after hours, [...] hours as needed. Under the care of lighting specialist.- Flonase 50 mg BID prescribed due to nasal congestion -Mucinex 600 mg BID x 7 days due to chest congestion and cough - Prednose and doxycycline prescribed due to exacerbation. - Patient will continue to follow up with lighting specialist- [facility] will [facility] if exacerbation gets worse-Appointment scheduled with [...] home, would prefer for ER transfer for monitoring.Last A1C was in the 6 range or [...] endocrinology and CB as instructed and scheduled guidelines.She is unsure if she has HF. She reports she does follow up with the spare hand, and last saw him in March 2024. She is also not on any medication. Denies swelling in the legs or chest pain On amlodipine. In the ER, her BP was 137/67 as per patient. To manage hypertension, adopt a heart-healthy diet, exercise regularly, maintain a healthy weight, limit alcohol, quit smoking, and manage stress. Take your prescribed medications as directed, monitor your blood pressure at home, and follow up with your healthcare provider regularly to ensure effective managementThe patient called the acute line after hours, [...] hours as needed. Under the care of lighting specialist.- Flonase 50 mg BID prescribed due to nasal congestion -Mucinex 600 mg BID x 7 days due to chest congestion and cough - Prednose and doxycycline prescribed due to exacerbation. - Patient will continue to follow up with lighting specialist- [facility] will [facility] if exacerbation gets worse-Appointment scheduled with [...] home, would prefer for ER transfer for monitoring.ASTHMA CONTINGENCY PLANLast updated: 08/20/2024Member to call for the following symptoms: Albuterol not working/ Breathing loudly??/ WheezingPlanned intervention: Increase use of albuterol inhaler to q2h PRN cough, breathlessnessLow back pain, her PCP told her she has arthritisRx: Tylenol PRN, MotrinFall precautions, uses cane/walkerBenign meningiomaPCP and neuro follow up Goals Date Goal 2024-08-20 Continue taking medi cations as directed and keep all follow up appointments with established PCP and Specialist. Health Concerns Date Concern 2025-01-27 Visit completed юлия menjivar audio/video. Patient/Guardian agreed to visit via telehealth. Today, patient has chief complaint of: follow up care and comprehensive review.Reviewed Allergies, Medications, Active Medical conditions, past medical/surgical history, Social history. 2025-01-27 Advance Care Planmora menjivar - See Legal 2025-01-27 Most recent hospital stay(s) or ER visit(s) and precipitating factors: 08/20/24 at [facility], asthma 2025-01-27 Open HEDIS Measure r amos: Advance Care Planning
--- OUTSIDE RECORDS SUMMARY | 2025-02-16 09:07 | XMS_ITS | Encounter Summary ---
Author Organization [employer] Address [address] [place] [address] 7 [place] [address] Care Team Providers Care Structural Engineering Technician Name Role Phone Thaddeus Salazar MD Primary Care Provider [phone] Encounter Details Date Type Department Care Team ([facility] Contact Info) Description 07/03/2023 Orders Only [facility] MED [facility] PED[facility] [address] [place], [place] [id number] Thaddeus Salazar MD [address] [place] [address] Screening for colon cancer Social History Tobacco [...] Upcoming Encounters Date Type Department Care Team ([facility] Contact Info) Description 03/16/2025 1:45 PM EDT Office Visit [facility] MED [facility] [address] [place] [address] Thaddeus Salazar MD [address] [place], [place] [phone] 05/18/2025 11:00 AM EDT Office Visit [facility] ADULT DENTAL [address] [place] [address] Cindy Garcia documented as of this encounter Visit Diagnoses Diagnosis Screening for colon cancer Special screening for malignant neoplasms, colon documented in this encounter Additional Health Concerns Assessment Noted Time PHQ-9 Depression Total Score: 0 01/31/20 23 2:06 PM EDT documented as of this encounter Care Teams Structural Engineering Technician Relationship Specialty Start Date End Date Thaddeus Salazar MD [address] [place] [address] PCP - General Internal Medicine 08/21/13 Brent MORIN 08/21/24 09/17/24 [employer] 08/27/24 documented as of this encounter
--- OUTSIDE RECORDS SUMMARY | 2025-02-16 09:07 | XMS_ITS | Encounter Summary ---
Author Organization [employer] Address [address] [facility] 7 [place] [address] Care Team Providers Care Accredited Legal Secretary Name Role Phone Thaddeus Salazar MD Primary Care Provider [phone] Reason for Visit * Reason Onset Date Comments Triage 11/16/2022 Encounter Details Date Type Department Care Team ([facility] st Contact Info) Description 11/16/2022 Telephone [facility] MED & PEDS [address] [place], [place] [phone] Thaddeus Salazar MD [address] [place] [address] Triage Social History Tobacco Use Types Packs/Day [...] and daily activities. given appt tomorrow with [facility] at 11:00 for exam. advised home care: [...] Description 03/16/2025 1:45 PM EDT Office Visit [facility] MED & PEDS [address] [place] [address] Thaddeus Salazar MD [address] [place] [address] 05/18/2025 11:00 AM EDT Office Visit [facility] ADULT DENTAL [address] [place] [address] Cindy Garcia documented as of this encounter Visit Diagnoses Not on filedocumented in this encounter Care Teams Accredited Legal Secretary Relationship Specialty Start Date End Date Thaddeus Salazar MD [address] [place] [address] PCP - General Internal Medicine 08/21/13 Brent MORIN 08/21/24 09/17/24 [employer] 08/27/24 documented as of this encounter
--- OUTSIDE RECORDS SUMMARY | 2025-02-16 09:07 | XMS_ITS | Encounter Summary ---
Author Organization [employer] Address [address] [place] [address] 7 [place] [address] Care Team Providers Care Lbd Teacher Name Role Phone Thaddeus Salazar MD Primary Care Provider [phone] Encounter Details Date Type Department Care Team (Latest Contact Info) Description 08/05/2019 Abstract [facility] CONVERSIONS Dental, Provider, DDS Social History [...] Visit [facility] [address] [place] [address] Thaddeus Salazar MD [address] [place] [address] 05/18/2025 11:00 AM EDT Office Visit [facility] ADULT DENTAL [address] [place] [address] Cindy Garcia documented as of this encounter Visit Diagnoses Not on filedocumented in this encounter Care Teams Lbd Teacher Relationship Specialty Start Date End Date Thaddeus Salazar MD [address] [place] [address] PCP - General Internal Medicine 08/21/13 Brent [facility] 08/21/24 09/17/24 [employer] 08/27/24 documented as of this encounter
--- OUTSIDE RECORDS SUMMARY | 2025-02-16 09:07 | XMS_ITS | Encounter Summary ---
Author Organization [employer] Address [address] [place] [address] [address] [place] [address] Care Team Providers Care Tech Intern Name Role Phone Thaddeus Salazar MD Primary Care Provider [phone] Encounter Details Date Type Department Care Team (Latest Contact Info) Description 06/14/2021 Abstract [facility] CONVERSIONS Dental, Provider, DDS Social History Tobacco [...] Description 03/16/2025 1:45 PM EDT Office Visit [facility] MED & PEDS [address] [place] [address] Thaddeus Salazar MD [address] [place] [address] 05/18/2025 11:00 AM EDT Office Visit [facility] ADULT DENTAL [address] [place] [address] Cindy Garcia documented as of this encounter Visit Diagnoses Not on filedocumented in this encounter Care Teams Tech Intern Relationship Specialty Start Date End Date Thaddeus Salazar MD [address] [place] [address] PCP - General Internal Medicine 08/21/13 Brent [employer] 08/21/24 09/17/24 [employer] 08/27/24 documented as of this encounter
--- OUTSIDE RECORDS SUMMARY | 2025-02-16 09:07 | XMS_ITS | Encounter Summary ---
Author Organization [employer] Address [address] [facility] [address] [place] [address] Care Team Providers Care Parts And Service Manager Name Role Phone Thaddeus Salazar MD Primary Care Provider [phone] Reason for Visit * Reason Onset Date Comments FYI 10/13/2024 Encounter Details Date Type Department Care Team ([facility] Contact Info) Description 10/13/2024 Telephone [facility] MED[facility] [address] [place] [address] Thaddeus Salazar MD [address] [place] [address] FYI Social History Tobacco Use Types Packs/Day Years [...] - 10/13/2024 3:17 PM EST Tc from [place] with [email or web address] stating that pt has reach all goals. documented in this encounter Plan of Treatment Upcoming Encounters Date Type Department Care Team (Late st Contact Info) Description 03/16/2025 1:45 PM EDT Office Visit [facility] MED & PEDS [address] [place] [address] Thaddeus Salazar MD [address] [place] [address] 05/18/2025 11:00 AM EDT Office Visit [facility] ADULT DENTAL [address] [place] [address] Cindy Garcia documented as of this encounter Visit Diagnoses Not on filedocumented in this encounter Additional Health Concerns Assessment Noted Time PHQ-9 Depression Total Score: 0 01/31/20 23 2:06 PM EDT documented as of this encounter Care Teams Parts And Service Manager Relationship Specialty Start Date End Date Thaddeus Salazar MD [address] [place] [address] PCP - General Internal Medicine 08/21/13 [employer] 08/27/24 documented as of this encounter
--- OUTSIDE RECORDS SUMMARY | 2025-02-16 09:07 | XMS_ITS | Encounter Summary ---
Author Organization [employer] Address [address] 7[address] [place] [address] Care Team Providers Care Cooker Soda Name Role Phone Thaddeus Salazar MD Primary Care Provider [phone] Encounter Details Date Type Department Care Team ([facility] st Contact Info) Description 11/04/2024 Orders Only [facility] CH[facility] MED & PEDS [address] [place], [place] [phone] Thaddeus Salazar MD [address] [place] [address] Need for antibiotic prophylaxis for dental procedure [...] t he electric, gas, oil or water [employer] threatened to shut off services in your [...] [facility] MED [facility] PEDS [address] [place] [address] Thaddeus Salazar MD [address] [place] [address] 05/18/2025 11:00 AM EDT Office Visit [facility] ADULT DENTAL [address] [place] [address] Cindy Garcia documented as of this encounter Procedures Procedure Name Priority Date/Time Associated Diagnosis Comments XR CHEST 2 VIEWS Routine 12/01/2024 9:33 AM EST documented in this encounter Results * XR Chest 2 Views (12/01/2024 9:33 AM EST) Anatomical Region Laterality Modality Chest Radiographic Latrice ging 12/01/2024 9:33 AM EST Narrative 12/02/2024 11:03 AM EST ? [facility] ?[address] ? [place] [address] ?XRay Report ? Signed ? Patient: Romel,Carey ?MR#: [id number] ? : 1940 ?Acct:[id number] ? Age/Sex: 84 / F ?ADM Date: 02/24/25 ? Loc: HO.HMGCX ? Attending Dr: Hans Fontenot MD ? Ordering Physician: Hans Fontenot MD ?? Date of Service: 12/01/24 ?? Procedure(s): XR chest 2V ?? Accession Number(s): [id number] ? cc: Thaddeus Salazar MD; Hans Fontenot [...] DD/ 0933 ? TD/TT: 12/01/24 0936 ? Pharmaceutical Detailer: ? Procedure Note Donnga, Image - 12/02/2024 [facility] Primary Care [address] [place] [address] [place] [address] XRay Report Signed Patient: Charleen Urena MMR#: [id number] : 1Acct:[id number] Age/Sex: 84 / FADM Date: 12/01/24 Loc: HO.HMGCX Attending Dr: Hans Fontenot MD Ordering Physician: Hans Fontenot MD Date of Service: 12/01/24 Procedure(s): XR chest 2V Accession Number(s): [id number] cc: Thaddeus Salazar MD; Hans Fontenot MD [...] 12/02/24 1100 DD/ 0933 TD/TT: 12/01/24 0936 Pharmaceutical Detailer: [facility] External Provider IMG XR PROCEDURES Final Result documented in this encounter Visit Diagnoses Diagnosis Need for antibiotic prophylaxis for dental procedure- Primary documented in this encounter Additional Health Concerns Assessment Noted Time PHQ-9 Depression Total Score: 0 01/31/20 23 2:06 PM EDT documented as of this encounter Care Teams Cooker Soda Relationship Specialty Start Date End Date Thaddeus Salazar MD [address] [place] [address] PCP - General Internal Medicine 08/21/13 AskU 08/27/24 documented as of this encounter
--- OUTSIDE RECORDS SUMMARY | 2025-02-16 09:07 | XMS_ITS | Encounter Summary ---
Author Organization [employer] Address [address] 7[address] [place] [address] Care Team Providers Care Waistline Joiner Lockstitch Name Role Phone Thaddeus Salazar MD Primary Care Provider [phone] Reason for Visit * Reason Onset Date Comments rs pre med needed 10/30/2024 Encounter Details Date Type Department Care Team ([facility] st Contact Info) Description 10/30/2024 Telephone [facility] CHC ADULT DENTAL [address] [place], [place] [phone] Cindy Garcia rs pre med needed Social [...] 1:45 PM EDT Office Visit [facility] MED & PEDS [address] [place] [address] Thaddeus Salazar MD [address] [place] [address] 05/18/2025 11:00 AM EDT Office Visit [facility] ADULT DENTAL [address] [place] [address] Cindy Garcia documented as of this encounter Visit Diagnoses Not on filedocumented in this encounter Additional Health Concerns Assessment Noted Time PHQ-9 Depression Total Score: 0 01/31/20 23 2:06 PM EDT documented as of this encounter Care Teams Waistline Joiner Lockstitch Relationship Specialty Start Date End Date Thaddeus Salazar MD [address] [place] [address] PCP - General Internal Medicine 08/21/13 Exegy 08/27/24 documented as of this encounter
--- OUTSIDE RECORDS SUMMARY | 2025-02-16 09:07 | XMS_ITS | Clinical Summary ---
Author Organization [employer] Address [address] [place] [address] 7t [place] [address] Care Team Providers Care Pharmacy Technician Name Role Phone Thaddeus Salazar MD Primary Care Provider [phone] Allergies Active Allergy Reactions Criticality Noted Date [...] complication, without long-term current use of insulin ([facility]) To use daily 2 times a day 100 each 11 08/21/20 23 Active Blood Glucose Monitoring Suppl (ONE TOUCH ULTRA 2) w/Device kitIndications: Type 2 diabetes mellitus without complication, without long-term current use of insulin ([facility]) To check the FS 2 times a day 1 kit 08/21/20 23 Active Lancets (FDO HoldingsTouch Delica Plus [id number]) miscIndications :Type 2 diabetes mellitus without complication, without long-term current use of insulin ([facility]) USE ONCE DAILY 100 each 11 [...] DAILY 90 tablet 3 05/12/20 24 Active amLODIPine (Norvasc) 5 MG tablet TAKE 1 TABLET BY MOUTH EVERY DAY 90 tablet 3 09/10/20 24 Active amoxicillin (Amoxil) 500 MG tabletIndicatio ns:Need for antibiotic prophylaxis for dental procedure 4 tabs 1 hour prior to dental procedures. 20 tablet 11/04/19 25 Active ezetimibe (Zetia) 10 MG tablet Take 1 tablet by mouth Once per day. 10/18/19 25 Active Trelegy Ellipta 100-62.5-25 MCG/ACT aerosol powder INHALE 1 PUFF INTO THE LUNGS DAILY EVERY MORNING AND AT BEDTIME 60 each 5 01/20/20 25 Active Omeprazole 20 MG tablet delayed-release Take 1 tablet (20 mg) by mouth Once per day. 30 tablet 02/05/20 25 025 Active traZODone (Desyrel) 50 MG tabletIndicatio ns:Other insomnia TAKE 1 TABLET BY MOUTH EVERY DAY AT BEDTIME 30 tablet 2 02/10/20 25 Active Trelegy Ellipta 100-62.5-25 MCG/ACT aerosol powder INHALE 1 PUFF(100 MG) PUFF INTO THE LUNGS EVERY MORNING AND 1 PUFF EVERY NIGHT AT BEDTIME 60 each 5 07/15/20 025 Discontinued traZODone (Desyrel) 50 MG tabletIndicatio ns:Other insomnia TAKE 1 TABLET BY MOUTH EVERY DAY AT BEDTIME 30 tablet 2 11/10/19 025 Discontinued Active Problems Problem Noted Date [...] for OP services ( Ind. Therapy) through [facility]. Provided education around integrated medicine and [...] in services. PLAN: 1. Follow up with [facility]: Not recommended for follow-up 2. Patient goal is She wants to be mentally stable to be able to care of her ill 3. Behavioral Recommendations a. Individual Therapy b. Charleen was encouraged to reach this sheet writer for support as needed. Generalized pain 11/28/2022 Hyperlipidemia 01/07/2013 Hypertension 01/07/2013 Pruritus 01/07/2013 Chronic obstructive lung disease 04/01/2012 Diabetes mellitus type 2, uncomplicated 04/01/20 12 Assessment & Plan (02/04/2025 9:30 AM EDT): Will order new labs, she is asymptomatic, refers home reading below 140, will contact with results Encounters Date Type Department Care Team Description 02/08/2025 Refill [facility] [address] [place] [address] Thaddeus Salazar MD Other insomnia 02/04/2025 8:30 AM EDT Telemedicine [facility] [address] [place] [address] Nile Emerson MD Type 2 diabetes mellitus without complication, without long-term current use of insulin ([facility]) (Primary Dx) 02/04/2025 Travel 02/03/2025 Telephone [facility] [address] [place] [phone] Thaddeus Salazar MD Nurse Triage 01/30/[address] [address] Thaddeus Salazar MD Referral 01/19/2025 Refill [facility] [address] [place] [address] Thaddeus Salazar MD 12/09/2024 1:00 PM EST Office Visit [facility] [address] [place] [address] Thaddeus Salazar MD Pre-op evaluation (Primary Dx); Type 2 diabetes mellitus without complication, without long-term current use of insulin (CMS/HCC) 12/09/2024 Travel 12/08/2024 Telephone [facility] [address] [place] [phone] Thaddeus Salazar MD Chart Prep 12/05/2024 1:00 PM EST Office Visit [facility] [address] [place] [address] Mario Malhotra from Last 3 Months Immunizations Name Administration [...] t he electric, gas, oil or water [employer] threatened to shut off services in your [...] Description 03/16/2025 1:45 PM EDT Office Visit [facility] [address] [place] [address] Thaddeus Salazar MD [address] [place] [address] 05/18/2025 11:00 AM EDT Office Visit [facility] AD[facility] [address] [place] [address] Cindy Garcia Health Maintenance Due Date Last Done Comments Diabetes: Foot Exam 1950 Zoster Vaccines (3 of 3) 07/21/2021 05/26/2021, 12/0 12/2012 Diabetes: Urine Protein Screening 04/01/2022 04/01/2021, 01/13/2020 Lipid Panel 01/23/2024 01/22/2023, 03/09, 04/01/2021 Diabetes: Hemoglobin A1C 02/06/2024 024, 09/28/2023, [...] complication, without long-term current use of insulin ([facility]) BASIC METABOLIC PANEL Routine 12/09/2024 2:06 PM EST Pre-op evaluation CBC WITH AUTO DIFFERENTIAL Routine 12/09/2024 2:06 PM EST Pre-op evaluation ECG 12-LEAD Routine 12/09/2024 1:50 PM EST Pre-op evaluation 27 DI RESIN-BASED COMPOSITE - 2 SURF, ANTERIOR Routine 12/05/2024 1:00 PM EST XR CHEST 2 VIEWS Routine 12/01/2024 9:33 AM EST PROPHYLAXIS - ADULT Routine 11/17/2024 1 :00 PM EST INTRAORAL - COMPLETE SERIES OF RADIOGRAPHIC IMAGES Routine 11/17/2024 1:00 PM EST PERIODIC ORAL EVALUATION - ESTABLISHED PATIENT Routine 11/17/2024 1:00 PM EST POCT GLYCATED HEMOGLOBIN, TOTAL Routine 11/08/2023 4:12 PM EST Type 2 diabetes mellitus without complication, without long-term current use of insulin ([facility]) HM DIABETES EYE EXAM Routine 04/30/2023 LIPID PANEL, STANDARD Routine 01/22/2023 8:59 AM EDT ZZZ HISTORICAL MICROALBUMIN, RANDOM Routine 04/01/2021 2:02 PM EDT from Last 3 Months or Most Recently Relevant to Health Maintenance Results * POCT Glucose (12/09/2024 2:41 PM EST) Glucose Blood, POC 128 60 - 200 mg/dL QC Media Lot # [id number] Lot# Expiration Date [id number] Comment:random Blood Capillary blood specimen / Unknown 12/09/2024 2:41 PM EST us Thaddeus Salazar MD POINT OF CARE TEST ENTER/ED IT ORDERABLES Final Result * (ABNORMAL) CBC auto differential (12/09/2024 2:06 PM EST) White Blood Count 6.3 4.8 - 10.8 X10*3/uL [facility] Red Blood Count 4.61 4.20 - 5.50 X10*6/uL [facility] Hemoglobin 13.2 12.0 - 16.0 g/dl [facility] Hematocrit 40.9 37.0 - 47.0 % [facility] Mean Corpuscular Volume 88.7 80.0 - 98.0 fL [facility] Mean Corpuscular Hemoglobin 28.6 27.0 - 33.0 pg [facility] Mean Corpuscular HGB Conc 32.3 31.0 - 35.0 g/dl [facility] Red Cell Distribution Width 14.0 11.0 - 16.0 % [facility] Platelet Count 314 160 - 400 X10*3/uL [facility] Mean Platelet Volume 9.2(L) 9.4 - 12.3 fL [facility] Neutrophils Percent Auto 60.0 45 - 73 % [facility] Imm Gran Pct Auto 0.3 0.0 - 0.4 % [facility] Lymphocytes Percent Auto 25.4 20 - 40 % [facility] Monocytes Percent Auto 8.6 2 - 11 % [facility] Eosinophils Percent Auto 5.1(H) 0 - 4 % [facility] Basophils Percent Auto 0.6 0 - 2 % [facility] NRBC Pct Auto 0.0 0.0 - 0.2 /100WBC [facility] Neutrophils Absolute Auto 3.8 2.0 - 8.3 x10*3/uL [facility] Imm Gran Abs Auto 0.02 0.00 - 0.03 X10*3/uL [facility] Lymphocytes Absolute Auto 1.6 1.2 - 4.9 X10*3/uL [facility] Monocytes Absolute Auto 0.5 0.1 - 1.2 X10*3/uL [facility] Eosinophils Absolute Auto 0.3 0.0 - 0.4 X10*3/uL [facility] Basophils Absolute Auto 0.0 0.0 - 0.2 X10*3/uL [facility] NRBC Abs Auto 0.000 0.0 - 0.012 X10*3/uL [facility] Blood Venous blood specimen / Unknown 12/09/2024 2:06 PM EST 12/09/2024 6:22 PM EST us Thaddeus Salazar MD LAB BLOOD ORDERABLES Final Result [facility] [address] [place] [address] [phone] * (ABNORMAL) Basic Metabolic Panel (12/09/2024 2:06 PM EST) Sodium 141 135 - 145 mmol/L [facility] Potassium 4.0 3.3 - 5.1 mmol/L [facility] Chloride 104 96 - 108 mmol/L [facility] Carbon Dioxide 29 22 - 29 mmol/L [facility] Anion Gap 12 12 - 20 [facility] Urea Nitrogen (BUN) 24(H) 9 - 16 mg/dL [facility] Creatinine, Serum 0.71 0.5 - 1.4 mg/dL [facility] Estimated Glomerular Filt Rate >60 [facility] Comment:Chronic Kidney Disea se: Estimated GFR < 60 mL/min/1.02f4Sxpofp Kidney Disease: Estimated GFR < 15 mL/min/1.73m2 Glucose 107 60 - 115 mg/dL [facility] Calcium 9.4 8.4 - 10.2 mg/dL [facility] Blood Venous blood specimen / Unknown 12/09/2024 2:06 PM EST 12/09/2024 6:22 PM EST us Thaddeus Salazar MD LAB BLOOD ORDERABLES Final Result [facility] [address] [place] [address] [phone] * ECG 12 lead (12/09/2024 1:50 PM EST) Narrative Thaddeus Salazar MD - 12/09/2024 1:50 PM EST HR 67. [place]: -44. Left axis deviation. NSR. No sign of LAE/CYNTHIA. No ST elevation or ST depression. us Thaddeus Salazar MD ECG ORDERABLES Final Resul t * XR Chest 2 Views (12/01/2024 9:33 AM EST) Anatomical Region Laterality Modality Chest Radiographic Latrice ging 12/01/2024 9:33 AM EST Narrative 12/02/2024 11:03 AM EST ? [facility] ?[address] [facility] . ? [place] [address] ?XRay Report ? Signed ? Patient: Charleen Urena ?MR#: [id number] ? : 1940 ?Acct:[id number] ? Age/Sex: 84 / F ?ADM Date: 12/01/24 ? Loc: HO.[facility]GCX ? Attending Dr: Hans Fontenot MD ? Ordering Physician: Hans Fontenot MD ?? Date of Service: 12/01/24 ?? Procedure(s): XR chest 2V ?? Accession Number(s): [id number] ? cc: Thaddeus Salazar MD; Hans Fontenot [...] DD/ 0933 ? TD/TT: 12/01/24 0936 ? Professor Of Marketing: ? Procedure Note Donotmauriceinterpreter, Image - 12/02/2024 [facility] [place] [place] [address] XRay Report Signed Patient: Charleen Urena MMR#: [id number] : 1Acct:[id number] Age/Sex: 84 / FADM Date: 12/01/24 [facility] Att[facility] Dr: Hans Fontenot MD Ordering Physician: Hans Fontenot MD Date of Service: 12/01/24 Procedure(s): XR chest 2V Accession Number(s): [id number] cc: Thaddeus Salazar MD; Hans Fontenot MD [...] 12/02/24 1100 DD/ 0933 TD/TT: 12/01/24 0936 Professor Of Marketing: [facility] External Provider IMG XR PROCEDURES Final Result * (ABNORMAL) POCT A1C (11/08/2023 4:12 PM EST) Hemoglobin A1C 7.3(A) 4.0 - 6.0 % Comment:controls valid QC Media Lot # Comment:[id number] Lot# Expiration Date Comment:06/25/2025 Blood 11/08/2023 4:12 PM EST Thaddeus Salazar MD POINT OF CARE TEST ENTER/ED IT ORDERABLES Final Result * Diabetes Eye Exam (04/30/2023) Eye Exam Normal Normal Narrative Thaddeus Salazar MD - 04/30/2023 Eye exam done at [facility] by Dr Al Gregory. No diabetic retinopathy or macular edema. Thaddeus Salazar MD HEALTH MAINTENANCE Final Re sult * Lipid Panel, Standard (01/22/2023 8:59 AM EDT) Triglycerides 151 mg/dL [facility] Comment:Desirable Triglyceri de: less than 150 mg/dLBorderline High Triglyceride 150-199 mg/dLHigh Triglyceride: 200-499 mg/dLVery High Triglyceride: greater than or equal to 5OO mg/dL Cholesterol 254 mg/dL [facility] Comment:Desirable Cholestero l: less than 200 mg/dLBorderline High Cholesterol: 200-239 mg/dLHigh Cholesterol: greater than 239 mg/dL LDL Cholesterol Calculated 161 mg/dl [facility] Comment:Desirable LDL: less than 100 mg/dLNear Optimal/Above Optimal LDL: 110- 129 mg/dLBorderline High LDL: 130-159 mg/dLHigh LDL: 160-189 mg/dLVery High LDL: greater than or equal to 190 mg/dL HDL Cholesterol 63 mg/dL [facility] Comment:Desirable HDL: great er than 40 mg/dL Note: This HDL assay may give artificially low results in patients with liver disease. 01/22/2023 8:59 AM EDT 01/22/2023 8:59 AM EDT [facility] External Provider LAB BLO OD ORDERABLES Final Result Performing Organization Address [facility]/ZIP Co de Phone Number [facility] [address] [place] [address] [phone] * MICROALBUMIN, RANDOM (04/01/2021 2:02 PM [...] LA BS Final Result Performing Organization Address City/[facility] Co de Phone Number [facility] [address] from Last 3 Months or Most Recently Relevant to Health Maintenance Insurance [facility] STANDARD [facility] DUAL COMPLETE DENTAL - [facility] Care Teams Pharmacy Technician Relationship Specialty Start Date End Date Thaddeus Salazar MD [address] [place] [address] PCP - General Internal Medicine 08/21/13 [employer] Travel 08/27/24
--- OUTSIDE RECORDS SUMMARY | 2025-02-16 09:07 | XMS_ITS | Encounter Summary ---
Author Organization [employer] Address [address] [place] [address] Care Team Providers Care Lining Caser Name Role Phone Thaddeus Salazar MD Primary Care Provider [phone] Reason for Visit * Reason Onset Date Comments Med Refill 11/03/2022 Encounter Details Date Type Department Care Team ([facility] Contact Info) Description 11/03/2022 Telephone [facility] MED & PEDS [address] [place] [address] Thaddeus Salazar MD [address] [place] [address] Med Refill Social History Tobacco Use Types [...] Upcoming Encounters Date Type Department Care Team ([facility] Contact Info) Description 03/16/2025 1:45 PM EDT Office Visit [facility]ED[facility] [address] [place] [address] Thaddeus Salazar MD [address] [place], [place] [phone] 05/18/2025 11:00 AM EDT Office Visit [facility] CH[facility] ADULT DENTAL [address] [place] [address] Cindy Garcia documented as of this encounter Visit Diagnoses Not on filedocumented in this encounter Care Teams Lining Caser Relationship Specialty Start Date End Date Thaddeus Salazar MD [address] [place] [address] PCP - General Internal Medicine 08/21/13 Brent MORIN 08/21/24 09/17/24 PNP [employer] 08/27/24 documented as of this encounter
--- OUTSIDE RECORDS SUMMARY | 2025-02-16 09:07 | XMS_ITS | Encounter Summary ---
Author Organization [employer] Address [address] 7[address] [place] [address] Care Team Providers Care Game Tester Name Role Phone Thaddeus Salazar MD Primary Care Provider [phone] Encounter Details Date Type Department Care Team ([facility] st Contact Info) Description 02/04/2024 Orders Only [facility] CH[facility] MED & PEDS [address] [place], [place] [phone] Thaddeus Salazar MD [address] [place] [address] Social History Tobacco Use Types Packs/Day Years [...] 1:45 PM EDT Office Visit [facility] [address] [place] [address] Thaddeus Salazar MD [address] [place] [address] 05/18/2025 11:00 AM EDT Office Visit [facility] ADULT DENTAL [address] [place] [address] Cindy Garcia documented as of this encounter Visit Diagnoses Not on filedocumented in this encounter Additional Health Concerns Assessment Noted Time PHQ-9 Depression Total Score: 0 01/31/20 23 2:06 PM EDT documented as of this encounter Care Teams Game Tester Relationship Specialty Start Date End Date Thaddeus Salazar MD [address] [place] [address] PCP - General Internal Medicine 08/21/13 Brent MORIN 08/21/24 09/17/24 [employer] 08/27/24 documented as of this encounter
--- OUTSIDE RECORDS SUMMARY | 2025-02-16 09:07 | XMS_ITS | Encounter Summary ---
Author Organization [employer] Address [address] [facility] 7t [place] [address] Care Team Providers Care Earth Observations Chief Scientist Name Role Phone Thaddeus Salazar MD Primary Care Provider [phone] Reason for Visit * Reason Onset Date Comments FYI 09/01/2024 Encounter Details Date Type Department Care Team ([facility] Contact Info) Description 09/01/2024 Telephone [facility] [address] [place] [address] Thaddeus Salazar MD [address] [place] [address] FYI Social History Tobacco Use Types Packs/Day [...] - 09/01/2024 2:54 PM EST Tc from [facility] with [employer] stating that pt does not need Physical Therapy anymore due to pt being at their Baseline. Contact pt at [phone] documented in this encounter Plan of Treatment Upcoming Encounters Date Type Department Care Team (Late st Contact Info) Description 03/16/2025 1:45 PM EDT Office Visit [facility] MED & PEDS [address] [place] [address] Thaddeus Salazar MD [address] [place] [address] 05/18/2025 11:00 AM EDT Office Visit [facility] ADULT DENTAL [address] [place] [address] Cindy Garcia documented as of this encounter Visit Diagnoses Not on filedocumented in this encounter Additional Health Concerns Assessment Noted Time PHQ-9 Depression Total Score: 0 01/31/20 23 2:06 PM EDT documented as of this encounter Care Teams Earth Observations Chief Scientist Relationship Specialty Start Date End Date Thaddeus Salazar MD [address] [place] [address] PCP - General Internal Medicine 08/21/13 Brent MORIN 08/21/24 09/17/24 [employer] 08/27/24 documented as of this encounter
--- OUTSIDE RECORDS SUMMARY | 2025-02-16 09:07 | XMS_ITS | Encounter Summary ---
Author Organization [employer] Address [address] [place] [address] Care Team Providers Care Neurology Tech Name Role Phone Thaddeus Salazar MD Primary Care Provider [phone] Encounter Details Date Type Department Care Team ([facility] st Contact Info) Description 07/31/2023 Telephone [facility] MED[facility]INE [address] [place] [address] Thaddeus Salazar MD [address] [place], [place] [phone] Social History Tobacco Use Types Packs/Day Years [...] Visit [facility] [address] [place] [address] Thaddeus Salazar MD [address] [place] [address] 05/18/2025 11:00 AM EDT Office Visit [facility] ADULT DENTAL [address] [place] [address] Cindy Garcia documented as of this encounter Visit Diagnoses Not on filedocumented in this encounter Additional Health Concerns Assessment Noted Time PHQ-9 Depression Total Score: 0 01/31/20 23 2:06 PM EDT documented as of this encounter Care Teams Neurology Tech Relationship Specialty Start Date End Date Thaddeus Salazar MD [address] [place] [address] PCP - General Internal Medicine 08/21/13 Brent MORIN 08/21/24 09/17/24 [employer] 08/27/24 documented as of this encounter
[2025-02-16 10:51] LABS: Creatinine Urine 166.42 mg/dL; Microalbum/Creatinine Ratio Ur 19.8 ug/mg cr (<30)
[2025-02-16 10:52] LABS: Alanine Aminotransferase 16 U/L (0-31); Albumin Level 4.1 g/dL (3.5-5.0); Alkaline Phosphatase 79 U/L (39-117); Aspartate Amino Transferase 19 U/L (5-31); Bilirubin Direct 0.1 mg/dL (0.0-0.5); Bilirubin Total 0.5 mg/dL (0.0-1.0); Cholesterol 208 mg/dL (<200); HDL Cholesterol 64 mg/dL (>40); LDL Cholesterol Calculated 103 mg/dL (<100); Total Protein 7.2 g/dL (6.5-8.0); Triglycerides 209 mg/dL (<150)
[2025-02-16 11:24] LABS: Estimated Average Glucose 143 mg/dL; Hemoglobin A1C 173.8015 umol/L; Hemoglobin A1c % 6.6 % (<6.0); Total Hemoglobin (HGBA1C) 3559.4127 umol/L
[2025-02-17 06:18] LABS: Immunoglobulin E 149 kU/L (<OR=114)
== END 2025-02-16 08:59 | disposition home or self-care (01) ==
LOC: HO.HMGCLDS 08:58
PROVIDERS: Hospitalist; PCP Internal Medicine; Visit Provider Internal Medicine
DX: R21 Rash and other nonspecific skin eruption (principal); E11.9 Type 2 diabetes mellitus without complications; T78.40XA Allergy, unspecified, initial encounter
CPT/HCPCS: 36415; 80061; 80076; 82043; 82570; 82785; 83036

== ENCOUNTER 2025-03-16 09:26 | Outpatient (REF) | payer OTHER, SELFPAY ==
--- NOTE | ~2025-03-16 | XR_ITS ---
EXAMINATION: XR HIP, RIGHT CLINICAL INFORMATION: right groin pain COMPARISON: December 13, 2023 TECHNIQUE: Two views of the right hip. FINDINGS: There is acetabular over coverage. The latter center edge angle measures 49 degrees Marginal osteophytes are present around the femoral head. There are acetabular osteophytes. There is moderate medial joint space narrowing. Enthesophytes are present along the greater trochanter and iliac spines. SI joint is unremarkable aside from minimal marginal osteophytes inferiorly. XR/XR hip RT min 2V IMPRESSION: Coxa profunda. 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 Electronically signed by: Sher Lugo MD 03/16/2025 10:33 AM EDT
--- OUTSIDE RECORDS SUMMARY | 2025-03-16 10:00 | XMS_ITS ---
Author Organization [facility] Address [address] [facility] [address] [place] [phone] Care Team Providers Care Presiding Steward Name Role Phone Mary Morris Unavailable [phone] Encounters Encounter Location Date Provider Diagnosis [facility] [address] [facility] [address] [place] [address] 06/03/2024 Mary Morris Plan Of Treatment No Information Progress Notes * ROSEMARY ARTISDOB:1940 (85 yo F)Acc No.[id number]:06/03/2024 Patient:?ROSEMARY ARTIS Provider:?Mary Morris MD :1940???Age:84 Y???Sex:Female D ate:06/03/2024 Address:[address] [place] [address], [place] [id number] Subjective: * Chief Complaints: * ??? * Medical History:? Objective: * Vitals:? Assessment: Plan: * Treatment: * * Electronic signature of Mary Morris MD on 03/16/2025 at 10:00 AM EDT Sign off status: Pending * Provider:?Mary Morris MD Date:?2023 Generated for Vic guardado/Daria/eTransmitting on:?03/16/2025 10:00 AM EDT
== END 2025-03-16 09:27 | disposition home or self-care (01) ==
LOC: HO.HMGCX 09:26
PROVIDERS: PCP Internal Medicine; Visit Provider Internal Medicine
DX: R10.31 Right lower quadrant pain (principal)
CPT/HCPCS: 73502

== ENCOUNTER → 2025-03-16 09:31 | Outpatient (BNV) | payer OTHER, SELFPAY | PROVIDERS: PCP Internal Medicine; Visit Provider Radiology Diagnostic Radiology | DX: M16.11 Unilateral primary osteoarthritis, right hip (principal) | CPT/HCPCS: 73502 ==

== ENCOUNTER 2025-07-06 11:18 | Outpatient (AMB) | payer OTHER, SELFPAY ==
--- NOTE | 2025-07-06 11:32 | MHC.OFFVIS ---
Vital Signs 07/06/25 11:54 Height 5 ft 1 in Weight 164 lb BMI 31.0 Intake Visit Reasons: Est patient new prob- OA of right hip Intake Note: Charleen is an 85 year old female who presents today for a New Problem visit with complaints of Right Hip Pain. Hx of Diabetes. Patient reported Right Groin pain and low back pain to her PCP at [facility]. She is taking Ibuprofen which does help but she is reluctant to take this daily. Today patient reports her pain travels from the middle of her back to the lateral aspect of hip. She has numbness and tingling down her leg. No previous treatment. She mentions having a fall landing on her back in January, her pain started shortly after her fall. A1C in February was 6.6% Allergies ethacrynic acid Allergy (Mild, Verified 07/06/25 11:36) Hives montelukast Allergy (Mild, Verified 07/06/25 11:36) Hives Penicillins (PENICILLINS) Allergy (Mild, Verified 07/06/25 11:36) RASH Sulfa (Sulfonamide Antibiotics) (SULFA(SULFONAMIDE ANTIBIOTICS)) Allergy (Mild, Verified 07/06/25 11:36) RASH latex Allergy (Verified 07/06/25 11:36) rash HPI HPI Est patient new prob- OA of right hip: Details: 85-year-old female presents to the office today for pain in her right hip. She denies groin pain but feels her pain is along her low back which radiates to the side of her hip. She does have pain when she is laying on her right side trying to sleep. She denies numbness or tingling down the entire leg and foot. No current treatment to date. 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 Father No problems noted. Brother Esophageal cancer Social History Alcohol intake: never Patient Tobacco Use Status: Former Tobacco user Years Smoked: 20+ Current occupational status: retired Current occupation: Right Handed Review of Systems Const All systems reviewed & are unremarkable except as noted in HPI and below Physical Exam Vital Signs: BMI result Body Mass Index 31.0 Const General: cooperative and no acute distress Orientation/consciousness: patient oriented x3 Resp Effort & Inspection: normal respiratory effort and able to speak in complete sentences Cardio Peripheral pulses: Peripheral pulses 2+ throughout Neuro General: patient oriented x3 Extrem Other: Right hip normal to inspection. No pain with ROM of the hip. Pain along the greater trochanter. No pain with hip flexion or abduction.There is tenderness along the si joint, Negative SLR. NVI. Office Procedures AMB Joint Injection/Aspiration Joint Injection/Aspiration Details: Right trochanteric bursa Prep: site was prepped using aseptic technique, ethochloride spray was applied and injection warnings given Injected: 40 mg of, with 3 mL of, 1% plain lidocaine, 0.25% bupivacaine and decadron Procedure: The patient tolerated the procedure well and there was some relief with the local anesthesia Coding 63720 - Glenohumeral/Tronchanteric Bursa/Intraarticular Procedure code (CPT) selection complete Results Reviewed Results Reviewed: X-rays of the right hip obtained in the office today and reviewed by me show mild subchondral sclerosis otherwise joint space well preserved. Assessment & Plan Assessment & Plan (1) Trochanteric bursitis, right hip: Code(s): M70.61 - Trochanteric bursitis, right hip Category: Medical Plan: We discussed options today, which include steroid injection. The patient did consent to move forward with the right hip trochanteric bursa injection, which was tolerated well.? I recommended rest, ice and elevation and OTC antiinflammatories prn for discomfort. I also placed an order for physical therapy and she will contact our office to make an appointment. If symptoms persist over the next 6-8 weeks, they will contact our office, otherwise, prn Orders: Orders XR pelvis 1-2V Today M25.559 - Pain in unspecified hip PT Evaluation and Treatment Today M70.61 - Trochanteric bursitis, right hip Coding Level of Care Code New Pt Level 3 (91025) Complex EM visit Add On G2211 Diagnoses Trochanteric bursitis, right hip M70.61 CPT Codes Coding - Joint 7: 06949 - Glenohumeral/Tronchanteric Bursa/Intraarticular ([id number])
[2025-07-06 11:54] VITALS: BMI 31.0
== END 2025-07-06 12:10 | disposition home or self-care (01) ==
LOC: HO.HOS 11:19
PROVIDERS: PCP Internal Medicine; Visit Provider Physician Assistant
DX: M70.61 Trochanteric bursitis, right hip (principal)
CPT/HCPCS: 20610; 99213

== ENCOUNTER 2025-07-06 11:20 | Outpatient (REF) | payer OTHER, SELFPAY ==
--- NOTE | ~2025-07-06 | XR_ITS ---
EXAMINATION: XR PELVIS CLINICAL INFORMATION: M25.559 - Pain in unspecified hip COMPARISON: Correlated to CT abdomen pelvis dated October 25, 2017. TECHNIQUE: AP view of the pelvis. FINDINGS: Joint space narrowing involving both coxofemoral joints as demonstrated on the left side. Sclerosis along the articular surface of the acetabulum and femoral heads, bilaterally. No acute cortical disruption or malalignment. Small marginal osteophyte formation both coxofemoral joints. The bony pelvis is intact. No lytic or blastic lesions. Spondylosis at L5-S1 and to a lesser extent L4-5. Vascular calcifications, aorta and iliac arteries. XR/XR pelvis 1-2V IMPRESSION: Moderate osteoarthrosis/osteoarthritis, left hip. Mild osteoarthrosis/osteoarthritis, right hip. Electronically signed by: Daryl Pond MD 07/06/2025 11:31 AM EDT
--- OUTSIDE RECORDS SUMMARY | 2025-07-07 12:48 | XMS_ITS | Encounter Summary ---
Author Organization [employer] Address [address] [place] [address] 7 [place] [address] Care Team Providers Care Electron Gun Inspector Name Role Phone Thaddeus Salazar MD Primary Care Provider [phone] Encounter Details Date Type Department Care Team (Latest Contact Info) Description 06/14/2021 Abstract [facility] Dental, Provider, DDS Social History Tobacco [...] Care Team (Late st Contact Info) Description 07/27/2025 10:45 AM EDT Office Visit [facility] MED & PEDS [address] [place] [address] Thaddeus Salazar MD [address] [place] [address] 12/04/2025 12:45 PM EST Office Visit [facility] ADULT DENTAL [address] [place] [address] James Salazar documented as of this encounter Visit Diagnoses Not on filedocumented in this encounter Care Teams Electron Gun Inspector Relationship Specialty Start Date End Date Thaddeus Salazar MD [address] [place] [address] PCP - General Internal Medicine 08/21/13 Brent MORIN 08/21/24 09/17/24 [email or web address] 08/27/24 documented as of this encounter
--- OUTSIDE RECORDS SUMMARY | 2025-07-07 12:48 | XMS_ITS | Encounter Summary ---
Author Organization [employer] Address [address] [place] [address] 7 [place] [address] Care Team Providers Care Campus Executive Director Name Role Phone Thaddeus Salazar MD Primary Care Provider [phone] Encounter Details Date Type Department Care Team (Latest Contact Info) Description 08/05/2019 Abstract [facility] CONVERSION[facility] Dental, Provider, DDS Social [...] Description 07/27/2025 10:45 AM EDT Office Visit [facility] MED & PEDS [address] [place] [address] Thaddeus Salazar MD [address] [place] [address] 12/04/2025 12:45 PM EST Office Visit [facility] ADULT DENTAL [address] [place] [address] James Salazar documented as of this encounter Visit Diagnoses Not on filedocumented in this encounter Care Teams Campus Executive Director Relationship Specialty Start Date End Date Thaddeus Salazar MD [address] [place] [address] PCP - General Internal Medicine 08/21/13 Brent MORIN 08/21/24 09/17/24 [employer] 08/27/24 documented as of this encounter
--- OUTSIDE RECORDS SUMMARY | 2025-07-07 12:49 | XMS_ITS | Encounter Summary ---
Author Organization [employer] Address [address] [facility] 7 [place] [address] Care Team Providers Care Loading And Unloading Supervisor Name Role Phone Thaddeus Salazar MD Primary Care Provider [phone] Reason for Referral * Consultation (Routine) - Closed Specialty Diagnoses / Procedures Referred By Contdevi t Referred To Contact Orthopaedic Surgery Diagnoses Primary osteoarthritis of right hip Thaddeus Salazar MD [address] [place] [address] Phone: tel: fax: [facility] Orthopedics [address] [place] [address] Phone: tel: Referral ID Status Reason Start Date Expiration Date V isits Requested Visits Authorized [id number] Closed Specialty Services Required 03/18/2025 03/18/2026 1 1 Encounter Details Date Type Department Care Team ([facility] st Contact Info) Description 03/18/2025 Orders Only [facility] MED & PEDS [address] [place] [address] Thaddeus Salazar MD [address] [place] [address] Primary osteoarthritis of right hip (Primary Dx) Social History Tobacco Use Types [...] 10:45 AM EDT Office Visit [facility] MED & PEDS [address] [place] [address] Thaddeus Salazar MD [address] [place] [address] 12/04/2025 12:45 PM EST Office Visit [facility] ADULT DENTAL [address] [place] [address] James Salazar Scheduled Referrals Name Type Priority Associated Diagnoses Orde r Schedule Referral to Orthopaedic Surgery Outpatient Referral Routine Primary osteoarthritis of right hip Expected: 03/18/2025 (Approximate), Expires: 03/18/2026 documented as of this encounter Visit Diagnoses Diagnosis Primary osteoarthritis of right hip- Primary documented in this encounter Additional Health Concerns Assessment Noted Time PHQ-9 Depression Total Score: 0 12/10/19 25 1:58 PM EST documented as of this encounter Care Teams Loading And Unloading Supervisor Relationship Specialty Start Date End Date Thaddeus Salazar MD [address] [place] [phone] PCP - General Internal Medicine 08/21/13 [employer] 08/27/24 documented as of this encounter
--- OUTSIDE RECORDS SUMMARY | 2025-07-07 12:49 | XMS_ITS | Clinical Summary ---
Author Organization [employer] Address [address] [facility] [address]t [place] [address] Care Team Providers Care Teaching Pastor Name Role Phone Thaddeus Salazar MD Primary Care Provider [phone] Allergies Active Allergy Reactions Criticality Noted Date [...] patch 3 11/16/19 23 Active glucose blood (TipRanksTouch Verio) test stripIndication s:Type 2 diabetes mellitus without complication, without long-term current use of insulin ([facility]) To use daily 2 times a day 100 each 11 08/21/20 23 Active Blood Glucose Monitoring Suppl (ONE TOUCH ULTRA 2) w/Device kitIndications: Type 2 diabetes mellitus without complication, without long-term current use of insulin ([facility]) To check the FS 2 times a day 1 kit 08/21/20 23 Active Lancets (SnappyTV Delica Plus [id number]) miscIndications :Type 2 diabetes mellitus without complication, without long-term current use of insulin ([facility]) USE ONCE DAILY 100 each 12/26/19 24 Active glucose blood test strip FreeStyle Lite Strips TEST BLOOD SUGAR EVERY DAY 100 each 12/26/19 24 Active Diclofenac Sodium 1 % gelIndications: Right hand pain To apply to the affected area 4 times a day 100 g 01/23/20 24 Active amLODIPine (Norvasc) 5 MG tablet [...] BEDTIME 60 each 5 01/20/20 25 Active traZODone (Desyrel) 50 MG tabletIndicatio ns:Other insomnia TAKE 1 TABLET BY MOUTH EVERY DAY AT BEDTIME 30 tablet 2 05/08/20 25 Active Omeprazole 20 MG tablet delayed-release TAKE 1 TABLET(20 MG) BY MOUTH DAILY 90 tablet 05/27/20 25 Active ibuprofen 800 MG tabletIndicatio ns:Generalized pain TAKE 1 TABLET BY MOUTH THREE TIMES DAILY 90 tablet 3 05/27/20 25 Active lidocaine (Lidoderm) 5 % patchIndication s:Chronic midline low back pain without sciatica APPLY 1 PATCH TOPICALLY ONCE A DAYREMOVE AND DISCARD WITHIN 12 HOURS OR DIRECTED BY 30 patch 06/25/20 25 Active lidocaine (Lidoderm) 5 % patchIndication s:Chronic midline low back pain without sciatica APPLY 1 PATCH TOPICALLY ONCE A DAY,REMOVE AND DISCARD WITHIN 12 HOURS OR DIRECTED BY 30 patch 05/27/20 25 025 Discontinued Active Problems Problem Noted Date [...] joint, apply ice/heat, tylenol/ibuprofen as needed Meningioma (CMS/HCC) 07/31/2023 Assessment & Plan (07/31/2023 3:24 PM [...] for OP services ( Ind. Therapy) through [facility]. Provided education around integrated medicine and the [...] in services. PLAN: 1. Follow up with [facility]: Not recommended for follow-up 2. Patient goal is She wants to be mentally stable to be able to care of her ill 3. Behavioral Recommendations a. Individual Therapy b. Charleen was encouraged to reach this radio script writer for support as needed. Generalized pain 11/28/2022 Hyperlipidemia 01/07/2013 Hypertension 01/07/2013 Pruritus 01/07/2013 Chronic obstructive lung disease 04/01/2012 Diabetes mellitus type 2, uncomplicated 04/01/20 12 Assessment & Plan (02/04/2025 9:30 AM EDT): Will order new labs, she is asymptomatic, refers home reading below 140, will contact with results Encounters Date Type Department Care Team Description 06/25/2025 Refill [facility] MED & PEDS [address] [place] [address] Thaddeus Salazar MD Chronic midline low back pain without sciatica 06/05/2025 9:30 AM EDT Office Visit [facility] ADULT DENTAL [address] [place] [address] Ney Valencia DDS 06/01/2025 2:00 PM EDT Office Visit [facility] ADULT DENTAL [address] [place] [address] James Salazar Dental calculus (Primary Dx) 05/26/2025 Refill [facility] MED & PEDS [address] [place] [address] Thaddeus Salazar MD Chronic midline low back pain without sciatica; Generalized pain 05/26/2025 Refill [facility] MED & PEDS [address] [place] [address] Nile Emerson MD Generalized pain 05/08/2025 Refill [facility] MED & PEDS [address] [place] [address] Thaddeus Salazar MD Other insomnia 05/02/2025 Refill [facility] MED & PEDS [address] [place] [address] Nile Emerson MD from Last 3 Months Immunizations Immunization Administration Dates Next Due Influenza High-dose Quadriva lent Preservative Free 05/15/2023,06/14/2022,05/26/2021 Influenza injectable quadriv alent IIV4 with preservative 09/06/2017,06/29/2016,07/08/2015 Influenza, High Dose Seasona l, Preservative Free 05/15/2024 Influenza, IIV3, injectable 06/15/2025, 4,08/25/2005 Influenza, Split (incl. porsche fied surface antigen) [...] your housing situation today? I have karon melanie 12/09/[address] you li [...] Sign Reading Time Taken Comments Blood Pressure 132/80 06/05/2025 9:30 AM EDT Pulse 75 06/01/2025 1:55 PM EDT Temperature 36.7 C (98.1 F) 03/13/2025 3:00 PM EDT Respiratory Rate 20 03/13/2025 3:00 PM EDT Oxygen Saturation 96% 03/13/2025 3:00 PM EDT Inhaled Oxygen Concentration - - Weight 73.9 kg (163 lb) 03/13/2025 3:00 PM EDT Height 154.9 cm (5' 1 ) 12/09/2024 1:39 PM EST Body Mass Index 30.8 12/09/2024 1:39 PM EST Plan of Treatment Upcoming Encounters Date Type Department Care Team (Late st Contact Info) Description 07/27/2025 10:45 AM EDT Office Visit [facility] MED & PEDS [address] [place] [address] Thaddeus Salazar MD [address] [place] [address] 12/04/2025 12:45 PM EST Office Visit [facility] ADULT DENTAL [address] [place] [address] James Salazar Health Maintenance Due Date Last Done Comments Diabetes: Foot Exam 1950 Zoster Vaccines (3 of 3) 07/21/2021 05/26/2021, 12/12/2012 COVID-19 Vaccine ( season) 2025 06/27/2024, 06/28/2023, 09/06/2021, Additional history exists Eye Exam 07/16/2025 04/30/2023 Diabetes: Hemoglobin A1C 08/19/2025 05/2 025, 11/08/2023, 09/28/2023, Additional history exists Dental X-Ray: Bitewings 11/18/2025 11/17/2024, 10/25 Dental Oral Exam 12/03/2025 06/01/2025, 07/2025, 10/25/2022 Dental Prophylaxis 12/03/2025 06/01/2025, 0 11/17/2024, 04/17/2023, Additional history exists Alcohol/Substance Use Screening 12/09/2025 12/09/2024 Depression Screening 12/09/2025 12/09/2024, 12/10/19 SDOH Screening 12/09/2025 12/09/2024 Diabetes: Urine Protein Screening 02/16/2026 02/16/2025, 04/01/2021, 01/13/2020 Lipid Panel 02/16/2026 02/16/2025, 01/06, 04/01/2021, Additional history exists Tobacco Screening 06/05/2026 06/05/2025 DTaP/Tdap/Td Vaccines (2 - Td or Tdap) 04/17/2027 04/17/2017, 06/18/2001 Dental X-Ray: Full Mouth 11/18/2027 11/17/2024 RSV Patients and Patients Aged 60 years or older Completed 08/13/2023 Pneumococcal Vaccine: 50+ Years Completed 05/15/2024, 04/17/2017, 06/28/2009, Additional history exists Influenza Vaccine Completed 06/15/2025, , 05/15/2024, Additional history exists HIB Vaccines Aged Out [...] patient's age to complete this topic Meningococcal B Vaccine Aged Out No l onger eligible based on patient's age to complete [...] Procedure Name Priority Date/Time Associated Diagnosis Comments 19 B(V) RESIN-BASED COMPOSITE - 1 SURF, POSTERIOR Routine 06/05/2025 9:30 AM EDT ORAL HYGIENE INSTRUCTIONS Routine 06/01/2025 2:00 PM EDT PROPHYLAXIS - ADULT Routine 06/01/2025 2 :00 PM EDT CASE PRESENTATION, DETAILED AND EXTENSIVE TREATMENT PLANNING Routine 06/01/2025 2:00 PM EDT PERIODIC ORAL EVALUATION - ESTABLISHED PATIENT Routine 06/01/2025 2:00 PM EDT CASE PRESENTATION, DETAILED AND EXTENSIVE TREATMENT PLANNING Routine 06/01/2025 2:00 PM EDT HEMOGLOBIN A1C Routine 02/16/2025 9:07 AM EDT Type 2 diabetes mellitus without complication, without long-term current use of insulin ([facility]) LIPID PANEL, STANDARD Routine 02/16/2025 9:07 AM EDT Type 2 diabetes mellitus without complication, without long-term current use of insulin ([facility]) ALBUMIN, RANDOM URINE W/CREATININE Routine 02/16/2025 12:00 AM EDT Type 2 diabetes mellitus without complication, without long-term current use of insulin ([facility]) INTRAORAL - COMPLETE SERIES OF RADIOGRAPHIC IMAGES Routine 11/17/2024 1:00 PM EST HM DIABETES EYE EXAM Routine 04/30/2023 from Last 3 Months or Most Recently Relevant to Health Maintenance Results * (ABNORMAL) Hemoglobin A1c (02/16/2025 9:07 AM EDT) Hemoglobin A1c 6.6(H) <6.0 % [facility] Comment:Hemoglobin A1C Refer ence Range Adults: 4.8 - 6.0 % Non diabetic: < 6.0 % Goal: < 7.0 %Additional Action Suggested: > 8.0 %Note: Hemoglobin A1c results are invalid for patients with abnormal amounts of HbF. Blood transfusions may impact the HbA1c concentration in the patient sample. Estimated Average Glucose 143 mg/dL [facility] Comment:eAG = Estimated ave rage glucose which is %A1C expressed asaverage glucose, using the formula of the G7N-BhukdadWdevxoo Glucose study (ADAG), Diabetes Care, Vol.31,#8,May. 2007 Blood Venous blood specimen / Unknown 02/16/2025 9:07 AM EDT 02/16/2025 9:58 AM EDT Nile Lopez MD LAB BLOOD ORDERABL ES Final Result Performing Organization Address [facility] Co de Phone Number [facility] [address] [place] [phone] * (ABNORMAL) Lipid Panel, Standard (02/16/2025 9:07 AM EDT) Triglycerides 209(H) <150 mg/dL [facility] Comment:Desirable Triglyceri de: less than 150 mg/dLBorderline High Triglyceride 150-199 mg/dLHigh Triglyceride: 200-499 mg/dLVery High Triglyceride: greater than or equal to 5OO mg/dL Cholesterol 208(H) <200 mg/dL [facility] Comment:Desirable Cholestero l: less than 200 mg/dLBorderline High Cholesterol: 200-239 mg/dLHigh Cholesterol: greater than 239 mg/dL LDL Cholesterol Calculated 103(H) <100 mg/dL [facility] Comment:Desirable LDL: less than 100 mg/dLNear Optimal/Above Optimal LDL: 110- 129 mg/dLBorderline High LDL: 130-159 mg/dLHigh LDL: 160-189 mg/dLVery High LDL: greater than or equal to 190 mg/dL HDL Cholesterol 64 >40 mg/dL [facility] Comment:Desirable HDL: great er than 40 mg/dL Note: This HDL assay may give artificially low results in patients with liver disease. Blood Venous blood specimen / Unknown 02/16/2025 9:07 AM EDT 02/16/2025 10:03 AM EDT us Nile Lopez MD LAB BLOOD ORDERABL ES Final Result Performing Organization Address [facility]/ZIP Co de Phone Number [facility] [address] [place] [phone] * Albumin, Random Urine W/Creatinine (02/16/2025 12:00 AM EDT) Creatinine, Urine 166.42 mg/dL [facility] Microalbumin Urine 33.0 mg/L [facility] Microalbum Creatinine Ratio Ur 19.8 <30 ug/mg cr [facility] Comment:Albumin/Creatinine R atio Reference Ranges: Normal: < 30 ug/mg creatinine Microalbuminuria: 30 - 300 ug/mg creatinineClinical Albuminuria: > 300 ug/mg creatinine Urine (Urine, Random) 02/16/2025 02/16/2025 us Nile Lopez MD LAB URINE ORDERABL ES Final Result [facility] [address] [place] [address] [phone] * Diabetes Eye Exam (04/30/2023) Eye Exam Normal Normal Narrative Thaddeus Salazar MD - 04/30/2023 Eye exam done at [facility] by Dr Al Gregory. No diabetic retinopathy or macular edema. us Thaddeus Salazar MD HEALTH MAINTENANCE Final Re sult from Last 3 Months or Most Recently Relevant to Health Maintenance Insurance [facility] STANDARD [facility] DUAL COMPLETE DENTAL - [facility] Care Teams Teaching Pastor Relationship Specialty Start Date End Date Thaddeus Salazar MD [address] [place] [phone] PCP - General Internal Medicine 08/21/13 [employer] 08/27/24
--- OUTSIDE RECORDS SUMMARY | 2025-07-07 12:49 | XMS_ITS | Encounter Summary ---
Author Organization [employer] Address [address] [place] [address] [address], [place] [address] Care Team Providers Care Executive Sales Manager Name Role Phone Thaddeus Salazar MD Primary Care Provider [phone] Encounter Details Date Type Department Care Team ([facility] Contact Info) Description 07/03/2023 Orders Only [facility] MED & PEDS [address] [place], [place] [phone] Thaddeus Salazar MD [address] [place] [address] Screening for colon cancer Social History Tobacco [...] Upcoming Encounters Date Type Department Care Team ([facility] Contact Info) Description 07/27/2025 10:45 AM EDT Office Visit [facility] MED & PEDS [address] [place], [place] [phone] Thaddeus Salazar MD [address] [place] [address] 12/04/2025 12:45 PM EST Office Visit [facility] ADULT DENTAL [address] [place] [address] James Salazar documented as of this encounter Visit Diagnoses Diagnosis Screening for colon cancer Special screening for malignant neoplasms, colon documented in this encounter Additional Health Concerns Assessment Noted Time PHQ-9 Depression Total Score: 0 01/31/20 23 2:06 PM EDT documented as of this encounter Care Teams Executive Sales Manager Relationship Specialty Start Date End Date Thaddeus Salazar MD [address] [place] [address] PCP - General Internal Medicine 08/21/13 Brent MORIN 08/21/24 09/17/24 [employer] 08/27/24 documented as of this encounter
--- OUTSIDE RECORDS SUMMARY | 2025-07-07 12:49 | XMS_ITS | Encounter Summary ---
Author Organization [employer] Address [address] [facility] 7t [place] [address] Care Team Providers Care Cook Roast Name Role Phone Thaddeus Salazar MD Primary Care Provider [phone] Encounter Details Date Type Department Care Team ([facility] st Contact Info) Description 07/31/2023 Telephone [facility] MEDICINE [address] [place] [address] Thaddeus Salazar MD [address] [place] [address] Social History Tobacco Use Types Packs/Day Years [...] Description 07/27/2025 10:45 AM EDT Office Visit [facility] MED & PEDS [address] [place] [address] Thaddeus Salazar MD [address] [place] [address] 12/04/2025 12:45 PM EST Office Visit [facility] ADULT DENTAL [address] [place] [address] James Salazar documented as of this encounter Visit Diagnoses Not on filedocumented in this encounter Additional Health Concerns Assessment Noted Time PHQ-9 Depression Total Score: 0 01/31/20 23 2:06 PM EDT documented as of this encounter Care Teams Cook Roast Relationship Specialty Start Date End Date Thaddeus Salazar MD [address] [place] [address] PCP - General Internal Medicine 08/21/13 Brent MORIN 08/21/24 09/17/24 [employer] 08/27/24 documented as of this encounter
--- OUTSIDE RECORDS SUMMARY | 2025-07-07 12:49 | XMS_ITS | Encounter Summary ---
Author Organization [employer] Address [address] [place] [address] [address], [place] [address] Care Team Providers Care Frame Pulley Mortising Machine Operator Name Role Phone Thaddeus Salazar MD Primary Care Provider [phone] Reason for Visit * Reason Onset Date Comments Med Refill 11/03/2022 Encounter Details Date Type Department Care Team ([facility] Contact Info) Description 11/03/2022 Telephone [facility] PEDS [address] [place] [address] Thaddeus Salazar MD [address] [place] [address] Med Refill Social History Tobacco Use Types [...] Upcoming Encounters Date Type Department Care Team ([facility] Contact Info) Description 07/27/2025 10:45 AM EDT Office Visit [facility]EDS [address] [place] [address] Thaddeus Salazar MD [address] [place] [address] 12/04/2025 12:45 PM EST Office Visit [facility] ADULT DENTAL [address] [place] [address] James Salazar documented as of this encounter Visit Diagnoses Not on filedocumented in this encounter Care Teams Frame Pulley Mortising Machine Operator Relationship Specialty Start Date End Date Thaddeus Salazar MD [address] [place] [address] PCP - General Internal Medicine 08/21/13 Brent MORIN 08/21/24 09/17/24 [employer] 08/27/24 documented as of this encounter
--- OUTSIDE RECORDS SUMMARY | 2025-07-07 12:49 | XMS_ITS | Encounter Summary ---
Author Organization [employer] Address [address] [facility] 7t [place] [address] Care Team Providers Care Protective Services Officer Name Role Phone Thaddeus Salazar MD Primary Care Provider [phone] Reason for Visit * Reason Onset Date Comments FYI 09/01/2024 Encounter Details Date Type Department Care Team ([facility] Contact Info) Description 09/01/2024 Telephone [facility] MEDICINE [address] [place] [address] Thaddeus Salazar MD [address] [place], [place] [phone] FYI Social History Tobacco Use Types Packs/Day [...] - 09/01/2024 2:54 PM EST Tc from [facility] with [employer] stating that pt does not need Physical Therapy anymore due to pt being at their Baseline. Contact pt at [phone] documented in this encounter Plan of Treatment Upcoming Encounters Date Type Department Care Team ([facility] st Contact Info) Description 07/27/2025 10:45 AM EDT Office Visit [facility] MED & PEDS [address] [place] [address] Thaddeus Salazar MD [address] [place] [address] 12/04/2025 12:45 PM EST Office Visit [facility] ADULT DENTAL [address] [place] [address] James Salazar documented as of this encounter Visit Diagnoses Not on filedocumented in this encounter Additional Health Concerns Assessment Noted Time PHQ-9 Depression Total Score: 0 01/31/20 23 2:06 PM EDT documented as of this encounter Care Teams Protective Services Officer Relationship Specialty Start Date End Date Thaddeus Salazar MD [address] [place] [address] PCP - General Internal Medicine 08/21/13 Brent MORIN 08/21/24 09/17/24 [employer] 08/27/24 documented as of this encounter
--- OUTSIDE RECORDS SUMMARY | 2025-07-07 12:49 | XMS_ITS | Encounter Summary ---
Author Organization [employer] Address [address] [facility] 7t [place] [address] Care Team Providers Care Weapons Mechanic Name Role Phone Thaddeus Salazar MD Primary Care Provider [phone] Encounter Details Date Type Department Care Team ([facility] Contact Info) Description 02/04/2024 Orders Only [facility] MED & PEDS [address] [place], [place] [phone] Thaddeus Salazar MD [address] [place] [address] Social History Tobacco Use Types Packs/Day Years [...] 10:45 AM EDT Office Visit [facility] MED & PEDS [address] [place] [address] Thaddeus Salazar MD [address] [place] [address] 12/04/2025 12:45 PM EST Office Visit [facility] ADULT DENTAL [address] [place] [address] James Salazar documented as of this encounter Visit Diagnoses Not on filedocumented in this encounter Additional Health Concerns Assessment Noted Time PHQ-9 Depression Total Score: 0 01/31/20 23 2:06 PM EDT documented as of this encounter Care Teams Weapons Mechanic Relationship Specialty Start Date End Date Thaddeus Salazar MD [address] [place] [address] PCP - General Internal Medicine 08/21/13 Brent MORIN 08/21/24 09/17/24 [employer] 08/27/24 documented as of this encounter
--- OUTSIDE RECORDS SUMMARY | 2025-07-07 12:49 | XMS_ITS ---
Author Name Kevin Sauceda NP Address [address] [place] [address] Phone [phone] [facility] Care Team Providers Care Publications Manager Name Role Phone Sohail Kevin Unavailable [phone] Unavailable Unavailable Unavailable Reason for Referral Not [...] Doxycycline Hyclate 100 mg Cap Take 1 ta b PO q12h x 7 days 2024-08-16 No Data Available predniSONE 20 mg Tab Take 1 tablet twice daily for 5 days. 2024-08-16 2025-01-27 Mucinex 600 mg Tab ER 12hr 1 tablets ora lly every 12 hours as needed 2024-08-16 2025-01-27 traZODone 50 mg Tab TAKE 1 TABLET BY ISABELA TH EVERY DAY AT BEDTIME 2024-02-29 No Data Available OneTouch Delica Plus Lancet3 0G Miscellaneous USE DIRECTED EVERY DAY 2023-08-21 No Data Availa ble Calamine 8-8 % Lotion 1 APPLICATION TOPI [...] NEEDED FOR PAIN 2024-12-18 No Data Available Cyclobenzaprine 5 mg Tab 1 tablet PO Q12 PRN for muscle spams 2025-03-09 No Data Available Omeprazole 20 mg Tab delayed rel No Data Available 2025-02-04 No Data Available Problem List Problem Status Onset Date Resolved Date Synopsis COPD (chronic obstructive pulmonary disease) Active 2024-08-19 N/A The patient c alled the acute line after hours, and had [...] hours as needed. Under the care of plasma specialist.- Flonase 50 mg BID prescribed due to nasal congestion -Mucinex 600 mg BID x 7 days due to chest congestion and cough - Prednose and doxycycline prescribed due to exacerbation. - Patient will continue to follow up with plasma specialist- Patient will contact [facility] if exacerbation gets worse-Appointment scheduled with SAMIRA on 08/20 for IV/[facility]08/20/24: Member called acute line on 08/16/2024 with [...] would prefer for ER transfer for monitoring. Other problems related to medical facilities and other health care Active 2024-08-20 N/A ASTHMA CONT INGENCY PLANLast updated: 08/20/2024Member to call for the following symptoms: Albuterol not working/ Breathing loudly / WheezingPlanned intervention: Increase use of albuterol inhaler to q2h PRN cough, breathlessness Asthma Active 2024-08-16 N/A The patient ca lled the acute line after hours, and had [...] hours as needed. Under the care of plasma specialist.- Flonase 50 mg BID prescribed due to nasal congestion -Mucinex 600 mg BID x 7 days due to chest congestion and cough - Prednose and doxycycline prescribed due to exacerbation. - Patient will continue to follow up with plasma specialist- Patient will contact [facility] if exacerbation gets worse-Appointment scheduled with [...] would prefer for ER transfer for monitoring. Hypertensive heart disease with heart failure Active 2024-08-19 N/A She is unsure if she has HF. She reports she does follow up with the poultryman, and last saw him in March 2024. [...] your healthcare provider regularly to ensure effective management Arthritis Active 2025-01-27 N/A Low back pain, her PCP told her she has arthritisRx: Tylenol PRN, MotrinFall precautions, uses cane/walker Meningioma Active 2025-01-27 N/A Benign meningi omaPCP and neuro follow up Type 2 diabetes mellitus with Hyperlipidemia Active 2024-08-19 N/A Last A1C was in the 6 range or 5 range, as per patient from March 2024. Ezetimibe Last diabetic eye exam was in June [...] endocrinology and CB as instructed and scheduled guidelines. Chronic back pain with right-sided sciatica Active 2025-03-09 N/A 03/09/25: R x: Cyclobenzaprine 5 mg Tab-1 tablet PO Q12 PRN for muscle spams. F/U with Ortho. continue taking ibuprofen, Salonpas, apply heat. Contact [facility] 30/04 for any new, worsening or continued symptoms. Encounters Encounters Type Facility Date of Service Diagnosis/Co mplaint No Data Available [facility] Unspecified asthma, uncompli cated No Data Available [facility] [place]/16/2024 No Data Available [facility] [place]/2024 No Data Available [facility] [place] 08/19/2024 Unspecified asthma, uncompli cated No Data Available [facility] [place] 08/19/2024 No Data Available [facility] [place]/2024 No Data Available [facility] [place] 08/[place]/2024 New patient,40-59min; chronic exacerbation, 2 stable chronic or 1 acute illness add add modifier 95 for video (do not use for phone, instead use [id number]) [facility] [place] 08/20/2024 Unspecified asthma, uncomplicatedType 2 diabetes mellitus without complicationsHypertensive heart disease with heart failureHeart failure, unspecifiedChronic obstructive pulmonary disease, unspecifiedOther problems related to medical facilities and other health care New patient,40-59min; chronic exacerbation, 2 stable chronic or 1 acute illness add add modifier 95 for video (do not use for phone, instead use 08885-08) [facility] [place] 08/20/20[place] New patient,40-59min; chronic exacerbation, 2 stable chronic or 1 acute illness add add modifier 95 for video (do not use for phone, instead use 44693-46) [facility] [place] 08/20/2024 New patient,40-59min; chronic exacerbation, 2 stable chronic or 1 acute illness add add modifier 95 for video (do not use for phone, instead use 72911-23) [facility] [place] 08/20/2024 New patient,40-59min; chronic exacerbation, 2 stable chronic or 1 acute illness add add modifier 95 for video (do not use for phone, instead use 81210-59) [facility] [place] 08/20/2024 New patient,40-59min; chronic exacerbation, 2 stable chronic or 1 acute illness add add modifier 95 for video (do not use for phone, instead use 36043-75) [facility] [place] 08/20/2024 New patient,40-59min; chronic exacerbation, 2 stable chronic or 1 acute illness add add modifier 95 for video (do not use for phone, instead use 78253-71) [facility] [place] 08/20/2024 New patient,40-59min; chronic exacerbation, 2 stable chronic or 1 acute illness add add modifier 95 for video (do not use for phone, instead use 85383-40) [facility] [place] 08/20/2024 New patient,40-59min; chronic exacerbation, 2 stable chronic or 1 acute illness add add modifier 95 for video (do not use for phone, instead use 33958-28) [facility] [place] 08/20/2024 Estab. patient 20-29min; 1 stable chronic or 2 minor; add add modifier 95 for video, modifier 93 for phone [facility] [place] 01/27/2025 Unspecified asthma, uncomplicatedHeart failure, unspecifiedHypertensive heart disease with heart failureChronic obstructive pulmonary disease, unspecifiedOther problems related to medical facilities and other health careUnspecified osteoarthritis, unspecified siteType 2 diabetes mellitus with other specified complicationHyperlipidemia, unspecifiedBenign neoplasm of meninges, unspecified Estab. patient 20-29min; 1 stable chronic or 2 minor; add add modifier 95 for video, modifier 93 for phone [facility] [place] 01/27/2025 Estab. patient 20-29min; 1 stable chronic or 2 minor; add add modifier 95 for video, modifier 93 for phone [facility] [place] 01/27/20[place] Estab. patient 20-29min; 1 stable chronic or 2 minor; add add modifier 95 for video, modifier 93 for phone [facility] [place] 01/27/2025 Estab. patient 20-29min; 1 stable chronic or 2 minor; add add modifier 95 for video, modifier 93 for phone [facility] [place] 01/27/2025 Estab. patient 20-29min; 1 stable chronic [...] [facility]2025 Estab. patient 10-29min; 1 minor problem; add add modifier 95 for video, modifier 93 for phone [facility] [place] 03/09/2025 Dorsalgia, unspecifiedOther chronic painSciatica, right side Estab. patient 10-29min; 1 minor problem; add add modifier 95 for video, modifier 93 for phone [facility] [place] 03/09/2025 Estab. patient 10-29min; 1 minor problem; add add modifier 95 for video, modifier 93 for phone [facility] [place] 03/09/2025 Estab. patient 10-29min; 1 minor problem; add add modifier 95 for video, modifier 93 for phone [facility] [place] 03/09/2025 Vital Signs Date of Collection Vitals 2024-08-16 [...] - 67.0 mm[Hg]BP Systolic - 127.0 mm[Hg] 2025-03-09 14:18:39 BP Diastolic - 64.0 mm[Hg]BP Systolic - 144.0 mm[Hg]Heart Rate - 76.0 /minBody Temperature - 36.5 CelPain Scale - 10.0 {score} Social History Social History Social History Observation Description Effec tive Time Current Smoking Status Never smoker 2025-06-10 0 Sex Female History of Procedures Procedures Service Procedure code Service date Servicing provider Phone# No Data Available [id number] 2024-08-16 No Data Available No Data Available SBP 130-139 (3075F) 3075F 2024-08-16 No Data Availabl e No Data Available DBP <80 (3078F) 3078F 2024-08-16 No Data Available No Data Available No Data Available [id number] 2024-08-20 No Data Available No Data Available [...] (do not use for phone, instead use 50418-00) 42774 2024-08-20 No Data Available No Data Availa [...] able Advance care planning discussed and documented advance care plan or surrogate decision-maker was [...] 95 for video, modifier 93 for phone [id number] 2025-01-27 No Data Available No Data Availa [...] ble Advance care planning discussed and documented advance care plan or surrogate decision-maker was documented in the medical record. (1123F) 1123F 2025-01-27 No Data Available No Data Availa ble Pain Assessment - NO pain present (1126F) 1126F 2025-01-27 No Data Available No Data A vailable SBP < 130 (3074F) 3074F 2025-01-27 No Data Available No Data Available DBP <80 (3078F) 3078F 2025-01-27 No Data Available No Data Available Estab. patient 10-29min; 1 minor problem; add add modifier 95 for video, modifier 93 for phone [id number] 2025-03-09 No Data Available No Data Availa ble Pain Assessment - Pain Documented on a Pain Scale (1125F) 1125F 2025-03-09 No Data Available No Data Asmita ilable SBP >= 140 3077F 2025-03-09 No Data Available No Data Available DBP <80 (3078F) 3078F 2025-03-09 No Data Available No Data Available Functional [...] hours as needed. Under the care of plasma specialist.- Flonase 50 mg BID prescribed due to nasal congestion -Mucinex 600 mg BID x 7 days due to chest congestion and cough - Prednose and doxycycline prescribed due to exacerbation. - Patient will continue to follow up with plasma specialist- Patient will contact [facility] if exacerbation gets worse-Appointment scheduled with [...] hours as needed. Under the care of plasma specialist.- Flonase 50 mg BID prescribed due to nasal congestion -Mucinex 600 mg BID x 7 days due to chest congestion and cough - Prednose and doxycycline prescribed due to exacerbation. - Patient will continue to follow up with plasma specialist- Patient will contact [facility] if exacerbation gets worse-Appointment scheduled with [...] 2 diabetes mellitus without complication, unspecified whether continuous churn buttermaker insulin useLast A1C was in the 6 [...] reports she does follow up with the poultryman, and last saw him in March 2024. [...] hours as needed. Under the care of plasma specialist.- Flonase 50 mg BID prescribed due to nasal congestion -Mucinex 600 mg BID x 7 days due to chest congestion and cough - Prednose and doxycycline prescribed due to exacerbation. - Patient will continue to follow up with plasma specialist- [facility] if exacerbation gets worse-Appointment scheduled with SAMIRA [...] the following symptoms: Albuterol not working/ Breathing loudly / WheezingPlanned intervention: Increase use of albuterol inhaler to q2h PRN cough, breathlessness 2025-01-27 07:00:36 AsthmaType 2 diabete s mellitus without complication, unspecified whether continuous churn buttermaker insulin useHypertensive heart disease with heart failureCOPD (chronic obstructive pulmonary disease)Other problems related to medical facilities and other health careArthritisMeningioma 2025-03-09 14:18:39 Chronic back pain wi th right-sided sciatica Plan of Care Date of Service Plans [...] hours as needed. Under the care of plasma specialist.- Flonase 50 mg BID prescribed due to nasal congestion -Mucinex 600 mg BID x 7 days due to chest congestion and cough - Prednose and doxycycline prescribed due to exacerbation. - Patient will continue to follow up with plasma specialist- [facility]-Appointment scheduled with SAMIRA [...] 80-89 (3079F)Continue to see PCP. [facility] or disease [...] record (1158F)Advance care planning discussed and documented advance care plan or surrogate decision-maker was documented in the medical record. (1123F)Estab. patient 20-29min; 1 stable chronic or 2 minor; add add modifier 95 for video, modifier 93 for phoneMedication List Documented (1159F)Medication Review by prescribing provider or pharmacist documented (1160F)SBP < 130 (3074F)Pain Assessment - NO pain present (1126F)DBP <80 (3078F)Continue to see PCP. [facility] any [facility] or disease [...] hours as needed. Under the care of plasma specialist.- Flonase 50 mg BID prescribed due to nasal congestion -Mucinex 600 mg BID x 7 days due to chest congestion and cough - Prednose and doxycycline prescribed due to exacerbation. - Patient will continue to follow up with plasma specialist- Patient will [facility] if exacerbation gets worse-Appointment scheduled with [...] reports she does follow up with the poultryman, and last saw him in March 2024. [...] hours as needed. Under the care of plasma specialist.- Flonase 50 mg BID prescribed due to nasal congestion -Mucinex 600 mg BID x 7 days due to chest congestion and cough - Prednose and doxycycline prescribed due to exacerbation. - Patient will continue to follow up with plasma specialist- Patient will [facility] if exacerbation gets worse-Appointment scheduled with [...] the following symptoms: Albuterol not working/ Breathing loudly / WheezingPlanned intervention: Increase use of albuterol inhaler to q2h PRN cough, breathlessnessLow back pain, her PCP told her she has arthritisRx: Tylenol PRN, MotrinFall precautions, uses cane/walkerBenign meningiomaPCP and neuro follow up 2025-03-09 14:18:39 Televideo 10-29min; 1 minor problem; add add modifier 95 for video, modifier 93 for phoneContinue to see PCP. Follow-up with [facility] as needed for any acute or disease education needs that may arise 30/04.03/09/25: Rx: Cyclobenzaprine 5 mg Tab-1 tablet PO Q12 PRN for muscle spams. F/U with Ortho. continue taking ibuprofen, Salonpas, apply heat. Contact [facility] 30/04 for any new, worsening or continued symptoms. Goals Date Goal 2024-08-20 Continue taking medi cations as directed and keep all follow up appointments with established PCP and Specialist. Health Concerns Date Concern 2025-03-09 Visit completed via audio by telephone. Patient/Guardian agreed to visit via telehealth.Time spent in visit: 5:22 minutes 2025-03-09 Today, patient has malia cheatham complaint of: painSummary of acute complaint: Member reports chronic back pain that has gotten worse in the past 3 days. Reports pain is 10/10 and starts in lower back and radiates down her right leg making it difficult to move about. Taken prednisone, ibuprofen, Salonpas. Denies recent injury, fall, CP, SOB, fever, chills or any other complications at this time. negative restorer note reviewed.
--- OUTSIDE RECORDS SUMMARY | 2025-07-07 12:49 | XMS_ITS | Encounter Summary ---
Author Organization [email or web address] Address [address] [facility] 7t [place] [address] Care Team Providers Care Manager Call Center Name Role Phone Thaddeus Salazar MD Primary Care Provider [phone] Encounter Details Date Type Department Care Team ([facility] Contact Info) Description 11/04/2024 Orders Only [facility] CHC MED & PEDS [address] [place], [place] [phone] Thaddeus Salazar MD [address] [place] [address] Need for antibiotic prophylaxis for dental procedure [...] Description 07/27/2025 10:45 AM EDT Office Visit [facility] MED & PEDS [address] [place] [address] Thaddeus Salazar MD [address] [place], [place] [phone] 12/04/2025 12:45 PM EST Office Visit [facility] ADULT DENTAL [address] [place] [address] James Salazar documented as of this encounter Procedures Procedure Name Priority Date/Time Associated Diagnosis Comments XR CHEST 2 VIEWS Routine 12/01/2024 9:33 AM EST documented in this encounter Results * XR Chest 2 Views (12/01/2024 9:33 AM EST) Anatomical Region Laterality Modality Chest Radiographic Latrice ging 12/01/2024 9:33 AM EST Narrative 12/02/2024 11:03 AM EST [facility] [address] [place] [address] [place] [id number] XRay Report Signed Patient: Charleen Urena MR#: [id number] : 1940 Acct:[id number] Age/Sex: 84 / F ADM Date: 12/01/24 Loc: HO.HMGCX Attending Dr: Hans Fontenot MD Ordering Physician: Hans Fontenot MD Date of Service: 12/01/24 Procedure(s): XR chest 2V Accession Number(s): [id number] cc: Thaddeus Salazar MD; Hans Fontenot MD [...] 12/02/24 1100 DD/ 0933 TD/TT: 12/01/24 0936 Supplier Relationship Director: Procedure Note Donotuseinterpreter, Image - 12/02/2024 [facility] Primary Care [address] [place] [address] [place] [address] XRay Report Signed Patient: Charleen Urena MMR#: [id number] : 1Acct:[id number] Age/Sex: 84 / FADM Date: 12/01/24 Loc: .HMGCX Attending Dr: Hans Fontenot MD Ordering Physician: Hans Fontenot MD Date of Service: 12/01/24 Procedure(s): XR chest 2V Accession Number(s): [id number] cc: Thaddeus Salazar MD; Hans Fontenot MD [...] 12/02/24 1100 DD/ 0933 TD/TT: 12/01/24 0936 Supplier Relationship Director: [facility] External Provider IMG XR PROCEDURES Final Result documented in this encounter Visit Diagnoses Diagnosis Need for antibiotic prophylaxis for dental procedure- Primary documented in this encounter Additional Health Concerns Assessment Noted Time PHQ-9 Depression Total Score: 0 01/31/20 23 2:06 PM EDT documented as of this encounter Care Teams Manager Call Center Relationship Specialty Start Date End Date Thaddeus Salazar MD [address] [place] [address] PCP - General Internal Medicine 08/21/13 [employer] 08/27/24 documented as of this encounter
--- OUTSIDE RECORDS SUMMARY | 2025-07-07 12:49 | XMS_ITS | Encounter Summary ---
Author Organization [employer] Address [address] [facility] [address] 7[address] [place] [address] Care Team Providers Care Plumbing Assembler Installer Name Role Phone Thaddeus Salazar MD Primary Care Provider [phone] Reason for Visit * Reason Onset Date Comments rs pre med needed 10/30/2024 Encounter Details Date Type Department Care Team ([facility] st Contact Info) Description 10/30/2024 Telephone C [facility] ADULT DENTAL [address] [place] [address] Cindy Garcia rs pre med needed Social [...] the past 12 months, has t he [employer], [employer], oil or water [employer] threatened to shut off services in your [...] 10:45 AM EDT Office Visit [facility] MED & PEDS [address] [place] [address] Thaddeus Salazar MD [address] [place] [address] 12/04/2025 12:45 PM EST Office Visit [facility] ADULT DENTAL [address] [place] [address] James Salazar documented as of this encounter Visit Diagnoses Not on filedocumented in this encounter Additional Health Concerns Assessment Noted Time PHQ-9 Depression Total Score: 0 01/31/20 2:06 PM EDT documented as of this encounter Care Teams Plumbing Assembler Installer Relationship Specialty Start Date End Date Thaddeus Salazar MD [address] [place] [address] PCP - General Internal Medicine 08/21/13 [employer] 08/27/24 documented as of this encounter
--- OUTSIDE RECORDS SUMMARY | 2025-07-07 12:49 | XMS_ITS | Encounter Summary ---
Author Organization [employer] Address [address] [facility] 7 [place] [address] Care Team Providers Care Manufacturing Engineering Technician Name Role Phone Thaddeus Salazar MD Primary Care Provider [phone] Reason for Visit * Reason Onset Date Comments Triage 11/16/2022 Encounter Details Date Type Department Care Team ([facility] Contact Info) Description 11/16/2022 Telephone [facility] CHC MED & PEDS [address] [place], [place] [phone] Thaddeus Salazar MD [address] [place] [address] Triage Social History Tobacco Use Types Packs/Day [...] activities. given appt tomorrow with [facility] at 11:00 for exam. advised home care: [...] [facility] MED & PEDS [address] [place] [address] Thaddeus Salazar MD [address] [place] [address] 12/04/2025 12:45 PM EST Office Visit [facility] ADULT DENTAL [address] [place] [address] James Salazar documented as of this encounter Visit Diagnoses Not on filedocumented in this encounter Care Teams Manufacturing Engineering Technician Relationship Specialty Start Date End Date Thaddeus Salazar MD [address] [place] [address] PCP - General Internal Medicine 08/21/13 Brent MORIN 08/21/24 09/17/24 [employer] 08/27/24 documented as of this encounter
--- OUTSIDE RECORDS SUMMARY | 2025-07-07 12:49 | XMS_ITS | Encounter Summary ---
Author Organization [employer] Address [address] [facility] 7t [place] [address] Care Team Providers Care Professional Healthcare Representative Name Role Phone Thaddeus Salazar MD Primary Care Provider [phone] Reason for Visit * Reason Onset Date Comments FYI 10/13/2024 Encounter Details Date Type Department Care Team ([facility] Contact Info) Description 10/13/2024 Telephone [facility] MEDICINE [address] [place] [address] Thaddeus Salazar MD [address] [place], [place] [phone] FYI Social History Tobacco Use Types Packs/Day [...] - 10/13/2024 3:17 PM EST Tc from [employer] stating that pt has reach all goals. documented in this encounter Plan of Treatment Upcoming Encounters Date Type Department Care Team (Late st Contact Info) Description 07/27/2025 10:45 AM EDT Office Visit [facility] MED & PEDS [address] [place] [address] Thaddeus Salazar MD [address] [place] [address] 12/04/2025 12:45 PM EST Office Visit [facility] ADULT DENTAL [address] [place] [address] James Salazar documented as of this encounter Visit Diagnoses Not on filedocumented in this encounter Additional Health Concerns Assessment Noted Time PHQ-9 Depression Total Score: 0 01/31/20 23 2:06 PM EDT documented as of this encounter Care Teams Professional Healthcare Representative Relationship Specialty Start Date End Date Thaddeus Salazar MD [address] [place] [address] PCP - General Internal Medicine 08/21/13 [employer] 08/27/24 documented as of this encounter
== END 2025-07-06 11:21 | disposition home or self-care (01) ==
LOC: HO.HOSX 11:20
PROVIDERS: Visit Provider Physician Assistant
DX: M70.61 Trochanteric bursitis, right hip (principal); M25.551 Pain in right hip
CPT/HCPCS: 20610; 72170; 99212; J0665; J1100; J2003

== ENCOUNTER → 2025-07-06 11:21 | Outpatient (BNV) | payer OTHER, SELFPAY | PROVIDERS: Visit Provider Radiology Diagnostic Radiology | DX: M16.12 Unilateral primary osteoarthritis, left hip (principal) | CPT/HCPCS: 72170 ==

== ENCOUNTER 2025-08-25 11:00 | Outpatient (RCR) | payer OTHER, SELFPAY ==
--- NOTE | 2025-08-06 15:03 | MHC.PT.EP ---
[facility] [place] [facility] [place] [facility] [place] Office [address] Reji Null [address] [phone] F: [phone] F: [phone] F: [phone] F: [phone] Physical Therapy Plan of Care Date of Evaluation: 08/06/25 Date of Surgery: n/a Diagnosis: trochanteric bursitis, R hip Assessment: Patient is a 85 year old female presenting to PT with complaints of pain in her R hip. Pt reports onset of pain began about 1 year ago due to a fall. She presents today with impairments in pain, hip ROM, hip strength, lumbar ROM. Pt's current occupation is retired, with baseline physical activities including caring for , ADLs, ambulating. Pt expresses skilled nursing goal of reducing pain, and is motivated to work towards this in PT. Clinical presentation today is most consistent with signs and sx associated with R hip pain and pt will benefit from skilled PT 2 week x 4 weeks to address the following problems and impairments noted upon evaluation: pain, hip ROM, hip strength, lumbar ROM. These problems limit the patient with the following functional activities: caring for , ADLs, ambulating, lifting. The prescribed treatment plan of care is medically necessary. Co-morbidities of DM were identified and taken into considerations of plan of care. Pt was educated on HEP, role of PT, prognosis, POC. Frequency and Duration: The patient will be seen 2 x week x 4 weeks Short Term Goals: Pt will demonstrate ability to move through available lumbar range with min to no pain in 2 weeks. Pt will demonstrate ability to flex and IR her R hip with min to no pain in 2 weeks. Pt will demonstrate hip MMT strength improved by 1/3 grade in 2 weeks. Shelter Goals: Pt will demonstrate improved LEFI score by 9 points in 4 weeks for improved functional mobility. Pt will demonstrate ability to ambulate with min to no pain in 4 weeks for improved access to the community. Pt will demonstrate ability to complete ADLs with min to no pain in 4 weeks for return to PLOF. Treatment Plan: Modalities to reduce pain, spasms and effusion. Manual therapy to restore motion and function. Therapeutic exercise to improve strength and flexibility. Neuromuscular re-education for posture and balance. Therapeutic activities to return to functional activities of daily living. Electronically signed by: Elida Romero, PT, DPT, ATC Please sign and return to therapist. Thank you for your referral.
--- NOTE | 2025-09-02 11:13 | MHC.PT.DC ---
[facility] [place] Office [place] Office [place] Office [address] [phone] F: [phone] F: [phone] F: [phone] F: [phone] Physical Therapy Discharge Report Diagnosis: trochanteric bursitis, R hip Date of Surgery: n/a Date of Evaluation: 08/06/25 Date of Discharge: 09/02/25 Treatments to Date: 4 Cancellations to Date: 0 No Shows to Date: 5 Discharge Status: Visit Non-compliance Discharge Summary: Pt has failed to comply with [facility] attendance policy and no showed 5 appts since start of care. Pt to be d/c per policy. Electronically signed by: Elida Romero, PT, DPT, ATC Please sign and return to therapist. Thank you for your referral.
== END 2025-09-02 11:14 | disposition home or self-care (01) ==
LOC: HO.PTCHIC 11:00
PROVIDERS: PCP Internal Medicine; Visit Provider Physician Assistant
DX: M70.61 Trochanteric bursitis, right hip (principal)
CPT/HCPCS: 97110; 97161

== ENCOUNTER 2025-09-01 11:04 | Outpatient (AMB) | payer OTHER, SELFPAY ==
--- NOTE | 2025-09-01 11:07 | A.OFFVIS_ITS ---
Vital Signs 09/01/25 11:08 Height 5 ft 1 in Weight 169 lb 12.095 oz BMI 32.1 BP 130/54 L Blood Pressure Location Rt brachial Position Sitting Pulse 74 Pulse Source Pulse Oximeter Pulse Oximetry (%) 96 Oxygen Delivery Method Room Air Intake Visit Reasons: Emphysema [place] Required: No Accompanied by: Spouse Allergies ethacrynic acid Allergy (Mild, Verified 09/01/25 11:12) Hives montelukast Allergy (Mild, Verified 09/01/25 11:12) Hives Penicillins (PENICILLINS) Allergy (Mild, Verified 09/01/25 11:12) RASH Sulfa (Sulfonamide Antibiotics) (SULFA(SULFONAMIDE ANTIBIOTICS)) Allergy (Mild, Verified 09/01/25 11:12) RASH latex Allergy (Verified 09/01/25 11:12) rash HPI Comments Details: The patient is an 85 year woman with a lifelong history of asthma. Apparently she has been very symptomatic for about 15 years and then she was evaluated by Pulmonary and her medications were adjusted. She has done a lot better. Back in 2021 the patient did have worsening shortness of breath and did come into the ER. At that point she did have a CT scan of the chest that we personally reviewed. The patient did have some evidence of tree in budding primarily the right lung suggesting bronchiolitis likely from a viral syndrome at that time. In addition to that she has some sub pleural reticulation suggesting of some scarring. The patient has not had any further imaging after that. She has been on the Trelegy inhaler and this has been very affecting beneficial. She does not barely have to use her rescue inhaler at all. She has not required any prednisone or any hospitalizations. Recently she was with her who was going to an appointment and she was closely in the trunk of her car and she banged the top of the head. She ended up going to the ER because she felt weak and nauseous. There she did have a CT scan of the brain. It was noted that she did have a calcified meningioma. This meningioma has been documented before and has not appear to have changed. She needs to follow closely with her primary care or neurologist for this condition. She continues to feel nauseous. She is also feeling dizzy. In the office we did orthostatic vital signs and there were stable. She is going to monitor closely her symptoms and if they get worse or no better she will call her primary care or go seek medical advice. At least from a pulmonary standpoint the patient is stable. Will have her undergo pulmonary function studies prior to her next visit in the springtime. 03/04/2024 the patient is here for a pulmonary follow-up visit. Overall the patient has been doing okay. She has been anxious and gets therefore 's health. She is lost weight. The patient continues use Trelegy with good effect. She still uses her rescue inhaler and sometimes a nebulizer at nighttime because she gets wheezing. She does take Zyrtec. She can not tolerate Singulair. The patient is also having issues with a rash at nighttime. She feels his allergies or bites she is having at nighttime that affect her sleep. Will go ahead and order allergy testing. In the meantime she continues uses Zyrtec. We did review her last CT scan of the chest that she had back in 2021 demonstrating some parenchymal lung disease but minimal. Will go ahead and have her repeat a chest x-ray as well. The patient will follow-up in 6 months or sooner if she develops any worsening issues. 08/22/2024 the patient is here for a pulmonary sick visit. She has been sick now for about a week. Her her also had been sick. She started developing worsening cough chest congestion. She went to the ED. There she had an x-ray. There was an haziness over the left base suggesting potential bronchopneumonia. She does have a productive cough still. She was given a course of azithromycin and low-dose course of prednisone. Although the patient is only partially better. Will give her an extension to the prednisone in addition to that will give another course of azithromycin. She had issues with multiple other antibiotics. Therefore, since this azithromycin seems to be working just continue on with the regimen for little bit longer. The patient also will continue to use the Robitussin DM for her cough medication. She has been using a Trelegy inhaler. I did recommend she can use her nebulizer once or twice a day to help her with her chest tightness and also chest congestion for mucus clearance. The patient will follow-up in September if she is still feeling sickly otherwise she can call and change her appointment to a later date. 09/11/2024 the patient is here for a pulmonary follow-up visit. Overall she is doing better. She completed antibiotics for pneumonia. She also had cough medication. She is back to using her respiratory inhalers with good effect. She is back to her baseline not having any significant complaints at this time. She did have a repeat chest x-ray which I personally reviewed. Looks about the same she does have some chronic changes. The x-rays is a little limited because once AP and once a PA and therefore resulting in a slight difference in presentation. But I do not see any significant findings. The actual final read mentioned that there were some increased markings. Therefore I will have her come back in 3 months and will do a repeat chest x-ray done to make sure that nothing involving. Otherwise patient is without any other complaints. 01/15/2025 the patient is here for a pulmonary follow-up visit. She is feeling well. Denies any shortness of breath. Denies any worsening cough. She does have a dry cough but minimal. She is having more cough and sneezing from allergies. Patient did undergo blood work. He does have an elevated eosinophil count consistent with her allergies. Otherwise blood work is reassuring with an improvement in normalization of her wbc's. The patient also had a chest x-ray. Appears that the hazy opacity she had from the lower respiratory infection back in September have cleared. Overall she feels well she continues the current respiratory therapy. Will plan to follow-up sometime late fall. If she has not issues prior to that she will call for an earlier assessment. 09/01/2025 the patient is here for pulmonary follow-up visit. Overall the socrates ent has been doing fairly well she continues use her respiratory therapy as prescribed. Sometimes she does wake up out of a sound sleep with a cough. But overall better. She is working on trying to sleep elevated. She does have a positional bed. No recent imaging studies to review. She denies any shortness of breath. She has been taking care of her requires auto attention needs. Otherwise the patient is without any other complaints. Will follow-up in 6 months. [facility] Medical History Trigger finger, right middle finger Degenerative joint disease of hand Allergies Rash Asthma Varicose veins of unspecified lower extremity with inflammation Other specific arthropathies, not elsewhere classified, right shoulder Unspecified rotator cuff tear or rupture of right shoulder, not specified as traumatic Hypertension Surgical History History of cardiac catheterization Family History Mother No problems noted. Father No problems noted. Brother Esophageal cancer Social History Alcohol intake: never Patient Tobacco Use Status: Former Tobacco user Years Smoked: 20+ Current occupational status: retired Current occupation: Right Handed Review of Systems Const Denies chills Eyes Denies diplopia ENT Reports dizziness Card Denies chest pain Resp Denies chest congestion, Reports cough and Denies wheezing GI Reports nausea Musc Reports no additional complaints Skin/Breast Denies rash Neuro Reports dizziness Jenaro/Lymph Denies easy bleeding Aller/Immun Denies wheezing Physical Exam Vital Signs: Last Vital Signs Pulse 74 09/01/25 11:08 BP 130/54 L 09/01/25 11:08 Pulse Ox 96 09/01/25 11:08 Oxygen Delivery Method Room Air 09/01/25 11:08 BMI result Body Mass Index 32.1 Const General: comfortable and no acute distress HEENT Head: Yes normocephalic Neck Neck: Yes supple Chest Chest palpation & inspection: normal inspection of the chest Resp Effort & Inspection: normal respiratory effort Auscultation: no rhonchi, no wheezes and diminished lung sounds Cardio Heart sounds: S1 normal heart sound present and S2 normal heart sound present GI Palpation (GI): Soft to palpation Skin General skin exam: no rashes or lesions noted Extrem General: Yes no clubbing, cyanosis or edema Assessment & Plan Assessment & Plan (1) Asthma: Code(s): J45.909 - Unspecified asthma, uncomplicated Category: Medical Qualifiers: Asthma complication type: uncomplicated Asthma persistence: persistent Asthma severity: moderate Qualified Code(s): J45.40 - Moderate persistent asthma, uncomplicated (2) CHF (congestive heart failure): Code(s): I50.9 - Heart failure, unspecified Category: Medical Qualifiers: Heart failure type: other Qualified Code(s): I50.9 - Heart failure, unspecified (3) EVELYN (obstructive sleep apnea): Code(s): G47.33 - Obstructive sleep apnea (adult) (pediatric) Category: Medical (4) Allergies: Code(s): T78.40XA - Allergy, unspecified, initial encounter Category: Medical Qualifiers: Encounter type: initial encounter Qualified Code(s): T78.40XA - Allergy, unspecified, initial encounter Plan cough medicine, OTC continue Trelegy JESUS as needed F/U 6-8 months Coding Level of Care Code Est Pt Level 4 (14982) Diagnoses Moderate persistent asthma without complication J45.40 Asthma complication type: uncomplicated Asthma persistence: persistent Asthma severity: moderate Other congestive heart failure I50.9 Heart failure type: other EVELYN (obstructive sleep apnea) G47.33 Allergy, initial encounter T78.40XA Encounter type: initial encounter Time Spent (min) 16
[2025-09-01 11:08] VITALS: BP 130/54; PULSE 74; O2SAT 96; BMI 32.1
--- OUTSIDE RECORDS SUMMARY | 2025-09-01 14:36 | XMS_ITS | Encounter Summary ---
Author Organization [employer] Address [address] [place] [address] 7 [place] [address] Care Team Providers Care Pantograph Machine Set Up Operator Name Role Phone Thaddeus Salazar MD Primary Care Provider [phone] Encounter Details Date Type Department Care Team (Latest Contact Info) Description 06/14/2021 Abstract [facility] CONVERSIONS Dental, Provider, DDS Social History [...] Care Team (Late st Contact Info) Description 12/04/2025 12:45 PM EST Office Visit [facility] CHC ADULT DENTAL [address] [place] [address] James Salazar documented as of this encounter Visit Diagnoses Not on filedocumented in this encounter Care Teams Pantograph Machine Set Up Operator Relationship Specialty Start Date End Date Thaddeus Salazar MD [address] [place] [address] PCP - General Internal Medicine 08/21/13 Brent MORIN 08/21/24 09/17/24 [employer] 08/27/24 documented as of this encounter
--- OUTSIDE RECORDS SUMMARY | 2025-09-01 14:36 | XMS_ITS | Encounter Summary ---
Author Organization [employer] Address [address] [facility] [address] [place] [address] Care Team Providers Care Make Ready Mechanic Name Role Phone Thaddeus Salazar MD Primary Care Provider [phone] Reason for Referral * Consultation (Routine) - Closed Specialty Diagnoses / Procedures Referred By Matteo t Referred To Contact Orthopaedic Surgery Diagnoses Primary osteoarthritis of right hip Thaddeus Salazar MD [address] [place] [address] Phone: tel: fax: [facility] Orthopedics [address] [place] [address] Dr [address] [place] [address] Phone: tel: Referral ID Status Reason Start Date Expiration Date V isits Requested Visits Authorized [id number] Closed Specialty Services Required 03/18/2025 03/18/2026 1 1 Encounter Details Date Type Department Care Team (Late st Contact Info) Description 03/18/[address] [facility] CHC MED & PEDS [address] [place] [address] Thaddeus Salazar MD [address] [place], [place] [phone] Primary osteoarthritis of right hip (Primary Dx) [...] Description 12/04/2025 12:45 PM EST Office Visit [facility] ADULT DENTAL [address] [place] [address] James Salazar Scheduled Referrals Name Type Priority Associated Diagnoses Orde r Schedule Referral to Orthopaedic Surgery Outpatient Referral Routine Primary osteoarthritis of right hip Expected: 03/18/2025 (Approximate), Expires: 03/18/2026 documented as of this encounter Visit Diagnoses Diagnosis Primary osteoarthritis of right hip- Primary documented in this encounter Additional Health Concerns Assessment Noted Time PHQ-9 Depression Total Score: 0 12/10/19 1:58 PM EST documented as of this encounter Care Teams Make Ready Mechanic Relationship Specialty Start Date End Date Thaddeus Salazar MD [address] [place] [address] PCP - General Internal Medicine 08/21/13 [employer] 08/27/24 documented as of this encounter
--- OUTSIDE RECORDS SUMMARY | 2025-09-01 14:36 | XMS_ITS | Encounter Summary ---
Author Organization [employer] Address [address] [facility] 7t [place] [address] Care Team Providers Care Rn Telemetry Name Role Phone Thaddeus Salazar MD Primary Care Provider [phone] Encounter Details Date Type Department Care Team ([facility] st Contact Info) Description 07/31/2023 Telephone [facility] MEDICINE [address] [place] [address] Thaddeus Salazar MD [address] [place] [address] Social History Tobacco Use Types Packs/Day Years [...] Description 12/04/2025 12:45 PM EST Office Visit [facility] ADULT DENTAL [address] [place] [address] James Salazar documented as of this encounter Visit Diagnoses Not on filedocumented in this encounter Additional Health Concerns Assessment Noted Time PHQ-9 Depression Total Score: 0 01/31/20 23 2:06 PM EDT documented as of this encounter Care Teams Rn Telemetry Relationship Specialty Start Date End Date Thaddeus Salazar MD [address] [place] [address] PCP - General Internal Medicine 08/21/13 Brent MORIN 08/21/24 09/17/24 [employer] 08/27/24 documented as of this encounter
--- OUTSIDE RECORDS SUMMARY | 2025-09-01 14:36 | XMS_ITS | Encounter Summary ---
Author Organization [employer] Address [address] [place] [address] 7 [place] [address] Care Team Providers Care Electroplater Name Role Phone Thaddeus Salazar MD Primary Care Provider [phone] Encounter Details Date Type Department Care Team ([facility] Contact Info) Description 07/03/2023 Orders Only [facility] MED & PEDS [address] [place], [place] [phone] Thaddeus Salazar MD 505 [place] [address] Screening for colon cancer Social History Tobacco [...] Upcoming Encounters Date Type Department Care Team ([facility] Contact Info) Description 12/04/2025 12:45 PM EST Office Visit [facility] ADULT DENTAL [address] [place], [place] [phone] James Salazar documented as of this encounter Visit Diagnoses Diagnosis Screening for colon cancer Special screening for malignant neoplasms, colon documented in this encounter Additional Health Concerns Assessment Noted Time PHQ-9 Depression Total Score: 0 01/31/20 23 2:06 PM EDT documented as of this encounter Care Teams Electroplater Relationship Specialty Start Date End Date Thaddeus Salazar MD [address] [place] [address] PCP - General Internal Medicine 08/21/13 Brent MORIN 08/21/24 09/17/24 [employer] 08/27/24 documented as of this encounter
--- OUTSIDE RECORDS SUMMARY | 2025-09-01 14:36 | XMS_ITS | Encounter Summary ---
Author Organization [employer] Address [address] [place] [address] [address] [address] Care Team Providers Care Dielectric Press Operator Name Role Phone Thaddeus Salazar MD Primary Care Provider [phone] Reason for Visit * Reason Onset Date Comments Med Refill 11/03/2022 Encounter Details Date Type Department Care Team ([facility] Contact Info) Description 11/03/2022 Telephone [facility] MED & PEDS [address] [place] [address] Thaddeus Salazar MD [address] [place] [address] Med Refill Social History Tobacco Use Types [...] Department Care Team (Late Contact Info) Description 12/04/2025 12:45 PM EST Office Visit [facility] ADULT DENTAL [address] [place] [address] [employer], James documented as of this encounter Visit Diagnoses Not on filedocumented in this encounter Care Teams Dielectric Press Operator Relationship Specialty Start Date End Date Thaddeus Salazar MD [address] [place] [address] PCP - General Internal Medicine 08/21/13 Brent MORIN 08/21/24 09/17/24 [employer] 08/27/24 documented as of this encounter
--- OUTSIDE RECORDS SUMMARY | 2025-09-01 14:36 | XMS_ITS | Encounter Summary ---
Author Organization [employer] Address [address] [facility] 7 [place] [address] Care Team Providers Care Field Laboratory Operator Name Role Phone Thaddeus Salazar MD Primary Care Provider [phone] Reason for Visit * Reason Onset Date Comments Triage 11/16/2022 Encounter Details Date Type Department Care Team ([facility] Contact Info) Description 11/16/2022 Telephone [facility] MED & PEDS [address] [place], [place] [phone] Thaddeus Salazar MD 505 [place] [address] Triage Social History Tobacco Use Types Packs/Day [...] and daily activities. given appt tomorrow with [facility] at 11:00 for exam. advised home care: [...] 12/04/2025 12:45 PM EST Office Visit [facility] ADULT D[facility]AL [address] [place] [address] James Salazar documented as of this encounter Visit Diagnoses Not on filedocumented in this encounter Care Teams Field Laboratory Operator Relationship Specialty Start Date End Date Thaddeus Salazar MD [address] [place] [address] PCP - General Internal Medicine 08/21/13 Brent MORIN 08/21/24 09/17/24 [employer] 08/27/24 documented as of this encounter
--- OUTSIDE RECORDS SUMMARY | 2025-09-01 14:36 | XMS_ITS | Encounter Summary ---
Author Organization [employer] Address [address] [facility] 7t [place] [address] Care Team Providers Care Patternmaker Bench Name Role Phone Thaddeus Salazar MD Primary Care Provider [phone] Reason for Visit * Reason Onset Date Comments FYI 09/01/2024 Encounter Details Date Type Department Care Team ([facility] Contact Info) Description 09/01/2024 Telephone [facility] [address] [place] [address] Thaddeus Salazar MD 505 [place] [address] FYI Social History Tobacco Use Types Packs/Day [...] - 09/01/2024 2:54 PM EST Tc from [facility] with [employer] stating that pt does not need Physical Therapy anymore due to pt being at their Baseline. Contact pt at [phone] documented in this encounter Plan of Treatment Upcoming Encounters Date Type Department Care Team (Late st Contact Info) Description 12/04/2025 12:45 PM EST Office Visit [facility] ADULT DENTAL 505 [place] [address] James Salazar documented as of this encounter Visit Diagnoses Not on filedocumented in this encounter Additional Health Concerns Assessment Noted Time PHQ-9 Depression Total Score: 0 01/31/20 23 2:06 PM EDT documented as of this encounter Care Teams Patternmaker Bench Relationship Specialty Start Date End Date Thaddeus Salazar MD [address] [place] [address] PCP - General Internal Medicine 08/21/13 Brent MORIN 08/21/24 09/17/24 [employer] 08/27/24 documented as of this encounter
--- OUTSIDE RECORDS SUMMARY | 2025-09-01 14:36 | XMS_ITS | Encounter Summary ---
Author Organization [employer] Address [address] [facility] 7t h Floor [address] Care Team Providers Care Behavioral Health Director Name Role Phone Thaddeus Salazar MD Primary Care Provider [phone] Reason for Visit * Reason Onset Date Comments FYI 10/13/2024 Encounter Details Date Type Department Care Team ([facility] Contact Info) Description 10/13/2024 Telephone [facility] MEDICINE [address] [place] [address] Thaddeus Salazar MD [address] [place], [place] [phone] FYI Social History Tobacco Use Types Packs/Day [...] - 10/13/2024 3:17 PM EST Tc from [place] with [employer] stating that pt has reach all goals. documented in this encounter Plan of Treatment Upcoming Encounters Date Type Department Care Team (Late st Contact Info) Description 12/04/2025 12:45 PM EST Office Visit [facility] ADULT DENTAL [address] [place] [address] James Salazar documented as of this encounter Visit Diagnoses Not on filedocumented in this encounter Additional Health Concerns Assessment Noted Time PHQ-9 Depression Total Score: 0 01/31/20 23 2:06 PM EDT documented as of this encounter Care Teams Behavioral Health Director Relationship Specialty Start Date End Date Thaddeus Salazar MD [address] [place] [address] PCP - General Internal Medicine 08/21/13 [employer] 08/27/24 documented as of this encounter
--- OUTSIDE RECORDS SUMMARY | 2025-09-01 14:36 | XMS_ITS | Encounter Summary ---
Author Organization [employer] Address [address] [facility] [address] 7[address] [place] [address] Care Team Providers Care Maintenance Team Leader Name Role Phone Thaddeus Salazar MD Primary Care Provider [phone] Reason for Visit * Reason Onset Date Comments rs pre med needed 10/30/2024 Encounter Details Date Type Department Care Team ([facility] st Contact Info) Description 10/30/2024 Telephone [facility]ULT [facility]AL [address] [place] [address] Cindy Garcia rs pre med needed Social [...] the past 12 months, has t he [facility], [facility], oil or water [employer] threatened to shut off services in your [...] 12/04/2025 12:45 PM EST Office Visit [facility] ADULT DENTAL 505 [place] [address] James Salazar documented as of this encounter Visit Diagnoses Not on filedocumented in this encounter Additional Health Concerns Assessment Noted Time PHQ-9 Depression Total Score: 0 01/31/20 23 2:06 PM EDT documented as of this encounter Care Teams Maintenance Team Leader Relationship Specialty Start Date End Date Thaddeus Salazar MD [address] [place] [address] PCP - General Internal Medicine 08/21/13 [employer] 08/27/24 documented as of this encounter
--- OUTSIDE RECORDS SUMMARY | 2025-09-01 14:36 | XMS_ITS | Encounter Summary ---
Author Organization [employer] Address [address] [facility] 7 [place] [address] Care Team Providers Care Grain Operator Name Role Phone Thaddeus Salazar MD Primary Care Provider [phone] Encounter Details Date Type Department Care Team (Latest Contact Info) Description 08/05/[address] [facility] CONVERSIONS Dental, Provider, DDS Social [...] Description 12/04/2025 12:45 PM EST Office Visit [facility] CHC ADULT DENTAL [address] [place] [address] James Salazar documented as of this encounter Visit Diagnoses Not on filedocumented in this encounter Care Teams Grain Operator Relationship Specialty Start Date End Date Thaddeus Salazar MD [address] [place] [address] PCP - General Internal Medicine 08/21/13 Brent MORIN 08/21/24 09/17/24 [employer] 08/27/24 documented as of this encounter
--- OUTSIDE RECORDS SUMMARY | 2025-09-01 14:36 | XMS_ITS | Encounter Summary ---
Author Organization [employer] Address [address] [facility] 7t [place] [address] Care Team Providers Care Mens Locker Room Attendant Name Role Phone Thaddeus Salazar MD Primary Care Provider [phone] Reason for Visit * Reason Comments Med Refill Encounter Details Date Type Department Care Team ([facility] Contact Info) Description 08/29/2025 Refill [facility] MED & PEDS [address] [place], [place] [phone] Thaddeus Salazar MD [address] [place] [address] Social History Tobacco Use Types Packs/Day Years [...] encounter Miscellaneous Notes * Telephone Encounter - Marita Porter LPN - 08/31/2025 10:41 AM EST Last seen 08.10.25 documented in this encounter Plan of Treatment Upcoming Encounters Date Type Department Care Team (Late st Contact Info) Description 12/04/2025 12:45 PM EST Office Visit [facility] ADULT DENTAL [address] [place] [address] James Salazar documented as of this encounter Visit Diagnoses Not on filedocumented in this encounter Additional Health Concerns Assessment Noted Time PHQ-9 Depression Total Score: 0 12/10/19 1:58 PM EST documented as of this encounter Care Teams Mens Locker Room Attendant Relationship Specialty Start Date End Date Thaddeus Salazar MD [address] [place] [address] PCP - General Internal Medicine 08/21/13 [employer] 08/27/24 documented as of this encounter
--- OUTSIDE RECORDS SUMMARY | 2025-09-01 14:37 | XMS_ITS | Encounter Summary ---
Author Organization [employer] Address [address] [facility] 7t [place] [address] Care Team Providers Care Inspector And Unloader Name Role Phone Thaddeus Salazar MD Primary Care Provider [phone] Encounter Details Date Type Department Care Team ([facility] Contact Info) Description 11/04/2024 Orders Only [facility] CHC MED & PEDS [address] [place], [place] [phone] Thaddeus Salazar MD 505 [place] [address] Need for antibiotic prophylaxis for dental procedure [...] Description 12/04/2025 12:45 PM EST Office Visit [facility] ADULT DENTAL [facility] [place] [address] James Salazar documented as of this encounter Procedures Procedure Name Priority Date/Time Associated Diagnosis Comments XR CHEST 2 VIEWS Routine 12/01/2024 9:33 AM EST documented in this encounter Results * XR Chest 2 Views (12/01/2024 9:33 AM EST) Anatomical Region Laterality Modality Chest Radiographic Latrice ging 12/01/2024 9:33 AM EST Narrative 12/02/2024 11:03 AM EST [facility] Primary Care [address] [place] [address] [place] [address] XRay Report Signed Patient: Charleen Urena MR#: [id number] : 1940 Acct:[id number] Age/Sex: 84 / F ADM Date: 12/01/24 Loc: HO.HMGCX Attending Dr: Hans Fontenot MD Ordering Physician: Hans Fontenot MD Date of Service: 12/01/24 Procedure(s): XR chest 2V Accession Number(s): [id number] cc: Thaddeus Salazar MD; Hans Fontenot MD [...] Escobedo MD in OV> 12/02/24 1100 DD/ 09 TD/TT: 12/01/24 0936 Team Facilitator: Procedure Note Donotuseinterpreter, Image - 12/02/2024 [facility] [place] [address] XRay Report Signed Patient: Charleen Urena [facility]#: [id number] : 1940cct:[id number] Age/Sex: 84 / FADM Date: 12/01/24 Loc: HO.HMGCX Attending Dr: Hans Fontenot MD Ordering Physician: Hans Fontenot MD Date of Service: 12/01/24 Procedure(s): XR chest 2V Accession Number(s): [id number] cc: Thaddeus Salazar MD; Hans Fontenot MD [...] Escobedo MD in OV> 12/02/24 1100 DD/ 09 TD/TT: 12/01/24 0936 Team Facilitator: [facility] External Provider IMG XR PROCEDURES Final Result documented in this encounter Visit Diagnoses Diagnosis Need for antibiotic prophylaxis for dental procedure- Primary documented in this encounter Additional Health Concerns Assessment Noted Time PHQ-9 Depression Total Score: 0 01/31/20 23 2:06 PM EDT documented as of this encounter Care Teams Inspector And Unloader Relationship Specialty Start Date End Date Thaddeus Salazar MD [address] [place] [address] PCP - General Internal Medicine 08/21/13 [employer] 08/27/24 documented as of this encounter
--- OUTSIDE RECORDS SUMMARY | 2025-09-01 14:37 | XMS_ITS | Encounter Summary ---
Author Organization [employer] Address [address] [facility] 7t [place] [address] Care Team Providers Care B2B Sales Representative Name Role Phone Thaddeus Salazar MD Primary Care Provider [phone] Encounter Details Date Type Department Care Team ([facility] Contact Info) Description 02/04/[address] [facility] CHC MED & PEDS [address] [place], [place] [phone] Thaddeus Salazar MD [address] [place] [address] Social History Tobacco Use Types Packs/Day Years [...] Description 12/04/2025 12:45 PM EST Office Visit [facility] CHC ADULT DENTAL [address] [place] [address] James Salazar documented as of this encounter Visit Diagnoses Not on filedocumented in this encounter Additional Health Concerns Assessment Noted Time PHQ-9 Depression Total Score: 0 01/31/20 23 2:06 PM EDT documented as of this encounter Care Teams B2B Sales Representative Relationship Specialty Start Date End Date Thaddeus Salazar MD [address] [place] [address] PCP - General Internal Medicine 08/21/13 Brent MORIN 08/21/24 09/17/24 [employer] 08/27/24 documented as of this encounter
--- OUTSIDE RECORDS SUMMARY | 2025-09-01 14:37 | XMS_ITS | Clinical Summary ---
Author Organization [employer] Address [address] [place] [address] Care Team Providers Care Stock Replenisher Name Role Phone Thaddeus Salazar MD Primary Care Provider [phone] Allergies Active Allergy Reactions Criticality Noted Date [...] patch 3 11/16/19 23 Active glucose blood (ZarthCodeTouch Verio) test stripIndication s:Type 2 diabetes mellitus without complication, without long-term current use of insulin ([facility]) To use daily 2 times a day 100 each 11 08/21/20 23 Active Blood Glucose Monitoring Suppl (ONE TOUCH ULTRA 2) w/Device kitIndications: Type 2 diabetes mellitus without complication, without long-term current use of insulin ([facility]) To check the FS 2 times a day 1 kit 08/21/20 23 Active Lancets (OZZ Electric Delica Plus [id number]) miscIndications :Type 2 diabetes mellitus without complication, without long-term current use of insulin ([facility]) USE ONCE DAILY 100 each 12/26/19 24 Active glucose blood test strip FreeStyle Lite Strips TEST BLOOD SUGAR EVERY DAY 100 each 12/26/19 24 Active Diclofenac Sodium 1 % gelIndications: Right hand pain To apply to the affected area 4 times a day 100 g 01/23/20 24 Active amoxicillin (Amoxil) 500 MG tabletIndicatio [...] DAILY 90 tablet 3 05/27/20 25 Active traZODone (Desyrel) 50 MG tabletIndicatio ns:Other insomnia TAKE 1 TABLET BY MOUTH EVERY DAY AT BEDTIME 30 tablet 2 08/06/20 25 Active lidocaine (Lidoderm) 5 % patchIndication s:Chronic midline low back pain without sciatica APPLY 1 PATCH TOPICALLY ONCE A DAY,REMOVE AND DISCARD WITHIN 12 HOURS OR DIRECTED BY 30 patch 08/25/20 25 Active amLODIPine (Norvasc) 5 MG tablet TAKE 1 TABLET BY MOUTH EVERY DAY 90 tablet 3 08/31/20 25 Active amLODIPine (Norvasc) 5 MG tablet TAKE 1 TABLET BY MOUTH EVERY DAY 90 tablet 3 09/10/20 24 025 Discontinued traZODone (Desyrel) 50 MG tabletIndicatio ns:Other insomnia TAKE 1 TABLET BY MOUTH EVERY DAY AT BEDTIME 30 tablet 2 05/08/20 25 025 Discontinued lidocaine (Lidoderm) 5 % patchIndication s:Chronic midline low back pain without sciatica APPLY 1 PATCH TOPICALLY ONCE A DAY, REMOVE AND DISCARD WITHIN 12 HOURS OR DIRECTED BY MD Vega patch 07/27/20 25 025 Discontinued Active Problems Problem Noted Date Diagnosed Date Chronic midline low back pain without sciatica 1 10/10/2024 Allergies 12/05/2024 Asthma with acute exacerbation 12/05/2024 [...] for OP services ( Ind. Therapy) through [facility]. Provided education around integrated medicine and [...] in services. PLAN: 1. Follow up with [facility]: Not recommended for follow-up 2. Patient goal is She wants to be mentally stable to be able to care of her ill 3. Behavioral Recommendations a. Individual Therapy tong Villaseñor was encouraged to reach this rfp writer for support as needed. Generalized pain 11/28/2022 Hyperlipidemia 01/07/2013 Hypertension 01/07/2013 Pruritus 01/07/2013 Chronic obstructive lung disease 04/01/2012 Diabetes mellitus type 2, uncomplicated 04/01/20 12 Assessment & Plan (02/04/2025 9:30 AM EDT): Will order new labs, she is asymptomatic, refers home reading below 140, will contact with results Encounters Date Type Department Care Team Description 08/29/2025 Refill [facility] [address] [place] [address] Thaddeus Salazar MD 08/24/2025 Refill [facility] [address] [place] [address] Thaddeus Salazar MD Chronic midline low back pain without sciatica 08/10/2025 3:30 PM EST Office Visit [facility] [address] [place] [address] Thaddeus Salazar MD Type 2 diabetes mellitus without complication, without long-term current use of insulin (HCC) (Primary Dx); Encounter for immunization; Primary hypertension; Chronic midline low back pain without sciatica 08/10/2025 Travel 08/06/2025 Refill [facility] [address] [place] [address] Thaddeus Salazar MD Other insomnia 07/25/2025 Refill [facility] [address] [place] [address] Thaddeus Salazar MD Chronic midline low back pain without sciatica 07/24/2025 Telephone [facility] [address] [facility] [place] [address] Thaddeus Salazar MD Chart Prep 06/25/2025 Refill [facility] [address] [facility] [place] [address] Thaddeus Salazar MD Chronic midline low back pain without sciatica 06/05/2025 9:30 AM EDT Office Visit [facility] ADULT DENTAL [address] [place] [address] Ney Valencia DDS 06/01/2025 2:00 PM EDT Office Visit [facility] ADULT DENT[facility] [address] [place] [address] James Salazar Dental calculus (Primary Dx) from Last 3 Months Immunizations Immunization Administration Dates Next Due Influenza High-dose Quadriva lent Preservative Free 05/15/2023,06/14/2022,05/26/2021 Influenza injectable quadriv alent IIV4 with preservative 09/06/2017,06/29/2016,07/08/2015 Influenza, High Dose Seasona l, Preservative Free 05/15/2024 Influenza, IIV3, injectable 06/15/2025, 4,08/25/2005 Influenza, Split (incl. porsche fied surface antigen) 07/02/2012 Influenza, seasonal, injecta ble, preservative free 06/02/2020 Influenza, trivalent, adjuvanted 06/15/2025,06/09 Pfizer Covid-19 Vaccine 12+ 08/10/2025, Pneumococcal Conjugate PCV 13 04/17/2017 Pneumococcal Conjugate [...] Sign Reading Time Taken Comments Blood Pressure 135/71 08/10/2025 3:08 PM EST Pulse 68 08/10/2025 3:08 PM EST Temperature 36.7 C (98.1 F) 03/13/2025 3:00 PM EDT Respiratory Rate 20 08/10/2025 2:52 PM EST Oxygen Saturation 96% 08/10/2025 2:52 PM EST Inhaled Oxygen Concentration - - Weight 76.7 kg (169 lb) 08/10/2025 2:52 PM EST Height 154.9 cm (5' 1 ) 08/10/2025 2:52 PM EST Body Mass Index 31.93 08/10/2025 2:52 PM EST Plan of Treatment Upcoming Encounters Date Type Department Care Team (Late st Contact Info) Description 12/04/2025 12:45 PM EST Office Visit [facility] [address] [place] [address] James Salazar Health Maintenance Due Date Last Done Comments Zoster Vaccines (3 of 3) 07/21/2021 05/26/2021, 12/2012 Eye Exam 07/16/2025 04/30/2023 Dental X-Ray: Bitewings 11/18/2025 11/17/2024, 10/25 Dental Oral Exam 12/03/2025 06/01/2025, 07/2025, 10/25/2022 Dental Prophylaxis 12/03/2025 06/01/2025, 0 11/17/2024, 04/17/2023, Additional history exists Alcohol/Substance Use Screening 12/09/2025 12/09/2024 Depression Screening 12/09/2025 12/09/2024, 12/10/19 SDOH Screening 12/09/2025 12/09/2024 COVID-19 Vaccine ( season) 2026 08/10/2025, 06/27/2024, 06/28/2023, Additional history exists Diabetes: Hemoglobin A1C 02/07/2026 025, 02/16/2025, 11/08/2023, Additional history exists Diabetes: Urine Protein Screening 02/16/2026 02/16/2025, 04/01/2021, 01/13/2020 Lipid Panel 02/16/2026 02/16/2025, 01/06, 04/01/2021, Additional history exists Diabetes: Foot Exam 08/10/2026 08/10/2025 Tobacco Screening 08/10/2026 08/10/2025 DTaP/Tdap/Td Vaccines (2 - Td or Tdap) [...] on patient's age to complete this topic Goals Goal Patient Goal Type Associated Problems Recent Progress Patient-Stated? Author Help patients manage their type 2 diabetes Care Plan Help patients manage their type 2 diabetes No Marita Porter LPN Weekly blood pressure task Care Plan Weekly blood pressure task No Marita Porter LPN Help patients manage their type 2 diabetes Care Plan Help patients manage their type 2 diabetes No Marita Porter LPN Patient has chronic kidney disease Care Plan Patient has chronic kidney disease No Marita Porter LPN Weekly blood pressure task Care Plan Weekly blood pressure task No Marita Porter LPN Patient has chronic kidney disease Care Plan Patient has chronic kidney disease No Marita Porter LPN Procedures Procedure Name Priority Date/Time Associated Diagnosis Comments POCT GLYCATED HEMOGLOBIN, TOTAL Routine 08/10/2025 3:31 PM EST Type 2 diabetes mellitus without complication, without long-term current use of insulin (HCC) POCT GLUCOSE Routine 08/10/2025 3:31 PM EST Type 2 diabetes mellitus without complication, without long-term current use of insulin (HCC) 19 B(V) RESIN-BASED COMPOSITE - 1 SURF, [...] TREATMENT PLANNING Routine 06/01/2025 2:00 PM EDT LIPID PANEL, STANDARD Routine 02/16/2025 9:07 AM EDT Type 2 diabetes mellitus without complication, without long-term current use of insulin ([facility]/HCC) ALBUMIN, RANDOM URINE W/CREATININE Routine 02/16/2025 12:00 AM EDT Type 2 diabetes mellitus without complication, without long-term current use of insulin ([facility]/HCC) INTRAORAL - COMPLETE SERIES OF RADIOGRAPHIC IMAGES Routine 11/17/2024 1:00 PM EST DIABETES EYE EXAM Routine 04/30/2023 from Last 3 Months or Most Recently Relevant to Health Maintenance Results * (ABNORMAL) POCT Hgb A1c (08/10/2025 3:31 PM EST) Hemoglobin A1C 6.7(A) 4.0 - 5.7 % QC Media Lot # [id number] Lot# Expiration Date Blood 08/10/2025 3:31 PM EST Thaddeus Salazar MD POINT OF CARE TEST ENTER/ED IT ORDERABLES Final Result * POCT Glucose (08/10/2025 3:31 PM EST) Glucose Blood, POC 159 60 - 200 mg/dL QC Media Lot # [id number] Lot# Expiration Date Comment:random Blood Capillary blood specimen / Unknown 08/10/2025 3:31 PM EST Thaddeus Salazar MD POINT OF CARE TEST ENTER/ED IT ORDERABLES Final Result * (ABNORMAL) Lipid Panel, Standard (02/16/2025 9:07 AM EDT) Triglycerides 209(H) <150 mg/dL [facility] Comment:Desirable Triglyceri de: less than 150 mg/dLBorderline High Triglyceride 150-199 mg/dLHigh Triglyceride: 200-499 mg/dLVery High Triglyceride: greater than or equal to 5OO mg/dL Cholesterol 208(H) <200 mg/dL LABS Comment:Desirable Cholestero l: less than 200 mg/dLBorderline High Cholesterol: 200-239 mg/dLHigh Cholesterol: greater than 239 mg/dL LDL Cholesterol Calculated 103(H) <100 mg/dL LABS Comment:Desirable LDL: less than 100 mg/dLNear Optimal/Above Optimal LDL: 110- 129 mg/dLBorderline High LDL: 130-159 mg/dLHigh LDL: 160-189 mg/dLVery High LDL: greater than or equal to 190 mg/dL HDL Cholesterol 64 >40 mg/dL [facility] Comment:Desirable HDL: great er than 40 mg/dL Note: This HDL assay may give artificially low results in patients with liver disease. Blood Venous blood specimen / Unknown 02/16/2025 9:07 AM EDT 02/16/2025 10:03 AM EDT Nile Lopez MD LAB BLOOD ORDERABL ES Final Result LABS [address] [place] [phone] * Albumin, Random Urine W/Creatinine (02/16/2025 12:00 AM EDT) Creatinine, Urine 166.42 mg/dL [facility] Microalbumin Urine 33.0 mg/L [facility] Microalbum Creatinine Ratio Ur 19.8 <30 ug/mg cr LABS Comment:Albumin/Creatinine R atio Reference Ranges: Normal: < 30 ug/mg creatinine Microalbuminuria: 30 - 300 ug/mg creatinineClinical Albuminuria: > 300 ug/mg creatinine Urine (Urine, Random) 02/16/2025 02/16/2025 us Nile Lopez MD LAB URINE ORDERABL ES Final Result LABS [address] [place] [phone] * Diabetes Eye Exam (04/30/2023) [facility] Signature Eye Exam Normal Normal Narrative Thaddeus Salazar MD - 04/30/2023 Eye exam done at [facility] by Dr Al Gregory. No diabetic retinopathy or macular edema. us Thaddeus Salazar MD HEALTH MAINTENANCE Final Re sult from Last 3 Months or Most Recently Relevant to Health Maintenance Additional Health Concerns Active Problems Noted Date Diagnosed Date Help patients manage their type 2 diabetes 08/31 Weekly blood pressure task 08/31/2025 Help patients manage their type 2 diabetes 08/31 Patient has chronic kidney disease 08/31/2025 Weekly blood pressure task 08/31/2025 Patient has chronic kidney disease 08/31/[address] [place] [address] STANDARD [facility] [place] [facility] Care Teams Stock Replenisher Relationship Specialty Start Date End Date Thaddeus Salazar MD [address] [place], [place] [address] [address] PCP - General Internal Medicine 08/21/13 [employer] 08/27/24
== END 2025-09-01 11:45 | disposition home or self-care (01) ==
LOC: HO.HPS 11:04
PROVIDERS: PCP Internal Medicine; Visit Provider Hospitalist
DX: J45.40 Moderate persistent asthma, uncomplicated (principal); I50.9 Heart failure, unspecified; G47.33 Obstructive sleep apnea (adult) (pediatric); T78.40XA Allergy, unspecified, initial encounter
CPT/HCPCS: 99214

== ENCOUNTER → 2025-09-01 11:04 | Outpatient (BNVA) | payer OTHER, SELFPAY | PROVIDERS: PCP Internal Medicine; Visit Provider Hospitalist | DX: J43.9 Emphysema, unspecified (principal); J45.40 Moderate persistent asthma, uncomplicated; T78.40XA Allergy, unspecified, initial encounter; I11.0 Hypertensive heart disease with heart failure; I50.9 Heart failure, unspecified; G47.33 Obstructive sleep apnea (adult) (pediatric) | CPT/HCPCS: 99212 ==